=== PATIENT | female | born 1960 | race Caucasian/White ===

== ENCOUNTER 2021-07-22 09:45 | Outpatient (RCR) | payer MEDICARE, MEDICAID, SELFPAY ==
--- NOTE | 2021-06-23 14:26 | P.HPPSP_ITS ---
HPI Chief Complaint: MDD, Borderline Personality D/o Sources of Information: patient interviewed and chart reviewed HPI Subjective Notes: Gregory Warning and Conditional Voluntary Guardianship: No Medical Problems Affecting Mental Status: No Narrative: Doretha is a 60 y.o. female who carries a dx of PDD and AXEL without panic attacks. Per chart, her visiting nurse sent her to the ER at [facility] last week due to increased suicidal ideation. Client was assessed by [facility] and they recommended either PHP or respite. Precipitating factors include going on family camping trip, felt triggered by family fighting the whole time. I evaluated the pt this morning and upon interview she reports ?I feel a lot more angry,? but not sure if this is situational. Says she has had multiple medication trials for depression but non have helped, also has hx of TMS and ECT. Endorses SI and says suicidal thoughts are ?always there,? has a plan to overdose on meds. She has a VNA ([facility]) and locked box. Discloses that she has had multiple suicidal gestures, as she has a stock pile of meds she has collected over time from if she has a day she misses a pill. Will occasionally take pills from the stockpile but says she has not taken the whole thing because she has a fear of ?If i fail, i?ll be disabled.? Still engages in cutting, last incident a couple weeks ago, does not require medical attention. Also says ?I do hit myself in the head,? last incident was yesterday. She also engages in skin excoriation i.e. picking scabs. She has other forms of self harm, i.e. not eating correct foods for her non-insulin dependent DM, says her A1c has been going back up, last was 6.2. She reports she is not aggressive or violent, rather she will ?fume quietly.? 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 Also reports she is unable to tolerate criticism or people ?making me feel like i?m stupid.? Says she consistently in an anxious/ agitated state, ?I could jump out of my skin.? Denies hx of manic or hypomanic episodes, daytime energy ?sucks.? Endorses sx of avolition, anhedonia, she hasnt had energy to go to the car and clean it out from last time she went camping. Also does not get groceries and sometimes goes without eating. Recently her DMH worker signed her up for a meal delivery through the [employer]. Denies hx of perceptual disturbances. Denies sx of OCD. She reports long hx of difficulty maintaining relationships, with family she ?always felt like i did everything wrong? and that people were ?talking about how i did everything wrong.? Denies having panic attacks, however says she will find herself ?rocking a lot? in her chair. Alleviating factors include reading, she is also proactive in seeking help, recently participated in DBT study at [facility]. Sleep is good. Appetite is increased. Current med regimen: Gabapentin 600 mg TID (for sciatica), Zoloft 50 mg (tapering off it),? fetzima 60 mg (started 05/18/21, says ?I dont feel particularly different?), Trazodone 50 mg QHS. Prescriber is Dr. Lara. Past meds: bupropion XL (lack of benefit), lamictal, lithium (has trialed this twice, first time was in s, then on it at [facility] a couple yrs ago but D/C?d due to GI distress), abilify (took in , increased appetite), Risperdal (increased blood sugar), Rexulti, Cymbalta, Lexapro, geodon, Trintellix, zyprexa, zoloft, seroquel, Ketamine (per record but she does not think this was actually tried, just discussed). PPH: -Has done TMS, ECT, DBT therapy with minimal benefit.? -Has VNA, locked box through [facility] -Has DMH services, OP med management and therapy. Onset of OP therapy in childhood, reports she had behavioral/ anger issues. -Hx of multiple inpatient and PHP admissions, CSS/respite for depression and SI. -Long hx if SIB, i.e. cutting since her early teens, head banging. Hx of SA by OD. Substance use: -Cannabis: daily use, says it helps ?somewhat? for anxiety and sleep. 1-2 bowls per day. PMH: -non-insulin dependent DM, on metformin. Last A1c was 6.2.? -Has [employer], CPAP machine.? SH: -Unemployed, her benefits recently ran out. 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 Stopped working during the pandemic. -Lives alone in an apt -Raised by both parents, oldest of three. Both parents are now . Close with sister. Never and has no children. Trauma: -reports multiple losses in her life, her mom 09/2018, dad 11/[facility] (both had Alzheimer?s). She had two cats for 20 years but they , tearful discussing this, has not wanted another pet because of experiencing ?too much grief.? -severe bullying in school. Medical Evaluation Reviewed: No [facility] Medical History (Updated 06/24/21 @ 10:19 by Hailey Jones NP) Arthritis Atrial fibrillation Congestive heart failure Fibromyalgia Hyperlipidemia Hypertension Myocardial infarction Type II diabetes mellitus Vertigo Meds/Allergies Allergies Allergies Allergy/AdvReac Type Severity Reaction Status Date / Time lithium [LITHIUM] AdvReac Severe Gastroenter Unverified 06/19/20 16:23 itis SEASONAL ALLERGIES Allergy Unknown unk Uncoded 06/19/20 16:23 Mental Status Exam Mental Status Exam Narrative: Remote session: A&O. Well groomed, short hair, overweight. Good eye contact, attentive. No Tics or Tremors. No abnormal involuntary movements. Calm, cooperative, engaged. Non-pressured speech, spontaneous with regular rate and rhythm, normal volume and prosody. No prolonged speech latency or dysarthria. Mood is ?irritable,? affect is tearful at times, constricted. Endorses SI with plan to OD on meds but denies intent upon inquiry today/ recent SIB in form of superficial cutting and head banging/ denies HI upon inquiry. Denies A/VH or delusional thought content. Thoughts are coherent, organized. No known cognitive or memory impairment. Insight/ Judgment fair and adequate. Assessment & Plan Assessment & Plan (1) Dysthymic disorder: Status: Acute Code(s): F34.1 - Dysthymic disorder (2) Suicidal ideation: Status: Acute Code(s): R45.851 - Suicidal ideations (3) AXEL (generalized anxiety disorder): Status: Acute Code(s): F41.1 - Generalized anxiety disorder (4) Fibromyalgia: Status: Acute Code(s): M79.7 - Fibromyalgia Assessment and Plan: Doretha is a 60 y.o. female who carries a dx of PDD and AXEL without panic attacks. She presents with sx of agitation, depression, anxiety, and SI with plan to OD on meds but without intent, SIB, low distress tolerance, and isolative behaviors. Hx of multiple meds trials, ECT, TMS, therapy since childhood. No psychotic sx reported. No hx of manic or hypomanic episodes. Has trauma hx. Has some sx of BPD, PTSD. Plan: 1. continue OP med regimen. Add trileptal 300 mg BID for mood stability, agitation, and anxiety. 2. Monitor response to medications. Discharge on stabilization. Patient seen. Chart reviewed. Discussed with team. Obtain collateral contact info?as needed Certification I certify that partial hospital treatment is medically necessary due to the symptoms and problems resulting from the patient's mental illness and the failure to treat the patient at the partial hospital level of care would likely result in the patient requiring inpatient psychiatric care which could not be prevented at a less intensive level of care.
[2021-06-23 15:40] VITALS: BMI 43.9
--- NOTE | 2021-06-24 10:19 | PC.ADMIT ---
Patient reports she was talking to her VNA about her depression and SI and VNA called an ambulance to transport patient to the ER for a crisis evaluation at [facility]. Crisis referred patient to Respite or PHP. Patient is attending PHP d/t increased depression in the last few weeks. Patient reports chronic SI reporting she always has a plan for example if she decides to stop taking her medications, however patient denied intent. Patient reports she does not have access to her medication as it is locked up and she has a visiting nurse. Patient agreed to call crisis or talk to staff if she started to feel unsafe and needed a higher level of care and patient agreed. Patient reports she has the crisis number if she needed it and she could call her therapist. Patient reports a camping trip with family triggered recent episode of depression and anger as the trip didn't work out as planned. Patient reports she does feel steve as she has many supports as she now has a VNA, DMH worker, someone who delivers meals to her home, and laundry services. Patient is alert and oriented x4 . Calm, cooperative, engaging in conversation. Presents with depressed mood and affect. Patient reports she is here d/t increase in depression for the last few weeks. Asked who she could contact if she started to feel unsafe and she stated her therapist of crisis. Stated she has the crisis number in several places through out her home. Patient gave verbal permission to email her a copy of her safety plan. Medications reconciled with patient and patient's pharmacy. Patient reports she is taking medications as prescribed. Patient reports she recently had an MRI of her brain on June 03, 2021 ordered by ENT doctor d/t vertigo and is awaiting results and has an upcoming appointment on July 28, 2021for an endoscopy and colonoscopy for GI issues-diarrhea. Patient is a Type II diabetic and stated her BS by glucometer run 120's -130 s.
--- NOTE | 2021-06-25 11:45 | PC.NURSE ---
I called and spoke to pt after she was tearful in he 2nd group. She reported feeling emotionally triggered when a peer was discussing loss issues. She processed her feelings about this, and then we discussed coping skills she will use before the next group. She plans to sit outside on her deck and smell the newly cut grass, and to eat a yogurt. She said she is safe, and not planning to self harm. I let her know to call any time if needed.
--- NOTE | 2021-06-25 16:43 | PC.NURSE ---
case opened in treatment team
--- NOTE | 2021-06-30 12:18 | P.PNPSP_ITS ---
Subjective Subjective Date of Service: 06/30/21 Reason For Visit: MDD, Borderline Personality D/o Interim History: Doretha is a 60 y.o. female who carries a dx of PDD and AXEL without panic attacks. Per chart, her visiting nurse sent her to the ER at [facility] last week due to increased suicidal ideation. Client was assessed by [facility] and they recommended either PHP or respite. Precipitating factors include going on family camping trip, felt triggered by family fighting the whole time. I evaluated the pt this morning and upon interview she reports ?i dont think i feel much different? on trileptal. Has felt tired in the day but she is unsure if this is a med SE or that she is only getting 3.5 hours of sleep at night. She doesnt go to bed until 5am, will ?dose off,? but keeps herself awake and identifies as a ?night owl,? hx of working second shift. She listens to videos on [employer] (watches news, cartoons, comments and sometimes argues with people but describes this as enjoyable), plays video games, eats snacks at night. Says she tries to be up by 9am, has a routine for morning television, sometimes takes naps. Reports she is not agitated, but ?irritated? at home health aid due to her not doing her job correctly, leaving early. Hasn?t complained, doesnt want to get her in trouble, but has been problem solving this and would like to leave her helpful hints on post its around the house. Says her anxiety has been ?pretty good,? but that ?i think i?m developing agoraphobia.? Of note, she says her depression hasn?t changed, ?although i do feel brighter today.? Wants to trial an increase in trileptal. Stressors include that she needs an endoscopy a nd colonoscopy, had blood in stool. Also has to f/u with neurologist today on MRI d/t headaches and she thinks she has a sinus infection. Says her blood sugar has been in the 120s in the morning. Discloses on Tuesday she superficially cut herself, denies having a specific a trigger, ?I just get a tension through my body and i gotta do it.? Currently denies SI/SIB upon inquiry and says she feels safe. Medication Compliance: Yes Side effects from medications: No Attending Groups: Yes Review of Systems Acute medical concerns: No Medical Review of Systems: unchanged Mental Status Exam Mental Status Exam Narrative: A&O. Well groomed, short hair, overweight. Good eye contact, attentive. No Tics or Tremors. No abnormal involuntary movements. Calm, coope rative, engaged. Non-pressured speech, spontaneous with regular rate and rhythm, normal volume and prosody. No prolonged speech latency or dysarthria. Mood is ?depressed,? affect is tearful at times, constricted. Denies SI/SIB but discloses recent SIB in form of superficial cutting. Denies HI upon inquiry. Denies A/VH or delusional thought content. Thoughts are coherent, organized. No known cognitive or memory impairment. Insight/ Judgment fair and adequate. Diagnostics Vital Signs (24Hr): Body Mass Index 43.9 Assessment & Plan Assessment & Plan (1) AXEL (generalized anxiety disorder): Status: Acute Code(s): F41.1 - Generalized anxiety disorder (2) Dysthymic disorder: Status: Acute Code(s): F34.1 - Dysthymic disorder (3) Suicidal ideation: Status: Acute Code(s): R45.851 - Suicidal ideations Assessment and Plan: Doretha is a 60 y.o. female who carries a dx of PDD and AXEL without panic attacks. She presents with sx of agitation, depression, anxiety, and SI with plan to OD on meds but without intent, SIB, low distress tolerance, and isolative behaviors. Hx of multiple meds trials, ECT, TMS, therapy since childhood. No psychotic sx reported. No hx of manic or hypomanic episodes. Has trauma hx. Has some sx of BPD, PTSD. Plan: 1. continue OP med regimen. Increase trileptal to 300 mg QAM and 600 mg QHS for mood stability, agitation, and anxiety. She has not noticed a difference on the medication but has also not been leaving the house and so has low stressors. She has not engaged in head banging though and denies SE. Will cotninue to monitor her agitation and anxiety. No other changes, as she says her fetzima was a relatively recent addition and has been titrated up, wants to give it more time and f/u with OP psychiatrist before switching to a diff antidepressant. 2. Monitor response to medications. Discharge on stabilization. Patient seen. Chart reviewed. Discussed with team. Obtain collateral contact info as needed Certification I certify that partial hospital treatment is medically necessary due to the symptoms and problems resulting from the patient's mental illness and the failure to treat the patient at the partial hospital level of care would likely result in the patient requiring inpatient psychiatric care which could not be prevented at a less intensive level of care. Greater than 50% of the session was spent on counseling and/or coordination of care Discharge Plan Discharge Attending provider: Nilay Cruz Primary Care Provider: Alicia Brown Medications: Changed oxcarbazepine [Trileptal] 300 mg tablet 600 mg PO BEDTIME 7 Days Qty: 21 RF: 0 No Action atorvastatin 80 mg Tablet 80 mg PO BEDTIME RF: 0 gabapentin 600 mg Tablet 600 mg PO TID RF: 0 trazodone 50 mg Tablet 50 mg PO BEDTIME RF: 0 cetirizine 10 mg Tablet 10 mg PO DAILY RF: 0 sotalol 80 mg Tablet 40 mg PO BID RF: 0 spironolactone 25 mg Tablet 25 mg PO DAILY RF: 0 meclizine 25 mg Tablet 25 mg PO TID PRN (Reason: Dizziness) RF: 0 pantoprazole 40 mg Tablet,Delayed Release (Dr/Ec) 40 mg PO BID RF: 0 aspirin 81 mg Tablet 81 mg PO DAILY RF: 0 furosemide 20 mg Tablet 40 mg PO DAILY RF: 0 albuterol sulfate [ProAir HFA] 90 mcg/actuation Hfa Aerosol Inhaler 2 puff INHALATION Q4H PRN (Reason: Shortness Of Breath) RF: 0 fluticasone propionate 50 mcg/actuation spray,suspension 1 spray intranasal BID RF: 0 sertraline 50 mg Tablet 50 mg PO DAILY RF: 0 metformin 500 mg Tablet Extended Release 24hr 1,500 mg PO DAILY RF: 0 Eliquis 5 mg Tablet 5 mg PO BID RF: 0 Fetzima 20 mg Capsule,Extended Release 24 Hr 20 mg PO DAILY RF: 0 Fetzima 40 mg Capsule,Extended Release 24 Hr 40 mg PO DAILY RF: 0 Referrals: Alicia Brown, IVORY [Primary Care Provider] - 1 Week
--- NOTE | 2021-06-30 12:18 | HO.PS.ADMBH ---
HPI Chief Complaint: MDD, Borderline Personality D/o [facility] Medical History (Updated 06/24/21 @ 10:19 by Hailey Jones NP) Arthritis Atrial fibrillation Congestive heart failure Fibromyalgia Hyperlipidemia Hypertension Myocardial infarction Type II diabetes mellitus Vertigo Diagnostics Vital Signs (24Hr): Body Mass Index 43.9 Meds/Allergies Allergies Allergies Allergy/AdvReac Type Severity Reaction Status Date / Time lithium [LITHIUM] AdvReac Severe Gastroenter Unverified 06/19/20 16:23 itis SEASONAL ALLERGIES Allergy Unknown unk Uncoded 06/19/20 16:23 Assessment & Plan Certification I certify that partial hospital treatment is medically necessary due to the symptoms and problems resulting from the patient's mental illness and the failure to treat the patient at the partial hospital level of care would likely result in the patient requiring inpatient psychiatric care which could not be prevented at a less intensive level of care.
--- NOTE | 2021-07-03 11:27 | PC.NURSE ---
Spoke to patient via telephone. Patient struggling today with depression. Tearful. Stating she woke up this morning feeling this way. Feels like she is not really here and her stuff is not her stuff. Asked patient is she was having SI and she stated she is trying to be ok and she is not actively planning on doing anything. Stated she would be safe. Stated she texted her visiting nurse Carrie to ask when she would be coming to her home and Carrie told her 11:30. I asked her if I could speak to Carrie from [facility] and she told me yes and gave me her number [phone]. I asked patient if she had any extra medications at her house and she stated she does but she does not have enough of them to do anything. I asked her if she could tell me where they were and if I could share this information with Carrie so Carrie could help her get rid of the extra medications and she stated that it would be ok. She reports she has small pieces on a tray and some in a drawer. She stated she does not plan to take them. Patient is interested in going into [facility]pite. I spoke to Carrie and gave her the above information. Carrie will talk to patient about getting a crisis evaluation or going to Respite. Carrie will call me back to update me.
--- NOTE | 2021-07-03 12:09 | PC.NURSE ---
Spoke to Carrie and Doretha at 12:05. Doretha gave Carrie the extra medications she had in her home. Plan is for patient to be assessed by [facility] crisis via Zoom meeting at 12:15. Doretha is agreeable to the plan and will call me after the assessment to let me know uzma outcome.
--- NOTE | 2021-07-03 15:23 | PC.NURSE ---
Spoke to Doretha. Stated she feels much better after talking to [facility]. Denied SI or thoughts to harm herself. She has the crisis number if needed. Plans on attending the program on Tuesday. Stated [facility] crisis will do a wellness check with patient at 1500 and her home health aid is coming to her home at 1530.
--- NOTE | 2021-07-06 15:16 | HO.PHPPROGNO ---
Subjective Subjective Date of Service: 07/06/21 Reason For Visit: MDD, Borderline Personality D/o Guardianship: No Medical Problems Affecting Mental Status: No Interim History: Doretha reports feeling okay today. Reports she called crisis on Tuesday, due to thoughts of self-harm. Denies any thought of harm to self or others today.She does reports feeling twitchy over the past 1 1/2 months, with it more noticeable over the past several weeks. Also reports needing to hold her coffee cup with both hands. She has also noted increased sweating. She believes this is related to either the Fetzima or Trileptal. States that she did feel nausea and vomiting this morning, but states that may have been related to something she eaten. Medication Compliance: Yes Side effects from medications: Yes (Osbaldo, ) Review of Systems Acute medical concerns: No Medical Review of Systems: changed (feeling twitching over past 1 1/2 months, with worsening over past several weeks. ) Review of Systems Review of Systems Patient reports twitching and sweating , which have increased over past several weeks. Yes all other systems are reviewed and are negative Constitutional: Reports no additional constitutional complaints Eyes: Reports no additional eye complaints Reports Normal hearing present Cardiovascular: Reports no additional cardiovascular complaints Respiratory: Reports no additional respiratory complaints Gastrointestinal: Reports nausea (nausea this am, believes it could be food related. ) and Reports vomiting (reports vomited this am, believes is food related) Genitourinary: Reports no additional female genitourinary complaints Musculoskeletal: Reports tingling and Reports other Comments: describes muscle twitching . Skin/Breast: Reports system reviewed and no additional complaints, except as docu Reports Normal hearing present and Reports tingling Psychiatric: Reports no additional psychiatric complaints Endocrine: Reports no additional endocrine complaints Hematologic/Lymphatic: Reports no additional hematologic/lymphatic complaints Allergic/Immunologic: Reports no additional allergic/immunologic complaints Mental Status Exam Mental Status Exam Narrative: Well-developed, overweight female, in NAD. Appropriate grooming, appropriate attire. Sitting up, erect posture. No twitching or diaphoresis observed at this time. Patient Appearance: Well Grooomed and Appropriate Patient Orientation: Person, Place, Time and Situation Level of Consciousness: Appropriate and Alert Patient Behavior: Appropriate, Cooperative and Good Eye Contact Mood Description: Appropriate and Depressed Affect Description: Appropriate and Depressed Patient Cognition Impaired: No Ability to Follow Directions: Excellent Speech Pattern: Clear, Appropriate and Coherent Memory Description: Intact Hallucinations: None Delusions: Not Present Thought Process: Intact, Goal Oriented and Linear Thought Content: positive for Intact, positive for Goal Oriented and positive for Linear Depressive Symptoms: Muscle Tension, Loss of Int. in Activity, Feelings of Worthlessness, Hopelessness and Thoughts of /Suicide (intermittent, none today. ) Judgement: Fair Diagnostics Vital Signs (24Hr): Body Mass Index 43.9 Assessment & Plan Assessment & Plan (1) Dysthymic disorder: Status: Acute Code(s): F34.1 - Dysthymic disorder Assessment and Plan: Patient reports feeling overall depressed, but feels stable at this time. Denies any type of SI. No safety concerns at this time. She does describe symptoms of sweating, twitching. She also had been nauseous this morning, and vomited, although she relates that in [place] to something that she may have eaten. We discussed current health status, patient does have a history of cardiac issues. Patient was encouraged to seek medical care if symptoms worsen. Discussed the use of SSRIs, symptoms of serotonin syndrome, symptoms of hyponatremia. Patient also takes several anti diuretics. She believes that her symptoms are directly related to either too high of a dose of Zoloft with the Fetzima, or possibly because she had Trileptal increased recently. (2) AXEL (generalized anxiety disorder): Status: Acute Code(s): F41.1 - Generalized anxiety disorder Assessment and Plan: Patient denies any type of exacerbation of anxiety symptoms today. (3) Suicidal ideation: Status: Acute Code(s): R45.851 - Suicidal ideations Assessment and Plan: Patient reports she is not actively suicidal at this time. Describes her symptoms as coming and going, feels safe today. Assessment and Plan: 1. Decrease sertraline to 25mg daily. 2. Decrease trileptal to 300mg daily. 3. Obtain labs, slip for gen chem profile sent. 4. Encouraged patient to call pcp or seek medical care if needed. 5. Follow-up as per protocol, sooner if needed. Patient educated on: diagnosis, medication risk/benefits, therapeutic strategies and medical condition Informed Consent: understands Reason for contiued partial hosp. stay Substantial Risk for: inability to function and med/psych decompensation Certification I certify that partial hospital treatment is medically necessary due to the symptoms and problems resulting from the patient's mental illness and the failure to treat the patient at the partial hospital level of care would likely result in the patient requiring inpatient psychiatric care which could not be prevented at a less intensive level of care. Greater than 50% of the session was spent on counseling and/or coordination of care Discharge Plan Discharge Attending provider: Nilay Cruz Primary Care Provider: Alicia Brown Medications: New oxcarbazepine [Trileptal] 300 mg tablet 300 mg PO DAILY Qty: 7 RF: 0 No Action atorvastatin 80 mg Tablet 80 mg PO BEDTIME RF: 0 gabapentin 600 mg Tablet 600 mg PO TID RF: 0 trazodone 50 mg Tablet 50 mg PO BEDTIME RF: 0 cetirizine 10 mg Tablet 10 mg PO DAILY RF: 0 sotalol 80 mg Tablet 40 mg PO BID RF: 0 spironolactone 25 mg Tablet 25 mg PO DAILY RF: 0 meclizine 25 mg Tablet 25 mg PO TID PRN (Reason: Dizziness) RF: 0 pantoprazole 40 mg Tablet,Delayed Release (Dr/Ec) 40 mg PO BID RF: 0 aspirin 81 mg Tablet 81 mg PO DAILY RF: 0 furosemide 20 mg Tablet 40 mg PO DAILY RF: 0 albuterol sulfate [ProAir HFA] 90 mcg/actuation Hfa Aerosol Inhaler 2 puff INHALATION Q4H PRN (Reason: Shortness Of Breath) RF: 0 fluticasone propionate 50 mcg/actuation spray,suspension 1 spray intranasal BID RF: 0 sertraline 50 mg Tablet 50 mg PO DAILY RF: 0 metformin 500 mg Tablet Extended Release 24hr 1,500 mg PO DAILY RF: 0 Eliquis 5 mg Tablet 5 mg PO BID RF: 0 Fetzima 20 mg Capsule,Extended Release 24 Hr 20 mg PO DAILY RF: 0 Fetzima 40 mg Capsule,Extended Release 24 Hr 40 mg PO DAILY RF: 0 Referrals: Alicia Brown PA [Primary Care Provider] - 1 Week Telehealth Telehealth Location of provider rendering services: practice address Location of patient: address on file Patient Identification confirmed using: Name, : Yes Telehealth method: video Patient verbally consented to treatment: Yes Patient verbally consented to billing insurance company: Yes Patient informed of any privacy concerns related to visit: Yes Time spent with patient (mins): 15
--- NOTE | 2021-07-14 12:03 | P.PNPSP_ITS ---
Subjective Subjective Date of Service: 07/14/21 Reason For Visit: MDD, Borderline Personality D/o Interim History: I evaluated the patient this morning and upon interview she reports lack of benefit on trileptal and poor tolerability, i.e. increased nausea and vomiting, says she has ?always had bowel issues but the vomiting is unusual for me.? Will D/C the trial. Has not obtained lab work yet to assess for sodium level. Will D/C sertraline, as she denies adverse effects/ discontinuatio n syndrome from going down to 25 mg. Still complains of feeling ?really twitchy.? Doretha continues to endorse sx of depression and passive SI. Says she was having suicidal thoughts yesterday while making the bed, tearful discussing this, but says the thoughts passed and she currently denies suicidal thoughts, plans, or intent. Reports last episode of cutting was on Tuesday, superficial and did not require medical attention. Unable to identify trigger for SIB, says she just gets urges and is unable to tolerate the distress of not acting on the urge. Says she has been feeling ?frustrated? that her depression is not improving despite therapeutic interventions, ?I feel bad because im not getting better.? Attending a mindfulness meditation group remotely but says this has had minimal benefit. Discussed other groups she could do, such as art groups, as she is highly motivated to increase her activity level for sx of vegetative depression (she had signed up for photography class at [facility], [place] but it was cancelled). She continues to report reverse sleep cycle i.e. stays up until 5am and then sleeps in the morning. Discussed adjunct medications for her sx of depression, as she would like to continue fetzima trial with Dr. Lara. She thinks she has been on buspar, doesnt think it helped. Continues to endorse sx of avolition, anhedonia.? Medication Compliance: Yes Side effects from medications: Yes Attending Groups: Yes Review of Systems Acute medical concerns: No Medical Review of Systems: unchanged Review of Systems Review of Systems CVS: No c/o chest pain, palpitations, no SOB CLINICAL DOCUMENTATION SPECIALIST: No c/o dizziness, headache GI: c/o Nausea, Vomiting Mental Status Exam Mental Status Exam Narrative: Narrative:?Well-developed, overweight female, in NAD.? Appropriate grooming, appropriate attire.? Sitting up, erect posture.? No twitching or diaphoresis observed at this time. Patient Appearance:?Well Grooomed and Appropriate Patient Orientation:?Person, Place, Time and Situation Level of Consciousness:?Appropriate and Alert Patient Behavior:?Appropriate, Cooperative and Good Eye Contact Mood Description:?Appropriate and Depressed Affect Description:?Appropriate and Depressed Patient Cognition Impaired:?No Ability to Follow Directions:?Excellent Speech Pattern:?Clear, Appropriate and Coherent Memory Description:?Intact Hallucinations:?None Delusions:?Not Present Thought Process:?Intact, Goal Oriented and Linear Thought Content:?positive for Intact, positive for Goal Oriented and positive for Linear Depressive Symptoms:?Muscle Tension, Loss of Int. in Activity, Feelings of Worthlessness, Hopelessness and Thoughts of /Suicide (intermittent, none today. ) Judgement:?Fair Diagnostics Vital Signs (24Hr): Body Mass Index 43.9 Assessment & Plan Assessment & Plan (1) Dysthymic disorder: Status: Acute Code(s): F34.1 - Dysthymic disorder (2) Suicidal ideation: Status: Acute Code(s): R45.851 - Suicidal ideations (3) AXEL (generalized anxiety disorder): Status: Acute Code(s): F41.1 - Generalized anxiety disorder Assessment and Plan: Pt reports lack of efficacy on trileptal, now taking 300 mg daily and has had n/v since starting trial. At baseline has GI distress, has endoscopy and colonoscopy scheduled for further management. Continues to report feeling twitchy despite med changes. Will obtain lab work to assess sodium level per primary team. Now taking sertraline 25 mg, will discontinue per cross titration plan with OP prescriber, continue on fetzima trial for depression. She does not want changes to this antidepressant, as she prefers to f/u with her psychiatrist, Dr. Lopez. Will obtain EKG due to cardiac hx, had AK two yr ago. Plan: start methylphenidate 5 mg QAM and Qnoon to target sx of vegatative depression, use is off label due to multiple failed med trials for treatment refractory depression. Reviewed risks and benefits. Follow-up as per protocol, sooner if needed. Patient educated on: medication risk/benefits Certification I certify that partial hospital treatment is medically necessary due to the symptoms and problems resulting from the patient's mental illness and the failure to treat the patient at the partial hospital level of care would likely result in the patient requiring inpatient psychiatric care which could not be prevented at a less intensive level of care. Greater than 50% of the session was spent on counseling and/or coordination of care Discharge Plan Discharge Attending provider: Nilay Cruz Primary Care Provider: Alicia Brown Medications: New methylphenidate HCl 5 mg tablet 5 mg PO BID Qty: 14 RF: 0 Discontinued sertraline 50 mg Tablet 50 mg PO DAILY RF: 0 No Action atorvastatin 80 mg Tablet 80 mg PO BEDTIME RF: 0 gabapentin 600 mg Tablet 600 mg PO TID RF: 0 trazodone 50 mg Tablet 50 mg PO BEDTIME RF: 0 cetirizine 10 mg Tablet 10 mg PO DAILY RF: 0 sotalol 80 mg Tablet 40 mg PO BID RF: 0 spironolactone 25 mg Tablet 25 mg PO DAILY RF: 0 meclizine 25 mg Tablet 25 mg PO TID PRN (Reason: Dizziness) RF: 0 pantoprazole 40 mg Tablet,Delayed Release (Dr/Ec) 40 mg PO BID RF: 0 aspirin 81 mg Tablet 81 mg PO DAILY RF: 0 furosemide 20 mg Tablet 40 mg PO DAILY RF: 0 albuterol sulfate [ProAir HFA] 90 mcg/actuation Hfa Aerosol Inhaler 2 puff INHALATION Q4H PRN (Reason: Shortness Of Breath) RF: 0 fluticasone propionate 50 mcg/actuation spray,suspension 1 spray intranasal BID RF: 0 metformin 500 mg Tablet Extended Release 24hr 1,500 mg PO DAILY RF: 0 Eliquis 5 mg Tablet 5 mg PO BID RF: 0 Fetzima 20 mg Capsule,Extended Release 24 Hr 20 mg PO DAILY RF: 0 Fetzima 40 mg Capsule,Extended Release 24 Hr 40 mg PO DAILY RF: 0 Referrals: Alicia Brown PA [Primary Care Provider] - 1 Week
--- NOTE | 2021-07-16 14:03 | PC.NURSE ---
Patient EKG Results showed BPM 49, bradycardia, borderline rhythm. Labs including BUN 23 A1C 7.4, Glucose 116. Angela Gómez aware. Patient has an upcoming appointment with her die inspector on 07/23/21, copy of EKG and labs faxed to [facility]. Patient reports that her pulse typically runs in the low 50's. Stated her VNA monitors her BP and pulse. Patient to increase her fluid intake. Patient reports she was vomiting recently and attributed this to starting Trileptal. Trileptal was stopped as a result, and patient reported improvement.
--- NOTE | 2021-07-17 10:39 | PC.NURSE ---
Faxed EKG results and lab results to patient's ditch repairer office at [facility]. Called this morning to f/u and left a message with the EKG results. Shruthi from the office called me back and stated she could not find the results. Confirmed I had the correct fax number. Shruthi gave me another fax number to send it to and results were re-faxed per request. I told Shruthi to call me back if she did not receive the results.
--- NOTE | 2021-07-17 13:46 | P.PNPSP_ITS ---
Subjective Subjective Date of Service: 07/17/21 Reason For Visit: MDD, Borderline Personality D/o Guardianship: No Medical Problems Affecting Mental Status: No Interim History: Doretha reports that ?this morning is not too bad , when asked about depressive symptoms. She explained that yesterday was a bad day, but today is better. Medication Compliance: Yes Side effects from medications: No Attending Groups: Yes Review of Systems Acute medical concerns: No Medical Review of Systems: unchanged Review of Systems Review of Systems Yes all other systems are reviewed and are negative Mental Status Exam Mental Status Exam Narrative: Well-developed, overweight female, in NAD. Patient Appearance: Well Grooomed and Appropriate Patient Orientation: Person, Place, Time and Situation Level of Consciousness: Awake and Alert Patient Behavior: Appropriate, Cooperative and Good Eye Contact Mood Description: Calm, Appropriate and Depressed Affect Description: Calm, Appropriate and Depressed Patient Cognition Impaired: No Ability to Follow Directions: Excellent Speech Pattern: Clear, Appropriate, Spontaneous Speech and Coherent Memory Description: Intact Hallucinations: None Delusions: Not Present Thought Process: Intact, Goal Oriented and Linear Thought Content: positive for Intact and positive for Suicidal Ideation (intermittent passive SI, no plan/intent at this time) Depressive Symptoms: Increased Anxiety, Crying Spells, Isolating-Friends/Family, Feelings of Guilt, Increased Fatigue, Thoughts of /Suicide (passive si, no intent/plan), Unexplained Stomach Pain, Low Self Esteem and Loss of Energy Judgement: Fair Diagnostics Vital Signs (24Hr): Body Mass Index 43.9 Labs Labs: Discussed recent lab findings that were faxed from outpatient provider. Discussed need to have adequate hydration. Client is following up with outpatient provider regarding physical health concerns. She reports she has is planned endoscopy/colonoscopy scheduled. EKG EKG: reviewed EKG Comment: Reviewed outpatient EKG that was faxed to [facility]. Patient was found to have bradycardia, reports that her pulse typically runs low, and that this is baseline. Borderline EKG interpreted by outpatient providers, results have been scanned and faxed to her outpatient printing bindery assistant, with whom she has an upcoming appointment. Assessment & Plan Assessment & Plan (1) Dysthymic disorder: Status: Acute Code(s): F34.1 - Dysthymic disorder Assessment and Plan: Client reports has not started Ritalin yet for depression as it was not yet available at pharmacy. Reports her nurse is going there today to get it so that she can started. Discussed medication in detail. She states that she is a little nervous about having it in the home, as she does not want to find herself taking more and more of it if it works well. We discussed fact that medication will be in locked box, and that her nurse will leave out appropriate doses as prescribed. She was in agreement that this is a good plan. Passive SI, no intent/plan. Medications are locked securely, administered by home care nurse. No safety concerns at this time. (2) AXEL (generalized anxiety disorder): Status: Acute Code(s): F41.1 - Generalized anxiety disorder Assessment and Plan: Reports anxiety more manageable today. (3) Suicidal ideation: Status: Acute Code(s): R45.851 - Suicidal ideations Assessment and Plan: No active SI at this time. Assessment and Plan: 1. Continue current medications as prescribed. 2. Follow-up with outpatient medical providers regarding health concerns. 3. Follow up here as per protocol. Reason for contiued partial hosp. stay Substantial Risk for: harm to self, inability to function and med/psych decompensation Certification I certify that partial hospital treatment is medically necessary due to the symptoms and problems resulting from the patient's mental illness and the failure to treat the patient at the partial hospital level of care would likely result in the patient requiring inpatient psychiatric care which could not be prevented at a less intensive level of care. Greater than 50% of the session was spent on counseling and/or coordination of care Discharge Plan Discharge Attending provider: Nilay Cruz Primary Care Provider: Alicia Brown Medications: New methylphenidate HCl 5 mg tablet 5 mg PO BID Qty: 14 RF: 0 Discontinued sertraline 50 mg Tablet 50 mg PO DAILY RF: 0 No Action atorvastatin 80 mg Tablet 80 mg PO BEDTIME RF: 0 gabapentin 600 mg Tablet 600 mg PO TID RF: 0 trazodone 50 mg Tablet 50 mg PO BEDTIME RF: 0 cetirizine 10 mg Tablet 10 mg PO DAILY RF: 0 sotalol 80 mg Tablet 40 mg PO BID RF: 0 spironolactone 25 mg Tablet 25 mg PO DAILY RF: 0 meclizine 25 mg Tablet 25 mg PO TID PRN (Reason: Dizziness) RF: 0 pantoprazole 40 mg Tablet,Delayed Release (Dr/Ec) 40 mg PO BID RF: 0 aspirin 81 mg Tablet 81 mg PO DAILY RF: 0 furosemide 20 mg Tablet 40 mg PO DAILY RF: 0 albuterol sulfate [ProAir HFA] 90 mcg/actuation Hfa Aerosol Inhaler 2 puff INHALATION Q4H PRN (Reason: Shortness Of Breath) RF: 0 fluticasone propionate 50 mcg/actuation spray,suspension 1 spray intranasal BID RF: 0 metformin 500 mg Tablet Extended Release 24hr 1,500 mg PO DAILY RF: 0 Eliquis 5 mg Tablet 5 mg PO BID RF: 0 Fetzima 20 mg Capsule,Extended Release 24 Hr 20 mg PO DAILY RF: 0 Fetzima 40 mg Capsule,Extended Release 24 Hr 40 mg PO DAILY RF: 0 Referrals: Alicia Brown PA [Primary Care Provider] - 1 Week Telehealth Telehealth Patient Identification confirmed using: Name, : Yes Telehealth method: video Patient verbally consented to treatment: Yes Patient verbally consented to billing insurance company: Yes Patient informed of any privacy concerns related to visit: Yes Time spent with patient (mins): 15
--- NOTE | 2021-07-20 12:41 | PC.NURSE ---
Staff told me to call patient. Called patient and she stated she thinks she may be having an episode of Atrial fibrillation as she feels her heart fluttering and her pulse is elevated at 91 however stated it is usually runs in the late 40's. Patient denied difficulty breathing, denied diaphoresis, reports some shoulder pain. She is alert and oriented x4. Patient does have a history of atrial fibrillation. I suggested we call 911, patient was reluctant however agreed. She asked me to call. I called 911 and an ambulance is on their way. Angela Beatriz is aware and is on the phone with the patient until the ambulance arrives.
--- NOTE | 2021-07-20 14:45 | P.EN_ITS ---
Event Note Date of Service: 07/20/21 Event Note: 911 was activated today due to patient experiencing rapid heart ra te, chest discomfort. Patient called this video games storywriter later in day to report that she did not go to hospital, but that she decided to go to bed. She did assure this video games storywriter that she has medical alert button with her and available to press at any time to activate 911. She also reported that her pulse had come back down and felt more normal at this time. She also reported that her visiting nurse was coming to see her this afternoon.
--- NOTE | 2021-07-21 17:35 | P.CNPS_ITS ---
History of Present Illness Chief Complaint: MDD, Borderline Personality D/o [facility] Medical History (Updated 07/06/21 @ 08:37 by Vivienne Sal RN) Arthritis Atrial fibrillation Benign essential HTN Congestive heart failure Fibromyalgia Hyperlipidemia Myocardial infarction Obstructive sleep apnea Osteoarthritis Type II diabetes mellitus Vertigo Diagnostics Vital Signs (24Hr): Body Mass Index 43.9 Medications Allergies Allergies Allergy/AdvReac Type Severity Reaction Status Date / Time lithium [LITHIUM] AdvReac Severe Gastroenter Unverified 06/19/20 16:23 itis SEASONAL ALLERGIES Allergy Unknown unk Uncoded 06/19/20 16:23 Assessment & Plan I spent minutes with the patient and/or on the patient floor today, greater than?50% of which was spent counseling/coordinating care.
--- NOTE | 2021-07-21 17:37 | HO.PHPPROGNO ---
Subjective Subjective Date of Service: 07/21/21 Reason For Visit: MDD, Borderline Personality D/o Interim History: Patient seen and discussed with team. Patient evaluated this morning and upon interview she reports she is not good. She had an episode of rage, unsure if ritalin contributed to her agitation. She couldn't find a book she wanted and reports she became increasingly frustrated, started slamming cabinet doors and drawers, hitting things with her cane, then started to hit herself, gave herself a black eye, cut herself on the face (superficial). She is tearful discussing this incident, feels shame and guilt. Energy is low, feels drained. Says this incident came after she had a decent day on Tuesday, feels like if i have a good day, then the next day is really bad. Continues to report GI distress and has an MD appointment this afternoon. Says she has had rage episodes when younger, that?s when i started hurting myself. Other triggers for anger include that her upstairs neighbor has machine that is really loud, gets in the way of sleep, always has to have the tv on to drown out the noise. She reports she has been on ritalin since and has felt a little more alert. Denies that the rage issue happened after taking the ritalin, wants to continue the trial as she says on it was the first time in so long since I got out of the house, went to [place] to visit the beach, listening to music on the way up. Medication Compliance: Yes Attending Groups: Yes Review of Systems Acute medical concerns: No Medical Review of Systems: unchanged Mental Status Exam Mental Status Exam Narrative: Well-developed, overweight female, in NAD. Patient Appearance:?Well Grooomed and Appropriate Patient Orientation:?Person, Place, Time and Situation Level of Consciousness:?Awake and Alert Patient Behavior:?Appropriate, Cooperative and Good Eye Contact Mood Description:?Calm, Appropriate and Depressed Affect Description:?Calm, Appropriate and Depressed Patient Cognition Impaired:?No Ability to Follow Directions:?Excellent Speech Pattern:?Clear, Appropriate, Spontaneous Speech and Coherent Memory Description:?Intact Hallucinations:?None Delusions:?Not Present Thought Process:?Intact, Goal Oriented and Linear Thought Content:?positive for Intact and positive for Suicidal Ideation (intermittent passive SI, no plan/intent at this time) Depressive Symptoms:?Increased Anxiety, Crying Spells, Isolating-Friends/Family, Feelings of Guilt, Increased Fatigue, Thoughts of /Suicide (passive si, no intent/plan), Unexplained Stomach Pain, Low Self Esteem and Loss of Energy Judgement:?Fair Diagnostics Vital Signs (24Hr): Body Mass Index 43.9 Assessment & Plan Assessment & Plan (1) Dysthymic disorder: Status: Acute Code(s): F34.1 - Dysthymic disorder (2) AXEL (generalized anxiety disorder): Status: Acute Code(s): F41.1 - Generalized anxiety disorder Assessment and Plan: She started Ritalin for off label use for treatment refractory depression, has VNA and locked box. Unsure if it has been helping but thinks it has, although she did have an incident of rage yesterday later in the early evening and is unsure if it is med related. Wants to continue the trial but discussed switching to LA methylphenidate 20 mg QAM as this may have less pulsatile release and be better tolerated. Continues to endorse passive SI, no intent/plan. No safety concerns at this time. 1. Continue current medications as prescribed. 2. Follow-up with outpatient medical providers regarding health concerns. 3. Follow up here as per protocol. Patient educated on: medication risk/benefits Certification I certify that partial hospital treatment is medically necessary due to the symptoms and problems resulting from the patient's mental illness and the failure to treat the patient at the partial hospital level of care would likely result in the patient requiring inpatient psychiatric care which could not be prevented at a less intensive level of care. I spent minutes with the patient and/or on the patient floor today, greater than?50% of which was spent counseling/coordinating care. Discharge Plan Discharge Attending provider: Nilay Cruz Primary Care Provider: Alicia Brown Medications: New methylphenidate HCl [Metadate ER] 20 mg tablet extended release 20 mg PO DAILY Qty: 14 RF: 0 Discontinued sertraline 50 mg Tablet 50 mg PO DAILY RF: 0 No Action atorvastatin 80 mg Tablet 80 mg PO BEDTIME RF: 0 gabapentin 600 mg Tablet 600 mg PO TID RF: 0 trazodone 50 mg Tablet 50 mg PO BEDTIME RF: 0 cetirizine 10 mg Tablet 10 mg PO DAILY RF: 0 sotalol 80 mg Tablet 40 mg PO BID RF: 0 spironolactone 25 mg Tablet 25 mg PO DAILY RF: 0 meclizine 25 mg Tablet 25 mg PO TID PRN (Reason: Dizziness) RF: 0 pantoprazole 40 mg Tablet,Delayed Release (Dr/Ec) 40 mg PO BID RF: 0 aspirin 81 mg Tablet 81 mg PO DAILY RF: 0 furosemide 20 mg Tablet 40 mg PO DAILY RF: 0 albuterol sulfate [ProAir HFA] 90 mcg/actuation Hfa Aerosol Inhaler 2 puff INHALATION Q4H PRN (Reason: Shortness Of Breath) RF: 0 fluticasone propionate 50 mcg/actuation spray,suspension 1 spray intranasal BID RF: 0 metformin 500 mg Tablet Extended Release 24hr 1,500 mg PO DAILY RF: 0 Eliquis 5 mg Tablet 5 mg PO BID RF: 0 Fetzima 20 mg Capsule,Extended Release 24 Hr 20 mg PO DAILY RF: 0 Fetzima 40 mg Capsule,Extended Release 24 Hr 40 mg PO DAILY RF: 0 Referrals: Alicia Brown PA [Primary Care Provider] - 1 Week
--- NOTE | 2021-07-22 17:48 | PC.NURSE ---
I called and LM for pt's therapist, Pop Duran ([phone]). I informed him of pt's successful discharge today.
== END 2021-07-23 07:13 | disposition home or self-care (01) ==
LOC: HO.PHPA 09:45
PROVIDERS: PCP Physician Assistant; Visit Provider Psychiatry & Neurology Psychiatry
DX: F41.1 Generalized anxiety disorder (principal); F34.1 Dysthymic disorder; R45.851 Suicidal ideations; M79.7 Fibromyalgia; Z79.899 Other long term (current) drug therapy
CPT/HCPCS: 90791; 90853

== ENCOUNTER 2021-09-02 15:38 | Inpatient (IN) | payer MEDICARE, MEDICAID, SELFPAY ==
--- NOTE | ~2021-09-02 | XR_ITS ---
EXAMINATION: XR FOOT, RIGHT CLINICAL INFORMATION: Trauma to the third toe. COMPARISON: None TECHNIQUE: AP, lateral, and oblique views of the right foot. FINDINGS: There is deformity of the mid through distal shaft of the proximal phalanx of the third toe. There is a cortical step off of the distal diaphyseal shaft of the phalange. The radiolucent line extends obliquely toward the articular surface of the bone. The radiolucent line though is indistinct and there is apparent cortication of the margins of the radiolucent line. This may therefore be a subacute or chronic change of the bone rather than an acute fracture. Correlate with point tenderness. There is no dislocation. There is a bony exostosis of the lateral side of the proximal shaft of the third metatarsal which is chronic. XR/XR foot RT 2V IMPRESSION: Acute versus chronic fracture deformity of the mid through distal shaft of the third proximal phalange. Correlate with point tenderness.
[2021-09-02 16:17] VITALS: BP 131/69; PULSE 70; TEMP 36.7; O2SAT 97
[2021-09-02 18:12] LABS: Glucose, Whole Blood 115 mg/dL (60-115)
[2021-09-02] MEDS: metFORMIN HCl 1,000 MG TABLET 1000 MG PO (21:42)
[2021-09-02] MEDS: Apixaban 5 MG TABLET PO (21:42)
[2021-09-02] MEDS: traZODone HCL 100 MG TABLET PO (21:42)
[2021-09-02] MEDS: Gabapentin 600 MG TABLET PO (21:43)
--- NOTE | 2021-09-02 23:28 | PC.ADMIT ---
Patient is a 61 year old female admitted on a CV admission to at 1555. She was medically cleared in the [facility] ED, evaluated by ELECTRICAL ENGINEERING DIRECTOR and deemed in need of IPLOC. Patient diagnosis, Major Depressive Disorder, recurrent Moderate. Patient has a medical history to include: NIDDM, CAD, MD, fibromyalgia, arthritis and recent abdominal pain with microscopic blood in her stools. Patient apparently has been having some depression for a few months but self-presented to the ED with SI to overdose on her medications. She has providers to include a PCP, psychiatrist and therapist; she also has a VNA nurse who sees her three times per week. Patient said she has been aware that as the days have been getting darker earlier she has had increased depression. She has also been having issues with a new resident at her apartment complex, where she has been residing for 30 years. The patient said she is frustrated that the apartment management is not being more helpful; she does plan to reach out to her providers for help. Patient completed all of the admission paperwork and signed all legals. She did express concern about her abdominal pain in her left upper quadrant and said she is supposed to have a CT scan sometime next week. Patient said she has had urges to scratch or hurt herself but does contract for safety while on . Medications were reviewed with patient, the paperwork from the [facility] ED. Patient orders were obtained. Patient will be on 15 minute safety checks. She does have previous admissions to and has also been a patient at the [facility] at [facility].
[2021-09-03 00:01] VITALS: BMI 41.4
[2021-09-03 06:00] VITALS: BP 126/66; PULSE 72; TEMP 36.6; O2SAT 97
[2021-09-03] MEDS: Omeprazole 20 MG CAPSULE.DR PO (06:09)
[2021-09-03] MEDS: Gabapentin 600 MG TABLET PO ×3 (06:09→21:01)
--- NOTE | 2021-09-03 08:00 | ECG_ITS ---
Test Reason : new admit Blood Pressure : / mmHG Vent. Rate : 059 BPM Atrial Rate : 059 BPM P-R Int : 130 ms QRS Dur : 092 ms QT Int : 454 ms P-R-T Axes : 000 017 058 degrees QTc Int : 449 ms Sinus bradycardia Nonspecific ST abnormality Abnormal ECG When compared with ECG of 28-JAN-2019 16:19, No significant changes seen Referred By: Andreina Basurto Electronically Signed By:BHAVNA PEÑA
[2021-09-03 08:40] LABS: Estimated Average Glucose 163 mg/dL; Hemoglobin A1c % 7.3 %
[2021-09-03] MEDS: Apixaban 5 MG TABLET PO ×2 (09:02→20:51)
[2021-09-03] MEDS: Aspirin 81 MG TAB.CHEW PO (09:02)
[2021-09-03] MEDS: Atorvastatin Calcium 80 MG TABLET PO (09:02)
[2021-09-03] MEDS: Loratadine 10 MG TABLET PO (09:02)
[2021-09-03 09:03] VITALS: BP 126/66; PULSE 72
[2021-09-03] MEDS: Spironolactone 25 MG TABLET PO (09:03)
[2021-09-03] MEDS: Furosemide 40 MG TABLET PO (09:03)
[2021-09-03] MEDS: Sotalol HCL 80 MG TABLET 40 MG PO ×2 (09:03→20:52)
[2021-09-03] MEDS: metFORMIN HCl 500 MG TABLET PO (09:04)
[2021-09-03 09:16] LABS: Alanine Aminotransferase 15 U/L (0-31); Albumin Level 4.2 g/dL (3.5-5.0); Alkaline Phosphatase 136 U/L (39-117); Anion Gap 14 (12-20); Aspartate Amino Transferase 16 U/L (5-31); Bilirubin Total 0.8 mg/dL (0.0-1.0); Blood Urea Nitrogen 20 mg/dL (9-16); Calcium 9.8 mg/dL (8.4-10.2); Carbon Dioxide 32 mmol/L (22-29); Chloride 99 mmol/L (96-108); Cholesterol 152 mg/dL; Creatinine Clr Calc Pharmacy 65.2; Estimated Glomerular Filt Rate 48; Glucose Fasting 141 mg/dL (60-99); HDL Cholesterol 36 mg/dL; LDL Cholesterol Calculated 86 mg/dl; Magnesium 1.8 mg/dL (1.6-2.6); Sodium 141 mmol/L (135-145); Total Protein 6.8 g/dL (6.5-8.0); Triglycerides 154 mg/dL
[2021-09-03 09:36] LABS: Thyroid Stimulating Hormone 0.76 uIU/mL (0.32-4.0)
[2021-09-03 09:52] LABS: Folate 15.4 ng/mL (> or = 4.0); Vitamin B12 274 pg/mL (200-900)
--- NOTE | 2021-09-03 11:24 | P.HPPS_ITS ---
HPI Date of Service: 09/03/21 Chief Complaint: major depressive disorder, recurrent, moderate Sources of Information: patient interviewed, chart reviewed and crisis/core team assessment reviewed HPI Subjective Notes: Conditional Voluntary Narrative: Ms. Feliz is a 61 year-old woman with hx of BPD, MDD who self- presented to [facility] ED reporting suicidal ideation with plan to OD on meds. She currently has VNA who locks her medications, pt reports she has saved some and has stocked pill them. Pt reports that she has chronic suicidal thoughts along with chronic SIB, but this time she had impulses to act on those thoughts. She reports she received letter from [facility] regarding complaints from neighbors about her smoking in building. Pt admits to smoking cannabis in her apartment but felt that management from [facility] should have reach out to her prior to starting an investigation without her knowledge. In the ED, her utox was positive for cannabinnoids. On the unit, Ms. Feliz presents as pleasant, tearful at times. She reports feeling depressed chronically for years with suicidal ideation. She reports most recently received news of investigation about her smoking in the hospital. She reports fair sleep. She currently denies any plan or intent to hurt herself. She denies hx of VH/AH. She reports she has had multiple medication trials but all medications have been ineffective. She is upset about diabetic diet, states that at home she eats everything in moderation. Past Psychiatric History: Inpatient: multiple inpatient admission; W5 02/2020; 10/2019 W5; 08/2019 W5 OP: [facility]; Dr. Lara,Therapist [place]. Past medication trials: TMS, ECT (reports not effective), Gabapentin, Sertraline, Fetzima, Trazodone, wellbutrin, lamictal, lithium, abilify, risperi done, rexulti, cymbalta, lexapro, geodone, trintellix, Olanzapine, seroquel, trileptal. Suicide attempts: pt reports about 2-3 OD on meds, last one in long time ago. Medical Evaluation Reviewed: Yes [facility] Medical History Arthritis Atrial fibrillation Benign essential HTN Congestive heart failure Fibromyalgia Hyperlipidemia Myocardial infarction Obstructive sleep apnea Osteoarthritis Type II diabetes mellitus Vertigo Family History: none Social History: lives alone. not . no children. 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 Substance History: Cannabis: daily Pt has remote hx of alcohol use. Reports last use more than 20 years. Trauma History: bullied at school, several losses in life including father. Diagnostics Vital Signs (24Hr): Vital Signs - 24 hr 09/02/21 16:17 09/03/21 06:00 09/03/21 09:03 Temperature 98.0 F 97.8 F Pulse Rate 70 72 72 Blood Pressure 131/69 126/66 126/66 Pulse Oximetry 97 97 BMI result Body Mass Index 41.4 Labs Results: 09/03/21 08:10 Labs: Laboratory Results - last 48 hr 09/02/21 09/03/21 09/03/21 17:01 08:10 08:10 Sodium 141 Potassium 4.0 Chloride 99 Carbon Dioxide 32 H Anion Gap 14 BUN 20 H Creatinine 1.15 Estim Creat Clear Calc 65.2 Estimated GFR 48 POC Glucose 115 Fasting Glucose 141 H Estimat Average Glucose 163 Hemoglobin A1c % 7.3 Calcium 9.8 Magnesium 1.8 Total Bilirubin 0.8 AST 16 ALT 15 Alkaline Phosphatase 136 H Total Protein 6.8 Albumin 4.2 Triglycerides 154 Cholesterol 152 LDL Cholesterol, Calc 86 HDL Cholesterol 36 Vitamin B12 Folate TSH 0.76 Free T4 1.30 09/03/21 08:10 Sodium Potassium Chloride Carbon Dioxide Anion Gap BUN Creatinine Estim Creat Clear Calc Estimated GFR POC Glucose Fasting Glucose Estimat Average Glucose Hemoglobin A1c % Calcium Magnesium Total Bilirubin AST ALT Alkaline Phosphatase Total Protein Albumin Triglycerides Cholesterol LDL Cholesterol, Calc HDL Cholesterol Vitamin B12 274 Folate 15.4 TSH Free T4 Meds/Allergies Meds Home Medications Apixaban (Apixaban 5 Mg Tablet) 5 mg PO BID [facility] Last Admin: 09/03/21 09:02 Dose: 5 mg Documented by: Aspirin (Aspirin 81 Mg Tab.Chew) 81 mg PO DAILY [facility] Last Admin: 09/03/21 09:02 Dose: 81 mg Documented by: Atorvastatin Calcium (Atorvastatin Calcium 80 Mg Tablet) 80 mg PO DAILY [facility] Last Admin: 09/03/21 09:02 Dose: 80 mg Documented by: Fluticasone Propionate (Fluticasone Propionate Nasal 16 Gm [place]) 2 spray NOSTRIL-B DAILY [facility] Last Admin: 09/03/21 09:12 Dose: Not Given Documented by: Furosemide (Furosemide 40 Mg Tablet) 40 mg PO DAILY [facility]; Protocol Last Admin: 09/03/21 09:03 Dose: 40 mg Documented by: Gabapentin (Gabapentin 600 Mg Tablet) 600 mg PO TID@0600,1500,2000 [facility] Last Admin: 09/03/21 14:32 Dose: 600 mg Documented by: Loratadine (Loratadine 10 Mg Tablet) 10 mg PO DAILY [facility] Last Admin: 09/03/21 09:02 Dose: 10 mg Documented by: Metformin HCl (Metformin Hcl 500 Mg Tablet) 500 mg PO DAILY [facility] Last Admin: 09/03/21 09:04 Dose: 500 mg Documented by: Metformin HCl (Metformin Hcl 1,000 Mg Tablet) 1,000 mg PO BEDTIME [facility] Last Admin: 09/02/21 21:42 Dose: 1,000 mg Documented by: Omeprazole (Omeprazole 20 Mg Capsule.Dr) 20 mg PO DAILY@0630 [facility] Last Admin: 09/03/21 06:09 Dose: 20 mg Documented by: Sotalol HCl (Sotalol Hcl 80 Mg Tablet) 40 mg PO BID [facility] Last Admin: 09/03/21 09:03 Dose: 40 mg Documented by: Spironolactone (Spironolactone 25 Mg Tablet) 25 mg PO DAILY [facility]; Protocol Last Admin: 09/03/21 09:03 Dose: 25 mg Documented by: Trazodone HCl (Trazodone Hcl 100 Mg Tablet) 100 mg PO BEDTIME [facility] Last Admin: 09/02/21 21:42 Dose: 100 mg Documented by: Allergies Allergies Allergy/AdvReac Type Severity Reaction Status Date / Time naltrexone Allergy Unknown unknown Verified 09/02/21 19:41 lithium [LITHIUM] AdvReac Severe Gastroenter Unverified 06/19/20 16:23 itis SEASONAL ALLERGIES Allergy Unknown unk Uncoded 06/19/20 16:23 Mental Status Exam Mental Status Exam Narrative: Appearance: casually groomed, fair hygiene in NAD Behavior:cooperative, calm psychomotor: no agitation or retardation noted Speech:clear, normal rate/rhythm/volume, spontaneous Thought process: linear Thought content:no signs of psychosis, looking forward to go to GI appointment, overwhelmed with letter Mood: depressed Affect: briefly tearful, but bright and joyful most of the interview. SI:passive, denies no plan or intent HI:none VH/AH:none Delusions:none Insight/judgment:poor x 2 Memory/cog: alert oriented x 3. grossly intact to conversational testing. Assessment & Plan Assessment & Plan (1) Dysthymic disorder: Status: Acute Code(s): F34.1 - Dysthymic disorder (2) Borderline personality disorder: Status: Acute Code(s): F60.3 - Borderline personality disorder Assessment and Plan: Ms. Feliz is a 61 year-old woman with hx of Dysthymic disorder and BPD known to [facility] through several admission inpatient and at [facility] who self presented to [facility] ED reporting SI with plan to OD on meds after receiving letter from [facility] where she resides about ongoing investigation due to pt smoking in building. Pt has hx of multiple medication trials. Pt currently on Fetzima and trazodone. In the ed her utox was positive for cannabinoids. PLAN 1. Admit to M5, 15 minutes checks, CV. 2. Continue Fetzima, not on formulary, needs to bring from home 3. OBtain collateral information 4. Aftercare planning. Reason for continued inpatient stay Substantial Risk for: harm to self
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
--- NOTE | 2021-09-03 14:39 | PC.NURSE ---
pt was in bed crying in pain. laying on her back holding the right upper quadrant stating she was having cramping pain. rated it on a 9 0n scale 1-10. heavy beathing. pain did subside after about 5 minutes. pt stated she was afraid to move positions in bed fearing pain would come back. bp 193/81, 97.4 temp, 100% o2 sat. states she moved her bowels today. denied chest pain or nausea. no pain in her back. willing to zachery mylanta. dorita coleman called for orders. pt was able to get oob and walk to the medication window without difficulty.
[2021-09-03 16:30] VITALS: BP 131/63; PULSE 68; TEMP 36.4
[2021-09-03 17:11] LABS: Glucose, Whole Blood 109 mg/dL (60-115)
[2021-09-03] MEDS: Simethicone 80 MG TAB.CHEW PO (19:26)
[2021-09-03] MEDS: Acetaminophen 325 MG TABLET 650 MG PO (19:26)
[2021-09-03] MEDS: hydrOXYzine HCL 25 MG TABLET PO (19:39)
[2021-09-03 20:45] VITALS: BP 132/72; PULSE 70; TEMP 36.6
[2021-09-03] MEDS: metFORMIN HCl 1,000 MG TABLET 1000 MG PO (20:51)
[2021-09-03 20:52] VITALS: BP 132/72; PULSE 70
[2021-09-03] MEDS: traZODone HCL 100 MG TABLET PO (20:52)
[2021-09-03 21:21] LABS: Glucose, Whole Blood 127 mg/dL (60-115)
--- NOTE | 2021-09-04 04:20 | PC.NURSE ---
09/03 Labs: Carbon Dioxide 32 with past Medical HX of Asthma/CONCEPCIÓN. Needs assessment for CPAP
[2021-09-04] MEDS: Omeprazole 20 MG CAPSULE.DR PO (06:32)
[2021-09-04] MEDS: Gabapentin 600 MG TABLET PO ×3 (06:32→20:34)
[2021-09-04 06:34] VITALS: BP 151/71; PULSE 71; RESP 18; TEMP 36.6; O2SAT 96
[2021-09-04 06:41] LABS: Glucose, Whole Blood 139 mg/dL (60-115)
[2021-09-04] MEDS: Acetaminophen 325 MG TABLET 650 MG PO (08:26)
[2021-09-04 08:27] VITALS: BP 151/71; PULSE 71
[2021-09-04] MEDS: Spironolactone 25 MG TABLET PO (08:27)
[2021-09-04] MEDS: Sotalol HCL 80 MG TABLET 40 MG PO ×2 (08:27→19:43)
[2021-09-04] MEDS: Furosemide 40 MG TABLET PO (08:28)
[2021-09-04] MEDS: Apixaban 5 MG TABLET PO ×2 (08:28→19:44)
[2021-09-04] MEDS: Loratadine 10 MG TABLET PO (08:28)
[2021-09-04] MEDS: metFORMIN HCl 500 MG TABLET PO (08:28)
[2021-09-04] MEDS: Aspirin 81 MG TAB.CHEW PO (08:28)
[2021-09-04 08:32] LABS: Anion Gap 15 (12-20); Blood Urea Nitrogen 23 mg/dL (9-16); Calcium 9.2 mg/dL (8.4-10.2); Carbon Dioxide 27 mmol/L (22-29); Chloride 100 mmol/L (96-108); Creatinine Clr Calc Pharmacy 67.5; Estimated Glomerular Filt Rate 50; Glucose Random 152 mg/dL (60-115); Potassium 3.2 mmol/L (3.3-5.1); Sodium 139 mmol/L (135-145)
[2021-09-04] MEDS: Atorvastatin Calcium 80 MG TABLET PO (09:51)
[2021-09-04] MEDS: Fluticasone Propionate Nasal 16 GM SPRAY 2 SPRAY NOSTRIL-B (09:52)
[2021-09-04 11:45] LABS: Glucose, Whole Blood 142 mg/dL (60-115)
[2021-09-04] MEDS: QUEtiapine Fumarate 50 MG TABLET PO (14:24)
[2021-09-04 18:00] VITALS: BP 131/71; PULSE 73; RESP 16; TEMP 35.9; O2SAT 99
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
[2021-09-04 19:20] LABS: Glucose, Whole Blood 102 mg/dL (60-115)
[2021-09-04 19:43] VITALS: BP 131/71; PULSE 73
[2021-09-04] MEDS: traZODone HCL 100 MG TABLET PO (19:44)
[2021-09-04] MEDS: metFORMIN HCl 1,000 MG TABLET 1000 MG PO (19:44)
[2021-09-05 06:00] VITALS: BP 147/65; PULSE 63; RESP 18; TEMP 35.9; O2SAT 96
[2021-09-05 06:19] LABS: Glucose, Whole Blood 139 mg/dL (60-115)
[2021-09-05] MEDS: Omeprazole 20 MG CAPSULE.DR PO (06:24)
[2021-09-05] MEDS: Gabapentin 600 MG TABLET PO ×3 (06:24→21:00)
[2021-09-05] MEDS: Venlafaxine HCl ER 37.5 MG CAP.ER.24H PO (08:17)
[2021-09-05] MEDS: Aspirin 81 MG TAB.CHEW PO (08:17)
[2021-09-05] MEDS: Fluticasone Propionate Nasal 16 GM SPRAY 2 SPRAY NOSTRIL-B (08:17)
[2021-09-05] MEDS: Furosemide 40 MG TABLET PO (08:18)
[2021-09-05] MEDS: Loratadine 10 MG TABLET PO (08:18)
[2021-09-05] MEDS: Atorvastatin Calcium 80 MG TABLET PO (08:18)
[2021-09-05] MEDS: Spironolactone 25 MG TABLET PO (08:18)
[2021-09-05] MEDS: Sotalol HCL 80 MG TABLET 40 MG PO ×2 (08:18→20:38)
[2021-09-05] MEDS: Apixaban 5 MG TABLET PO ×2 (08:18→20:39)
[2021-09-05] MEDS: metFORMIN HCl 500 MG TABLET PO (08:18)
[2021-09-05] MEDS: Acetaminophen 325 MG TABLET 650 MG PO ×2 (08:32→17:44)
--- NOTE | 2021-09-05 11:33 | P.PNPSI_ITS ---
Subjective Subjective Date of Service: 09/05/21 Reason For Visit: major depressive disorder, recurrent, moderate Interim History: Patient seen and discussed with team. 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 Pt also stubbed her R toe (not intentional), has point tenderness and swelling. Pt also told she needs CPAP due to sleep apnea, however pt would like to refuse this intervention, as she does not use one at home. Reviewed EKG and labs. Patient evaluated this morning and upon interview she reports sleep is good, as her psychiatrist Dr. Lara increased her trazodone on Tuesday prior to this admission. Off fetzima, pt reports I dont feel much different with or without it. It is too early to assess benefit on effexor but denies SE. Says she is having really bad stomach pain, however has been struggling with GI issues for some time, had colonoscopy, endoscopy- revealed Mild gastritis. She is supposed to have abd CT scan on the . Says ALETHEA guzman has been helping for sleep and appetite. Says she stubbed her R toe, hit it against cane, its really sore. Continues to have passive SI but denies plan or intent. No incidents of SIB. Denies HI. Says she feels safe on the unit. Medication Compliance: Yes Side effects from medications: No Attending Groups: Yes Review of Systems Acute medical concerns: Yes Stubbed R toe Medical Review of Systems: unchanged Mental Status Exam Mental Status Exam Narrative: Patient Appearance:?Appropriate Patient Orientation:?Person, Place, Time and Situation Level of Consciousness:?Alert Patient Behavior:?Talkative, Anxious, Fatigued and Good Eye Contact Mood Description:?Depressed and Anxious Affect Description:?Flat Patient Cognition Impaired:?No Ability to Follow Directions:?Good Speech Pattern:?Spontaneous Speech and Soft-Spoken Memory Description:?Intact Hallucinations:?None Delusions:?Not Present Perceptual Disturbances:?Depersonalization and Derealization Thought Process:?Rumination Thought Content:?positive for Perseveration and positive for Suicidal Ideation Depressive Symptoms:?Increased Anxiety, Diff. Making Decisions, Difficulty Sleeping, Loss of Int. in Activity, Feelings of Worthlessness, Significant Weight Gain, Hopelessness, Isolating-Friends/Family, Feelings of Guilt, Unhappiness, Increased Fatigue, Thoughts of /Suicide, Low Self Esteem, Loss of Energy and Difficulty Concentrating Judgement:?Fair Diagnostics Vital Signs (24Hr): Vital Signs - 24 hr 09/05/21 20:30 09/05/21 20:38 09/06/21 06:00 Temperature 97.2 F 96.6 F L Pulse Rate 75 74 Respiratory Rate 18 Blood Pressure 111/57 L 119/57 L 134/72 Pulse Oximetry 93 95 BMI result Body Mass Index 41.4 Labs Results: 09/04/21 08:02 Labs: Laboratory Results - last 48 hr 09/04/21 09/04/21 09/05/21 11:41 19:14 06:14 POC Glucose 142 H 102 139 H 09/05/21 09/06/21 17:36 06:18 POC Glucose 135 H 145 H Imaging Radiology Impressions: ITS Impressions Foot X-Ray 09/05/21 14:49 IMPRESSION: Acute versus chronic fracture deformity of the mid through distal shaft of the third proximal phalange. Correlate with point tenderness. Medications Medications Current Medications Acetaminophen (Acetaminophen 325 Mg Tablet) 650 mg PO Q6H PRN PRN Reason: Headache/Pain Mild Scale (1-3) Last Admin: 09/05/21 17:44 Dose: 650 mg Documented by: Al Hydroxide/Mg Hydroxide (Magnesium Hydrox/Alum Hydrox 30 Ml Oral.Susp) 30 ml PO Q6H PRN PRN Reason: Heartburn/Nausea Apixaban (Apixaban 5 Mg Tablet) 5 mg PO BID [facility] Last Admin: 09/06/21 08:20 Dose: 5 mg Documented by: Aspirin (Aspirin 81 Mg Tab.Chew) 81 mg PO DAILY [facility] Last Admin: 09/06/21 08:20 Dose: 81 mg Documented by: Atorvastatin Calcium (Atorvastatin Calcium 80 Mg Tablet) 80 mg PO DAILY [facility] Last Admin: 09/06/21 08:20 Dose: 80 mg Documented by: Fluticasone Propionate (Fluticasone Propionate Nasal 16 Gm [place]) 2 spray NO STRIL-B DAILY [facility] Last Admin: 09/06/21 08:19 Dose: 2 spray Documented by: Furosemide (Furosemide 40 Mg Tablet) 40 mg PO DAILY [facility]; Protocol Last Admin: 09/06/21 08:20 Dose: 40 mg Documented by: Gabapentin (Gabapentin 600 Mg Tablet) 600 mg PO TID@0600,1500,2000 [facility] Last Admin: 09/06/21 06:33 Dose: 600 mg Documented by: Hydroxyzine HCl (Hydroxyzine Hcl 25 Mg Tablet) 25 mg PO Q6H PRN PRN Reason: Anxiety Last Admin: 09/03/21 19:39 Dose: 25 mg Documented by: Loratadine (Loratadine 10 Mg Tablet) 10 mg PO DAILY [facility] Last Admin: 09/06/21 08:20 Dose: 10 mg Documented by: Magnesium Hydroxide (Milk Of Magnesia 30 Ml Oral.Susp) 30 ml PO DAILY PRN PRN Reason: Constipation Metformin HCl (Metformin Hcl 500 Mg Tablet) 500 mg PO DAILY [facility] Last Admin: 09/06/21 08:20 Dose: 500 mg Documented by: Metformin HCl (Metformin Hcl 1,000 Mg Tablet) 1,000 mg PO BEDTIME [facility] Last Admin: 09/05/21 20:40 Dose: 1,000 mg Documented by: Multi-Ingred Cream/Lotion/Oil/Oint (Mineral Oil/Petrolatum,White 106 Gm Tube) 1 appl TOPICAL TID [facility]; Protocol Last Admin: 09/06/21 08:19 Dose: 1 appl Documented by: Omeprazole (Omeprazole 20 Mg Capsule.Dr) 20 mg PO DAILY@0630 [facility] Last Admin: 09/06/21 06:33 Dose: 20 mg Documented by: Quetiapine Fumarate (Quetiapine Fumarate 50 Mg Tablet) 50 mg PO Q6H PRN PRN Reason: agitation Last Admin: 09/05/21 23:58 Dose: 50 mg Documented by: Simethicone (Simethicone 80 Mg Tab.Chew) 80 mg PO QIDWMHS PRN PRN Reason: Gas Last Admin: 09/03/21 19:26 Dose: 80 mg Documented by: Sotalol HCl (Sotalol Hcl 80 Mg Tablet) 40 mg PO BID [facility] Last Admin: 09/06/21 08:20 Dose: 40 mg Documented by: Spironolactone (Spironolactone 25 Mg Tablet) 25 mg PO DAILY [facility]; Protocol Last Admin: 09/06/21 08:20 Dose: 25 mg Documented by: Trazodone HCl (Trazodone Hcl 100 Mg Tablet) 100 mg PO BEDTIME [facility] Last Admin: 09/05/21 20:39 Dose: 100 mg Documented by: Venlafaxine HCl (Venlafaxine Hcl Er 37.5 Mg Cap.Er.24h) 37.5 mg PO DAILY [facility] Stop: 09/07/21 09:00 Last Admin: 09/06/21 08:20 Dose: 37.5 mg Documented by: Allergies Allergies Allergy/AdvReac Type Severity Reaction Status Date / Time naltrexone Allergy Unknown unknown Verified 09/02/21 19:41 lithium [LITHIUM] AdvReac Severe Gastroenter Unverified 06/19/20 16:23 itis SEASONAL ALLERGIES Allergy Unknown unk Uncoded 06/19/20 16:23 Assessment & Plan Assessment & Plan (1) Dysthymic disorder: Status: Acute Code(s): F34.1 - Dysthymic disorder (2) Borderline personality disorder: Status: Acute Code(s): F60.3 - Borderline personality disorder Assessment and Plan: Ms. Feliz is a 61 year-old woman with hx of Dysthymic disorder and BPD [place] [facility] and at [facility] who self presented to [facility] reporting SI with plan to OD on meds after receiving letter from [facility] where she resides about ongoing investigation due to pt smoking in building. Pt has hx of multiple medication trials. Pt currently on Fetzima and trazodone. In the ed her utox was positive for cannabinoids. PLAN 1. Admit to M5, 15 minutes checks, CV. 2. Continue Fetzima, not on formulary, needs to bring from home 3. OBtain collateral information 4. Aftercare planning. 09/04/21 Pt unable to obtain Fetzima Venlafaxine 37.5 mg daily CPAP ordered Dr. Garcia's assessment much appreciated. Collateral contacts Weekend coverage: 09/05- Pt reports sx are unchanged. Bx has been safe on the unit and pt is forthcoming, insightful. Will order portable xray for R toe point tenderness s/p hitting it against cane. I spent minutes with the patient and/or on the patient floor today, greater than?50% of which was spent counseling/coordinating care. Reason for contiued inpatient stay Substantial Risk for: harm to self and med/psych decompensation
--- NOTE | 2021-09-05 15:05 | PC.NURSE ---
pt refusing CiPAP machine at bedtime. Does not want to use.
[2021-09-05] MEDS: Mineral Oil/Petrolatum,White 106 GM Tube 1 APPL TOPICAL (15:09)
[2021-09-05 17:42] LABS: Glucose, Whole Blood 135 mg/dL (60-115)
[2021-09-05] MEDS: QUEtiapine Fumarate 50 MG TABLET PO ×2 (17:43→23:58)
[2021-09-05 20:30] VITALS: BP 111/57; TEMP 36.2; O2SAT 93
[2021-09-05 20:38] VITALS: BP 119/57; PULSE 75
[2021-09-05] MEDS: traZODone HCL 100 MG TABLET PO (20:39)
[2021-09-05] MEDS: metFORMIN HCl 1,000 MG TABLET 1000 MG PO (20:40)
[2021-09-06 06:00] VITALS: BP 134/72; PULSE 74; RESP 18; TEMP 35.9; O2SAT 95
[2021-09-06 06:23] LABS: Glucose, Whole Blood 145 mg/dL (60-115)
[2021-09-06] MEDS: Omeprazole 20 MG CAPSULE.DR PO (06:33)
[2021-09-06] MEDS: Gabapentin 600 MG TABLET PO ×3 (06:33→22:02)
[2021-09-06] MEDS: Mineral Oil/Petrolatum,White 106 GM Tube 1 APPL TOPICAL ×2 (08:19→14:19)
[2021-09-06] MEDS: Fluticasone Propionate Nasal 16 GM SPRAY 2 SPRAY NOSTRIL-B (08:19)
[2021-09-06] MEDS: Loratadine 10 MG TABLET PO (08:20)
[2021-09-06] MEDS: Spironolactone 25 MG TABLET PO (08:20)
[2021-09-06] MEDS: Apixaban 5 MG TABLET PO ×2 (08:20→22:01)
[2021-09-06] MEDS: Aspirin 81 MG TAB.CHEW PO (08:20)
[2021-09-06] MEDS: metFORMIN HCl 500 MG TABLET PO (08:20)
[2021-09-06] MEDS: Atorvastatin Calcium 80 MG TABLET PO (08:20)
[2021-09-06] MEDS: Venlafaxine HCl ER 37.5 MG CAP.ER.24H PO (08:20)
[2021-09-06] MEDS: Sotalol HCL 80 MG TABLET 40 MG PO ×2 (08:20→22:00)
[2021-09-06] MEDS: Furosemide 40 MG TABLET PO (08:20)
--- NOTE | 2021-09-06 14:36 | HO.PSYCHPN ---
Subjective Subjective Date of Service: 09/06/21 Reason For Visit: major depressive disorder, recurrent, moderate Interim History: Patient seen and discussed with team. Patient evaluated this morning and upon interview she reports she was agitated, anxious last night, as communication about her declining CPAP was not honored and they woke me up in the middle of the night to use it. She utilized PRN seroquel with good effect. Also says she was agitated with her room change. Continues to report GI distress, nausea. Continues to endorse passive SI but denies plan or intent, denies SIB behavior. Says she feels safe. Medication Compliance: Yes Side effects from medications: No Attending Groups: Yes Mental Status Exam Mental Status Exam Narrative: Patient Appearance:?Appropriate Patient Orientation:?Person, Place, Time and Situation Level of Consciousness:?Alert Patient Behavior:?Talkative, Anxious, Fatigued and Good Eye Contact Mood Description:?Depressed and Anxious Affect Description:?Flat Patient Cognition Impaired:?No Ability to Follow Directions:?Good Speech Pattern:?Spontaneous Speech and Soft-Spoken Memory Description:?Intact Hallucinations:?None Delusions:?Not Present Perceptual Disturbances:?Depersonalization and Derealization Thought Process:?Rumination Thought Content:?positive for Perseveration and positive for Suicidal Ideation Depressive Symptoms:?Increased Anxiety, Diff. Making Decisions, Difficulty Sleeping, Loss of Int. in Activity, Feelings of Worthlessness, Significant Weight Gain, Hopelessness, Isolating-Friends/Family, Feelings of Guilt, Unhappiness, Increased Fatigue, Thoughts of /Suicide, Low Self Esteem, Loss of Energy and Difficulty Concentrating Judgment:?Fair Diagnostics Vital Signs (24Hr): Vital Signs - 24 hr 09/05/21 20:30 09/05/21 20:38 09/06/21 06:00 Temperature 97.2 F 96.6 F L Pulse Rate 75 74 Respiratory Rate 18 Blood Pressure 111/57 L 119/57 L 134/72 Pulse Oximetry 93 95 BMI result Body Mass Index 41.4 Labs Results: 09/04/21 08:02 Labs: Laboratory Results - last 48 hr 09/04/21 09/05/21 09/05/21 19:14 06:14 17:36 POC Glucose 102 139 H 135 H 09/06/21 06:18 POC Glucose 145 H Imaging Radiology Impressions: ITS Impressions Foot X-Ray 09/05/21 14:49 IMPRESSION: Acute versus chronic fracture deformity of the mid through distal shaft of the third proximal phalange. Correlate with point tenderness. Medications Medications Current Medications Acetaminophen (Acetaminophen 325 Mg Tablet) 650 mg PO Q6H PRN PRN Reason: Headache/Pain Mild Scale (1-3) Last Admin: 09/05/21 17:44 Dose: 650 mg Documented by: Al Hydroxide/Mg Hydroxide (Magnesium Hydrox/Alum Hydrox 30 Ml Oral.Susp) 30 ml PO Q6H PRN PRN Reason: Heartburn/Nausea Apixaban (Apixaban 5 Mg Tablet) 5 mg PO BID [facility] Last Admin: 09/06/21 08:20 Dose: 5 mg Documented by: Aspirin (Aspirin 81 Mg Tab.Chew) 81 mg PO DAILY [facility] Last Admin: 09/06/21 08:20 Dose: 81 mg Documented by: Atorvastatin Calcium (Atorvastatin Calcium 80 Mg Tablet) 80 mg PO DAILY [facility] Last Admin: 09/06/21 08:20 Dose: 80 mg Documented by: Fluticasone Propionate (Fluticasone Propionate Nasal 16 Gm [place]) 2 spray NOSTRIL-B DAILY [facility] Last Admin: 09/06/21 08:19 Dose: 2 spray Documented by: Furosemide (Furosemide 40 Mg Tablet) 40 mg PO DAILY [facility]; Protocol Last Admin: 09/06/21 08:20 Dose: 40 mg Documented by: Gabapentin (Gabapentin 600 Mg Tablet) 600 mg PO TID@0600,1500,2000 [facility] Last Admin: 09/06/21 14:19 Dose: 600 mg Documented by: Hydroxyzine HCl (Hydroxyzine Hcl 25 Mg Tablet) 25 mg PO Q6H PRN PRN Reason: Anxiety Last Admin: 09/03/21 19:39 Dose: 25 mg Documented by: Loratadine (Loratadine 10 Mg Tablet) 10 mg PO DAILY [facility] Last Admin: 09/06/21 08:20 Dose: 10 mg Documented by: Magnesium Hydroxide (Milk Of Magnesia 30 Ml Oral.Susp) 30 ml PO DAILY PRN PRN Reason: Constipation Metformin HCl (Metformin Hcl 500 Mg Tablet) 500 mg PO DAILY [facility] Last Admin: 09/06/21 08:20 Dose: 500 mg Documented by: Metformin HCl (Metformin Hcl 1,000 Mg Tablet) 1,000 mg PO BEDTIME [facility] Last Admin: 09/05/21 20:40 Dose: 1,000 mg Documented by: Multi-Ingred Cream/Lotion/Oil/Oint (Mineral Oil/Petrolatum,White 106 Gm Tube) 1 appl TOPICAL TID [facility]; Protocol Last Admin: 09/06/21 14:19 Dose: 1 appl Documented by: Omeprazole (Omeprazole 20 Mg Capsule.Dr) 20 mg PO DAILY@0630 [facility] Last Admin: 09/06/21 06:33 Dose: 20 mg Documented by: Quetiapine Fumarate (Quetiapine Fumarate 50 Mg Tablet) 50 mg PO Q6H PRN PRN Reason: agitation Last Admin: 09/05/21 23:58 Dose: 50 mg Documented by: Simethicone (Simethicone 80 Mg Tab.Chew) 80 mg PO QIDWMHS PRN PRN Reason: Gas Last Admin: 09/03/21 19:26 Dose: 80 mg Documented by: Sotalol HCl (Sotalol Hcl 80 Mg Tablet) 40 mg PO BID [facility] Last Admin: 09/06/21 08:20 Dose: 40 mg Documented by: Spironolactone (Spironolactone 25 Mg Tablet) 25 mg PO DAILY [facility]; Protocol Last Admin: 09/06/21 08:20 Dose: 25 mg Documented by: Trazodone HCl (Trazodone Hcl 100 Mg Tablet) 100 mg PO BEDTIME [facility] Last Admin: 09/05/21 20:39 Dose: 100 mg Documented by: Venlafaxine HCl (Venlafaxine Hcl Er 37.5 Mg Cap.Er.24h) 37.5 mg PO DAILY [facility] Stop: 09/07/21 09:00 Last Admin: 09/06/21 08:20 Dose: 37.5 mg Documented by: Allergies Allergies Allergy/AdvReac Type Severity Reaction Status Date / Time naltrexone Allergy Unknown unknown Verified 09/02/21 19:41 lithium [LITHIUM] AdvReac Severe Gastroenter Unverified 06/19/20 16:23 itis SEASONAL ALLERGIES Allergy Unknown unk Uncoded 06/19/20 16:23 Assessment & Plan Assessment & Plan (1) Dysthymic disorder: Status: Acute Code(s): F34.1 - Dysthymic disorder (2) Borderline personality disorder: Status: Acute Code(s): F60.3 - Borderline personality disorder Assessment and Plan: Ms. Feliz is a 61 year-old woman with hx of Dysthymic disorder and BPD known to [facility] [place] [place] through several admission inpatient and at [facility] who self presented to [facility] reporting SI with plan to OD on meds after receiving letter from apartment complex where she resides about ongoing investigation due to pt smoking in building. Pt has hx of multiple medication trials. Pt currently on Fetzima and trazodone. In the ed her utox was positive for cannabinoids. PLAN 1. Admit to M5, 15 minutes checks, CV. 2. Continue Fetzima, not on formulary, needs to bring from home 3. OBtain collateral information 4. Aftercare planning. 09/04/21 Pt unable to obtain Fetzima Venlafaxine 37.5 mg daily CPAP ordered Dr. Garcia's assessment much appreciated. Collateral contacts Weekend coverage: 09/05- Pt reports sx are unchanged. Bx has been safe on the unit and pt is forthcoming, insightful. Will order portable xray for R toe point tenderness s/p hitting it against cane. 09/06- Pt is adamant that she wants to refuse treatment with CPAP, this will be honored and discontinued, as she does not use one at home. No med changes, will continue on venlafaxine trial. Continues to report dysphoric mood and agitation. Safe in her behaviors, reading in bed. Says she feels safe. I spent minutes with the patient and/or on the patient floor today, greater than?50% of which was spent counseling/coordinating care. Reason for contiued inpatient stay Substantial Risk for: harm to self and med/psych decompensation
[2021-09-06 18:00] VITALS: BP 138/72; PULSE 102; TEMP 36.2; O2SAT 98
[2021-09-06] MEDS: hydrOXYzine HCL 25 MG TABLET PO (19:07)
[2021-09-06 22:00] VITALS: BP 136/68; PULSE 69
[2021-09-06] MEDS: metFORMIN HCl 1,000 MG TABLET 1000 MG PO (22:02)
[2021-09-06] MEDS: QUEtiapine Fumarate 50 MG TABLET PO (22:02)
[2021-09-06] MEDS: traZODone HCL 100 MG TABLET PO (22:11)
[2021-09-06 22:48] LABS: Glucose, Whole Blood 165 mg/dL (60-115)
[2021-09-07 06:00] VITALS: BP 141/63; PULSE 59; RESP 18; TEMP 36.2; O2SAT 96
[2021-09-07] MEDS: Gabapentin 600 MG TABLET PO ×3 (06:44→21:20)
[2021-09-07] MEDS: Omeprazole 20 MG CAPSULE.DR PO (06:44)
[2021-09-07 06:55] LABS: Glucose, Whole Blood 133 mg/dL (60-115)
[2021-09-07] MEDS: Mineral Oil/Petrolatum,White 106 GM Tube 1 APPL TOPICAL ×2 (08:50→14:55)
[2021-09-07] MEDS: Venlafaxine HCl ER 37.5 MG CAP.ER.24H PO (08:51)
[2021-09-07] MEDS: Atorvastatin Calcium 80 MG TABLET PO (08:51)
[2021-09-07] MEDS: Spironolactone 25 MG TABLET PO (08:51)
[2021-09-07] MEDS: Sotalol HCL 80 MG TABLET 40 MG PO ×2 (08:51→21:17)
[2021-09-07] MEDS: Loratadine 10 MG TABLET PO (08:51)
[2021-09-07] MEDS: metFORMIN HCl 500 MG TABLET PO (08:51)
[2021-09-07] MEDS: Furosemide 40 MG TABLET PO (08:51)
[2021-09-07] MEDS: Aspirin 81 MG TAB.CHEW PO (08:51)
[2021-09-07] MEDS: Fluticasone Propionate Nasal 16 GM SPRAY 2 SPRAY NOSTRIL-B (08:51)
[2021-09-07] MEDS: Apixaban 5 MG TABLET PO ×2 (08:51→21:16)
[2021-09-07 09:23] LABS: Anion Gap 15 (12-20); Blood Urea Nitrogen 31 mg/dL (9-16); Calcium 9.7 mg/dL (8.4-10.2); Carbon Dioxide 29 mmol/L (22-29); Chloride 102 mmol/L (96-108); Creatinine Clr Calc Pharmacy 61.5; Estimated Glomerular Filt Rate 45; Glucose Random 164 mg/dL (60-115); Magnesium 1.7 mg/dL (1.6-2.6); Potassium 4.4 mmol/L (3.3-5.1); Sodium 142 mmol/L (135-145)
[2021-09-07] MEDS: Simethicone 80 MG TAB.CHEW PO (13:13)
[2021-09-07 17:17] LABS: Glucose, Whole Blood 140 mg/dL (60-115)
--- NOTE | 2021-09-07 18:34 | HO.PSYCHPN ---
Subjective Subjective Date of Service: 09/07/21 Reason For Visit: major depressive disorder, recurrent, moderate Subjective Notes: Conditional Voluntary Healthcare Proxy: No Guardianship: No Medical Problems Affecting Mental Status: No Interim History: Tolerating Venlafaxine. States she is ready for titration to 75 mg XR. Discussed issues with fellow tenant in her apartment complex. Reports some mild paranoia prior to admit- he makes me feel very uncomfortable as she feels he is watching her and targeting her. Discussed discharge-has abd CAT scheduled for 09/10- she would like to make this appt as it has been scheduled for a while. Believes she can feel safe in her apartment. Has attended groups and reports improvement in mood. Discussed CPAP-declines use due to poor fitting equipment Medication Compliance: Yes Side effects from medications: No Attending Groups: Yes Review of Systems Acute medical concerns: No CAT Abd scheduled 09/10 Medical Review of Systems: unchanged Review of Systems Psychiatric: Reports anxiety, Reports depression, Reports hopelessness, Reports anhedonia and Reports suicidal ideation (denies) Mental Status Exam Mental Status Exam Patient Appearance: Appropriate Patient Orientation: Person, Place, Time and Situation Level of Consciousness: Awake and Alert Patient Behavior: Talkative Mood Description: Depressed Affect Description: Flat Patient Cognition Impaired: No Ability to Follow Directions: Good Speech Pattern: Spontaneous Speech Memory Description: Intact Hallucinations: None Delusions: Not Present Thought Process: Rumination Thought Content: positive for Perseveration and positive for Suicidal Ideation (denies) Depressive Symptoms: Increased Anxiety, Hopelessness, Feelings of Guilt, Unhappiness, Thoughts of /Suicide (denies), Low Self Esteem and Difficulty Concentrating Judgement: Good Diagnostics Vital Signs (24Hr): Vital Signs - 24 hr 09/06/21 22:00 09/07/21 06:00 Temperature 97.2 F Pulse Rate 69 59 Respiratory Rate 18 Blood Pressure 136/68 141/63 H Pulse Oximetry 96 BMI result Body Mass Index 41.4 Labs Results: 09/07/21 08:25 Labs: Laboratory Results - last 48 hr 09/06/21 09/06/21 09/07/21 06:18 22:17 06:50 Sodium Potassium Chloride Carbon Dioxide Anion Gap BUN Creatinine Estim Creat Clear Calc Estimated GFR POC Glucose 145 H 165 H 133 H Random Glucose Calcium Magnesium 09/07/21 09/07/21 08:25 17:07 Sodium 142 Potassium 4.4 D Chloride 102 Carbon Dioxide 29 Anion Gap 15 BUN 31 H Creatinine 1.22 Estim Creat Clear Calc 61.5 Estimated GFR 45 POC Glucose 140 H Random Glucose 164 H Calcium 9.7 Magnesium 1.7 Imaging Radiology Impressions: ITS Impressions Foot X-Ray 09/05/21 14:49 IMPRESSION: Acute versus chronic fracture deformity of the mid through distal shaft of the third proximal phalange. Correlate with point tenderness. Medications Medications Current Medications Acetaminophen (Acetaminophen 325 Mg Tablet) 650 mg PO Q6H PRN PRN Reason: Headache/Pain Mild Scale (1-3) Last Admin: 09/05/21 17:44 Dose: 650 mg Documented by: Al Hydroxide/Mg Hydroxide (Magnesium Hydrox/Alum Hydrox 30 Ml Oral.Susp) 30 ml PO Q6H PRN PRN Reason: Heartburn/Nausea Apixaban (Apixaban 5 Mg Tablet) 5 mg PO BID [facility] Last Admin: 09/07/21 08:51 Dose: 5 mg Documented by: Aspirin (Aspirin 81 Mg Tab.Chew) 81 mg PO DAILY [facility] Last Admin: 09/07/21 08:51 Dose: 81 mg Documented by: Atorvastatin Calcium (Atorvastatin Calcium 80 Mg Tablet) 80 mg PO DAILY [facility] Last Admin: 09/07/21 08:51 Dose: 80 mg Documented by: Fluticasone Propionate (Fluticasone Propionate Nasal 16 Gm [place]) 2 spray NOSTRIL-B DAILY [facility] Last Admin: 09/07/21 08:51 Dose: 2 spray Documented by: Furosemide (Furosemide 40 Mg Tablet) 40 mg PO DAILY [facility]; Protocol Last Admin: 09/07/21 08:51 Dose: 40 mg Documented by: Gabapentin (Gabapentin 600 Mg Tablet) 600 mg PO TID@0600,1500,2000 [facility] Last Admin: 09/07/21 14:55 Dose: 600 mg Documented by: Hydroxyzine HCl (Hydroxyzine Hcl 25 Mg Tablet) 25 mg PO Q6H PRN PRN Reason: Anxiety Last Admin: 09/06/21 19:07 Dose: 25 mg Documented by: Loratadine (Loratadine 10 Mg Tablet) 10 mg PO DAILY [facility] Last Admin: 09/07/21 08:51 Dose: 10 mg Documented by: Magnesium Hydroxide (Milk Of Magnesia 30 Ml Oral.Susp) 30 ml PO DAILY PRN PRN Reason: Constipation Metformin HCl (Metformin Hcl 500 Mg Tablet) 500 mg PO DAILY [facility] Last Admin: 09/07/21 08:51 Dose: 500 mg Documented by: Metformin HCl (Metformin Hcl 1,000 Mg Tablet) 1,000 mg PO BEDTIME [facility] Last Admin: 09/06/21 22:02 Dose: 1,000 mg Documented by: Multi-Ingred Cream/Lotion/Oil/Oint (Mineral Oil/Petrolatum,White 106 Gm Tube) 1 appl TOPICAL TID [facility]; Protocol Last Admin: 09/07/21 14:55 Dose: 1 appl Documented by: Omeprazole (Omeprazole 20 Mg Capsule.Dr) 20 mg PO DAILY@0630 [facility] Last Admin: 09/07/21 06:44 Dose: 20 mg Documented by: Quetiapine Fumarate (Quetiapine Fumarate 50 Mg Tablet) 50 mg PO Q6H PRN PRN Reason: agitation Last Admin: 09/06/21 22:02 Dose: 50 mg Documented by: Simethicone (Simethicone 80 Mg Tab.Chew) 80 mg PO QIDWMHS PRN PRN Reason: Gas Last Admin: 09/07/21 13:13 Dose: 80 mg Documented by: Sotalol HCl (Sotalol Hcl 80 Mg Tablet) 40 mg PO BID [facility] Last Admin: 09/07/21 08:51 Dose: 40 mg Documented by: Spironolactone (Spironolactone 25 Mg Tablet) 25 mg PO DAILY [facility]; Protocol Last Admin: 09/07/21 08:51 Dose: 25 mg Documented by: Trazodone HCl (Trazodone Hcl 100 Mg Tablet) 100 mg PO BEDTIME [facility] Last Admin: 09/06/21 22:11 Dose: 100 mg Documented by: Venlafaxine HCl (Venlafaxine Hcl Er 75 Mg Cap.Er.24h) 75 mg PO DAILY [facility] Allergies Allergies Allergy/AdvReac Type Severity Reaction Status Date / Time naltrexone Allergy Unknown unknown Verified 09/02/21 19:41 lithium [LITHIUM] AdvReac Severe Gastroenter Unverified 06/19/20 16:23 itis SEASONAL ALLERGIES Allergy Unknown unk Uncoded 06/19/20 16:23 Assessment & Plan Assessment & Plan (1) Dysthymic disorder: Status: Acute Code(s): F34.1 - Dysthymic disorder (2) Borderline personality disorder: Status: Acute Code(s): F60.3 - Borderline personality disorder Assessment and Plan: MsNikko Vanwagner is a 61 year-old woman with hx of Dysthymic disorder and BPD known to [facility] through several admission inpatient and at [facility] who self presented to [facility] ED reporting SI with plan to OD on meds after receiving letter from [facility] where she resides about ongoing investigation due to pt smoking in building. Pt has hx of multiple medication trials. Pt currently on Fetzima and trazodone. In the ed her utox was positive for cannabinoids. PLAN 1. Admit to [facility], 15 minutes checks, CV. 2. Continue Fetzima, not on formulary, needs to bring from home 3. OBtain collateral information 4. Aftercare planning. 09/04/21 Pt unable to obtain Fetzima Venlafaxine 37.5 mg daily CPAP ordered Dr. Garcia's assessment much appreciated. Collateral contacts Weekend coverage: 09/05- Pt reports sx are unchanged. Bx has been safe on the unit and pt is forthcoming, insightful. Will order portable xray for R toe point tenderness s/p hitting it against cane. 09/06- Pt is adamant that she wants to refuse treatment with CPAP, this will be honored and discontinued, as she does not use one at home. No med changes, will continue on venlafaxine trial. Continues to report dysphoric mood and agitation. Safe in her behaviors, reading in bed. Says she feels safe. 09/07/21 Increase Venlafaxine to 75 mg XR. Discharge planning Team/pt to meet with [facility] today to review plan of care I spent 35 minutes with the patient and/or on the patient floor today, greater than?50% of which was spent counseling/coordinating care. Patient educated on: medication risk/benefits and therapeutic strategies Informed Consent: understands and further education needed Reason for contiued inpatient stay Substantial Risk for: harm to self, inability to function and rapid decompensation
[2021-09-07 21:00] VITALS: BP 131/63; PULSE 70; TEMP 36.4
[2021-09-07 21:14] LABS: Glucose, Whole Blood 245 mg/dL (60-115)
[2021-09-07] MEDS: QUEtiapine Fumarate 50 MG TABLET PO (21:16)
[2021-09-07] MEDS: metFORMIN HCl 1,000 MG TABLET 1000 MG PO (21:16)
[2021-09-07 21:17] VITALS: BP 146/67; PULSE 105
[2021-09-07] MEDS: traZODone HCL 100 MG TABLET PO (21:20)
[2021-09-08 06:00] VITALS: BP 142/63; PULSE 58; RESP 16; TEMP 36.2; O2SAT 98
[2021-09-08] MEDS: Omeprazole 20 MG CAPSULE.DR PO (06:23)
[2021-09-08] MEDS: Gabapentin 600 MG TABLET PO ×3 (06:25→21:03)
[2021-09-08 06:33] LABS: Glucose, Whole Blood 125 mg/dL (60-115)
--- NOTE | 2021-09-08 07:45 | HE.PHANOTE ---
Decreased the metformin to 500 mg BID due to GFR being 45.
[2021-09-08] MEDS: Mineral Oil/Petrolatum,White 106 GM Tube 1 APPL TOPICAL ×2 (08:46→14:56)
[2021-09-08] MEDS: Fluticasone Propionate Nasal 16 GM SPRAY 2 SPRAY NOSTRIL-B (08:46)
[2021-09-08] MEDS: Apixaban 5 MG TABLET PO ×2 (08:47→19:54)
[2021-09-08] MEDS: Spironolactone 25 MG TABLET PO (08:47)
[2021-09-08] MEDS: Venlafaxine HCl ER 75 MG CAP.ER.24H PO (08:47)
[2021-09-08] MEDS: Aspirin 81 MG TAB.CHEW PO (08:47)
[2021-09-08] MEDS: metFORMIN HCl 500 MG TABLET PO ×2 (08:47→19:55)
[2021-09-08] MEDS: Furosemide 40 MG TABLET PO (08:47)
[2021-09-08] MEDS: Sotalol HCL 80 MG TABLET 40 MG PO ×2 (08:47→19:55)
[2021-09-08] MEDS: Atorvastatin Calcium 80 MG TABLET PO (08:47)
[2021-09-08] MEDS: Loratadine 10 MG TABLET PO (08:47)
[2021-09-08 08:51] LABS: Anion Gap 16 (12-20); Blood Urea Nitrogen 32 mg/dL (9-16); Calcium 9.7 mg/dL (8.4-10.2); Carbon Dioxide 28 mmol/L (22-29); Chloride 101 mmol/L (96-108); Creatinine Clr Calc Pharmacy 63.5; Estimated Glomerular Filt Rate 47; Glucose Random 143 mg/dL (60-115); Magnesium 1.6 mg/dL (1.6-2.6); Potassium 4.8 mmol/L (3.3-5.1); Sodium 140 mmol/L (135-145)
[2021-09-08] MEDS: QUEtiapine Fumarate 50 MG TABLET PO ×2 (11:27→19:55)
[2021-09-08] MEDS: Magnesium Citrate 300 ML SOLUTION PO (14:57)
--- NOTE | 2021-09-08 17:30 | P.PNPSI_ITS ---
Subjective Subjective Date of Service: 09/08/21 Reason For Visit: major depressive disorder, recurrent, moderate Subjective Notes: Conditional Voluntary Healthcare Proxy: No Guardianship: No Medical Problems Affecting Mental Status: No Interim History: Metformin decreased to 500 mg bid d/t GFR<45 per pharmacy protocol. Pt reporting constipation-last BM reported 09/04/21. Magnesium Citrate ordered. Reports anxiety 12/10, depression 4-02/09. Tentative plan for discharge on 09/10. Pt tolerating Venlafaxine titration. Medication Compliance: Yes Side effects from medications: No Attending Groups: Yes Review of Systems Acute medical concerns: No Constipation Medical Review of Systems: unchanged Review of Systems Psychiatric: Reports anxiety, Reports depression, Reports hopelessness, Reports anhedonia and Reports suicidal ideation (denies) Mental Status Exam Mental Status Exam Patient Appearance: Appropriate Patient Orientation: Person, Place, Time and Situation Level of Consciousness: Awake and Alert Patient Behavior: Talkative Mood Description: Depressed Affect Description: Flat Patient Cognition Impaired: No Ability to Follow Directions: Good Speech Pattern: Spontaneous Speech Memory Description: Intact Hallucinations: None Delusions: Not Present Thought Process: Rumination Thought Content: positive for Perseveration and positive for Suicidal Ideation (denies) Depressive Symptoms: Increased Anxiety, Hopelessness, Feelings of Guilt, Unha ppiness, Thoughts of /Suicide (denies), Low Self Esteem and Difficulty Concentrating Judgement: Good Diagnostics Vital Signs (24Hr): Vital Signs - 24 hr 09/07/21 21:00 09/07/21 21:17 09/08/21 06:00 Temperature 97.6 F 97.2 F Pulse Rate 70 105 H 58 Respiratory Rate 16 Blood Pressure 131/63 146/67 H 142/63 H Pulse Oximetry 98 BMI result Body Mass Index 41.4 Labs Results: 09/09/21 08:16 Labs: Laboratory Results - last 48 hr 09/06/21 09/07/21 09/07/21 22:17 06:50 08:25 Sodium 142 Potassium 4.4 D Chloride 102 Carbon Dioxide 29 Anion Gap 15 BUN 31 H Creatinine 1.22 Estim Creat Clear Calc 61.5 Estimated GFR 45 POC Glucose 165 H 133 H Random Glucose 164 H Calcium 9.7 Magnesium 1.7 09/07/21 09/07/21 09/08/21 17:07 21:08 06:28 Sodium Potassium Chloride Carbon Dioxide Anion Gap BUN Creatinine Estim Creat Clear Calc Estimated GFR POC Glucose 140 H 245 H 125 H Random Glucose Calcium Magnesium 09/08/21 08:06 Sodium 140 Potassium 4.8 Chloride 101 Carbon Dioxide 28 Anion Gap 16 BUN 32 H Creatinine 1.18 Estim Creat Clear Calc 63.5 Estimated GFR 47 POC Glucose Random Glucose 143 H Calcium 9.7 Magnesium 1.6 Imaging Radiology Impressions: ITS Impressions Foot X-Ray 09/05/21 14:49 IMPRESSION: Acute versus chronic fracture deformity of the mid through distal shaft of the third proximal phalange. Correlate with point tenderness. Medications Medications Current Medications Acetaminophen (Acetaminophen 325 Mg Tablet) 650 mg PO Q6H PRN PRN Reason: Headache/Pain Mild Scale (1-3) Last Admin: 09/05/21 17:44 Dose: 650 mg Documented by: Al Hydroxide/Mg Hydroxide (Magnesium Hydrox/Alum Hydrox 30 Ml Oral.Susp) 30 ml PO Q6H PRN PRN Reason: Heartburn/Nausea Apixaban (Apixaban 5 Mg Tablet) 5 mg PO BID [facility] Last Admin: 09/08/21 08:47 Dose: 5 mg Documented by: Aspirin (Aspirin 81 Mg Tab.Chew) 81 mg PO DAILY [facility] Last Admin: 09/08/21 08:47 Dose: 81 mg Documented by: Atorvastatin Calcium (Atorvastatin Calcium 80 Mg Tablet) 80 mg PO DAILY [facility] Last Admin: 09/08/21 08:47 Dose: 80 mg Documented by: Fluticasone Propionate (Fluticasone Propionate Nasal 16 Gm [place]) 2 spray NOSTRIL-B DAILY [facility] Last Admin: 09/08/21 08:46 Dose: 2 spray Documented by: Furosemide (Furosemide 40 Mg Tablet) 40 mg PO DAILY [facility]; Protocol Last Admin: 09/08/21 08:47 Dose: 40 mg Documented by: Gabapentin (Gabapentin 600 Mg Tablet) 600 mg PO TID@0600,1500,2000 [facility] Last Admin: 09/08/21 14:57 Dose: 600 mg Documented by: Hydroxyzine HCl (Hydroxyzine Hcl 25 Mg Tablet) 25 mg PO Q6H PRN PRN Reason: Anxiety Last Admin: 09/06/21 19:07 Dose: 25 mg Documented by: Loratadine (Loratadine 10 Mg Tablet) 10 mg PO DAILY [facility] Last Admin: 09/08/21 08:47 Dose: 10 mg Documented by: Magnesium Hydroxide (Milk Of Magnesia 30 Ml Oral.Susp) 30 ml PO DAILY PRN PRN Reason: Constipation Metformin HCl (Metformin Hcl 500 Mg Tablet) 500 mg PO DAILY [facility] Last Admin: 09/08/21 08:47 Dose: 500 mg Documented by: Metformin HCl (Metformin Hcl 500 Mg Tablet) 500 mg PO BEDTIME [facility] Multi-Ingred Cream/Lotion/Oil/Oint (Mineral Oil/Petrolatum,White 106 Gm Tube) 1 appl TOPICAL TID [facility]; Protocol Last Admin: 09/08/21 14:56 Dose: 1 appl Documented by: Omeprazole (Omeprazole 20 Mg Capsule.Dr) 20 mg PO DAILY@0630 [facility] Last Admin: 09/08/21 06:23 Dose: 20 mg Documented by: Quetiapine Fumarate (Quetiapine Fumarate 50 Mg Tablet) 50 mg PO Q6H PRN PRN Reason: agitation Last Admin: 09/08/21 11:27 Dose: 50 mg Documented by: Simethicone (Simethicone 80 Mg Tab.Chew) 80 mg PO QIDWMHS PRN PRN Reason: Gas Last Admin: 09/07/21 13:13 Dose: 80 mg Documented by: Sotalol HCl (Sotalol Hcl 80 Mg Tablet) 40 mg PO BID [facility] Last Admin: 09/08/21 08:47 Dose: 40 mg Documented by: Spironolactone (Spironolactone 25 Mg Tablet) 25 mg PO DAILY [facility]; Protocol Last Admin: 09/08/21 08:47 Dose: 25 mg Documented by: Trazodone HCl (Trazodone Hcl 100 Mg Tablet) 100 mg PO BEDTIME [facility] Last Admin: 09/07/21 21:20 Dose: 100 mg Documented by: Venlafaxine HCl (Venlafaxine Hcl Er 75 Mg Cap.Er.24h) 75 mg PO DAILY [facility] Last Admin: 09/08/21 08:47 Dose: 75 mg Documented by: Allergies Allergies Allergy/AdvReac Type Severity Reaction Status Date / Time naltrexone Allergy Unknown unknown Verified 09/02/21 19:41 lithium [LITHIUM] AdvReac Severe Gastroenter Unverified 06/19/20 16:23 itis SEASONAL ALLERGIES Allergy Unknown unk Uncoded 06/19/20 16:23 Assessment & Plan Assessment & Plan (1) Dysthymic disorder: Status: Acute Code(s): F34.1 - Dysthymic disorder (2) Borderline personality disorder: Status: Acute Code(s): F60.3 - Borderline personality disorder Assessment and Plan: Ms. Feliz is a 61 year-old woman with hx of Dysthymic disorder and BPD known to [facility] through several admission inpatient and at [facility] who self presented to [facility] ED reporting SI with plan to OD on meds after receiving letter from [facility] where she resides about ongoing investigation due to pt smoking in building. Pt has hx of multiple medication trials. Pt currently on Fetzima and trazodone. In the ed her utox was positive for cannabinoids. PLAN 1. Admit to M[facility], 15 minutes checks, CV. 2. Continue Fetzima, not on formulary, needs to bring from home 3. OBtain collateral information 4. Aftercare planning. 09/04/21 Pt unable to obtain Fetzima Venlafaxine 37.5 mg daily CPAP ordered Dr. Garcia's assessment much appreciated. Collateral contacts Weekend coverage: 09/05- Pt reports sx are unchanged. Bx has been safe on the unit and pt is forthcoming, insightful. Will order portable xray for R toe point tenderness s/p hitting it against cane. 09/06- Pt is adamant that she wants to refuse treatment with CPAP, this will be honored and discontinued, as she does not use one at home. No med changes, will continue on venlafaxine trial. Cont inues to report dysphoric mood and agitation. Safe in her behaviors, reading in bed. Says she feels safe. 09/07/21 Increase Venlafaxine to 75 mg XR. Discharge planning Team/pt to meet with [facility] today to review plan of care 09/08/21 Planning discharge for 09/10. Reporting constipation. Last BM 09/04/21. Magnesium Citrate ordered Tolerating regime. No further changes at this time. I spent 25 minutes with the patient and/or on the patient floor today, greater than?50% of which was spent counseling/coordinating care. Patient educated on: medication risk/benefits, therapeutic strategies and medical condition Informed Consent: understands and further education needed Reason for contiued inpatient stay Substantial Risk for: harm to self, inability to function and rapid decompensation
[2021-09-08 19:48] LABS: Glucose, Whole Blood 146 mg/dL (60-115)
[2021-09-08] MEDS: traZODone HCL 100 MG TABLET PO (19:54)
[2021-09-08 19:55] VITALS: BP 121/71; PULSE 70
[2021-09-09 06:00] VITALS: BP 141/91; PULSE 58; RESP 16; TEMP 36.1; O2SAT 99
[2021-09-09] MEDS: Omeprazole 20 MG CAPSULE.DR PO (06:30)
[2021-09-09] MEDS: Gabapentin 600 MG TABLET PO ×3 (06:30→21:06)
[2021-09-09 06:41] LABS: Glucose, Whole Blood 139 mg/dL (60-115)
[2021-09-09] MEDS: Mineral Oil/Petrolatum,White 106 GM Tube 1 APPL TOPICAL ×2 (08:10→14:03)
[2021-09-09] MEDS: Apixaban 5 MG TABLET PO ×2 (08:11→20:57)
[2021-09-09] MEDS: Furosemide 40 MG TABLET PO (08:11)
[2021-09-09] MEDS: Aspirin 81 MG TAB.CHEW PO (08:11)
[2021-09-09] MEDS: Fluticasone Propionate Nasal 16 GM SPRAY 2 SPRAY NOSTRIL-B (08:11)
[2021-09-09] MEDS: Venlafaxine HCl ER 75 MG CAP.ER.24H PO (08:11)
[2021-09-09] MEDS: Atorvastatin Calcium 80 MG TABLET PO (08:11)
[2021-09-09] MEDS: metFORMIN HCl 500 MG TABLET PO ×2 (08:11→20:57)
[2021-09-09] MEDS: Loratadine 10 MG TABLET PO (08:11)
[2021-09-09] MEDS: Spironolactone 25 MG TABLET PO (08:12)
[2021-09-09] MEDS: Sotalol HCL 80 MG TABLET 40 MG PO ×2 (08:12→20:57)
[2021-09-09 09:00] LABS: Anion Gap 15 (12-20); Blood Urea Nitrogen 35 mg/dL (9-16); Carbon Dioxide 29 mmol/L (22-29); Chloride 101 mmol/L (96-108); Creatinine Clr Calc Pharmacy 66.3; Estimated Glomerular Filt Rate 49; Glucose Random 160 mg/dL (60-115); Magnesium 2.1 mg/dL (1.6-2.6); Potassium 4.4 mmol/L (3.3-5.1); Sodium 141 mmol/L (135-145)
[2021-09-09] MEDS: QUEtiapine Fumarate 50 MG TABLET PO (14:03)
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
[2021-09-09 18:00] VITALS: BP 153/65; PULSE 69; RESP 16; TEMP 36.4; O2SAT 95
[2021-09-09 20:38] LABS: Glucose, Whole Blood 165 mg/dL (60-115)
[2021-09-09] MEDS: traZODone HCL 100 MG TABLET PO (20:57)
[2021-09-10 06:18] LABS: Glucose, Whole Blood 137 mg/dL (60-115)
[2021-09-10] MEDS: Gabapentin 600 MG TABLET PO (06:18)
[2021-09-10] MEDS: Omeprazole 20 MG CAPSULE.DR PO (06:18)
[2021-09-10 06:30] VITALS: BP 130/59; PULSE 57; RESP 18; TEMP 35.8; O2SAT 97
[2021-09-10 09:00] VITALS: BP 133/65; PULSE 62
[2021-09-10] MEDS: Sotalol HCL 80 MG TABLET 40 MG PO (09:00)
[2021-09-10] MEDS: metFORMIN HCl 500 MG TABLET PO (09:00)
[2021-09-10] MEDS: Spironolactone 25 MG TABLET PO (09:01)
[2021-09-10] MEDS: Atorvastatin Calcium 80 MG TABLET PO (09:01)
[2021-09-10] MEDS: Loratadine 10 MG TABLET PO (09:01)
[2021-09-10] MEDS: Furosemide 40 MG TABLET PO (09:01)
[2021-09-10] MEDS: Venlafaxine HCl ER 75 MG CAP.ER.24H PO (09:02)
[2021-09-10] MEDS: Aspirin 81 MG TAB.CHEW PO (09:02)
[2021-09-10] MEDS: Apixaban 5 MG TABLET PO (09:02)
[2021-09-10] MEDS: Fluticasone Propionate Nasal 16 GM SPRAY 2 SPRAY NOSTRIL-B (09:05)
[2021-09-10 09:13] LABS: Potassium 4.3 mmol/L (3.3-5.1); Sodium 140 mmol/L (135-145)
[2021-09-10 09:14] LABS: Anion Gap 13 (12-20); Blood Urea Nitrogen 34 mg/dL (9-16); Calcium 9.8 mg/dL (8.4-10.2); Carbon Dioxide 27 mmol/L (22-29); Chloride 104 mmol/L (96-108); Creatinine Clr Calc Pharmacy 70.7; Estimated Glomerular Filt Rate 53; Glucose Random 143 mg/dL (60-115)
--- NOTE | 2021-09-10 10:44 | PM.PSYDC ---
DS: Providers Provider Date of Service: 09/10/21 Date of admission: 09/02/21 15:38 Date of discharge: 09/10/21 Primary care physician: IVORY Gore Admitting clinician: Miguelina Myers Attending physician on admission: Sunny Adam Consults: 09/03/21 12:05 Consult to Hospitalist Routine Consulting Provider: Hospitalist Reason For Exam: routine Attending physician on discharge: Sunny Adam Discharging clinician: Andreina Basurto DS: Diagnosis Discharge Diagnosis (1) Dysthymic disorder: Status: Acute DS: Medications Discharge Medications Home Medications: Home Medications Medication Instructions Recorded Confirmed albuterol sulfate 90 mcg/actuation 2 puff INHALATION Q4H PRN 06/23/21 06/23/21 aerosol inhaler (ProAir HFA) apixaban 5 mg tablet (Eliquis) 5 mg PO BID 06/23/21 06/23/21 aspirin 81 mg tablet 81 mg PO DAILY 06/23/21 06/23/21 atorvastatin 80 mg tablet 80 mg PO BEDTIME 06/23/21 06/23/21 cetirizine 10 mg tablet 10 mg PO DAILY 06/23/21 06/23/21 fluticasone propionate 50 1 spray INTRANASAL BID 06/23/21 06/23/21 mcg/actuation nasal spray,suspension furosemide 20 mg tablet 40 mg PO DAILY 06/23/21 06/23/21 gabapentin 600 mg tablet 600 mg PO TID 06/23/21 06/23/21 meclizine 25 mg tablet 25 mg PO TID PRN 06/23/21 06/23/21 pantoprazole 40 mg tablet,delayed 40 mg PO BID 06/23/21 06/23/21 release sotalol 80 mg tablet 40 mg PO BID 06/23/21 06/23/21 spironolactone 25 mg tablet 25 mg PO DAILY 06/23/21 06/23/21 trazodone 50 mg tablet 50 mg PO BEDTIME 06/23/21 06/23/21 Previous Rx's Medication Instructions Recorded metformin 500 mg tablet 500 mg PO BEDTIME #0 tab 09/09/21 metformin 500 mg tablet 500 mg PO DAILY #0 tab 09/09/21 psyllium husk 0.52 gram capsule 0.52 g PO BEDTIME PRN #30 cap 09/09/21 (Metamucil) quetiapine 50 mg tablet 50 mg PO Q6H PRN #30 tab 09/09/21 trazodone 100 mg tablet 100 mg PO BEDTIME #30 tab 09/09/21 venlafaxine 75 mg capsule,extended 75 mg PO DAILY #30 cap 09/09/21 release 24 hr white petrolatum-mineral oil 1 appl TOPICAL TID #454 g 09/09/21 topical cream (Dermacerin) Mental Status Exam Mental Status Exam Patient Appearance: Appropriate Patient Orientation: Person, Place, Time and Situation Level of Consciousness: Awake and Alert Patient Behavior: Talkative Mood Description: Depressed Affect Description: Flat Patient Cognition Impaired: No Ability to Follow Directions: Good Speech Pattern: Spontaneous Speech Memory Description: Intact Hallucinations: None Delusions: Not Present Thought Process: Rumination Thought Content: positive for Perseveration and positive for Suicidal Ideation (denies) Depressive Symptoms: Increased Anxiety, Hopelessness, Feelings of Guilt, Unhappiness, Thoughts of /Suicide (denies), Low Self Esteem and Difficulty Concentrating Judgement: Good Data Data Completed and Pending Completed studies during hospitalization [Text1]: 09/03/21 09/03/21 09/04/21 17:02 21:14 06:36 Sodium Potassium Chloride Carbon Dioxide Anion Gap BUN Creatinine Estim Creat Clear Calc Estimated GFR POC Glucose 109 127 H 139 H Random Glucose Calcium Magnesium 09/04/21 09/04/21 09/04/21 08:02 11:41 19:14 Sodium 139 Potassium 3.2 L Chloride 100 Carbon Dioxide 27 Anion Gap 15 BUN 23 H Creatinine 1.11 Estim Creat Clear Calc 67.5 Estimated GFR 50 POC Glucose 142 H 102 Random Glucose 152 H Calcium 9.2 D Magnesium 09/05/21 09/05/21 09/06/21 06:14 17:36 06:18 Sodium Potassium Chloride Carbon Dioxide Anion Gap BUN Creatinine Estim Creat Clear Calc Estimated GFR POC Glucose 139 H 135 H 145 H Random Glucose Calcium Magnesium 09/06/21 09/07/21 09/07/21 22:17 06:50 08:25 Sodium 142 Potassium 4.4 D Chloride 102 Carbon Dioxide 29 Anion Gap 15 BUN 31 H Creatinine 1.22 Estim Creat Clear Calc 61.5 Estimated GFR 45 POC Glucose 165 H 133 H Random Glucose 164 H Calcium 9.7 Magnesium 1.7 09/07/21 09/07/2109/08/21 17:07 21:08 06:28 Sodium Potassium Chloride Carbon Dioxide Anion Gap BUN Creatinine Estim Creat Clear Calc Estimated GFR POC Glucose 140 H 245 H 125 H Random Glucose Calcium Magnesium 09/08/21 09/08/21 09/09/21 08:06 19:40 06:36 Sodium 140 Potassium 4.8 Chloride 101 Carbon Dioxide 28 Anion Gap 16 BUN 32 H Creatinine 1.18 Estim Creat Clear Calc 63.5 Estimated GFR 47 POC Glucose 146 H 139 H Random Glucose 143 H Calcium 9.7 Magnesium 1.6 09/09/21 09/09/21 09/10/21 08:16 20:34 06:13 Sodium 141 Potassium 4.4 Chloride 101 Carbon Dioxide 29 Anion Gap 15 BUN 35 H Creatinine 1.13 Estim Creat Clear Calc 66.3 Estimated GFR 49 POC Glucose 165 H 137 H Random Glucose 160 H Calcium 10.0 Magnesium 2.1 09/10/21 08:02 Sodium 140 Potassium 4.3 Chloride 104 Carbon Dioxide 27 Anion Gap 13 BUN 34 H Creatinine 1.06 Estim Creat Clear Calc 70.7 Estimated GFR 53 POC Glucose Random Glucose 143 H Calcium 9.8 Magnesium 2.0 Imaging Diagnostic Imaging Impressions Foot X-Ray 09/05/21 14:49 IMPRESSION: Acute versus chronic fracture deformity of the mid through distal shaft of the third proximal phalange. Correlate with point tenderness. DS: Summary Hospital Course Hospital Course: Admission to adult psychiatry to address symptoms of depression. Care plan, medication regime and out pt plan of care prior to admission were reviewed. Education was provided regarding management of symptoms, medications and side effects. Nursing and social science analyst worked extensively with patient on collateral contacts, plan of care, education regarding management of symptoms, medicines and discharge planning. Fetzima was stopped as [facility] formulary did not have this agent available for pt. Effexor XR was initiated, tolerated and pt chose to continue this upon discharge as she was experiencing some efficacy. Titration will continue with partial hospital team. Seroquel 50 mg prn and Trazodone 100 mg hs pt also found helpful and will be continued. Pt able to work in group and individual work on identified issues- this being a difficult time of year as anniversaries of parents placement in nursing homes and their subsequent decline and passing begin a 3 month time of difficult memories for pt. This, combined with the chronic, intense discord between her two younger siblings, placing pt often in the middle, contributed to symptoms. She will continue process work in [facility] hospital. Pt was anxious to be discharged as she is in the process of gastrointestinal evaluation with [facility] and has an appointment to continue her testing upon discharge today. Time spent discussing smoking cessation with patient: 3 to 10 minutes Status at Discharge Cognitive/behavioral status at discharge: alert, oriented, non-psychotic, non-suicidal Functional status at discharge: independent ambulation Overall status at discharge: patient is progressing back to baseline Time Spent with Patient Time attestation: Total time spent providing and/or coordinating discharge services: 35 Time spent: Greater than 30 minutes Discharge Plan Discharge Anticipated Discharge Date/Time: 09/10/21 10:48 Patient Disposition: Home, Self-Care Discharge Diagnosis: Recurrent Major Depression, severe Dysthymia Referrals: VIVEK CARTER RN [Other] - 09/10/21 (Fax- [phone] Visiting RN services to resume at D/C ) [facility] [Other] - 10/05/21 1:30 pm (Your next appointment with Dr Lara is scheduled for 1:30pm on 10/05/21. This appointment is in person. ) SASCHA Mast [Other] - 09/11/21 1:00 pm (Your next virtual therapy appointment will be scheduled for 09/11/21 at 1:00PM.) Anette Irvin [Other] - 09/10/21 ([facility] case management 1 to 2 times per month visits. ) [facility] [Other] - 09/17/21 8:00 am (Intake for partial is scheduled for 09/17/21 at 8am. You can begin PHP on 09/18.) Alicia Brown PA [Primary Care Provider] - 09/17/21 2:45 pm (IN OFFICE) Discharge Medications: New metformin 500 mg Tablet 500 mg PO DAILY Qty: 0 RF: 0 metformin 500 mg Tablet 500 mg PO BEDTIME Qty: 0 RF: 0 venlafaxine 75 mg Capsule,Extended Release 24hr 75 mg PO DAILY Qty: 30 RF: 0 trazodone 100 mg Tablet 100 mg PO BEDTIME Qty: 30 RF: 0 Dermacerin Cream 1 appl topical TID Qty: 454 RF: 0 quetiapine 50 mg Tablet 50 mg PO Q6H PRN (Reason: agitation) Qty: 30 RF: 0 psyllium husk [Metamucil] 0.52 gram capsule 0.52 g PO BEDTIME PRN (Reason: constipation) Qty: 30 RF: 0 Continued atorvastatin 80 mg Tablet 80 mg PO BEDTIME RF: 0 gabapentin 600 mg Tablet 600 mg PO TID RF: 0 trazodone 50 mg Tablet 50 mg PO BEDTIME RF: 0 cetirizine 10 mg Tablet 10 mg PO DAILY RF: 0 sotalol 80 mg Tablet 40 mg PO BID RF: 0 spironolactone 25 mg Tablet 25 mg PO DAILY RF: 0 meclizine 25 mg Tablet 25 mg PO TID PRN (Reason: Dizziness) RF: 0 pantoprazole 40 mg Tablet,Delayed Release (Dr/Ec) 40 mg PO BID RF: 0 aspirin 81 mg Tablet 81 mg PO DAILY RF: 0 furosemide 20 mg Tablet 40 mg PO DAILY RF: 0 albuterol sulfate [ProAir HFA] 90 mcg/actuation Hfa Aerosol Inhaler 2 puff INHALATION Q4H PRN (Reason: Shortness Of Breath) RF: 0 fluticasone propionate 50 mcg/actuation spray,suspension 1 spray intranasal BID RF: 0 Eliquis 5 mg Tablet 5 mg PO BID RF: 0 Discontinued metformin 500 mg Tablet Extended Release 24hr 1,500 mg PO DAILY RF: 0 Fetzima 20 mg Capsule,Extended Release 24 Hr 20 mg PO DAILY RF: 0 Fetzima 40 mg Capsule,Extended Release 24 Hr 40 mg PO DAILY RF: 0 methylphenidate HCl [Metadate ER] 20 mg tablet extended release 20 mg PO DAILY Qty: 30 RF: 0 Discharge Orders: Discharge Order (Routine); Ordered 09/10/21 Ordered By: Andreina Basurto Diet: advance to usual diet Activity on Discharge: As tolerated Stand Alone Forms: Patient Portal Discharge page, Community Support Care Plan Goals: Mood Stabilization Health Concerns: Major Depression, Recurrent, Severe Dysthymia Fibromyalgia Atrial Fibrillation Hx Gastritis-Evaluation in Process Plan of Treatment: Take medications as directed Attend scheduled appointments Continue GI assessment and follow up as instructed Assessment: Non-psychotic, non-suicidal Discharge Date/Time: 09/10/21 09:44
== END 2021-09-10 09:44 | disposition home or self-care (01) | DRG 885 ==
PROVIDERS: Internal Medicine; Registered Nurse; Admitting Provider Psychiatry & Neurology Psychiatry; PCP Physician Assistant; Visit Provider Clinical Nurse Specialist Psychiatric/Mental Health, Adult
DX: F33.1 Major depressive disorder, recurrent, moderate (principal); R45.851 Suicidal ideations; F34.1 Dysthymic disorder; F60.3 Borderline personality disorder; M79.674 Pain in right toe(s); Z87.891 Personal history of nicotine dependence; Z79.82 Long term (current) use of aspirin; Z79.84 Long term (current) use of oral hypoglycemic drugs; Z79.899 Other long term (current) drug therapy
CPT/HCPCS: 36415; 73620; 80048; 80053; 80061; 82607; 82746; 82947; 83036; 83735; 84439; 84443; 93005

== ENCOUNTER 2021-10-21 09:45 | Outpatient (RCR) | payer MEDICARE, MEDICAID, SELFPAY ==
[2021-09-18 11:39] VITALS: BMI 46.3
--- NOTE | 2021-09-18 13:08 | PC.ADMIT ---
Patient is a 61 year old female who was referred by [facility] behavioral health unit where patient was admitted from September 02-2020 d/t increased depression and anxiety. Patient reported SI with plan to overdose on her medications. Reports trigger to symptoms was when she received a written cease and desist letter from the office of the apartment building where she lives regarding smoking in the apartment. Patient stated she does not smoke in the apartment and she thinks the new person who moved in is smoking. Patient also stated she smokes marijuana daily and has cut down and is now vaping few puffs daily. Patient also reported that her [facility] case loader operator is helping her regarding this and told her she will not lose her apartment that she has been in for 30 years. Patient stated 4 days after she had received the letter she had a panic attack and went to the ER afterwards as she was struggling with SI and anxiety. Stated her VNA advised her to go to the ER. Patient stated her VNA manages her medications. Patient has attended PHP in the past. Patient is alert and oriented x4. Calm and cooperative. Presents with some depression and anxiety. Patient has chronic SI reports the thoughts come and go and she tries to, push them away . Patient denied plan or intent to kill or harm herself. Patient does have a history of self harm by scratching self. Reports last scratched herself the Tuesday before hospitalization. Reconciled patient medications with patient and d/c medication list form M/ behavioral health unit at [facility]. Patient reports no changes in medications since admission. Patient reports taking medications as prescribed with support of VNA.
--- NOTE | 2021-09-18 13:25 | PC.NURSE ---
Patient stated she had an appointment on 09/03/[address] scan of pelvis and abdomen. She stated they found what looks like a mass next to her adrenal gland, patient also stated they told her it could be a shadow and not a mass. patient reprots she was recently dx with gastritis.
--- NOTE | 2021-09-18 16:38 | P.HPPSP_ITS ---
[facility] Date of Service: 09/18/21 Chief Complaint: Borderline Personality D/o, Dysthymic D/o Sources of Information: patient interviewed, chart reviewed and crisis/core team assessment reviewed HPI Guardianship: No Medical Problems Affecting Mental Status: No Narrative: Doretha is a 61 year-old white female, with diagnoses of dysthymia, SI, AXEL, and fibromyalgia, referred to [facility] as step-down from [facility] on . She was inpatient 09/02/21-09/10/21, due to SI, with a plan to overdose on medications. Client reported that she sometimes does not take her morning medications, and saves them up, in case she decides she would like to commit suicide. She says the visiting nurse fills the evening and morning meds for the next morning, and sometimes she stockpiles them. When asked if she has any at home right now, she stated about a handful . She did agree to give them to visiting nurse when she visits her today. She says she was hospitalized after becoming suicidal with increased depression and anxiety after receiving notice from [facility] that she was reported for smoking in her apartment. She reports medication changes made while inpatient have helped her to feel that her mood is more stablized. She says seroquel was added, antidepressant fetzima was changed to effexor. Denies any active SI today, although continues with passive SI, which she reports is ongoing at her baseline. Doretha was raised by both parents, has one younger sister and one younger brother. Met developmental milestones as expected. 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 Denies childhood trauma. However, has engaged in SIB (cutting) since early teens. Stated therapy as a young child. Past med trials: Fetzima(noteffective), bupropion (not effective), lamictal, lithium,abilify, risperdal, rexulti, cymbalta, lexapro, geodon, trintellix olanzapine, sertrailine, quetiapine. She has found PHP beneficial in the past, and hopes to practice healthy coping skills while here, so that she can better handle life's issues, including conflict with neighbor, and difficulties with current home health aide. Past Psychiatric History: Inpatient: multiple( 10+) inpatient admissions, including , [facility], [place], [facility]. Multiple PHP at [facility], most recent in 06/2021. OP: [facility]; Dr. Lara,Therapist [place]. Has [facility] case management services. Has VNA services, meds kept in lock box. Past medication trials: TMS, ECT (reports not effective), Gabapentin, Sertraline, Fetzima, Trazodone, wellbutrin, lamictal, lithium, abilify, risperidone, rexulti, cymbalta, lexapro, geodone, trintellix, Olanzapine, seroquel, trileptal. Suicide attempts: pt reports about 2-3 OD on meds, last one in long time ago. Medical Evaluation Reviewed: Yes [facility] Medical History Arthritis Atrial fibrillation Benign essential HTN Congestive heart failure Fibromyalgia Gastritis Hyperlipidemia Myocardial infarction Obstructive sleep apnea Osteoarthritis Type II diabetes mellitus Vertigo Family History: none Social History: lives alone. not . no children. 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 Substance History: cannabis daily, for anxiety and sleep. Trauma History: bullied at school, several losses in life including father. Diagnostics Vital Signs (24Hr): BMI result Body Mass Index 46.3 Meds/Allergies Allergies Allergies Allergy/AdvReac Type Severity Reaction Status Date / Time naltrexone Allergy Unknown unknown Verified 09/02/21 19:41 lithium [LITHIUM] AdvReac Severe Gastroenter Verified 09/18/21 11:02 itis SEASONAL ALLERGIES Allergy Unknown unk Uncoded 06/19/20 16:23 Mental Status Exam Mental Status Exam Narrative: Well developed, obese female, in NAD. Dressed appropriately, appears stated age. No abnormal movements noted. Ambulation not observed. Patient Appearance: Well Grooomed and Appropriate Patient Orientation: Person, Place, Time and Situation Level of Consciousness: Awake, Appropriate and Alert Patient Behavior: Appropriate, Cooperative and Good Eye Contact Mood Description: Depressed Affect Description: Depressed and Flat Patient Cognition Impaired: No Ability to Follow Directions: Excellent Speech Pattern: Clear, Appropriate, Spontaneous Speech and Coherent Memory Description: Intact Hallucinations: None Delusions: Not Present Thought Process: Rumination Thought Content: positive for Perseveration and positive for Suicidal Ideation (denies) Depressive Symptoms: Increased Anxiety, Hopelessness, Feelings of Guilt, Unhappiness, Thoughts of /Suicide (passive), Low Self Esteem and Difficulty Concentrating Judgement: Fair Judgement and Insight: judgment and insight grossly fair Telehealth Telehealth Location of provider rendering services: practice address Location of patient: address on file Patient Identification confirmed using: Name, : Yes Telehealth method: video Patient verbally consented to treatment: Yes Patient verbally consented to billing insurance company: Yes Patient informed of any privacy concerns related to visit: Yes Time spent with patient (mins): 45 Assessment & Plan Assessment & Plan (1) Dysthymic disorder: Status: Acute Code(s): F34.1 - Dysthymic disorder Assessment and Plan: Clients presents with depressed, flat mood and affect. Continues with passive SI, no plan or intent at this time. Was recently inpatient on M5, discharged on 09/10/21. Had several medication changes at that time, which she feels are helping somewhat to improve her mood. Has history of stockpiling her meds at times, with plan to someday OD. Reports she currently has about a handful of meds at home that are not in lockbox. When asked to give them to VNA nurse today during visit, she was agreeable to do this. Denies any plan/intent to take these meds at this time. (2) Suicidal ideation: Status: Acute Code(s): R45.851 - Suicidal ideations Assessment and Plan: reports passive SI at baseline. No intent/plan at this time, no safety concern at this time. (3) AXEL (generalized anxiety disorder): Status: Acute Code(s): F41.1 - Generalized anxiety disorder Assessment and Plan: 1. Continue with current medications as prescribed, as she reports some improvement at this time. 2. Follow-up as per protocol. Patient educated on: diagnosis, medication risk/benefits and therapeutic strategies Informed Consent: understands Reason for continued partial hosp. stay Substantial Risk for: harm to self, inability to function and med/psych decompensation Certification I certify that partial hospital treatment is medically necessary due to the symptoms and problems resulting from the patient's mental illness and the failure to treat the patient at the partial hospital level of care would likely result in the patient requiring inpatient psychiatric care which could not be prevented at a less intensive level of care.
--- NOTE | 2021-09-21 16:38 | PC.NURSE ---
Case opened in treatment team.
--- NOTE | 2021-09-22 16:18 | P.PNPSP_ITS ---
Subjective Subjective Date of Service: 09/22/21 Reason For Visit: Borderline Personality D/o, Dysthymic D/o Interim History: I evaluated the pt this evening and upon interview she reports she is doing okay with the effexor, however is open to increasing it as she is not sure if it is helping more than the fetzima trial. States what I do like is the seroquel, has been taking it twice a day, in the early afternoon and at bedtime. Says this has been helping with anxiety, agitation, and has led to her utilizing cannabis less. Sleep is also improved, as she is falling asleep earlier. Pt denies recent issues with self harm. Says her feelings around the holidays are not bad, as this is the first time she has put up a tree in years. 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 Says she is feeling somewhat tr iggered by the anniversary of her parent's coming up, however has been utilizing coping skills. States she was diagnosed with a possible adrenal mass/ adenoma, has to follow up. Continues to have GI distress, has zofran and vistaril but says she does not often remember to take them. Medication Compliance: Yes Side effects from medications: No Attending Groups: Yes Review of Systems Acute medical concerns: No Medical Review of Systems: unchanged Mental Status Exam Mental Status Exam Narrative: Well developed, obese female, in NAD. Dressed appropriately, appears stated age. No abnormal movements noted. Ambulation not observed. Patient Appearance:?Well Groomed and Appropriate Patient Orientation:?Person, Place, Time and Situation Level of Consciousness:?Awake, Appropriate and Alert Patient Behavior:?Appropriate, Cooperative and Good Eye Contact Mood Description:?Depressed Affect Description:?Depressed and Flat Patient Cognition Impaired:?No Ability to Follow Directions:?Excellent Speech Pattern:?Clear, Appropriate, Spontaneous Speech and Coherent Memory Description:?Intact Hallucinations:?None Delusions:?Not Present Thought Process:?Rumination Thought Content:?positive for Perseveration and positive for Suicidal Ideation (denies) Depressive Symptoms:?Increased Anxiety, Hopelessness, Feelings of Guilt, Unhappiness, Thoughts of /Suicide (passive), Low Self Esteem and Difficulty Concentrating Judgement:?Fair Judgement and Insight:?judgment and insight grossly fair Diagnostics Vital Signs (24Hr): BMI result Body Mass Index 46.3 Assessment & Plan Assessment & Plan (1) AXEL (generalized anxiety disorder): Status: Acute Code(s): F41.1 - Generalized anxiety disorder (2) Dysthymic disorder: Status: Acute Code(s): F34.1 - Dysthymic disorder Assessment and Plan: Clients presents with some improvement in sx of depression. Was recently inpatient on M5, discharged on 09/10/21. She was started on effexor and seroquel PRN, reports positive benefit on both but is open to trialing an increased dose of effexor to target sx of depression. (3) Suicidal ideation: Status: Acute Code(s): R45.851 - Suicidal ideations Assessment and Plan: Has history of stockpiling her meds at times, with plan to someday OD.? Reports she currently has about a handful of meds at home that are not in lockbox.? When asked to give them to VNA nurse today during visit, she was agreeable to do this.? Denies any plan/intent to take these meds at this time.?Pt reports passive SI at baseline. No intent/plan at this time, no safety concern at this time. Assessment and Plan: 1. Will increase effexor to 150 mg QD, monitor for benefit, reviewed risks and benefits 2. Follow-up as per protocol. Patient educated on: medication risk/benefits and therapeutic strategies Certification I certify that partial hospital treatment is medically necessary due to the symptoms and problems resulting from the patient's mental illness and the failure to treat the patient at the partial hospital level of care would likely result in the patient requiring inpatient psychiatric care which could not be prevented at a less intensive level of care. I spent minutes with the patient and/or on the patient floor today, greater than?50% of which was spent counseling/coordinating care. Discharge Plan Discharge Attending provider: Nilay Cruz Primary Care Provider: Alicia Brown Medications: No Action atorvastatin 80 mg Tablet 80 mg PO BEDTIME RF: 0 gabapentin 600 mg Tablet 600 mg PO TID RF: 0 trazodone 50 mg Tablet 50 mg PO BEDTIME RF: 0 cetirizine 10 mg Tablet 10 mg PO DAILY RF: 0 sotalol 80 mg Tablet 40 mg PO BID RF: 0 spironolactone 25 mg Tablet 25 mg PO DAILY RF: 0 meclizine 25 mg Tablet 25 mg PO TID PRN (Reason: Dizziness) RF: 0 pantoprazole 40 mg Tablet,Delayed Release (Dr/Ec) 40 mg PO BID RF: 0 aspirin 81 mg Tablet 81 mg PO DAILY RF: 0 furosemide 20 mg Tablet 40 mg PO DAILY RF: 0 albuterol sulfate [ProAir HFA] 90 mcg/actuation Hfa Aerosol Inhaler 2 puff INHALATION Q4H PRN (Reason: Shortness Of Breath) RF: 0 fluticasone propionate 50 mcg/actuation spray,suspension 1 spray intranasal BID RF: 0 Eliquis 5 mg Tablet 5 mg PO BID RF: 0 metformin 500 mg Tablet 500 mg PO DAILY Qty: 0 RF: 0 metformin 500 mg Tablet 500 mg PO BEDTIME Qty: 0 RF: 0 venlafaxine 75 mg Capsule,Extended Release 24hr 75 mg PO DAILY Qty: 30 RF: 0 trazodone 100 mg Tablet 100 mg PO BEDTIME Qty: 30 RF: 0 Dermacerin Cream 1 appl topical TID Qty: 454 RF: 0 quetiapine 50 mg Tablet 50 mg PO Q6H PRN (Reason: agitation) Qty: 30 RF: 0 psyllium husk [Metamucil] 0.52 gram capsule 0.52 g PO BEDTIME PRN (Reason: constipation) Qty: 30 RF: 0 Referrals: Alicia Brown PA [Primary Care Provider] - 1 Week Stand Alone Forms: Patient Portal Discharge page
--- NOTE | 2021-09-30 08:48 | HO.PHPPROGNO ---
Subjective Subjective Date of Service: 09/29/21 Reason For Visit: Borderline Personality D/o, Dysthymic D/o Interim History: Patient seen and discussed with team. Patient evaluated this morning and upon interview pt reports she is doing okay, was only able to start the increased dose of venlafaxine this morning due to VNA just picking up the script. 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 Sister came over and neighbors came over. Had a tree up and presents under it, hasnt done this in years. Says she felt relaxed at the parties and was able to use skills, however doesnt remember going to bed on night and slept until 3pm the following day, says the comedown from social events is always hard. Can feel easily overwhelmed with changes in her routine and being around others, tearful discussing this. Also reports a neighbor (they were not close but now pt is the longest resident in the building). Denies incidents of self harm. Says she is sleeping more, which is helpful, has been watching [employer] videos and going to bed earlier. Hasnt showered in a while, as she usually does this tuesday but slept in. Says her blood sugar has not been good, but attributes this to holiday food. Discussed talking to her [facility] team about ACCS and obtaining outreach services to help with cooking. Still attending [employer] class. Has yearly lung scan with pulmonology tomorrow. Medication Compliance: Yes Side effects from medications: No Attending Groups: Yes Review of Systems Acute medical concerns: No Medical Review of Systems: unchanged Mental Status Exam Mental Status Exam Narrative: Well developed, obese female, in NAD. Dressed appropriately, appears stated age. No abnormal movements noted. Ambulation not observed. Patient Appearance:?Well Groomed and Appropriate Patient Orientation:?Person, Place, Time and Situation Level of Consciousness:?Awake, Appropriate and Alert Patient Behavior:?Appropriate, Cooperative and Good Eye Contact Mood Description:?Depressed Affect Description:?Depressed and Flat, tearful at times Patient Cognition Impaired:?No Ability to Follow Directions:?Excellent Speech Pattern:?Clear, Appropriate, Spontaneous Speech and Coherent Memory Description:?Intact Hallucinations:?None Delusions:?Not Present Thought Process:?Rumination Thought Content:?positive for Perseveration and positive for Suicidal Ideation (denies) Depressive Symptoms:?Increased Anxiety, Hopelessness, Feelings of Guilt, Unhappiness, Thoughts of /Suicide (passive), Low Self Esteem and Difficulty Concentrating Judgment and Insight:?judgment and insight grossly fair Diagnostics Vital Signs (24Hr): BMI result Body Mass Index 46.3 Assessment & Plan Assessment & Plan (1) AXEL (generalized anxiety disorder): Status: Acute Code(s): F41.1 - Generalized anxiety disorder (2) Dysthymic disorder: Status: Acute Code(s): F34.1 - Dysthymic disorder Assessment and Plan: Pt was recently inpatient on M5, discharged on 09/10/21. She was started on effexor and seroquel PRN, reports positive benefit on both. Pt reports passive SI at baseline. No intent/plan at this time, no safety concern at this time. She did not receive increased dose of effexor until this morning. 1. Will increase effexor to 150 mg QD, monitor for benefit, reviewed risks and benefits 2. Follow-up as per protocol. Certification I certify that partial hospital treatment is medically necessary due to the symptoms and problems resulting from the patient's mental illness and the failure to treat the patient at the partial hospital level of care would likely result in the patient requiring inpatient psychiatric care which could not be prevented at a less intensive level of care. I spent minutes with the patient and/or on the patient floor today, greater than?50% of which was spent counseling/coordinating care. Discharge Plan Discharge Attending provider: Nilay Cruz Primary Care Provider: Alicia Brown Medications: New venlafaxine 150 mg capsule,extended release 24hr 150 mg PO DAILY Qty: 14 RF: 0 Continued quetiapine 50 mg Tablet 50 mg PO Q6H PRN (Reason: agitation) 30 Days Qty: 60 RF: 0 Discontinued venlafaxine 75 mg Capsule,Extended Release 24hr 75 mg PO DAILY Qty: 30 RF: 0 No Action atorvastatin 80 mg Tablet 80 mg PO BEDTIME RF: 0 gabapentin 600 mg Tablet 600 mg PO TID RF: 0 trazodone 50 mg Tablet 50 mg PO BEDTIME RF: 0 cetirizine 10 mg Tablet 10 mg PO DAILY RF: 0 sotalol 80 mg Tablet 40 mg PO BID RF: 0 spironolactone 25 mg Tablet 25 mg PO DAILY RF: 0 meclizine 25 mg Tablet 25 mg PO TID PRN (Reason: Dizziness) RF: 0 pantoprazole 40 mg Tablet,Delayed Release (Dr/Ec) 40 mg PO BID RF: 0 aspirin 81 mg Tablet 81 mg PO DAILY RF: 0 furosemide 20 mg Tablet 40 mg PO DAILY RF: 0 albuterol sulfate [ProAir HFA] 90 mcg/actuation Hfa Aerosol Inhaler 2 puff INHALATION Q4H PRN (Reason: Shortness Of Breath) RF: 0 fluticasone propionate 50 mcg/actuation spray,suspension 1 spray intranasal BID RF: 0 Eliquis 5 mg Tablet 5 mg PO BID RF: 0 metformin 500 mg Tablet 500 mg PO DAILY Qty: 0 RF: 0 metformin 500 mg Tablet 500 mg PO BEDTIME Qty: 0 RF: 0 trazodone 100 mg Tablet 100 mg PO BEDTIME Qty: 30 RF: 0 Dermacerin Cream 1 appl topical TID Qty: 454 RF: 0 psyllium husk [Metamucil] 0.52 gram capsule 0.52 g PO BEDTIME PRN (Reason: constipation) Qty: 30 RF: 0 Referrals: Alicia Brown PA [Primary Care Provider] - 1 Week Stand Alone Forms: Patient Portal Discharge page
--- NOTE | 2021-10-05 15:21 | P.PNPSP_ITS ---
Subjective Subjective Date of Service: 10/05/21 Reason For Visit: Borderline Personality D/o, Dysthymic D/o Guardianship: No Medical Problems Affecting Mental Status: No Interim History: Doretha reports ?I am feeling horrible today ?. She explains that it is physical, as she is feeling nauseous. She has recently had a CT scan regarding her digestive issues, and has a follow-up appointment scheduled on October 08. Continues with dysphoric mood, passive SI. Reports feeling safe, no safety concern at this time. Medication Compliance: Yes Side effects from medications: No Attending Groups: Yes Review of Systems Acute medical concerns: No Medical Review of Systems: unchanged Review of Systems Review of Systems Reports upset GI, loose stools/incontinence. Increased sleep. Passive SI. Constitutional: Reports fatigue, Reports lethargy and Reports malaise Eyes: Reports no additional eye complaints Reports system reviewed and no additional complaints, except as documented Cardiovascular: Reports no additional cardiovascular complaints Respiratory: Reports no additional respiratory complaints Gastrointestinal: Reports abdominal pain, Reports dyspepsia, Reports fecal incontinence and Reports nausea Genitourinary: Reports no additional female genitourinary complaints Musculoskeletal: Reports no additional musculoskeletal complaints Skin/Breast: Reports system reviewed and no additional complaints, except as docu Reports system reviewed and no additional complaints, except as documented Psychiatric: Reports no additional psychiatric complaints Endocrine: Reports no additional endocrine complaints and Reports fatigue Hematologic/Lymphatic: Reports no additional hematologic/lymphatic complaints Allergic/Immunologic: Reports no additional allergic/immunologic complaints Mental Status Exam Mental Status Exam Narrative: Well developed, obese female, in NAD. No abnormal movements, no tics or tremors noted. Patient Appearance: Well Grooomed, Fatigued and Appropriate Patient Orientation: Person, Place, Time and Situation Level of Consciousness: Awake, Appropriate and Alert Patient Behavior: Appropriate, Cooperative and Good Eye Contact Mood Description: Appropriate, Depressed and Anxious Affect Description: Appropriate, Depressed and Flat Patient Cognition Impaired: No Ability to Follow Directions: Excellent Speech Pattern: Clear, Appropriate, Spontaneous Speech and Coherent Memory Description: Intact Hallucinations: None Delusions: Not Present Thought Process: Intact, Goal Oriented and Linear Thought Content: positive for Intact, positive for Goal Oriented and positive for Linear Depressive Symptoms: Increased Anxiety, Sleeping More Than Usual, Isolating- Friends/Family, Feelings of Guilt, Unhappiness, Increased Fatigue, Thoughts of /Suicide (passive) and Loss of Energy Judgement: Fair Diagnostics Vital Signs (24Hr): BMI result Body Mass Index 46.3 Assessment & Plan Assessment & Plan (1) Dysthymic disorder: Status: Acute Code(s): F34.1 - Dysthymic disorder Assessment and Plan: Doretha continues with dysthymic mood. Passive SI. Reports ?some days are worse than others ?. Describes weekend as bad, states that she slept a lot. Reports she feels safe today. Discussed plan of calling crisis if SI overwhelms her. Reports that she was crying earlier when her nurse was visiting. Client has had GI upset with nausea, fecal incontinence earlier today. Expressed frustration over GI concerns. Had a CT scan recently, has a follow-up appointment with GI doctor on October 08. (2) Suicidal ideation: Status: Acute Code(s): R45.851 - Suicidal ideations Assessment and Plan: continues with passive SI, no plan or intent. Admits that she does have an amount of medications stored away. Has agreed to inform her visiting nurse of these. Also reviewed plan to call crisis if decides to act on any type of si plan. Discussed going to respite as alternative to inpatient if needed. States her therapist has informed her that this may be more beneficial, and she is thinking about it. (3) AXEL (generalized anxiety disorder): Status: Acute Code(s): F41.1 - Generalized anxiety disorder Assessment and Plan: 1. Continue with current medication regimen as prescribed. 2. Refill for Seroquel 50 mg p.r.n., 60 tabs sent to pharmacy. Refill for Effexor XR 150 mg, 30 tabs sent to pharmacy. 3. Follow-up as per protocol. Patient educated on: diagnosis, medication risk/benefits and therapeutic strategies Informed Consent: understands Reason for contiued partial hosp. stay Substantial Risk for: harm to self, inability to function and med/psych decompensation Certification I certify that partial hospital treatment is medically necessary due to the symptoms and problems resulting from the patient's mental illness and the taryn lure to treat the patient at the partial hospital level of care would likely result in the patient requiring inpatient psychiatric care which could not be prevented at a less intensive level of care. I spent minutes with the patient and/or on the patient floor today, greater than?50% of which was spent counseling/coordinating care. Discharge Plan Discharge Attending provider: Nilay Cruz Primary Care Provider: Alicia Brown Medications: New venlafaxine [Effexor XR] 150 mg capsule,extended release 24hr 150 mg PO DAILY Qty: 30 RF: 0 quetiapine [Seroquel] 50 mg tablet 50 mg PO BID PRN (Reason: anxiety/agitation) Qty: 60 RF: 0 Discontinued venlafaxine 75 mg Capsule,Extended Release 24hr 75 mg PO DAILY Qty: 30 RF: 0 quetiapine 50 mg Tablet 50 mg PO Q6H PRN (Reason: agitation) Qty: 30 RF: 0 No Action atorvastatin 80 mg Tablet 80 mg PO BEDTIME RF: 0 gabapentin 600 mg Tablet 600 mg PO TID RF: 0 trazodone 50 mg Tablet 50 mg PO BEDTIME RF: 0 cetirizine 10 mg Tablet 10 mg PO DAILY RF: 0 sotalol 80 mg Tablet 40 mg PO BID RF: 0 spironolactone 25 mg Tablet 25 mg PO DAILY RF: 0 meclizine 25 mg Tablet 25 mg PO TID PRN (Reason: Dizziness) RF: 0 pantoprazole 40 mg Tablet,Delayed Release (Dr/Ec) 40 mg PO BID RF: 0 aspirin 81 mg Tablet 81 mg PO DAILY RF: 0 furosemide 20 mg Tablet 40 mg PO DAILY RF: 0 albuterol sulfate [ProAir HFA] 90 mcg/actuation Hfa Aerosol Inhaler 2 puff INHALATION Q4H PRN (Reason: Shortness Of Breath) RF: 0 fluticasone propionate 50 mcg/actuation spray,suspension 1 spray intranasal BID RF: 0 Eliquis 5 mg Tablet 5 mg PO BID RF: 0 metformin 500 mg Tablet 500 mg PO DAILY Qty: 0 RF: 0 metformin 500 mg Tablet 500 mg PO BEDTIME Qty: 0 RF: 0 trazodone 100 mg Tablet 100 mg PO BEDTIME Qty: 30 RF: 0 Dermacerin Cream 1 appl topical TID Qty: 454 RF: 0 psyllium husk [Metamucil] 0.52 gram capsule 0.52 g PO BEDTIME PRN (Reason: constipation) Qty: 30 RF: 0 Referrals: Alicia Brown PA [Primary Care Provider] - 1 Week Stand Alone Forms: Patient Portal Discharge page Telehealth Telehealth Location of provider rendering services: practice address Location of patient: address on file Patient Identification confirmed using: Name, : Yes Telehealth method: video Patient verbally consented to treatment: Yes Patient verbally consented to billing insurance company: Yes Patient informed of any privacy concerns related to visit: Yes Time spent with patient (mins): 20
--- NOTE | 2021-10-12 14:04 | PC.NURSE ---
Patient not scheduled today as she had a provider appointment.
--- NOTE | 2021-10-13 15:52 | HO.PHPPROGNO ---
Subjective Subjective Date of Service: 10/13/21 Reason For Visit: Borderline Personality D/o, Dysthymic D/o Interim History: I evaluated the pt this morning and upon interview she reports she had to leave group early due to GI distress. She has continue to use less cannabis, now vaping because it is odorless and her upstairs neighbor filed a complaint with property management bookkeeper. Says she has had increased anxiety since then, worries about everything im doing that he?s gonna report me for and no longer feels comfortable in her home. Says I sleep as much as possible to get through the day. Still on effexor 150 mg, thinks the increased dose has made maybe a little difference, i dont know. Dr. segura changed seroquel to 50 mg BID PRN, tolerating this and says it is helpful but efficacy has worn off somewhat, it used to feel like a warm blanket. Interested in a dose increase.?Says she hasnt left house in two weeks due to the pandemic. Wants to go for drive on weekend.? Medication Compliance: Yes Side effects from medications: No Attending Groups: Yes Review of Systems Acute medical concerns: No Medical Review of Systems: unchanged Mental Status Exam Mental Status Exam Narrative: Well developed, obese female, in NAD.? No abnormal movements, no tics or tremors noted. Patient Appearance:?Well Grooomed, Fatigued and Appropriate Patient Orientation:?Person, Place, Time and Situation Level of Consciousness:?Awake, Appropriate and Alert Patient Behavior:?Appropriate, Cooperative and Good Eye Contact Mood Description:?Appropriate, Depressed and Anxious Affect Description:?Appropriate, Depressed and Flat, tearful at times Patient Cognition Impaired:?No Ability to Follow Directions:?Excellent Speech Pattern:?Clear, Appropriate, Spontaneous Speech and Coherent Memory Description:?Intact Hallucinations:?None Delusions:?Not Present Thought Process:?Intact, Goal Oriented and Linear Thought Content:?positive for Intact, positive for Goal Oriented and positive for Linear Depressive Symptoms:?Increased Anxiety, Sleeping More Than Usual, Isolating-Friends/Family, Feelings of Guilt, Unhappiness, Increased Fatigue, Thoughts of /Suicide (passive) and Loss of Energy Judgment:?Fair Diagnostics Vital Signs (24Hr): BMI result Body Mass Index 46.3 Assessment & Plan Assessment & Plan (1) Dysthymic disorder: Status: Acute Code(s): F34.1 - Dysthymic disorder Assessment and Plan: Doretha continues with dysthymic mood.? Passive SI.? Denies active SI, denies plan or intent. Reports she feels safe today. (2) AXEL (generalized anxiety disorder): Status: Acute Code(s): F41.1 - Generalized anxiety disorder Assessment and Plan: Pt is presenting with sx of increased anxiety due to interpersonal issues with her neighbor. Has had benefit on PRN seroquel and would like to trial an increased dose to 75 mg BID PRN. 1. Continue with current medication regimen as prescribed. 2. Increase Seroquel 75 mg p.r.n. Continue Effexor XR 150 mg 3. Follow-up as per protocol. Patient educated on: medication risk/benefits and therapeutic strategies Certification I certify that partial hospital treatment is medically necessary due to the symptoms and problems resulting from the patient's mental illness and the failure to treat the patient at the partial hospital level of care would likely result in the patient requiring inpatient psychiatric care which could not be prevented at a less intensive level of care. I spent minutes with the patient and/or on the patient floor today, greater than?50% of which was spent counseling/coordinating care. Discharge Plan Discharge Attending provider: Nilay Cruz Primary Care Provider: Alicia Brown Additional Instructions: Appointment with therapist, Pop Duran at [facility] ([phone]) on , 10/22/21 at 9am. Appointment with med provider Dr. Segura at [facility] on , 10/29/21 at 4pm. Continue with [facility] visiting nurse ([facility]) 3 times per week. Continue with [facility] case technician Anette Irvin. Medications: New venlafaxine [Effexor XR] 150 mg capsule,extended release 24hr 150 mg PO DAILY Qty: 30 RF: 0 Changed quetiapine [Seroquel] 50 mg tablet 75 mg PO BID PRN (Reason: anxiety/agitation) Qty: 60 RF: 0 Discontinued venlafaxine 75 mg Capsule,Extended Release 24hr 75 mg PO DAILY Qty: 30 RF: 0 quetiapine 50 mg Tablet 50 mg PO Q6H PRN (Reason: agitation) Qty: 30 RF: 0 No Action atorvastatin 80 mg Tablet 80 mg PO BEDTIME RF: 0 gabapentin 600 mg Tablet 600 mg PO TID RF: 0 trazodone 50 mg Tablet 50 mg PO BEDTIME RF: 0 cetirizine 10 mg Tablet 10 mg PO DAILY RF: 0 sotalol 80 mg Tablet 40 mg PO BID RF: 0 spironolactone 25 mg Tablet 25 mg PO DAILY RF: 0 meclizine 25 mg Tablet 25 mg PO TID PRN (Reason: Dizziness) RF: 0 pantoprazole 40 mg Tablet,Delayed Release (Dr/Ec) 40 mg PO BID RF: 0 aspirin 81 mg Tablet 81 mg PO DAILY RF: 0 furosemide 20 mg Tablet 40 mg PO DAILY RF: 0 albuterol sulfate [ProAir HFA] 90 mcg/actuation Hfa Aerosol Inhaler 2 puff INHALATION Q4H PRN (Reason: Shortness Of Breath) RF: 0 fluticasone propionate 50 mcg/actuation spray,suspension 1 spray intranasal BID RF: 0 Eliquis 5 mg Tablet 5 mg PO BID RF: 0 metformin 500 mg Tablet 500 mg PO DAILY Qty: 0 RF: 0 metformin 500 mg Tablet 500 mg PO BEDTIME Qty: 0 RF: 0 trazodone 100 mg Tablet 100 mg PO BEDTIME Qty: 30 RF: 0 Dermacerin Cream 1 appl topical TID Qty: 454 RF: 0 psyllium husk [Metamucil] 0.52 gram capsule 0.52 g PO BEDTIME PRN (Reason: constipation) Qty: 30 RF: 0 Referrals: Alicia Brown PA [Primary Care Provider] - 1 Week Stand Alone Forms: Patient Portal Discharge page
--- NOTE | 2021-10-21 16:59 | PC.NURSE ---
I called and left a message for Pop Duran, pts therapist at [facility]. I informed him about pt's successful discharge from [facility] today.
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
== END 2021-10-22 07:05 | disposition home or self-care (01) ==
LOC: HO.PHPA 09:45
PROVIDERS: PCP Physician Assistant; Visit Provider Psychiatry & Neurology Psychiatry
DX: F34.1 Dysthymic disorder (principal); R45.851 Suicidal ideations; F41.1 Generalized anxiety disorder; Z79.899 Other long term (current) drug therapy
CPT/HCPCS: 90791; 90853

== ENCOUNTER 2025-09-22 20:33 | Emergency (ER) | payer OTHER, SELFPAY ==
--- OUTSIDE RECORDS SUMMARY | 2025-02-08 10:37 | XMS_ITS ---
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 Name Role Phone Mekhi-Sondra Weiss Unavailable Yumi Clement Unavailable [phone] REASON FOR VISIT *Care Plan Update Encounters Encounter Location Date Provider Diagnosis - [facility] [address] [facility] [place] [address] 02/08/2025 Yumi Clement Plan Of Treatment No Information Progress Notes * Tesfaye AGUILAraDOB:12/1959 (65 yo Other)Acc No.[id number]:02/08/2025 Care Plan Update Patient: Miguel CROUCH Doretha FUENTES Provider: Dayami Clement NP :1960 A ge:64 Y S ex:Unknown Date:02/08/2025 Address:[address] [place] [address], [id number], [id number] Subjective: * Chief Complaints: * 1 . *Care Plan Update. * Medical History: Objective: * Vitals: Assessment: Plan: * Treatment: Care Plan: * Problems: * Billing Information: Care Plan Details* * Electronic signature of Sarita Clement NP on 09/22/2025 at 09:14 PM EST Sign off status: Pending * Provider: Dayami Clement NP Date: 0 02/08/2025 Generated for Daren whatley/Bud/Pratik on: 1 11/23/2024 09:14 PM EST
--- OUTSIDE RECORDS SUMMARY | 2025-03-15 09:30 | XMS_ITS ---
Author Organization [facility] Address [address] [place] [address] Care Team Providers Care Stencil Printer Name Role Phone Nhan Ferrera Unavailable [phone] Alicia Cisneros Unavailable Unavailable Medications Medication SIG (Take, Route, Frequency, Duration) Notes Start Date End Date Status Atorvastatin Calcium 80 MG Tablet 1 tablet Orally Once a day Active Ascorbic Acid 250 MG Tablet 1 tablet Ora lly Once a day Active Aspirin 81 81 MG Tablet Delayed Release 1 tablet Orally Once a day Active Anastrozole 1 MG Tablet 1 tablet Orally Once a day Active Loperamide HCl 2 MG Capsule 1 capsule as needed Orally Four times a day Active Benztropine Mesylate 1 MG Tablet 1 tablet Orally Once a day Active Cetirizine HCl 10 MG Tablet 1 tablet Ora lly Once a day Active Docusate Sodium 100 MG Capsule 1 capsule as needed Orally Once a day Active Budesonide-Formoterol Fumarate 80-4.5 MCG/ACT Aerosol as directed Inhalation Activ e Calcium 600 600 MG Tablet 1 tablet with food Orally Twice a day Active Fluticasone Propionate 50 MCG/ACT Suspension 1 spray in each nostril Nasally Twice a day Active Furosemide 20 MG Tablet 1 tablet Orally Once a day Active Eliquis 5 MG Tablet as directed Orally Active FeroSul 325 (65 Fe) MG Tablet 1 tablet Orally Three times a Week Active Gabapentin 600 MG Tablet 1 tablet Orally Once a day Active Haloperidol 1 MG Tablet 1 tablet Orally Once a day Active Ketorolac Tromethamine 0.5 % Solution 1 drop into affected eye as needed Ophthalmic Four times a day Active Metoprolol Tartrate 25 MG Tablet 1 tablet with food Orally Twice a day Active Loratadine 10 MG Tablet 1 tablet Orally Once a day Active metFORMIN HCl ER 500 MG Tablet Extended Release 24 Hour 1 tablet with evening meal Orally Once a day Active Nystatin 238554 UNIT/GM Powder 1 application Externally Twice a day Active Ozempic (2 MG/DOSE) 8 MG/3ML Solution Pen-injector as directed Subcutaneous Act toshia Promethazine HCl 12.5 MG Tablet 1 tablet as needed Orally every 6 hrs Active Omeprazole 40 MG Capsule Delayed Release 1 capsule 1/2 to 1 hour before morning meal Orally Once a day Active Ondansetron 4 MG Tablet Disintegrating 1 tablet on the tongue and allow to dissolve Orally Once a day Active Senokot Extra Strength 17.2 MG Tablet 1 tablet at bedtime as needed Orally Once a day Active Sotalol HCl 80 MG Tablet 1 tablet Orally every 12 hrs Active QUEtiapine Fumarate 50 MG Tablet 1 tablet at bedtime Orally Once a day Active Thiamine HCl 100 MG Tablet 1 tablet Oral ly Once a day Active traZODone HCl 100 MG Tablet 1 tablet at bedtime Orally Once a day Active Venlafaxine HCl 75 MG Tablet 1 tablet with food Orally Once a day Active Encounters Encounter Location Date Provider Diagnosis [address] [address] 03/15/2025 Nhan Ferrera Plan Of Treatment No Information Progress Notes * Cj AGUILAOB:12/1959 (65 yo F)Acc No.[id number]:03/15/2025 Follow-Up Visit Patient: Doretha Krueger Provider: Renate Ferrera NP :1960 A ge:64 Y S ex:Female Date:03/15/2025 Address:[address] [place] [address], [address] [place] [id number] Subjective: * Chief Complaints: * Medications: T akingVenlafaxine HCl 75 MG Tablet 1 tablet with food Orally Once a day traZODone HCl 100 MG Tablet 1 tablet at bedtime Orally Once a day Thiamine HCl 100 MG Tablet 1 tablet Orally Once a day Sotalol HCl 80 MG Tablet 1 tablet Orally every 12 hrs Senokot Extra Strength 17.2 MG Tablet 1 tablet at bedtime as needed Orally Once a day QUEtiapine Fumarate 50 MG Tablet 1 tablet at bedtime Orally Once a day Promethazine HCl 12.5 MG Tablet 1 tablet as needed Orally every 6 hrs Ozempic (2 MG/DOSE) 8 MG/3ML Solution Pen-injector as directed Subcutaneous Ondansetron 4 MG Tablet Disintegrating 1 tablet on the tongue and allow to dissolve Orally Once a day Omeprazole 40 MG Capsule Delayed Release 1 capsule 1/2 to 1 hour before morning meal Orally Once a day Nystatin 827764 UNIT/GM Powder 1 application Externally Twice a day Metoprolol Tartrate 25 MG Tablet 1 tablet with food Orally Twice a day metFORMIN HCl ER 500 MG Tablet Extended Release 24 Hour 1 tablet with evening meal Orally Once a day Loratadine 10 MG Tablet 1 tablet Orally Once a day Ketorolac Tromethamine 0.5 % Solution 1 drop into affected eye as needed Ophthalmic Four times a day Haloperidol 1 MG Tablet 1 tablet Orally Once a day Gabapentin 600 MG Tablet 1 tablet Orally Once a day Furosemide 20 MG Tablet 1 tablet Orally Once a day Fluticasone Propionate 50 MCG/ACT Suspension 1 spray in each nostril Nasally Twice a day FeroSul 325 (65 Fe) MG Tablet 1 tablet Orally Three times a Week Eliquis 5 MG Tablet as directed Orally Docusate Sodium 100 MG Capsule 1 capsule as needed Orally Once a day Cetirizine HCl 10 MG Tablet 1 tablet Orally Once a day Calcium 600 600 MG Tablet 1 tablet with food Orally Twice a day Budesonide-Formoterol Fumarate 80-4.5 MCG/ACT Aerosol as directed Inhalation Benztropine Mesylate 1 MG Tablet 1 tablet Orally Once a day Atorvastatin Calcium 80 MG Tablet 1 tablet Orally Once a day Aspirin 81 81 MG Tablet Delayed Release 1 tablet Orally Once a day Ascorbic Acid 250 MG Tablet 1 tablet Orally Once a day Loperamide HCl 2 MG Capsule 1 capsule as needed Orally Four times a day Anastrozole 1 MG Tablet 1 tablet Orally Once a day Taking Venlafaxine HCl 75 MG Tablet 1 tablet with food Orally Once a day Taking traZODone HCl 100 MG Tablet 1 tablet at bedtime Orally Once a day Taking Thiamine HCl 100 MG Tablet 1 tablet Orally Once a day Taking Sotalol HCl 80 MG Tablet 1 tablet Orally every 12 hrs Taking Senokot Extra Strength 17.2 MG Tablet 1 tablet at bedtime as needed Orally Once a day Taking QUEtiapine Fumarate 50 MG Tablet 1 tablet at bedtime Orally Once a day Taking Promethazine HCl 12.5 MG Tablet 1 tablet as needed Orally every 6 hrs Taking Ozempic (2 MG/DOSE) 8 MG/3ML Solution Pen-injector as directed Subcutaneous Taking Ondansetron 4 MG Tablet Disintegrating 1 tablet on the tongue and allow to dissolve Orally Once a day Taking Omeprazole 40 MG Capsule Delayed Release 1 capsule 1/2 to 1 hour before morning meal Orally Once a day Taking Nystatin 925427 UNIT/GM Powder 1 application Externally Twice a day Taking Metoprolol Tartrate 25 MG Tablet 1 tablet with food Orally Twice a day Taking metFORMIN HCl ER 500 MG Tablet Extended Release 24 Hour 1 tablet with evening meal Orally Once a day Taking Loratadine 10 MG Tablet 1 tablet Orally Once a day Taking Ketorolac Tromethamine 0.5 % Solution 1 drop into affected eye as needed Ophthalmic Four times a day Taking Haloperidol 1 MG Tablet 1 tablet Orally Once a day Taking Gabapentin 600 MG Tablet 1 tablet Orally Once a day Taking Furosemide 20 MG Tablet 1 tablet Orally Once a day Taking Fluticasone Propionate 50 MCG/ACT Suspension 1 spray in each nostril Nasally Twice a day Taking FeroSul 325 (65 Fe) MG Tablet 1 tablet Orally Three times a Week Taking Eliquis 5 MG Tablet as directed Orally Taking Docusate Sodium 100 MG Capsule 1 capsule as needed Orally Once a day Taking Cetirizine HCl 10 MG Tablet 1 tablet Orally Once a day Taking Calcium 600 600 MG Tablet 1 tablet with food Orally Twice a day Taking Budesonide-Formoterol Fumarate 80-4.5 MCG/ACT Aerosol as directed Inhalation Taking Benztropine Mesylate 1 MG Tablet 1 tablet Orally Once a day Taking Atorvastatin Calcium 80 MG Tablet 1 tablet Orally Once a day Taking Aspirin 81 81 MG Tablet Delayed Release 1 tablet Orally Once a day Taking Ascorbic Acid 250 MG Tablet 1 tablet Orally Once a day Taking Loperamide HCl 2 MG Capsule 1 capsule as needed Orally Four times a day Taking Anastrozole 1 MG Tablet 1 tablet Orally Once a day Billing Information: * Procedure Codes: * Electronic signature of Tam Ferrera NP on 09/22/2025 at 09:15 PM EST Sign off status: Pending * Provider: Renate Ferrera NP Date: 0 03/15/2025 Generated for Daren whatley/Bud/Pratik on: 11/23/2024 09:15 PM EST
--- NOTE | 2025-09-22 | ECG_ITS ---
Test Reason : FALL Blood Pressure : */* mmHG Vent. Rate : 67 BPM Atrial Rate : 67 BPM P-R Int : 144 ms QRS Dur : 80 ms QT Int : 390 ms P-R-T Axes : 76 -22 57 degrees QTcB Int : 412 ms Normal sinus rhythm Minimal voltage criteria for LVH, may be normal variant ( R in aVL ) Nonspecific ST abnormality Abnormal ECG When compared with ECG of 03-Sep-2021 11:18, Non-specific change in ST segment in Inferior leads Referred By: Generic ED Physician Electronically Signed By: ABRIL DICKERSON MD
--- NOTE | ~2025-09-22 | CT_ITS ---
CLINICAL HISTORY: head trauma CT cervical spine without contrast Comparison: None provided Findings: Normal vertebral body alignment. No significant degenerative change. Mild osteopenia. No acute findings on limited view of the intracranial contents. No cervical fluid collections or masses. No consolidation or effusion at the lung apices. Pfak-vb-dqytxcax right mild left calcified atherosclerotic disease of the proximal internal carotid arteries. IMPRESSION: 1. Hgri-ir-cedbqjke right and mild left calcified atherosclerotic disease of the proximal internal carotid arteries. 2. Mild osteopenia. 3. No acute osseous injury. This document has been electronically signed by: Matthew Mcdonnell MD on 09/22/2025 22:54:37
--- NOTE | ~2025-09-22 | CT_ITS ---
CLINICAL HISTORY: head trauma CT head without contrast Comparison: None provided Findings: No intra-axial mass, midline shift, hydrocephalus, or acute hemorrhage. Heterogeneous low attenuation in the periventricular white matter. The visualized paranasal sinuses and mastoid air cells are normal. The orbits are unremarkable. There is no acute fracture. IMPRESSION: 1. Chronic periventricular microvascular ischemic disease. 2. No acute intracranial findings. This document has been electronically signed by: Matthew Mcdonnell MD on 09/22/2025 22:53:26
[2025-09-22 20:39] VITALS: BP 112/72; PULSE 77; O2SAT 93
[2025-09-22 20:42] VITALS: BP 98/57; PULSE 71; RESP 19; TEMP 36.6; O2SAT 96; BMI 36.1
--- NOTE | 2025-09-22 21:02 | ED.GENADULT ---
[facility] - General Adult General Chief complaint: Fall Stated complaint: Fall, ?head strike from snf Time Seen by Provider: 09/22/25 20:51 Source: patient Mode of arrival: ambulatory Limitations: other (Cognitive disorder ) History of Present Illness ED Provider: Dr. Quiles HPI narrative: 65-year-old female history of AFib on Eliquis, diabetes presented hospital today for evaluation of a unwitnessed fall. Patient denies any loss of consciousness. She is unable to recall the event. According to nursing staff and the patient's family. This is her baseline behavior. No acute altered mentation. Related Data Home Medications ?Medication ?Instructions ?Recorded ?Confirmed albuterol sulfate 90 mcg/actuation 2 puff inhalation Q4H PRN 06/23/21 09/18/21 aerosol inhaler (ProAir HFA) Shortness Of Breath apixaban 5 mg tablet (Eliquis) 5 mg PO BID 06/23/21 09/18/21 aspirin 81 mg tablet 81 mg PO DAILY 06/23/21 09/18/21 atorvastatin 80 mg tablet 80 mg PO BEDTIME 06/23/21 09/18/21 cetirizine 10 mg tablet 10 mg PO DAILY 06/23/21 09/18/21 fluticasone propionate 50 1 spray intranasal BID 06/23/21 09/18/21 mcg/actuation nasal spray,suspension furosemide 20 mg tablet 40 mg PO DAILY 06/23/21 09/18/21 gabapentin 600 mg tablet 600 mg PO TID 06/23/21 09/18/21 meclizine 25 mg tablet 25 mg PO TID PRN Dizziness 06/23/21 09/18/21 pantoprazole 40 mg tablet,delayed 40 mg PO BID 06/23/21 09/18/21 release sotalol 80 mg tablet 40 mg PO BID 06/23/21 09/18/21 spironolactone 25 mg tablet 25 mg PO DAILY 06/23/21 09/18/21 Previous Rx's ?Medication ?Instructions ?Recorded metformin 500 mg tablet 500 mg PO BEDTIME #0 tabs 09/09/21 metformin 500 mg tablet 500 mg PO DAILY #0 tabs 09/09/21 psyllium husk 0.52 gram capsule 0.52 g PO BEDTIME PRN constipation 09/09/21 (Metamucil) #30 caps trazodone 100 mg tablet 100 mg PO BEDTIME #30 tabs 09/09/21 white petrolatum-mineral oil 1 appl topical TID #454 grams 09/09/21 topical cream (Dermacerin (petrolatum-mineral oil) topical cream) venlafaxine 150 mg 150 mg PO DAILY #30 caps 10/05/21 capsule,extended release 24 hr (Effexor XR) quetiapine 50 mg tablet (Seroquel) 75 mg (1.5 x 50 mg) PO BID PRN 10/20/21 anxiety/agitation #60 tabs Allergies Allergy/AdvReac Type Severity Reaction Status Date / Time naltrexone Allergy Unknown unknown Verified 09/22/25 20:43 lithium (LITHIUM) AdvReac Severe Gastroenter Verified 09/22/25 20:43 itis SEASONAL ALLERGIES Allergy Unknown unk Uncoded 09/22/25 20:43 Review of Systems Review of Systems: Pertinent review of systems as mentioned in HPI. All other system otherwise negative. [facility] Past Medical History [facility] Narrative: Medical history as mentioned in HPI Medical History Arthritis Atrial fibrillation Benign essential HTN Congestive heart failure Fibromyalgia Gastritis Hyperlipidemia Myocardial infarction Obstructive sleep apnea Osteoarthritis Type II diabetes mellitus Vertigo Social History Social History Household Members: None Household Members Other:: None Housing: Apartment Do you presently have visiting nurse or other home services: Yes ([facility]) Patient Tobacco Use Status: Former Tobacco user Tobacco use type: Cigarette Years Smoked: 37 YEARS e-Cigarette/Vaping Use: Former Use Second Hand Smoke Exposure: Yes Substance Use Type: Marijuana Advance Directives: No Advance Directives Information Provided: No service: No Sexual orientation: Straight/Heterosexual Physical Exam ED Exam Exam: General: Pleasant, no distress, interacting appropriately Head: Normacephalic, atraumatic ENT: oral mucosa moist, neck supple, no tracheal deviation Cardiovascular: regular rate, regular rhythm, no murmurs, rubbing, gallops Respiratory: CTAB, no wheeze, rales, rhonchi Extremities: No limb pain or swelling, no calf tenderness Neurological: Awake and alert, no facial droop noted, no neurological deficit on exam. Skin: Warm and dry Psychiatric: Appropriate mood and thoughts Vital Signs: Vital Signs - 24 hr 09/22/25 20:42 09/22/25 22:23 09/23/25 00:34 Temperature 97.9 F 97.6 F Pulse Rate 71 63 63 Respiratory Rate 19 15 14 Blood Pressure 98/57 L 108/53 L 111/58 L Pulse Oximetry 96 96 96 Oxygen Delivery Method Room Air Room Air Room Air BMI result Body Mass Index 36.1 Medications Administered Discontinued Medications Generic Name Dose Route Start Last Admin Trade Name Freq PRN Reason Stop Dose Admin Acetaminophen 975 mg 09/22/25 21:53 09/22/25 22:25 Acetaminophen 325 Mg Tablet PO 09/22/25 21:54 975 mg ONCE ONE Administration Sodium Chloride 1,000 mls @ 999 mls/hr 09/22/25 21:00 09/22/25 22:25 Ns IV 09/22/25 22:00 Infused .Q1H1M BAILEY Infusion Medical Decision Making Medical Decision Making MDM Narrative: 65-year-old female history of hypertension hyperlipidemia AFib on Eliquis presented hospital today after an unwitnessed fall. Patient does appear to have some cognitive disorder on exam. She does appear to be confused. According to nursing staff this is her baseline which was confirmed with family. Patient was brought in because of her history on blood thinners. And the unwitnessed fall. The patient denies any pain or injuries at this time. CT head CT C-spine will be obtained. We will obtain basic lab work as well any EKG. No STEMI on EKG, CT head CT C-spine is negative. Hemoglobin has slight anemia at 11.9. BUN to creatinine ratio is is elevated likely secondary to dehydration. L IV fluid was given to the patient. Patient was able to ambulate with nursing staff at this time. Patient will be discharged back to assisted living facility at this time. Differential Diagnosis Differential Diagnoses: The differential diagnosis associated with the presentation includes Intracranial bleed, C-spine injury, dehydration Lab Data [facility] Lab Attestation statement: I reviewed the patient's lab results. 09/22/25 21:00 09/22/25 21:00 Labs: Lab Results 09/22/25 Range/Units 21:00 WBC 7.0 (4.8-10.8) X10*3/uL RBC 4.05 L (4.20-5.50) X10*6/uL Hgb 11.9 L (12.0-16.0) g/dl Hct 36.7 L (37.0-47.0) % MCV 90.6 (80.0-98.0) fL MCH 29.4 (27.0-33.0) pg MCHC 32.4 (31.0-35.0) g/dl RDW 13.1 (11.0-16.0) % Plt Count 187 (160-400) X10*3/uL MPV 12.0 (9.4-12.3) fL Immature Gran % (Auto) 0.3 (0.0-0.4) % Neut % (Auto) 70.9 (45-73) % Lymph % (Auto) 16.8 L (20-40) % [place] % (Auto) 7.6 (2-11) % Eos % (Auto) 4.0 (0-4) % Baso % (Auto) 0.4 (0-2) % Lymph # (Auto) 1.2 (1.2-4.9) X10*3/uL [place] # (Auto) 0.5 (0.1-1.2) X10*3/uL Eos # (Auto) 0.3 (0.0-0.4) X10*3/uL Baso # (Auto) 0.0 (0.0-0.2) X10*3/uL Abs Immat Gran (auto) 0.02 (0.00-0.03) X10*3/uL Absolute Neuts (auto) 5.0 (2.0-8.3) x10*3/uL Absolute Nucleated RBC 0.000 (0.0-0.012) X10*3/uL Nucleated RBC % (auto) 0.0 (0.0-0.2) /100WBC Sodium 142 (135-145) mmol/L Potassium 4.4 (3.3-5.1) mmol/L Chloride 110 H (96-108) mmol/L Carbon Dioxide 23 (22-29) mmol/L Anion Gap 13 (12-20) BUN 31 H (9-16) mg/dL Creatinine 1.04 (0.5-1.4) mg/dL Estim Creat Clear Calc 65.7 Estimated GFR 53 Random Glucose 133 H (60-115) mg/dL Calcium 9.1 D (8.4-10.2) mg/dL Magnesium 1.8 (1.6-2.6) mg/dL Independent Interpretation I performed an independent interpretation of an: CT Scan Radiology Impression Discussion of test interpretation with radiology: I have reviewed the radiologist's reading. Discharge Plan Discharge Clinical Impression: Closed head injury Qualifiers: Encounter type: initial encounter Qualified Code(s): S09.90XA - Unspecified injury of head, initial encounter Patient Disposition: Home, Self-Care Additional Instructions: Follow up with your primary care doctor on your fall. Ct imaging did not show any injuries Prescriptions: No Action atorvastatin 80 mg Tablet 80 mg PO BEDTIME gabapentin 600 mg Tablet 600 mg PO TID cetirizine 10 mg Tablet 10 mg PO DAILY sotalol 80 mg Tablet 40 mg PO BID Rx Instructions: Take 1/2 tab BID. 40 mg BID spironolactone 25 mg Tablet 25 mg PO DAILY meclizine 25 mg Tablet 25 mg PO TID PRN (Reason: Dizziness) pantoprazole 40 mg Tablet,Delayed Release (Dr/Ec) 40 mg PO BID aspirin 81 mg Tablet 81 mg PO DAILY furosemide 20 mg Tablet 40 mg PO DAILY Rx Instructions: Take 2 tabs daily. Total dose 40 mg Daily. albuterol sulfate [ProAir HFA] 90 mcg/actuation Hfa Aerosol Inhaler 2 puff INHALATION Q4H PRN (Reason: Shortness Of Breath) fluticasone propionate 50 mcg/actuation spray,suspension 1 spray intranasal BID Eliquis 5 mg Tablet 5 mg PO BID venlafaxine [Effexor XR] 150 mg capsule,extended release 24hr 150 mg PO DAILY Qty: 30 0RF quetiapine [Seroquel] 50 mg tablet 75 mg PO BID PRN (Reason: anxiety/agitation) Qty: 60 0RF metformin 500 mg Tablet 500 mg PO DAILY Qty: 0 0RF metformin 500 mg Tablet 500 mg PO BEDTIME Qty: 0 0RF trazodone 100 mg Tablet 100 mg PO BEDTIME Qty: 30 0RF Dermacerin(petrolatum-min.oil) Cream 1 appl topical TID Qty: 454 0RF Protocol: Apply to: Apply to: bilateral feet psyllium husk [Metamucil] 0.52 gram capsule 0.52 g PO BEDTIME PRN (Reason: constipation) Qty: 30 0RF Print Language: Hungarian
[2025-09-22 21:03] LABS: MANUAL DIFF FLAG NO
[2025-09-22 21:13] LABS: Hematocrit 36.7 % (37.0-47.0); Hemoglobin 11.9 g/dl (12.0-16.0); Imm Gran Abs Auto 0.02 X10*3/uL (0.00-0.03); Imm Gran Pct Auto 0.3 % (0.0-0.4); Lymphocytes Absolute Auto 1.2 X10*3/uL (1.2-4.9); Mean Corpuscular HGB Conc 32.4 g/dl (31.0-35.0); Mean Corpuscular Hemoglobin 29.4 pg (27.0-33.0); Mean Corpuscular Volume 90.6 fL (80.0-98.0); NRBC Abs Auto 0.000 X10*3/uL (0.0-0.012); NRBC Pct Auto 0.0 /100WBC (0.0-0.2); Platelet Count 187 X10*3/uL (160-400); Red Blood Count 4.05 X10*6/uL (4.20-5.50); White Blood Count 7.0 X10*3/uL (4.8-10.8)
--- OUTSIDE RECORDS SUMMARY | 2025-09-22 21:13 | XMS_ITS | Encounter Summary ---
Author Organization [facility] Address [address] [place] [phone] Phone Care Team Providers Care Stitcher Feeder Name Role Phone Yasir Brown MD Primary Care Provider [phone] Yasir Brown MD Unavailable [phone] Alicia Brown Primary Care Provider [phone] Zulema Mckeon MD, MPH Unavailable [phone] Namrata Hein RN Unavailable Tammy Steinberg Unavailable [phone] Tre Lara MD Unavailable [phone] Juventino Zhong MD Unavailable Bryan Chun MD Unavailable [phone] Angus Nicole Unavailable [phone] Andrea Waters MD Unavailable Alicia Brown Primary Care Provider [phone] Maykel Campos MD Unavailable Anastasia Nation Unavailable [phone] Encounter Details Date Type Department Care Team (Late st Contact Info) Description 11/07/2017 Procedure Pass [facility]oscopy Admitting Dept Virtual Department [address] [place] [address] Social History Tobacco Use Types Packs/Day Years Used Date Smoking Tobacco: Former Smokeless Tobacco: Never Alcohol Use Standard Drinks/Week Comments No 0 (1 standard drink = 0.6 oz pur e alcohol) Comments Unknown Sex and Gender Information Value Date Recorded Sex Assigned at Female 10/10/2017 9:38 AM EST Legal Sex Female 9:46 PM EDT Gender Identity Female 10/10/2017 9:38 AM EST Sexual Orientation Straight 10/10/2017 9: 38 AM EST documented as of this encounter Plan of Treatment Not on file documented as of this encounter Visit Diagnoses Not on filedocumented in this encounter Additional Health Concerns Infection Onset Date Last Indicated Resolved Time Clearance-CoV Comment:Auto-resolved with COVID-19 PCR result 02/08/2020 02/08/2020 02/08/2020 5:07 PM E DT CoV-Risk Comment:Per note documentation 05/25/2020 05/25/2020 0 8:12 AM EDT CoV-Risk 10/09/2020 10/09/2020 10/19/2020 1:24 AM EST CoV-Risk 11/25/2023 12/04/2023 12/04/2023 8:05 PM EST CoV-Risk Comment:Neg covid 02/25/2024 02/25/2024 03/01/2024 7:39 AM E DT CoV-Risk 11/22/2024 11/22/2024 12/03/2024 1:22 AM EST CDiff-Risk 07/15/2025 07/16/2025 07/16/2025 9:01 PM EDT documented as of this encounter Care Teams Stitcher Feeder Relationship Specialty Start Date End Date Yasir Brown MD PCP - General Family Medicine 08/24/17 05/25/20 Alicia Brown PA [address] [place] [address] PCP - General Hedis Analyst 05/26/20 04/22/22 Alicia Brown PA [address] [place] [phone] PCP - General Hedis Analyst 04/23/22 Yasir Brown MD [address] [place] [id number] [email or web address] Insurance Assigned Provider 01/09/20 08/09/20 Zulema Mckeon MD, MPH [address] [place] [id number] [email or web address] Insurance Assigned Provider 08/09/20 10/11/20 Namrata Hein RN [address] [place] [id number] [email or web address] Operational Communication Chief 09/02/20 07/08/21 Tammy Steinberg [address] [place] [address] [email or web address] Community Health Worker 09/03/20 12/24/20 Tre Lara MD [address] [place] [phone] [email or web address] Psychiatrist Adolescent Medicine 10/10/20 Juventino Zhong MD [address] [place] [phone] Insurance Assigned Provider 10/11/20 11/08/20 Bryan Chun MD [address] [place] [phone] Insurance Assigned Provider 11/08/20 12/06/20 Angus Nicole, [address] [address] [email or web address] PHCM Lab Pack Chemist 12/01/20 12/24/20 Andrea Waters MD [address] [place] [phone] [email or web address] Insurance Assigned Provider 12/06/20 09/18/21 Maykel Campos MD [address] [place] [phone] Primary Oncologist Hematology and Oncology 06/01/23 01/22/24 Anastasia Nation MBBS [address] [address] [email or web address] Primary Oncologist Medical Oncology 01/23/24 documented as of this encounter Additional Source Comments The information contained in this document represents components of the legal health record. It is not the complete legal health record.[facility]
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
--- OUTSIDE RECORDS SUMMARY | 2025-09-22 21:13 | XMS_ITS | Encounter Summary ---
Author Organization [facility] Address [address] [place] [address] [place] [address] Phone Care Team Providers Care Coupon Clerk Name Role Phone Tre Lara MD Unavailable Alicia Brown Primary Care Provider [phone] Maykel Campos MD Unavailable Anastasia Nation Unavailable [phone] Encounter Details Date Type Department Care Team (Late st Contact Info) Description 11/02/2023 Procedure Pass [facility] [address] [place], [place] [id number] Social History Tobacco Use Types Packs/Day Years Used Date Smoking Tobacco: Former Cigarettes 1 40 1 975 - 2014 Smokeless Tobacco: Never Alcohol Use Standard Drinks/Week Comments No 0 (1 standard drink = 0.6 oz pur e alcohol) Education Answer Date Recorded Are you interested in more education? Not on regino e 01/28/2023 Are you concerned about learning? Not on file 01/28/2023 No 01/28/2023 No 01/28/2023 Digital Access Answer Date Recorded No 02/23/2023 No 02/23/2023 Reliable internet access at home? Not on file 02/23/2023 Device with a working camera? Not on file Comments No Sex and Gender Information Value Date Recorded [...] Infection Onset Date Last Indicated Resolved Time CoV-Risk 11/25/2023 12/04/2023 12/04/2023 8:05 PM EST CoV-Risk Comment:Neg covid 02/25/2024 02/25/2024 03/01/2024 7:39 AM E DT CoV-Risk 11/22/2024 11/22/2024 12/03/2024 1:22 AM EST CDiff-Risk 07/15/2025 07/16/2025 07/16/2025 9:01 PM EDT documented as of this encounter Care Teams Coupon Clerk Relationship Specialty Start Date End Date Alicia Brown PA [address] [place] [address] PCP - General Record Pressman 04/23/22 Tre Lara MD [address] [place] [address] [email or web address] Psychiatrist Adolescent Medicine 10/10/20 Maykel Campos MD [address] [address] Primary Oncologist Hematology and Oncology 06/01/2301/02 Anastasia Nation MBBS [address] [place] [address] [email or web address] Primary Oncologist Medical Oncology 01/23/24 documented as of this encounter Additional Source Comments The information contained in this document represents components of the legal health record. It is not the complete legal health record.[facility]
--- OUTSIDE RECORDS SUMMARY | 2025-09-22 21:13 | XMS_ITS | Encounter Summary ---
Author Organization [facility] Address [address] [place] [address] Phone Care Team Providers Care Printed Circuit Boards Solder Leveler Name Role Phone Alicia Brown Primary Care Provider [phone] Tre Lara MD Unavailable Alicia Brown Primary Care Provider Maykel Campos MD Unavailable [phone] Anastasia Nation Unavailable [phone] Encounter Details Date Type Department Care Team (Late st Contact Info) Description 11/28/2021 Procedure Pass [facility] - [address] [id number] Social History Tobacco Use Types Packs/Day Years Used Date Smoking Tobacco: Former Cigarettes 1 40 1 975 - 2015 Smokeless Tobacco: Never Alcohol Use Standard Drinks/Week Comments No 0 (1 standard drink = 0.6 oz pur e alcohol) Comments No Sex and Gender Information Value [...] documented as of this encounter Care Teams Printed Circuit Boards Solder Leveler Relationship Specialty Start Date End Date Alicia Brown PA [address] [place] [address] PCP - General Food And Beverage Assistant Manager 05/26/20 04/22/22 Alicia Brown PA [address] [place] [address] PCP - General Food And Beverage Assistant Manager 04/23/22 Tre Lara MD [address] [place] [id number] [email or web address] Psychiatrist Adolescent Medicine 10/10/20 Maykel Campos MD [address] [address] Primary Oncologist Hematology and Oncology 06/01/23 4/10/26 Anastasia Nation MBBS [address] [address] [email or web address] Primary Oncologist Medical Oncology 01/23/24 documented as of this encounter Additional Source Comments The information contained in this document represents components of the legal health record. It is not the complete legal health record.[facility]
--- OUTSIDE RECORDS SUMMARY | 2025-09-22 21:13 | XMS_ITS | Continuity of Care Document ---
Author Name Carolyn Samson Address [address] [place] [address] Organization Unknown Address [address] [place] [address] Medications No known medications Problems No known problems
--- OUTSIDE RECORDS SUMMARY | 2025-09-22 21:14 | XMS_ITS | Encounter Summary ---
Author Organization [facility] Address [address] [place] [address] [place] [address] Phone Care Team Providers Care Compress Engineer Name Role Phone Tre Lara MD Unavailable [phone] Alicia Brown Primary Care Provider [phone] Anastasia Nation Unavailable Encounter Details Date Type Department Care Team (Late st Contact Info) Description 04/21/2025 Procedure Pass [facility], Ct Scan - [facility] [address] [place] [address] Social History Tobacco Use Types Packs/Day Years [...] on file 01/28/2023 No 01/28/2023 No 01/28/2023 Food Answer Date Recorded Within the past 6 months we worried whether our food would run out before we got money to buy more. Never True 04/21/2025 Within the past 6 months the food we bought just didn't last and we didn't have enough money to get more. Never True Residential Stability Answer Date Recor ded What is your housing situation today? I have carrie sing 04/21/2025 How many times have you move d in the past 12 months? Zero (I did not move) 04/21/2025 Paying for Meds Answer Date Recorded Do you have trouble paying for medicines? No 04/21/2025 Paying Utility Bills Answer Date Record ed Do you have trouble paying your heating or elect ricity bill? No 04/21/2025 Transportation Answer Date Recorded Has the lack of transportati on kept you from medical appointments or from getting medications? No 04/21/2025 Digital Access Answer Date Recorded No 04/21/2025 Yes 04/21/2025 Do you have reliable internet access at home? Ye s 04/21/2025 Do you have a device (e.g., phone, tablet, computer) with a working camera? Yes 04/21/2025 Intimate Partner Violence Answer Date R ecorded Are you denied basic needs s uch as food, clothing, or medical care? No 04/21/2025 In the past 12 months have y ou been in a relationship with a person who hurts, threatens, or tries to control you? No 04/21/2025 Are you denied basic needs s uch as food, clothing, or medical care? No 04/21/2025 In the past 12 months have y ou been in a relationship with a person who hurts, threatens, or tries to control you? No 04/21/2025 Comments No Sex and Gender Information Value [...] Infection Onset Date Last Indicated Resolved Time CDiff-Risk 07/15/2025 07/16/2025 07/16/2025 9:01 PM EDT documented as of this encounter Care Teams Compress Engineer Relationship Specialty Start Date End Date Alicia Brown PA [address] [place] [address] PCP - General Fancy Sewer 04/23/22 Tre Lara MD [address] [place] [address] Psychiatrist Adolescent Medicine 10/10/20 Anastasia Nation MBBS [address] [place] [address] [email or web address] Primary Oncologist Medical Oncology 01/23/24 documented as of this encounter Additional Source Comments The information contained in this document represents components of the legal health record. It is not the complete legal health record.[facility]
--- OUTSIDE RECORDS SUMMARY | 2025-09-22 21:14 | XMS_ITS | Encounter Summary ---
Author Organization [facility] Address [address] [place] [address] [place] [address] Phone Care Team Providers Care Construction Management Assistant Name Role Phone Tre Lara MD Unavailable Alicia Brown Primary Care Provider [phone] Anastasia Nation Unavailable Encounter Details Date Type Department Care Team (Late st Contact Info) Description 05/02/2025 Procedure Pass [facility], Ct Scan - [facility] [address] [place] [address] Social History Tobacco Use Types Packs/Day Years [...] got money to buy more. Never True 05/04/2025 Within the past 6 months the food we bought just didn't last and we didn't have enough money to get more. Never True Residential Stability Answer Date Recor ded What is your housing situation today? I have carrie sing 05/04/2025 How many times have you move d in the past 12 months? Zero (I did not move) 05/04/2025 Paying for Meds Answer Date Recorded Do you have trouble paying for medicines? No 05/04/2025 Paying Utility Bills Answer Date Record ed Do you have trouble paying your heating or elect ricity bill? No 05/04/2025 Transportation Answer Date Recorded Has the lack of transportati on kept you from medical appointments or from getting medications? No 05/04/2025 Digital Access Answer Date Recorded No 05/04/2025 Yes 05/04/2025 Do you have reliable internet access at home? Ye s 05/04/2025 Do you have a device (e.g., phone, tablet, computer) with a working camera? Yes 05/04/2025 Intimate Partner Violence Answer Date R ecorded Are you denied basic needs s uch as food, clothing, or medical care? No 05/04/2025 In the past 12 months have y ou been in a relationship with a person who hurts, threatens, or tries to control you? No 05/04/2025 Are you denied basic needs s uch as food, clothing, or medical care? No 05/04/2025 In the past 12 months have y ou been in a relationship with a person who hurts, threatens, or tries to control you? No 05/04/2025 Comments No Sex and Gender Information Value [...] documented as of this encounter Care Teams Construction Management Assistant Relationship Specialty Start Date End Date Alicia Brown PA [address] [place] [address] PCP - General Chlorine Plant Operator 04/23/22 Tre Lara MD [address] [place] [address] Psychiatrist Adolescent Medicine 10/10/20 Anastasia Nation MBBS [address] [place] [address] [email or web address] Primary Oncologist Medical Oncology 01/23/24 documented as of this encounter Additional Source Comments The information contained in this document represents components of the legal health record. It is not the complete legal health record.[facility]
--- OUTSIDE RECORDS SUMMARY | 2025-09-22 21:14 | XMS_ITS | Encounter Summary ---
Author Organization [facility] Address [address] [place] [address] Phone Care Team Providers Care Mushroom Cultivator Name Role Phone Yasir Brown MD Primary Care Provider [phone] Yasir Brown MD Unavailable [phone] Alicia Brown Primary Care Provider [phone] Zulema Mckeon MD, MPH Unavailable + [phone] Namrata Hein RN Unavailable Tammy Steinberg Unavailable [phone] Tre Lara MD Unavailable Juventino Zhong MD Unavailable Bryan Chun MD Unavailable [phone] Angus Nicole Unavailable [phone] Andrea Waters MD Unavailable Alicia Brown Primary Care Provider [phone] Maykel Campos MD Unavailable Anastasia Nation Unavailable Encounter Details Date Type Department Care Team (Late st Contact Info) Description 05/05/2020 Procedure Pass [facility] [address] [place] [address] Social History Tobacco Use Types Packs/Day Years [...] Onset Date Last Indicated Resolved Time CoV-Risk Comment:Per note documentation 05/25/2020 05/25/2020 8:12 AM EDT CoV-Risk 10/09/2020 10/09/2020 10/19/2020 1:24 AM EST CoV-Risk 11/25/2023 12/04/2023 12/04/2023 8:05 PM EST CoV-Risk Comment:Neg covid 02/25/2024 02/25/2024 03/01/2024 7:39 AM E DT CoV-Risk 11/22/2024 11/22/2024 12/03/2024 1:22 AM EST CDiff-Risk 07/15/2025 07/16/2025 07/16/2025 9:01 PM EDT documented as of this encounter Care Teams Mushroom Cultivator Relationship Specialty Start Date End Date Yasir Brown MD PCP - General Family Medicine 08/24/17 05/25/20 Alicia Brown PA [address] [place] [phone] PCP - General Rug Layer 05/26/20 04/22/22 Alicia Brown PA [address] [place] [phone] PCP - General Rug Layer 04/23/22 Yasir Brown MD [address] [place] [address] [email or web address] Insurance Assigned Provider 01/09/20 08/09/20 Zulema Mckeon MD, MPH [address] [place] [address] [email or web address] Insurance Assigned Provider 08/09/20 10/11/20 Namrata Hein, MARY ANN [address] [place] [address] [email or web address] PHCM Central Service Technician 09/02/20 07/08/21 Tammy Steinberg [address] [place] [address] [email or web address] PHCM Community Health Worker 09/03/20 12/24/20 Tre Lara MD [address] [place] [phone] [email or web address] Psychiatrist Adolescent Medicine 10/10/20 Juventino Zhong MD [address] [place] [phone] Insurance Assigned Provider 10/11/20 11/08/20 Bryan Chun MD [address] [place] [address] [email or web address] Insurance Assigned Provider 11/08/20 12/06/20 Bonnie Angus, [place] [facility] [address] [place] [address] [email or web address] PHCM Executive Vice President 12/01/20 12/24/20 Andrea Waters MD [address] [place] [address] [place] [phone] [email or web address] Insurance Assigned Provider 12/06/20 09/18/21 Maykel Campos MD [address] [address] Primary Oncologist Hematology and Oncology 06/01/23 01/22/24 Anastasia Nation MBBS [address] [address] [email or web address] Primary Oncologist Medical Oncology 01/23/24 documented as of this encounter Additional Source Comments The information contained in this document represents components of the legal health record. It is not the complete legal health record.[facility]
--- OUTSIDE RECORDS SUMMARY | 2025-09-22 21:14 | XMS_ITS | Encounter Summary ---
Author Organization [facility] Address [address] [place] [address] Phone Care Team Providers Care Environmental Science Program Director Name Role Phone Yasir Brown MD Primary Care Provider [phone] Yasir Brown MD Unavailable [phone] Alicia Brown Primary Care Provider [phone] uZlema Mckeon MD, MPH Unavailable + [phone] Namrata Hein RN Unavailable Tammy Steinberg Unavailable [phone] Tre Lara MD Unavailable Juventino Zhong MD Unavailable Bryan Chun MD Unavailable [phone] Angus Nicole Unavailable [phone] Andrea Waters MD Unavailable Alicia Brown Primary Care Provider [phone] Maykel Campos MD Unavailable Anastasia Nation Unavailable Encounter Details Date Type Department Care Team (Late st Contact Info) Description 05/25/2020 Procedure Pass [facility], Ct Scan - [address] [address] Social History Tobacco Use Types Packs/Day Years [...] documented as of this encounter Care Teams Environmental Science Program Director Relationship Specialty Start Date End Date Yasir Brown MD PCP - General Family Medicine 08/24/17 05/25/20 Alicia Brown PA [address] [place] [phone] PCP - General Mailroom Clerk 05/26/20 04/22/22 Alicia Brown PA [address] [place] [phone] PCP - General Mailroom Clerk 04/23/22 Yasir Brown MD [address] [place] [address] [email or web address] Insurance Assigned Provider 01/09/20 08/09/20 Zulema Mckeon MD, MPH [address] [place] [address] [email or web address] Insurance Assigned Provider 08/09/20 10/11/20 Namrata Hein, MARY ANN [address] [place] [address] [email or web address] PHCM Hearing Aid Specialist 09/02/20 07/08/21 Tammy Steinberg [address] [place] [address] [email or web address] Community Health Worker 09/03/20 12/24/20 Tre Lara MD [address] [place] [address] [email or web address] Psychiatrist Adolescent Medicine 10/10/20 Juventino Zhong MD [address] [place] [phone] Insurance Assigned Provider 10/11/20 11/08/20 Bryan Chun MD [address] [place] [address] [email or web address] Insurance Assigned Provider 11/08/20 12/06/20 Bonnie Angus, [facility] [address] [place] [address] [email or web address] PHCM Manager Of Distribution 12/01/20 12/24/20 Andrea Waters MD [address] [facility] [address] [place] [phone] [email or web address] Insurance Assigned Provider 12/06/20 09/18/21 Maykel Campos MD [address] [address] Primary Oncologist Hematology and Oncology 06/01/23 01/22/24 Anastasia Nation MBBS [address] [address] [email or web address] Primary Oncologist Medical Oncology 01/23/24 documented as of this encounter Additional Source Comments The information contained in this document represents components of the legal health record. It is not the complete legal health record.[facility]
--- OUTSIDE RECORDS SUMMARY | 2025-09-22 21:14 | XMS_ITS | Encounter Summary ---
Author Organization [facility] Address [address] [place] [address] Phone Care Team Providers Care Informatics Educator Name Role Phone Alicia Brown Primary Care Provider [phone] Tre Lara MD Unavailable [phone] Alicia Brown Primary Care Provider Maykel Campos MD Unavailable Anastasia Nation Unavailable [phone] Encounter Details Date Type Department Care Team (Latest Contact Info) Description 10/08/2021 Transcribe Orders [facility] [address] [place], [place] [phone] Jacquelyn Arboleda, KIMBERLY [address] [place], [place] [phone] Abdominal pain, left upper quadrant (Primary Dx); Iron deficiency anemia secondary to blood loss (chronic); Constipation, unspecified constipation type Social History Tobacco Use Types Packs/Day Years [...] on file documented as of this encounter Results * Tissue transglutaminase IgA (10/08/2021 2:41 PM EST) Pathologist [facility] TTG IGA ANTIBODY <1.2 <4.0 (Negative) U/mL [facility] LAB MED/PATH SUPERIOR Blood 10/08/2021 2:41 PM EST 10/08/2021 2:49 PM EST Jacquelyn Arboleda NP LAB BLOOD BKR ORDERABLES Final Result [facility] LAB MED/PATH SUPERIOR [address] [place] [address] * TSH (10/08/2021 2:40 PM EST) [facility] TSH 0.67 0.27 - 4.20 uIU/mL [facility] Blood 10/08/2021 2:40 PM EST 10/08/2021 2:49 PM EST [facility]LOOD BKR ORDERABLES Final Result [facility] [address] [place], [place] [phone] * (ABNORMAL) Iron and iron binding capacity (10/08/2021 2:40 PM EST) Pathologist [facility] IRON 53 30 - 160 ug/dL [facility] IRON BINDING CAPACITY 394 228 - 428 ug/dL [facility] TRANSFERRIN SATURAT. 13(L) 15 - 50 % [facility] Blood 10/08/2021 2:40 PM EST 10/08/2021 2:49 PM EST Jacquelyn Arboleda CRIMINALIST LAB BLOOD BKR ORDERABLES Final Result Performing Organization Address City/[facility]/ZIP Co de Phone Number [address] [address] * (ABNORMAL) C-Reactive Protein (10/08/2021 2:40 PM EST) C REACTIVE PROTEIN 7.7(H) 0.0 - 4.0 mg/L [facility] Blood 10/08/2021 2:40 PM EST 10/08/2021 2:49 PM EST Jacquelyn Arboleda NP LAB BLOOD BKR ORDERABLES Final Result Performing Organization Address [facility] de Phone Number [address] [address] * (ABNORMAL) Comprehensive metabolic panel (10/08/2021 2:40 PM EST) SODIUM 138 133 - 146 mmol/L [facility] POTASSIUM 4.0 3.3 - 5.1 mmol/L [facility] CHLORIDE 98 96 - 108 mmol/L [facility] CO2 26 21 - 35 mmol/L [facility] BUN 24(H) 6 - 19 mg/dL [facility] CREATININE 1.10 0.5 - 1.5 mg/dL [facility] GLUCOSE 86 70 - 99 mg/dL [facility] ALBUMIN 4.5 3.9 - 4.8 g/dL [facility] TOTAL PROTEIN 7.1 6.5 - 8.0 g/dL [facility] CALCIUM 9.5 8.4 - 10.3 mg/dL [facility] ALKALINE PHOSPHATASE 164(H) 39 - 117 U/L [facility] TOTAL BILIRUBIN 0.5 0.0 - 1.2 mg/dL [facility] AST 13 0 - 37 U/L [facility] ALT 12 0 - 40 U/L [facility] GLOBULIN 2.6 1 - 4.8 g/dL [facility] EGFR 58(L) >59 mL/min/1.7 3m2 [facility] Comment:Estimated glomerular filtration rate calculated using the CKD-EPI refit equation. ANION GAP 18 10 - 20 mmol/L [facility] Blood 10/08/2021 2:40 PM EST 10/08/2021 2:49 PM EST us Jacquelyn Arboleda CRIMINALIST LAB BLOOD BKR ORDERABLES Final Result Performing Organization Address [facility]/ZIP Co de Phone Number [address] [address] * (ABNORMAL) CBC (10/08/2021 2:40 PM EST) WBC 9.52 4.00 - 11.00 K/uL [facility] RBC 4.36 3.72 - 5.30 M/uL [facility] HGB 11.3(L) 11.4 - 15.9 g/dL [facility] HCT 35.5 34.2 - 46.8 % [facility] PLT 224 140 - 430 K/uL [facility] MCV 81.4 78.0 - 97.0 fL [facility] MCH 25.9 25.0 - 33.0 pg [facility] MCHC 31.8(L) 32.0 - 36.0 g/dL [facility] RDW 15.0 11.0 - 16.0 % [facility] MPV 12.9(H) 8.4 - 12.8 fl [facility] NRBC 0.00 0 /100 WBCs [facility] ABSOLUTE NRBC 0.00 0 K/uL [facility] Blood 10/08/2021 2:40 PM EST 10/08/2021 2:49 PM EST Jacquelyn Arboleda NP LAB BLOOD BKR ORDERABLES Final Result Performing Organization Address City/[facility]/ZIP Co de Phone Number [address] [address] * Immunoglobulin A (10/08/2021 2:40 PM EST) IgA 171 70 - 400 mg/dL [facility] Blood 10/08/2021 2:40 PM EST 10/08/2021 2:49 PM EST us Jacquelyn Arboleda CRIMINALIST LAB BLOOD BKR ORDERABLES Final Result [address] [address] documented in this encounter Visit Diagnoses Diagnosis Abdominal pain, left upper quadrant- Primary Iron deficiency anemia secondary to blood loss (chronic) Constipation, unspecified constipation type documented in this encounter Additional Health Concerns Infection Onset Date Last Indicated Resolved Time CoV-Risk 11/25/2023 12/04/2023 12/04/2023 8:05 PM EST CoV-Risk Comment:Neg covid 02/25/2024 02/25/2024 03/01/2024 7:39 AM E DT CoV-Risk 11/22/2024 11/22/2024 12/03/2024 1:22 AM EST CDiff-Risk 07/15/2025 07/16/2025 07/16/2025 9:01 PM EDT documented as of this encounter Care Teams Informatics Educator Relationship Specialty Start Date End Date Alicia Brown PA [address] [place] [address] PCP - General Leasing Property Manager 05/26/20 04/22/22 Alicia Brown PA [address] [place] [address] PCP - General Leasing Property Manager 04/23/22 Tre Lara MD [address] [place] [address] [email or web address] Psychiatrist Adolescent Medicine 10/10/20 Maykel Campos MD [address] [address] [email or web address] Primary Oncologist Hematology and Oncology 06/01/2301/02 Anastasia Nation MBBS [address] [address] [email or web address] Primary Oncologist Medical Oncology 01/23/24 documented as of this encounter Additional Source Comments The information contained in this document represents components of the legal health record. It is not the complete legal health record.[facility]
--- OUTSIDE RECORDS SUMMARY | 2025-09-22 21:14 | XMS_ITS | Encounter Summary ---
Author Organization [facility] Address [address] [place] [address] [place] [address] Phone Care Team Providers Care Executive Vice President And Chief Operating Officer Name Role Phone Tre Lara MD Unavailable Alicia Brown Primary Care Provider [phone] Anastasia Nation Unavailable Encounter Details Date Type Department Care Team (Late st Contact Info) Description 09/06/2025 Procedure Pass [facility], Ct Scan - [facility] [address] [place] [address] Social History Tobacco Use Types Packs/Day Years [...] got money to buy more. Never True 06/10/2025 Within the past 6 months the food we bought just didn't last and we didn't have enough money to get more. Never True Residential Stability Answer Date Recor ded What is your housing situation today? I have carrie sing 06/10/2025 How many times have you move d in the past 12 months? Zero (I did not move) 06/10/2025 Paying for Meds Answer Date Recorded Do you have trouble paying for medicines? No 06/10/2025 Paying Utility Bills Answer Date Record ed Do you have trouble paying your heating or elect ricity bill? No 06/10/2025 Transportation Answer Date Recorded Has the lack of transportati on kept you from medical appointments or from getting medications? No 06/10/2025 Digital Access Answer Date Recorded No 06/10/2025 Yes 06/10/2025 Do you have reliable internet access at home? Ye s 06/10/2025 Do you have a device (e.g., phone, tablet, computer) with a working camera? Yes 06/10/2025 Intimate Partner Violence Answer Date R ecorded Are you denied basic needs s uch as food, clothing, or medical care? No 06/09/2025 In the past 12 months have y ou been in a relationship with a person who hurts, threatens, or tries to control you? No 06/09/2025 Are you denied basic needs s uch as food, clothing, or medical care? No 06/09/2025 In the past 12 months have y ou been in a relationship with a person who hurts, threatens, or tries to control you? No 06/09/2025 Comments No Sex and Gender Information Value Date Recorded Sex Assigned at Female 10/10/2017 9:38 AM EST Legal Sex Female 9:46 PM EDT Gender Identity Female 10/10/2017 9:38 AM EST Sexual Orientation Straight 10/10/2017 9: 38 AM EST documented as of this encounter Plan of Treatment Not on file documented as of this encounter Visit Diagnoses Not on filedocumented in this encounter Care Teams Executive Vice President And Chief Operating Officer Relationship Specialty Start Date End Date Alicia Brown PA [address] [place] [address] PCP - General Assistant Housekeeping Manager 04/23/22 Tre Lara MD [address] [place] [address] Psychiatrist Adolescent Medicine 10/10/20 Anastasia Nation MBBS [address] [place] [address] [email or web address] Primary Oncologist Medical Oncology 01/23/24 documented as of this encounter Additional Source Comments The information contained in this document represents components of the legal health record. It is not the complete legal health record.[facility]
--- OUTSIDE RECORDS SUMMARY | 2025-09-22 21:14 | XMS_ITS | Encounter Summary ---
Author Organization [facility] Address [address] [place] [address] Phone Care Team Providers Care Director Of Market Research Name Role Phone Yasir Brown MD Primary Care Provider [phone] Yasir Brown MD Unavailable [phone] Alicia Brown Primary Care Provider [phone] Zulema Mckeon MD, MPH Unavailable + [phone] Namrata Hein RN Unavailable Tammy Steinberg Unavailable [phone] Tre Lara MD Unavailable Juventino Zhong MD Unavailable Bryan Chun MD Unavailable [phone] Angus Nicole Unavailable [phone] Andrea Waters MD Unavailable Alicia Brown Primary Care Provider [phone] Maykel Campos MD Unavailable Anastasia Nation Unavailable [phone] Reason for Referral * MRI/CAT Scan - Closed Specialty Diagnoses / Procedures Referred By Chris hathaway Referred To Contact Diagnoses Paroxysmal atrial fibrillation Procedures MCT (Mobile Cardiac Telemetry) La Nena Stevens FNP Phone: tel: fax: [email or web address]:[email or web address] Referral ID Status Reason Start Date Expiration Date Visits Re quested Visits Authorized [id number] Closed 04/22/2020 04/22/2021 1 1 Encounter Details Date Type Department Care Team (Latest Contact Info) Description 04/22/2020 Ancillary Orders [facility] [address], [address] [place] [address] La Nena Stevens FNP [address] [place] [address] [email or web address] Paroxysmal atrial fibrillation Social History Tobacco Use Types Packs/Day Years [...] as of this encounter Plan of Treatment Scheduled Orders Name Type Priority Associated Diagnoses Orde r Schedule MCT (Mobile Cardiac Telemetry) Cardiac Monitors Routine Paroxysmal atrial fibrillation Expected: 04/08/2020, Expires: 07/09/2020 documented as of this encounter Visit Diagnoses Diagnosis Paroxysmal atrial fibrillation Atrial fibrillation documented in this encounter Additional Health Concerns Infection Onset Date Last Indicated Resolved Time CoV-Risk Comment:Per note documentation 05/25/2020 05/25/2020 0 8:12 AM EDT CoV-Risk 10/09/2020 10/09/2020 10/19/2020 1:24 AM EST CoV-Risk 11/25/2023 12/04/2023 12/04/2023 8:05 PM EST CoV-Risk Comment:Neg covid 02/25/2024 02/25/2024 03/01/2024 7:39 AM E DT CoV-Risk 11/22/2024 11/22/2024 12/03/2024 1:22 AM EST CDiff-Risk 07/15/2025 07/16/2025 07/16/2025 9:0 1 PM EDT documented as of this encounter Care Teams Director Of Market Research Relationship Specialty Start Date End Date Yasir Brown MD [email or web address] PCP - General Family Medicine 08/24/17 05/25/20 Alicia Brown PA [address] [place] [phone] PCP - General Cutlery Grinder 05/26/20 04/22/22 Alicia Brown PA [address] [place] [phone] PCP - General Cutlery Grinder 04/23/22 Yasir Brown MD [address] [place] [address] [email or web address] Insurance Assigned Provider 01/09/20 08/09/20 Zulema Mckeon MD, MPH [address] [place] [address] [email or web address] Insurance Assigned Provider 08/09/20 10/11/20 Namrata Hein, MARY ANN [address] [place] [address] PHCM Core Winding Operator 09/02/20 07/08/21 Tammy Steinberg [address] [place] [address] [email or web address] PHCM Community Health Worker 09/03/20 12/24/20 Tre Lara MD [address] [place] [address] [email or web address] Psychiatrist Adolescent Medicine 10/10/20 Juventino Zhong MD [address] [place] [address] Insurance Assigned Provider 10/11/20 11/08/20 Bryan Chun MD [address] [place] [address] Insurance Assigned Provider 11/08/20 12/06/20 Angus Nicole LICSW [address] [place] [address] [facility] Groundman 12/01/20 12/24/20 Andrea Waters MD [address] [place] [address] 62[address] [place] [address] [email or web address] Insurance Assigned Provider 12/06/20 09/18/21 Maykel Campos MD [address] [address] Primary Oncologist Hematology and Oncology 06/01/23 01/22/24 Anastasia Nation MBBS [address] [place] [address] [email or web address] Primary Oncologist Medical Oncology 01/23/24 documented as of this encounter Additional Source Comments The information contained in this document represents components of the legal health record. It is not the complete legal health record.[facility]
--- OUTSIDE RECORDS SUMMARY | 2025-09-22 21:14 | XMS_ITS | Encounter Summary ---
Author Organization [facility] Address [address] [place] [address] [place] [address] Phone Care Team Providers Care Manager Distribution Center Name Role Phone Tre Lara MD Unavailable [phone] Alicia Brown Primary Care Provider [phone] Anastasia Nation Unavailable Encounter Details Date Type Department Care Team (Late st Contact Info) Description 04/21/2025 Procedure Pass [facility], Ct Scan - [facility] [address] [place] [address] Social History Tobacco Use Types Packs/Day Years [...] documented as of this encounter Care Teams Manager Distribution Center Relationship Specialty Start Date End Date Alicia Brown PA [address] [place] [address] PCP - General Foreign Agent 04/23/22 Tre Lara MD [address] [place] [address] Psychiatrist Adolescent Medicine 10/10/20 Anastasia Nation MBBS [address] [place] [address] [email or web address] Primary Oncologist Medical Oncology 01/23/24 documented as of this encounter Additional Source Comments The information contained in this document represents components of the legal health record. It is not the complete legal health record.[facility]
--- OUTSIDE RECORDS SUMMARY | 2025-09-22 21:14 | XMS_ITS | Encounter Summary ---
Author Organization [facility] Address [address] [place] [address] Phone Care Team Providers Care Cant Hooker Name Role Phone Yasir Brown MD Primary Care Provider [phone] Yasir Brown MD Unavailable [phone] Alicia Brown Primary Care Provider [phone] Zulema Mckeon MD, MPH Unavailable + [phone] Namrata Hein RN Unavailable Tammy Steinberg Unavailable [phone] Tre Lara MD Unavailable Juventino Zhong MD Unavailable Bryan Chun MD Unavailable [phone] Angus Nicole Unavailable [phone] Andrea Waters MD Unavailable Alicia Brown Primary Care Provider [phone] Maykel Campos MD Unavailable Anastasia Nation Unavailable Encounter Details Date Type Department Care Team (Late st Contact Info) Description 11/20/2019 Procedure Pass [facility], [facility] [address] [place] [address] Social History Tobacco Use Types Packs/Day Years [...] DT CoV-Risk Comment:Per note documentation 05/25/2020 05/25/2020 8:12 AM EDT CoV-Risk 10/09/2020 10/09/2020 10/19/2020 1:24 AM EST CoV-Risk 11/25/2023 12/04/2023 12/04/2023 8:05 PM EST CoV-Risk Comment:Neg covid 02/25/2024 02/25/2024 03/01/2024 7:39 AM E DT CoV-Risk 11/22/2024 11/22/2024 12/03/2024 1:22 AM EST CDiff-Risk 07/15/2025 07/16/2025 07/16/2025 9:01 PM EDT documented as of this encounter Care Teams Cant Hooker Relationship Specialty Start Date End Date Yasir Brown MD [email or web address] PCP - General Family Medicine 08/24/17 05/25/20 Alicia Brown PA [address] [place] [phone] PCP - General Retail Management Keyholder 05/26/20 04/22/22 Alicia Brown PA [address] [place] [phone] PCP - General Retail Management Keyholder 04/23/22 Yasir Brown MD [address] [place] [address] [email or web address] Insurance Assigned Provider 01/09/20 08/09/20 Zulema Mckeon MD, MPH [address] [place] [address] [email or web address] Insurance Assigned Provider 08/09/20 10/11/20 Namrata Hein RN [address] [place] [address] [email or web address] PHCM Associate Professor Of Education 09/02/20 07/08/21 Tammy Steinberg [address] [place] [address] [email or web address] PHCM Community Health Worker 09/03/20 12/24/20 Tre Lara MD [address] [place] [address] [email or web address] Psychiatrist Adolescent Medicine 10/10/20 Juventino Zhong MD [address] [place] [address] Insurance Assigned Provider 10/11/20 11/08/20 Bryan Chun MD [address] [place] [address] [email or web address] Insurance Assigned Provider 11/08/20 12/06/20 Angus Nicole, [address] [address] [email or web address] PHCM Agile Developer 12/01/20 12/24/20 Andrea Waters MD [address] [place] [phone] [email or web address] Insurance Assigned Provider 12/06/20 09/18/21 Maykel Campos MD [address] [place] [address] Primary Oncologist Hematology and Oncology 06/01/23 01/22/24 Anastasia Nation MBBS [address] [address] [email or web address] Primary Oncologist Medical Oncology 01/23/24 documented as of this encounter Additional Source Comments The information contained in this document represents components of the legal health record. It is not the complete legal health record.[facility]
--- OUTSIDE RECORDS SUMMARY | 2025-09-22 21:14 | XMS_ITS | Encounter Summary ---
Author Organization [facility] Address [address] [place] [address] Phone Care Team Providers Care Reimbursement Representative Name Role Phone Alicia Brown Primary Care Provider Tre Lara MD Unavailable [phone] Andrea Waters MD Unavailable Alicia Brown Primary Care Provider + [phone] Maykel Campos MD Unavailable Anastasia Nation Unavailable Encounter Details Date Type Department Care Team (Late st Contact Info) Description 07/28/2021 Procedure Pass [facility] Endoscopy Admitting Dept Virtual Department [address] [place], [place] [phone] Social History Tobacco Use Types Packs/Day Years [...] documented as of this encounter Care Teams Reimbursement Representative Relationship Specialty Start Date End Date Alicia Brown PA [address] [place] [address] PCP - General Building Energy Retrofit Technician 05/26/20 04/22/22 Alicia Brown PA [address] [place] [phone] PCP - General Building Energy Retrofit Technician 04/23/22 Tre Lara MD [address] [place] [address] [email or web address] Psychiatrist Adolescent Medicine 10/10/20 Andrea Waters MD [address] [place] [address] [place] [phone] [email or web address] Insurance Assigned Provider 12/06/20 09/18/21 Maykel Campos MD [address] [address] [email or web address] Primary Oncologist Hematology and Oncology 06/01/23 01/22/24 Anastasia Nation MBBS [address] [address] [email or web address] Primary Oncologist Medical Oncology 01/23/24 documented as of this encounter Additional Source Comments The information contained in this document represents components of the legal health record. It is not the complete legal health record.[facility]
--- OUTSIDE RECORDS SUMMARY | 2025-09-22 21:14 | XMS_ITS | Encounter Summary ---
Author Organization [facility] Address [address] [place] [address] Phone Care Team Providers Care Schedule Announcer Name Role Phone Yasir rBown MD Primary Care Provider [phone] Yasir Brown MD Unavailable [phone] Alicia Brown Primary Care Provider [phone] Zulema Mckeon MD, MPH Unavailable + [phone] Namrata Hein RN Unavailable Tammy Steinberg Unavailable [phone] Tre Lara MD Unavailable Juventino Zhong MD Unavailable Bryan Chun MD Unavailable [phone] Angus Nicole Unavailable [phone] Andrea Waters MD Unavailable Alicia Brown Primary Care Provider [phone] Maykel Campos MD Unavailable [phone] Anastasia Nation Unavailable [phone] Reason for Referral * MRI/CAT Scan - Closed Specialty Diagnoses / Procedures Referred By Chris t Referred To Contact Radiology Diagnoses Acute pain of left shoulder Procedures MRI Shoulder (Left) Ari Lerma MD Phone: tel: fax: [email or web address] Referral ID Status Reason Start Date Expiration Date Visits Re quested Visits Authorized [id number] Closed 05/06/2020 11/01/2020 1 1 Encounter Details Date Type Department Care Team (Latest Contact Info) Description 05/05/2020 Transcribe Orders Virtual Department [address] [place] [address] Ari Lerma MD [address] [place] [address] [email or web address] Acute pain of left shoulder (Primary Dx) Social History Tobacco Use Types Packs/Day Years [...] documented as of this encounter Results * MRI SHOULDER WITHOUT CONTRAST (LEFT) (05/20/2020 12:52 PM EDT) Anatomical Region Laterality Modality Shoulder Left Magnetic Resonan ce 05/20/2020 1:39 PM EDT Impressions 05/20/2020 1:44 PM EDT 1.Full thickness non-retracted distal supraspinatus tendon tear. 2.Mild AC joint arthrosis. Narrative 05/20/2020 1:44 PM EDT COMPARISON: [facility] left shoulder x-ray report 04/26/2020. TECHNIQUE: Exam performed on a 1.5 Johanna high-field MRI scanner. Axial T1 and proton density with fat suppression, oblique coronal proton density with fat suppression and T2 with fat suppression, oblique sagittal T1 and T2 with fat suppression sequences were obtained. MRI LEFT SHOULDER FINDINGS: Acromion: No os acromiale. Type II acromion. No anterior downsloping. Mild lateral downsloping without mass effect. Rotator cuff muscle/tendon: There is a full-thickness fluid signal intensity gap (1.6 cm) in the distal supraspinatus tendon. No tendon retraction. No rotator cuff muscle edema or atrophy. Labrum/biceps tendon: Labrum is intact. Biceps tendon is intact. Small amount of fluid in the bicipital groove. Bone marrow/joint: Mild acromioclavicular joint space narrowing with small osteophytes and small subchondral degenerative cysts. Small humeral head degenerative cyst. Glenohumeral joint space is preserved. No malalignment. No destructive or suspicious bone lesions. Trace joint effusion. Small amount of fluid in the subcoracoid and subacromial bursa. No suprascapular or spinoglenoid notch mass. Procedure Note Nikhil Ann MD - 05/20/2020 COMPARISON: [facility] left shoulder x-ray report 04/26/2020. TECHNIQUE: Exam performed on a 1.5 Johanna high-field MRI scanner. Axial T1and proton density with fat suppression, oblique coronal proton densitywith fat suppression and T2 with fat suppression, oblique sagittal T1 andT2 with fat suppression sequences were obtained. MRI LEFT SHOULDER FINDINGS: Acromion: No os acromiale. Type II acromion. No anterior downsloping.Mild lateral downsloping without mass effect. Rotator cuff muscle/tendon: There is a full-thickness fluid signalintensity gap (1.6 cm) in the distal supraspinatus tendon. No tendonretraction. No rotator cuff muscle edema or atrophy. Labrum/biceps tendon: Labrum is intact. Biceps tendon is intact. Smallamount of fluid in the bicipital groove. Bone marrow/joint: Mild acromioclavicular joint space narrowing withsmall osteophytes and small subchondral degenerative cysts. Small humeralhead degenerative cyst. Glenohumeral joint space is preserved. Nomalalignment. No destructive or suspicious bone lesions. Trace jointeffusion. Small amount of fluid in the subcoracoid and subacromial bursa.No suprascapular or spinoglenoid notch mass. IMPRESSION: 1.Full thickness non-retracted distal supraspinatus tendon tear. 2.Mild AC joint arthrosis. us Ari Lerma MD IMG MR EXTREMITY Final Resul t documented in this encounter Visit Diagnoses Diagnosis Acute pain of left shoulder- Primary Acute pain of left shoulder documented in this encounter Additional Health Concerns [...] documented as of this encounter Care Teams Schedule Announcer Relationship Specialty Start Date End Date Yasir Brown MD PCP - General Family Medicine 08/24/17 05/25/20 Alicia Brown PA [address] [place] [phone] PCP - General Gill Box Tender 05/26/20 04/22/22 Alicia Brown PA [address] [place] [phone] PCP - General Gill Box Tender 04/23/22 Yasir Brown MD [address] [place] [address] Insurance Assigned Provider 01/09/20 08/09/20 Zulema Mckeon MD, MPH [address] [place] [address] Insurance Assigned Provider 08/09/20 10/11/20 Namrata Hein RN [address] [place] [address] PHCM Drier Operator Head 09/02/20 07/08/21 Tammy Steinberg [address] [place] [address] [email or web address] PHCM Community Health Worker 09/03/20 12/24/20 Tre Lara MD [address] [place] [address] [email or web address] Psychiatrist Adolescent Medicine 10/10/20 Juventino Zhong MD [address] [place] [address] Insurance Assigned Provider 10/11/20 11/08/20 Bryan Chun MD [address] [place] [address] Insurance Assigned Provider 11/08/20 12/06/20 Angus Nicole, [address] [address] PHCM Psychiatric Rn 12/01/20 12/24/20 Andrea Waters MD [address] [place] [address] [place] [phone] [email or web address] Insurance Assigned Provider 12/06/20 09/18/21 Maykel Campos MD [facility] [address] [address] Primary Oncologist Hematology and Oncology 06/01/23 01/22/24 Anastasia Nation MBBS [facility] [address] [address] [email or web address] Primary Oncologist Medical Oncology 01/23/24 documented as of this encounter Additional Source Comments The information contained in this document represents components of the legal health record. It is not the complete legal health record.[facility]
--- OUTSIDE RECORDS SUMMARY | 2025-09-22 21:14 | XMS_ITS | Encounter Summary ---
Author Organization [facility] Address [address] [place] [address] Phone Care Team Providers Care Coater Carbon Paper Name Role Phone Alicia Brown Primary Care Provider [phone] Tre Lara MD Unavailable [phone] Andrea Waters MD Unavailable Alicia Brown Primary Care Provider Maykel Campos MD Unavailable [phone] Anastasia Nation Unavailable [phone] Encounter Details Date Type Department Care Team (Latest Contact Info) Description 08/10/2021 Transcribe Orders [facility] Tasha [address] [place], [place] [phone] Jacquelyn Arboleda, KIMBERLY [address] [place], [place] [phone] Abdominal pain, left upper quadrant (Primary Dx); Rectal bleeding Social History Tobacco Use Types Packs/Day Years Used Date Smoking Tobacco: Former Cigarettes 1 40 1 2014 Smokeless Tobacco: Never Alcohol Use Standard [...] documented as of this encounter Results * Stool fat/fiber exam (08/18/2021 11:21 AM EST) FATTY ACID NORMAL NORMAL [facility] Neutral Fat, stool NORMAL NORMAL [facility] Stool (Stool) 08/18/2021 11: 21 AM EST 08/18/2021 11:24 AM EST Jacquelyn Arboleda NP BODY FLUIDS AND STOOLS OR DERABLES Final Result [facility] [address] [place], [place] [phone] * (ABNORMAL) CBC (08/10/2021 2:47 PM EST) WBC 7.99 4.00 - 11.00 K/uL [facility] RBC 4.55 3.72 - 5.30 M/uL [facility] HGB 11.6 11.4 - 15.9 g/dL [facility] HCT 37.0 34.2 - 46.8 % [facility] PLT 266 140 - 430 K/uL [facility] MCV 81.3 78.0 - 97.0 fL [facility] MCH 25.5 25.0 - 33.0 pg [facility] MCHC 31.4(L) 32.0 - 36.0 g/dL [facility] RDW 15.4 11.0 - 16.0 % [facility] MPV 13.6(H) 8.4 - 12.8 fl [facility] NRBC 0.00 0 /100 WBCs [facility] ABSOLUTE NRBC 0.00 0 K/uL [facility] Blood 08/10/2021 2:47 PM EST 08/10/2021 2:51 PM EST us Jacquelyn Lockhartdali FINISHED CLOTH EXAMINER LAB BLOOD BKR ORDERABLES Final Result [facility] [address] [place] [address] documented in this encounter Visit Diagnoses Diagnosis Abdominal pain, left upper quadrant- Primary Rectal bleeding Hemorrhage of rectum and anus documented in this encounter Additional Health Concerns Infection Onset Date Last Indicated Resolved Time CoV-Risk 11/25/2023 12/04/2023 12/04/2023 8:05 PM EST CoV-Risk Comment:Neg covid 02/25/2024 02/25/2024 03/01/2024 7:39 AM E DT CoV-Risk 11/22/2024 11/22/2024 12/03/2024 1:22 AM EST CDiff-Risk 07/15/2025 07/16/2025 07/16/2025 9:01 PM EDT documented as of this encounter Care Teams Coater Carbon Paper Relationship Specialty Start Date End Date Alicia Brown PA [address] [place] [address] PCP - General Satellite Tv Technician 05/26/20 04/22/22 Alicia Brown PA [address] [place] [address] PCP - General Satellite Tv Technician 04/23/22 Tre Lara MD [address] [place] [address] [email or web address] Psychiatrist Adolescent Medicine 10/10/20 Andrea Waters MD [address] [place] [address] [address] [place] [address] [email or web address] Insurance Assigned Provider 12/06/20 09/18/21 Maykel Campos MD [address] [address] [email or web address] Primary Oncologist Hematology and Oncology 06/01/23 01/22/24 Anastasia Nation MBBS [address] [address] [email or web address] Primary Oncologist Medical Oncology 01/23/24 documented as of this encounter Additional Source Comments The information contained in this document represents components of the legal health record. It is not the complete legal health record.[facility]
--- OUTSIDE RECORDS SUMMARY | 2025-09-22 21:14 | XMS_ITS | Encounter Summary ---
Author Organization [facility] Address [address] [place] [address] Phone Care Team Providers Care Load Out Person Name Role Phone Alicia Brown Primary Care Provider Tre Lara MD Unavailable [phone] Andrea Waters MD Unavailable Alicia Brown Primary Care Provider + [phone] Maykel Campos MD Unavailable Anastasia Nation Unavailable [phone] Encounter Details Date Type Department Care Team (Late st Contact Info) Description 08/11/2021 Procedure Pass [facility], Ct Scan - [address] [address] Social History Tobacco Use Types Packs/Day Years [...] documented as of this encounter Care Teams Load Out Person Relationship Specialty Start Date End Date Alicia Brown PA [address] [place] [address] PCP - General Sales Executive 05/26/20 04/22/22 Alicia Brown PA [address] [place] [address] PCP - General Sales Executive 04/23/22 Tre Lara MD [address] [place] [address] [email or web address] Psychiatrist Adolescent Medicine 10/10/20 Andrea Waters MD [address] [place] [address] [address] [place] [address] [email or web address] Insurance Assigned Provider 12/06/20 09/18/21 Maykel Campos MD [address] [address] [email or web address] Primary Oncologist Hematology and Oncology 06/01/23 01/22/24 Anastasia Nation MBBS [address] [address] [email or web address] Primary Oncologist Medical Oncology 01/23/24 documented as of this encounter Additional Source Comments The information contained in this document represents components of the legal health record. It is not the complete legal health record.[facility]
--- OUTSIDE RECORDS SUMMARY | 2025-09-22 21:14 | XMS_ITS | Encounter Summary ---
Author Organization [facility] Address [address] [place] [address] [place] [id number] Phone Care Team Providers Care Forest Supervisor Name Role Phone Tre Lara MD Unavailable [phone] Alicia Brown Primary Care Provider [phone] Anastasia Nation Unavailable Encounter Details Date Type Department Care Team (Late st Contact Info) Description 04/07/2025 Procedure Pass [facility], [facility] Scan - [facility] [address] [place] [address] Social History Tobacco Use Types Packs/Day Years [...] got money to buy more. Never True 04/07/2025 Within the past 6 months the food we bought just didn't last and we didn't have enough money to get more. Never True Residential Stability Answer Date Recor ded What is your housing situation today? I have carrie sing 04/07/2025 How many times have you move d in the past 12 months? Zero (I did not move) 04/07/2025 Paying for Meds Answer Date Recorded Do you have trouble paying for medicines? No 04/07/2025 Paying Utility Bills Answer Date Record ed Do you have trouble paying your heating or elect ricity bill? No 04/07/2025 Transportation Answer Date Recorded Has the lack of transportati on kept you from medical appointments or from getting medications? No 04/07/2025 Digital Access Answer Date Recorded No 04/07/2025 Yes 04/07/2025 Do you have reliable internet access at home? Ye s 04/07/2025 Do you have a device (e.g., phone, tablet, computer) with a working camera? Yes 04/07/2025 Intimate Partner Violence Answer Date R ecorded Are you denied basic needs s uch as food, clothing, or medical care? No 04/07/2025 In the past 12 months have y ou been in a relationship with a person who hurts, threatens, or tries to control you? No 04/07/2025 Are you denied basic needs s uch as food, clothing, or medical care? No 04/07/2025 In the past 12 months have y ou been in a relationship with a person who hurts, threatens, or tries to control you? No 04/07/2025 Comments No Sex and Gender Information Value [...] documented as of this encounter Care Teams Forest Supervisor Relationship Specialty Start Date End Date Alicia Brown PA [address] [place] [address] PCP - General [employer] 04/23/22 Tre Lara MD [address] [place] [id number] Psychiatrist Adolescent Medicine 10/10/20 Anastasia Nation [employer] [address] [place] [address] [email or web address] Primary Oncologist Medical Oncology 01/23/24 documented as of this encounter Additional Source Comments The information contained in this document represents components of the legal health record. It is not the complete legal health record.[facility]
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
--- OUTSIDE RECORDS SUMMARY | 2025-09-22 21:14 | XMS_ITS | Encounter Summary ---
Author Organization [facility] Address [address] [place] [address] Phone Care Team Providers Care Scrap Baler Name Role Phone Alicia Brown Primary Care Provider [phone] Tre Lara MD Unavailable Alicia Brown Primary Care Provider Maykel Campos MD Unavailable Anastasia Nation Unavailable [phone] Encounter Details Date Type Department Care Team (Late st Contact Info) Description 11/28/2021 Procedure Pass [facility], Ct Scan - [address] [id number] Social History Tobacco Use Types Packs/Day Years [...] documented as of this encounter Care Teams Scrap Baler Relationship Specialty Start Date End Date Alicia Brown PA [address] [place] [address] PCP - General Business Records Manager 05/26/20 04/22/22 Alicia Brown PA [address] [place] [address] PCP - General Business Records Manager 04/23/22 Tre Lara MD [address] [place] [address] [email or web address] Psychiatrist Adolescent Medicine 10/10/20 Maykel Campos MD [address] [address] Primary Oncologist Hematology and Oncology 06/01/23 4/10/26 Anastasia Nation MBBS [address] [address] [email or web address] Primary Oncologist Medical Oncology 01/23/24 documented as of this encounter Additional Source Comments The information contained in this document represents components of the legal health record. It is not the complete legal health record.[facility]
--- OUTSIDE RECORDS SUMMARY | 2025-09-22 21:14 | XMS_ITS | Encounter Summary ---
Author Organization [facility] Address [address] [place] [address] [place] [address] Phone Care Team Providers Care Site Supervising Technical Operator Name Role Phone rTe Lara MD Unavailable [phone] Alicia Brown Primary Care Provider [phone] Anastasia Nation Unavailable Encounter Details Date Type Department Care Team (Late st Contact Info) Description 04/07/2025 Procedure Pass [facility], Ct Scan - [facility] [address] [place] [address] Social History Tobacco Use Types Packs/Day Years [...] documented as of this encounter Care Teams Site Supervising Technical Operator Relationship Specialty Start Date End Date Alicia Brown PA [address] [place] [address] PCP - General English Division Chair 04/23/22 Tre Lara MD [address] [place] [address] Psychiatrist Adolescent Medicine 10/10/20 Anastasia Nation MBBS [address] [place] [address] [email or web address] Primary Oncologist Medical Oncology 01/23/24 documented as of this encounter Additional Source Comments The information contained in this document represents components of the legal health record. It is not the complete legal health record.[facility]
--- OUTSIDE RECORDS SUMMARY | 2025-09-22 21:15 | XMS_ITS | Encounter Summary ---
Author Organization [facility] Address [address] [place] [address] [place] [address] Phone Care Team Providers Care Director Of Business Development Name Role Phone Alicia Brown Primary Care Provider + [phone] Tre Lara MD Unavailable Andrea Waters MD Unavailable Alicia Brown Primary Care Provider + [phone] Maykel Campos MD Unavailable Anastasia Nation Unavailable [phone] Reason for Referral * MRI/CAT Scan - Closed Specialty Diagnoses / Procedures Referred By Chris hathaway Referred To Contact Radiology Diagnoses LUQ pain Procedures CT Abdomen/Pelvis Jacquelyn Arboleda NP Phone: tel: fax: Referral ID Status Reason Start Date Expiration Date Visits Re quested Visits Authorized [id number] Closed 08/11/2021 08/11/2022 1 1 Encounter Details Date Type Department Care Team (Latest Contact Info) Description 08/11/2021 Transcribe Orders Virtual Department [address] [place] [address] Jacquelyn Arboleda NP [address] [place] [address] LUQ pain (Primary Dx) Social History Tobacco Use Types [...] documented as of this encounter Results * CT ABDOMEN/PELVIS WITH CONTRAST (09/10/2021 3:01 PM EST) Anatomical Region Laterality Modality Abdomen, Pelvis Computed Tomogra phy 09/10/2021 3:15 PM EST Impressions 09/10/2021 3:22 PM EST 1. No acute bowel pathology or other source of the patient's pain. No evidence of splenomegaly. 2. Minor diverticulosis. 3. New right adrenal mass since 2006. Follow-up unenhanced CT recommended 4. Other incidental findings as above. Narrative 09/10/2021 3:22 PM EST HISTORY: Left upper quadrant pain. Patient indicates history of diarrhea and incontinence COMPARISON: February 03, 2007 TECHNIQUE: After the administration of oral and intravenous contrast, multidetector CT is obtained from dome of the liver through the inferior pubic rami. Sagittal and coronal reformats generated. Automated exposure control utilized. FINDINGS: Lung bases: Minimal atelectatic changes in the lingula. No pleural or pericardial effusion. Small amounts of calcific coronary artery atheroma in the right system. Liver and spleen: No findings of concern. Biliary tree and pancreas: No findings of concern. Adrenals and : There is a new right adrenal mass with density measurements in the 50s measures 2.0 x 1.7 cm. This may still represent an incidental adenoma but cannot be dismissed as such on the basis of this study. Consider follow-up unenhanced CT of the abdomen only. No left adrenal mass. No worrisome renal masses. No stones or hydronephrosis. Uterus present. No adnexal masses. Bladder decompressed. Bowel: Stomach and duodenum unremarkable. Ileal and jejunal fold patterns appear within the range of normal. Terminal ileum unremarkable. Appendix unremarkable. There is diverticulosis, including a transverse colon. No evidence of diverticulitis or colitis. Nodes: No adenopathy detected. Vascular: No abdominal aortic aneurysm. Preserved portal venous and hepatic venous enhancement. Soft tissues: No ascites, inflammatory change or fluid collection. Bones: No compression deformity or bony destructive lesions identified. Bone and disc degenerative change in the spine with multilevel spurring and some minor anterolisthesis of L4 on L5. Procedure Note Cruz Duarte MD - 09/10/2021 HISTORY: Left upper quadrant pain. Patient indicates history of diarrheaand incontinence COMPARISON: February 03, 2007 TECHNIQUE: After the administration of oral and intravenous contrast,multidetector CT is obtained from dome of the liver through the inferiorpubic rami. Sagittal and coronal reformats generated. Automated exposurecontrol utilized. FINDINGS: Lung bases: Minimal atelectatic changes in the lingula. No pleural orpericardial effusion. Small amounts of calcific coronary artery atheromain the right system. Liver and spleen: No findings of concern. Biliary tree and pancreas: No findings of concern. Adrenals and : There is a new right adrenal mass with densitymeasurements in the 50s measures 2.0 x 1.7 cm. This may still represent anincidental adenoma but cannot be dismissed as such on the basis of thisstudy. Consider follow-up unenhanced CT of the abdomen only. No leftadrenal mass. No worrisome renal masses. No stones or hydronephrosis.Uterus present. No adnexal masses. Bladder decompressed. Bowel: Stomach and duodenum unremarkable. Ileal and jejunal fold patternsappear within the range of normal. Terminal ileum unremarkable. Appendixunremarkable. There is diverticulosis, including a transverse colon. Noevidence of diverticulitis or colitis. Nodes: No adenopathy detected. Vascular: No abdominal aortic aneurysm. Preserved portal venous andhepatic venous enhancement. Soft tissues: No ascites, inflammatory change or fluid collection. Bones: No compression deformity or bony destructive lesions identified.Bone and disc degenerative change in the spine with multilevel spurringand some minor anterolisthesis of L4 on L5. IMPRESSION: 1. No acute bowel pathology or other source of the patient's pain. Noevidence of splenomegaly. 2. Minor diverticulosis. 3. New right adrenal mass since 2006. Follow-up unenhanced CTrecommended 4. Other incidental findings as above. Jacquelyn Arboleda MANAGER BENEFIT IMG CT ABD/PELVIS Final R esult documented in this encounter Visit Diagnoses Diagnosis LUQ pain- Primary Abdominal pain, left upper quadrant LUQ pain Abdominal pain, left upper quadrant documented in this encounter Additional Health Concerns Infection Onset Date Last Indicated Resolved Time CoV-Risk 11/25/2023 12/04/2023 12/04/2023 8:05 PM EST CoV-Risk Comment:Neg covid 02/25/2024 02/25/2024 03/01/2024 7:39 AM E DT CoV-Risk 11/22/2024 11/22/2024 12/03/2024 1:22 AM EST CDiff-Risk 07/15/2025 07/16/2025 07/16/2025 9:01 PM EDT documented as of this encounter Care Teams Director Of Business Development Relationship Specialty Start Date End Date Alicia Brown PA [address] [place] [address] PCP - General Contestant Coordinator 05/26/20 04/22/22 Alicia Brown PA [address] [place] [address] PCP - General Contestant Coordinator 04/23/22 Tre Lara MD [address] [place] [address] [email or web address] Psychiatrist Adolescent Medicine 10/10/20 Andrea Waters MD [address] [place] [phone] [email or web address] Insurance Assigned Provider 12/06/20 09/18/21 Maykel Campos MD [address] [address] [email or web address] Primary Oncologist Hematology and Oncology 06/01/23 01/22/24 Anastasia Nation MBBS [address] [address] [email or web address] Primary Oncologist Medical Oncology 01/23/24 documented as of this encounter Additional Source Comments The information contained in this document represents components of the legal health record. It is not the complete legal health record.[facility]
--- OUTSIDE RECORDS SUMMARY | 2025-09-22 21:15 | XMS_ITS | Encounter Summary ---
Author Organization [facility] Address [address] [place] [address] [place] [address] Phone Care Team Providers Care Respiratory Manager Name Role Phone Tre Lara MD Unavailable Alicia Brown Primary Care Provider [phone] Anastasia Nation Unavailable [phone] Encounter Details Date Type Department Care Team (Late st Contact Info) Description 01/23/2025 Procedure Pass [facility], Ct Scan - [facility] [address] [place] [address] Social History Tobacco Use Types Packs/Day Years [...] before we got money to buy more. Sometimes True 024 Within the past 6 months the food we bought just didn't last and we didn't have enough money to get more. Sometimes True 10/2023 Residential Stability Answer Date Recor ded What is your housing situation today? I have carrie sing 09/02/2024 How many times have you move d in the past 12 months? Zero (I did not move) 09/02/2024 Paying for Meds Answer Date Recorded Do you have trouble paying for medicines? Yes 09/02/2024 Paying Utility Bills Answer Date Record ed Do you have trouble paying your heating or elect ricity bill? Yes 09/02/2024 Transportation Answer Date Recorded Has the lack of transportati on kept you from medical appointments or from getting medications? Yes 09/02/2024 Digital Access Answer Date Recorded Yes 09/02/2024 No 09/02/2024 Do you have reliable internet access at home? No 09/02/2024 Do you have a device (e.g., phone, tablet, computer) with a working camera? No 09/02/2024 Intimate Partner Violence Answer Date R ecorded Are you denied basic needs s uch as food, clothing, or medical care? No 01/23/2025 In the past 12 months have y ou been in a relationship with a person who hurts, threatens, or tries to control you? No 01/23/2025 Are you denied basic needs s uch as food, clothing, or medical care? No 01/23/2025 In the past 12 months have y ou been in a relationship with a person who hurts, threatens, or tries to control you? No 01/23/2025 Comments No Sex and Gender Information Value [...] documented as of this encounter Care Teams Respiratory Manager Relationship Specialty Start Date End Date Alicia Brown PA [address] [place] [address] PCP - General Chef De Froid 04/23/22 Tre Lara MD [address] [place] [address] Psychiatrist Adolescent Medicine 10/10/20 Anastasia Nation MBBS [address] [place] [address] [email or web address] Primary Oncologist Medical Oncology 01/23/24 documented as of this encounter Additional Source Comments The information contained in this document represents components of the legal health record. It is not the complete legal health record.[facility]
--- OUTSIDE RECORDS SUMMARY | 2025-09-22 21:15 | XMS_ITS | Encounter Summary ---
Author Organization [facility] Address [address] [place] [address] Phone Care Team Providers Care Machinist Outside Name Role Phone Tre Lara MD Unavailable Alicia Brown Primary Care Provider [phone] Maykel Campos MD Unavailable Anastasia Nation Unavailable [phone] Encounter Details Date Type Department Care Team (Late st Contact Info) Description 04/13/2023 Ancillary Orders [facility],Outside Imaging [address] [place], [place] [id number] System, Provider Not In, PhD [address] [address] Social History Tobacco Use Types Packs/Day Years [...] documented as of this encounter Results * US Breast Outside (No Interpretation) (04/12/2023 12:05 AM EDT) Narrative SYSTEMGENERATED, DOCUMENTATION - 04/13/2023 9:37 AM EDT This study is for PACS storage only and not for interpretation. us Provider Not In System PhD IMG OUTSIDE IMAGING W /OUT INTERPRETATION Final Result documented in this encounter Visit Diagnoses Not on filedocumented in this encounter Additional Health Concerns Infection Onset Date Last Indicated Resolved Time CoV-Risk 11/25/2023 12/04/2023 12/04/2023 8:05 PM EST CoV-Risk Comment:Neg covid 02/25/2024 02/25/2024 03/01/2024 7:39 AM E DT CoV-Risk 11/22/2024 11/22/2024 12/03/2024 1:22 AM EST CDiff-Risk 07/15/2025 07/16/2025 07/16/2025 9:01 PM EDT documented as of this encounter Care Teams Machinist Outside Relationship Specialty Start Date End Date Alicia Brown PA [address] [place] [address] PCP - General Agile Qa Tester 04/23/22 Tre Lara MD [address] [place] [address] [email or web address] Psychiatrist Adolescent Medicine 10/10/20 Maykel Campos MD [address] [address] [email or web address] Primary Oncologist Hematology and Oncology 06/01/2301/02 Anastasia Nation MBBS [address] [address] [email or web address] Primary Oncologist Medical Oncology 01/23/24 documented as of this encounter Additional Source Comments The information contained in this document represents components of the legal health record. It is not the complete legal health record.[facility]
--- OUTSIDE RECORDS SUMMARY | 2025-09-22 21:15 | XMS_ITS | Encounter Summary ---
Author Organization [facility] Address [address] [place] [address] [place] [address] Phone Care Team Providers Care Accounting Instructor Name Role Phone Tre Lara MD Unavailable [phone] Alicia Brown Primary Care Provider [phone] Anastasia Nation Unavailable Encounter Details Date Type Department Care Team (Late st Contact Info) Description 11/22/2024 Procedure Pass [facility], Ct Scan - [facility] [address] [place] [address] Social History Tobacco Use Types Packs/Day Years [...] as food, clothing, or medical care? No 11/22/2024 In the past 12 months have y ou been in a relationship with a person who hurts, threatens, or tries to control you? No 11/22/2024 Are you denied basic needs s uch as food, clothing, or medical care? No 11/22/2024 In the past 12 months have y ou been in a relationship with a person who hurts, threatens, or tries to control you? No 11/22/2024 Comments No Sex and Gender Information Value [...] Onset Date Last Indicated Resolved Time CoV-Risk 11/22/2024 11/22/2024 12/03/2024 1:22 AM EST CDiff-Risk 07/15/2025 07/16/2025 07/16/2025 9:01 PM EDT documented as of this encounter Care Teams Accounting Instructor Relationship Specialty Start Date End Date Alicia Brown PA [address] [place] [address] PCP - General Electric Motor Assembler And Tester 04/23/22 Tre Lara MD [address] [place] [address] Psychiatrist Adolescent Medicine 10/10/20 Anastasia Nation MBBS [address] [place] [address] [email or web address] Primary Oncologist Medical Oncology 01/23/24 documented as of this encounter Additional Source Comments The information contained in this document represents components of the legal health record. It is not the complete legal health record.[facility]
--- OUTSIDE RECORDS SUMMARY | 2025-09-22 21:15 | XMS_ITS | Encounter Summary ---
Author Organization [facility] Address [address] [place] [address] [place] [address] Phone Care Team Providers Care School Cook Name Role Phone Tre Lara MD Unavailable [phone] Alicia Brown Primary Care Provider [phone] Anastasia Nation Unavailable [phone] Encounter Details Date Type Department Care Team (Late st Contact Info) Description 05/02/2025 Procedure Pass [facility] [address] [place] [address] Social History Tobacco Use Types Packs/Day Years [...] documented as of this encounter Care Teams School Cook Relationship Specialty Start Date End Date Alicia Brown PA [address] [place] [address] PCP - General Plastic Products Sales Representative 04/23/22 Tre Lara MD [address] [place] [address] Psychiatrist Adolescent Medicine 10/10/20 Anastasia Nation MBBS [address] [place] [address] [email or web address] Primary Oncologist Medical Oncology 01/23/24 documented as of this encounter Additional Source Comments The information contained in this document represents components of the legal health record. It is not the complete legal health record.[facility]
--- OUTSIDE RECORDS SUMMARY | 2025-09-22 21:15 | XMS_ITS | Encounter Summary ---
Author Organization [facility] Address [address] [place] [address] Phone Care Team Providers Care Hog Cooler Name Role Phone Alicia Brown Primary Care Provider [phone] Zulema Mckeon MD, MPH Unavailable [phone] Namrata Hein RN Unavailable Tammy Steinberg Unavailable [phone] Tre Lara MD Unavailable [phone] Juventino Zhong MD Unavailable Bryan Chun MD Unavailable Angus Nicole Unavailable [phone] Andrea Waters MD Unavailable Alicia Brown Primary Care Provider [phone] Maykel Campos MD Unavailable Anastasia Nation Unavailable [phone] Encounter Details Date Type Department Care Team (Late st Contact Info) Description 08/15/2020 Procedure Pass [place] Admitting Dept - Virtual Department [address] [place] [address] Social History Tobacco Use Types Packs/Day Years [...] Onset Date Last Indicated Resolved Time CoV-Risk 10/09/2020 10/09/2020 10/19/2020 1:24 AM EST CoV-Risk 11/25/2023 12/04/2023 12/04/2023 8:05 PM EST CoV-Risk Comment:Neg covid 02/25/2024 02/25/2024 03/01/2024 7:39 AM E DT CoV-Risk 11/22/2024 11/22/2024 12/03/2024 1:22 AM EST CDiff-Risk 07/15/2025 07/16/2025 07/16/2025 9:01 PM EDT documented as of this encounter Care Teams Hog Cooler Relationship Specialty Start Date End Date Alicia Brown PA [address] [place] [address] PCP - General Negative Spotter 05/26/20 04/22/22 Alicia Brown PA [address] [place] [address] PCP - General Negative Spotter 04/23/22 Zulema Mckeon MD, MPH [address] [place] [address] Insurance Assigned Provider 08/09/20 10/11/20 Namrata Hein, RN [address] [place] [address] PHCM Social Media Developer 09/02/20 07/08/21 Tammy Steinberg [address] [place] [address] [email or web address] PHCM Community Health Worker 09/03/20 12/24/20 Tre Lara MD [address] [place] [address] [email or web address] Psychiatrist Adolescent Medicine 10/10/20 Juventino Zhong MD [address] [place] [address] Insurance Assigned Provider 10/11/20 11/08/20 Bryan Chun MD [address] [place] [address] Insurance Assigned Provider 11/08/20 12/06/20 Angus Nicole LICSW [address] [place] [address] PHC Airport Utility Worker 12/01/20 12/24/20 Andrea Waters MD [address] [place] [address] [place] [phone] [email or web address] Insurance Assigned Provider 12/06/20 09/18/21 Maykel Campos MD [address] [address] [email or web address] Primary Oncologist Hematology and Oncology 06/01/23 01/22/24 Anastasia Nation MBBS [address] [address] [email or web address] Primary Oncologist Medical Oncology 01/23/24 documented as of this encounter Additional Source Comments The information contained in this document represents components of the legal health record. It is not the complete legal health record.[facility]
--- OUTSIDE RECORDS SUMMARY | 2025-09-22 21:15 | XMS_ITS | Encounter Summary ---
Author Organization [facility] Address [address] [place] [address] Phone Care Team Providers Care Beet Topper Name Role Phone Tre Lara MD Unavailable Alicia Brown Primary Care Provider Maykel Campos MD Unavailable Anastasia Nation Unavailable Encounter Details Date Type Department Care Team (Late st Contact Info) Description 09/15/2022 Transcribe Orders [facility] 30 [place] [address] Alicia Brown PA [address] [place] [address] Social History Tobacco Use Types Packs/Day Years [...] documented as of this encounter Care Teams Beet Topper Relationship Specialty Start Date End Date Alicia Brown PA [address] [place] [address] PCP - General Hand Packer/Packager 04/23/22 Tre Lara MD 50 [place] [address] [email or web address] Psychiatrist Adolescent Medicine 10/10/20 Maykel Campos MD [address] [address] Primary Oncologist Hematology and Oncology 06/01/2301/02 Anastasia Nation MBBS [address] [address] [email or web address] Primary Oncologist Medical Oncology 01/23/24 documented as of this encounter Additional Source Comments The information contained in this document represents components of the legal health record. It is not the complete legal health record.[facility]
--- OUTSIDE RECORDS SUMMARY | 2025-09-22 21:15 | XMS_ITS | Encounter Summary ---
Author Organization [facility] Address [address] [place] [address] Phone Care Team Providers Care Commissioning Specialist Name Role Phone Alicia Brown Primary Care Provider Namrata Hein RN Unavailable Tre Lara MD Unavailable Andrea Waters MD Unavailable Alicia Brown Primary Care Provider Maykel Campos MD Unavailable Anastasia Nation Unavailable Encounter Details Date Type Department Care Team (Late st Contact Info) Description 04/29/2021 Procedure Pass [facility] [address] [place] [address] Social History Tobacco Use Types Packs/Day Years [...] documented as of this encounter Care Teams Commissioning Specialist Relationship Specialty Start Date End Date Alicia Brown PA [address] [place] [phone] PCP - General Dining Car Server 05/26/20 04/22/22 Alicia Brown PA [address] [place] [phone] PCP - General Dining Car Server 04/23/22 Namrata Hein RN [address] [place] [address] PHCM Ict Systems Test Engineer 09/02/20 07/08/21 Tre Lara MD [address] [place] [address] [email or web address] Psychiatrist Adolescent Medicine 10/10/20 Andrea Waters MD 230 [facility] [address] [place] [address] [email or web address] Insurance Assigned Provider 12/06/20 09/18/21 Maykel Campos MD [address] [address] [email or web address] Primary Oncologist Hematology and Oncology 06/01/23 01/22/24 Anastasia Nation MBBS [address] [address] [email or web address] Primary Oncologist Medical Oncology 01/23/24 documented as of this encounter Additional Source Comments The information contained in this document represents components of the legal health record. It is not the complete legal health record.[facility]
--- OUTSIDE RECORDS SUMMARY | 2025-09-22 21:15 | XMS_ITS | Encounter Summary ---
Author Organization [facility] Address [address] [place] [address] [place] [address] Phone Care Team Providers Care Manager Environmental Name Role Phone Tre Lara MD Unavailable [phone] Alicia Brown Primary Care Provider [phone] Anastasia Nation Unavailable Encounter Details Date Type Department Care Team (Late st Contact Info) Description 02/17/2025 Procedure Pass [facility], Ct Scan - [facility] 30 [place] [address] Social History Tobacco Use Types Packs/Day Years [...] got money to buy more. Never True 02/18/2025 Within the past 6 months the food we bought just didn't last and we didn't have enough money to get more. Never True Residential Stability Answer Date Recor ded What is your housing situation today? I have carrie sing 02/18/2025 How many times have you move d in the past 12 months? Zero (I did not move) 02/18/2025 Paying for Meds Answer Date Recorded Do you have trouble paying for medicines? No 02/18/2025 Paying Utility Bills Answer Date Record ed Do you have trouble paying your heating or elect ricity bill? No 02/18/2025 Transportation Answer Date Recorded Has the lack of transportati on kept you from medical appointments or from getting medications? No 02/18/2025 Digital Access Answer Date Recorded No 02/18/2025 Yes 02/18/2025 Do you have reliable internet access at home? Ye s 02/18/2025 Do you have a device (e.g., phone, tablet, computer) with a working camera? Yes 02/18/2025 Intimate Partner Violence Answer Date R ecorded Are you denied basic needs s uch as food, clothing, or medical care? No 02/17/2025 In the past 12 months have y ou been in a relationship with a person who hurts, threatens, or tries to control you? No 02/17/2025 Are you denied basic needs s uch as food, clothing, or medical care? No 02/17/2025 In the past 12 months have y ou been in a relationship with a person who hurts, threatens, or tries to control you? No 02/17/2025 Comments No Sex and Gender Information Value [...] as of this encounter Care Teams Manager Environmental Relationship Specialty Start Date End Date Alicia Brown PA [address] [place] [address] PCP - General Neurourologist 04/23/22 Tre Lara MD [address] [place] [address] Psychiatrist Adolescent Medicine 10/10/20 Anastasia Nation MBBS [address] [place] [address] [email or web address] Primary Oncologist Medical Oncology 01/23/24 documented as of this encounter Additional Source Comments The information contained in this document represents components of the legal health record. It is not the complete legal health record.[facility]
--- OUTSIDE RECORDS SUMMARY | 2025-09-22 21:15 | XMS_ITS | Encounter Summary ---
Author Organization [facility] Address [address] [place] [address] [place] [address] Phone Care Team Providers Care Velvet Cutter Name Role Phone Tre Lara MD Unavailable Alicia Brown Primary Care Provider [phone] Anastasia Nation Unavailable Encounter Details Date Type Department Care Team (Late st Contact Info) Description 04/05/2025 Procedure Pass [facility], Ct Scan - [facility] 30 [place] [address] Social History Tobacco Use Types Packs/Day Years [...] documented as of this encounter Care Teams Velvet Cutter Relationship Specialty Start Date End Date Alicia Brown PA [address] [place] [address] PCP - General Leather Etcher 04/23/22 Tre Lara MD [address] [place] [address] Psychiatrist Adolescent Medicine 10/10/20 Anastasia Nation MBBS [address] [place] [address] [email or web address] Primary Oncologist Medical Oncology 01/23/24 documented as of this encounter Additional Source Comments The information contained in this document represents components of the legal health record. It is not the complete legal health record.[facility]
--- OUTSIDE RECORDS SUMMARY | 2025-09-22 21:15 | XMS_ITS | Encounter Summary ---
Author Organization [facility] Address [address] [place] [address] [place] [address] Phone Care Team Providers Care Audio Production Manager Name Role Phone Tre Lara MD Unavailable Alicia Brown Primary Care Provider [phone] Anastasia Nation Unavailable [phone] Encounter Details Date Type Department Care Team (Late st Contact Info) Description 08/25/2024 Procedure Pass [facility], Ct Scan - [facility] [place] 30 [place] [address] Social History Tobacco Use Types Packs/Day Years [...] before we got money to buy more. Often True 08/28/2024 Within the past 6 months the food we bought just didn't last and we didn't have enough money to get more. Often True Residential Stability Answer Date Recor ded What is your housing situation today? I have carrie sing 08/28/2024 How many times have you move d in the past 12 months? Zero (I did not move) 08/28/2024 Paying for Meds Answer Date Recorded Do you have trouble paying for medicines? No 08/28/2024 Paying Utility Bills Answer Date Record ed Do you have trouble paying your heating or elect ricity bill? Yes 08/28/2024 Transportation Answer Date Recorded Has the lack of transportati on kept you from medical appointments or from getting medications? Yes 08/28/2024 Digital Access Answer Date Recorded No 08/28/2024 Yes 08/28/2024 Do you have reliable internet access at home? Ye s 08/28/2024 Do you have a device (e.g., phone, tablet, computer) with a working camera? Yes 08/28/2024 Comments No Sex and Gender Information Value [...] documented as of this encounter Care Teams Audio Production Manager Relationship Specialty Start Date End Date Alicia Brown PA [address] [place] [phone] PCP - General Criminology Professor 04/23/22 Tre Lara MD 50 [place] [address] Psychiatrist Adolescent Medicine 10/10/20 Anastasia Nation MBBS [address] [place] [address] [email or web address] Primary Oncologist Medical Oncology 01/23/24 documented as of this encounter Additional Source Comments The information contained in this document represents components of the legal health record. It is not the complete legal health record.[facility]
--- OUTSIDE RECORDS SUMMARY | 2025-09-22 21:15 | XMS_ITS | Encounter Summary ---
Author Organization [facility] Address [address] [place] [address] [place] [address] Phone Care Team Providers Care Army Ranger Name Role Phone Tre Lara MD Unavailable Alicia Brown Primary Care Provider [phone] Anastasia Nation Unavailable Encounter Details Date Type Department Care Team (Late st Contact Info) Description 02/28/2024 Procedure Pass [facility], Ct Scan - [facility] 30 [place] [address] Social History Tobacco Use Types Packs/Day Years [...] got money to buy more. Never True 02/29/2024 Within the past 6 months the food we bought just didn't last and we didn't have enough money to get more. Never True Residential Stability Answer Date Recor ded What is your housing situation today? I have carrie sing 02/29/2024 How many times have you move d in the past 12 months? Zero (I did not move) 02/29/2024 Paying for Meds Answer Date Recorded Do you have trouble paying for medicines? No 02/29/2024 Paying Utility Bills Answer Date Record ed Do you have trouble paying your heating or elect ricity bill? No 02/29/2024 Digital Access Answer Date Recorded No 02/23/2023 [...] Onset Date Last Indicated Resolved Time CoV-Risk Comment:Neg covid 02/25/2024 02/25/2024 03/01/2024 7:39 AM E DT CoV-Risk 11/22/2024 11/22/2024 12/03/2024 1:22 AM EST CDiff-Risk 07/15/2025 07/16/2025 07/16/2025 9:01 PM EDT documented as of this encounter Care Teams Army Ranger Relationship Specialty Start Date End Date Alicia Brown PA [address] [place] [phone] PCP - General Atg Architect 04/23/22 Tre Lara MD 50 [place] [address] Psychiatrist Adolescent Medicine 10/10/20 Anastasia Nation MBBS [address] [place] [address] [email or web address] Primary Oncologist Medical Oncology 01/23/24 documented as of this encounter Additional Source Comments The information contained in this document represents components of the legal health record. It is not the complete legal health record.[facility]
--- OUTSIDE RECORDS SUMMARY | 2025-09-22 21:15 | XMS_ITS | Encounter Summary ---
Author Organization [facility] Address [address] [place] [address] Phone Care Team Providers Care Head Waitress Name Role Phone Tre Lara MD Unavailable Alicia Brown Primary Care Provider [phone] Maykel Campos MD Unavailable [phone] Anastasia Nation Unavailable [phone] Encounter Details Date Type Department Care Team (Late st Contact Info) Description 08/30/2022 Procedure Pass [facility] [address] [place], [place] [id number] Social History Tobacco Use Types Packs/Day Years [...] Indicated Resolved Time CoV-Risk 11/25/2023 12/04/2023 12/04/2023 8:0 5 PM EST CoV-Risk Comment:Neg covid 02/25/2024 02/25/2024 03/01/2024 7:39 AM E DT CoV-Risk 11/22/2024 11/22/2024 12/03/2024 1:22 AM EST CDiff-Risk 07/15/2025 07/16/2025 07/16/2025 9:01 PM EDT documented as of this encounter Care Teams Head Waitress Relationship Specialty Start Date End Date Alicia Brown PA [address] [place] [address] PCP - General Garment Supervisor 04/23/22 Tre Lara MD [address] [place] [address] [email or web address] Psychiatrist Adolescent Medicine 10/10/20 Maykel Campos MD [address] [address] Primary Oncologist Hematology and Oncology 06/01/2301/02 Anastasia Nation MBBS [address] [address] [email or web address] Primary Oncologist Medical Oncology 01/23/24 documented as of this encounter Additional Source Comments The information contained in this document represents components of the legal health record. It is not the complete legal health record.[facility]
--- OUTSIDE RECORDS SUMMARY | 2025-09-22 21:15 | XMS_ITS | Encounter Summary ---
Author Organization [facility] Address [address] [place] [address] [place] [address] Phone Care Team Providers Care Embedded Engineer Name Role Phone Tre Lara MD Unavailable [phone] Alicia Brown Primary Care Provider [phone] Anastasia Nation Unavailable Encounter Details Date Type Department Care Team (Late st Contact Info) Description 06/21/2024 Procedure Pass [facility], Ct Scan - [facility] 30 [place] [address] Social History Tobacco Use Types Packs/Day Years [...] documented as of this encounter Care Teams Embedded Engineer Relationship Specialty Start Date End Date Alicia Brown PA [address] [place] [address] PCP - General Insurance Collector 04/23/22 Tre Lara MD 50 [place] [address] Psychiatrist Adolescent Medicine 10/10/20 Anastasia Nation MBBS [address] [place] [phone] [email or web address] Primary Oncologist Medical Oncology 01/23/24 documented as of this encounter Additional Source Comments The information contained in this document represents components of the legal health record. It is not the complete legal health record.[facility]
--- OUTSIDE RECORDS SUMMARY | 2025-09-22 21:15 | XMS_ITS | Encounter Summary ---
Author Organization [facility] Address [address] [place] [address] [place] [address] Phone Care Team Providers Care Candle Molder Machine Name Role Phone Tre Lara MD Unavailable Alicia Brown Primary Care Provider Anastasia Nation Unavailable [phone] Encounter Details Date Type Department Care Team (Late st Contact Info) Description 09/24/2024 Procedure Pass [facility] [address] [place] [address] Social History Tobacco Use Types Packs/Day Years [...] your housing situation today? I have carrie ribeiro 09/02/2024 How many times have you move [...] as food, clothing, or medical care? No 09/02/2024 In the past 12 months have y ou been in a relationship with a person who hurts, threatens, or tries to control you? No 09/02/2024 Are you denied basic needs s uch as food, clothing, or medical care? No 09/02/2024 In the past 12 months have y ou been in a relationship with a person who hurts, threatens, or tries to control you? No 09/02/2024 Comments No Sex and Gender Information Value [...] documented as of this encounter Care Teams Candle Molder Machine Relationship Specialty Start Date End Date Alicia Brown PA [address] [place] [address] PCP - General Hose Seamer 04/23/22 Tre Lara MD [address] [place] [address] Psychiatrist Adolescent Medicine 10/10/20 Anastasia Nation MBBS [address] [place] [address] [email or web address] Primary Oncologist Medical Oncology 01/23/24 documented as of this encounter Additional Source Comments The information contained in this document represents components of the legal health record. It is not the complete legal health record.[facility]
--- OUTSIDE RECORDS SUMMARY | 2025-09-22 21:15 | XMS_ITS | Encounter Summary ---
Author Organization [facility] Address [address] [place] [address] [place] [address] Phone Care Team Providers Care Medical Information Officer Name Role Phone Tre Lara MD Unavailable Alicia Brown Primary Care Provider [phone] Anastasia Nation Unavailable Encounter Details Date Type Department Care Team (Late st Contact Info) Description 02/17/2025 Procedure Pass [facility], Ct Scan - [facility] [address] [place] [address] Social History Tobacco Use Types Packs/Day Years [...] documented as of this encounter Care Teams Medical Information Officer Relationship Specialty Start Date End Date Alicia Brown PA [address] [place] [address] PCP - General Mechanist 04/23/22 Tre Lara MD [address] [place] [address] Psychiatrist Adolescent Medicine 10/10/20 Anastasia Nation MBBS [address] [place] [address] [email or web address] Primary Oncologist Medical Oncology 01/23/24 documented as of this encounter Additional Source Comments The information contained in this document represents components of the legal health record. It is not the complete legal health record.[facility]
--- OUTSIDE RECORDS SUMMARY | 2025-09-22 21:15 | XMS_ITS | Encounter Summary ---
Author Organization [facility] Address [address] [place] [address] [place] [address] Phone Care Team Providers Care Tuck Pointer Name Role Phone Tre Lara MD Unavailable Alicia Brown Primary Care Provider [phone] Anastasia Nation Unavailable [phone] Encounter Details Date Type Department Care Team (Late st Contact Info) Description 03/04/2025 Procedure Pass [facility], Ct Scan - [facility] [address] [place] [address] Social History Tobacco Use Types Packs/Day Years [...] got money to buy more. Never True 03/04/2025 Within the past 6 months the food we bought just didn't last and we didn't have enough money to get more. Never True Residential Stability Answer Date Recor ded What is your housing situation today? I have carrie sing 03/04/2025 How many times have you move d in the past 12 months? Zero (I did not move) 03/04/2025 Paying for Meds Answer Date Recorded Do you have trouble paying for medicines? No 03/04/2025 Paying Utility Bills Answer Date Record ed Do you have trouble paying your heating or elect ricity bill? No 03/04/2025 Transportation Answer Date Recorded Has the lack of transportati on kept you from medical appointments or from getting medications? No 03/04/2025 Digital Access Answer Date Recorded No 03/04/2025 Yes 03/04/2025 Do you have reliable internet access at home? Ye s 03/04/2025 Do you have a device (e.g., phone, tablet, computer) with a working camera? Yes 03/04/2025 Intimate Partner Violence Answer Date R ecorded Are you denied basic needs s uch as food, clothing, or medical care? No 03/04/2025 In the past 12 months have y ou been in a relationship with a person who hurts, threatens, or tries to control you? No 03/04/2025 Are you denied basic needs s uch as food, clothing, or medical care? No 03/04/2025 In the past 12 months have y ou been in a relationship with a person who hurts, threatens, or tries to control you? No 03/04/2025 Comments No Sex and Gender Information Value [...] documented as of this encounter Care Teams Tuck Pointer Relationship Specialty Start Date End Date Alicia Brown PA [address] [place] [address] PCP - General Rag Sorter 04/23/22 Tre Lara MD [address] [place] [address] Psychiatrist Adolescent Medicine 10/10/20 Anastasia Nation MBBS [address] [place] [address] [email or web address] Primary Oncologist Medical Oncology 01/23/24 documented as of this encounter Additional Source Comments The information contained in this document represents components of the legal health record. It is not the complete legal health record.[facility]
--- OUTSIDE RECORDS SUMMARY | 2025-09-22 21:15 | XMS_ITS | Encounter Summary ---
Author Organization [facility] Address [address] [place] [address] [place] [address] Phone Care Team Providers Care Polysomnograph Tech Name Role Phone Tre Lara MD Unavailable [phone] Alicia Brown Primary Care Provider [phone] Maykel Campos MD Unavailable Anastasia Nation Unavailable [phone] Encounter Details Date Type Department Care Team (Late st Contact Info) Description 05/27/2023 Procedure Pass [facility] [address] [place] [address] Social History Tobacco Use Types Packs/Day Years [...] documented as of this encounter Care Teams Polysomnograph Tech Relationship Specialty Start Date End Date Alicia Brown PA [address] [place] [address] PCP - General Intelligence Support Officer 04/23/22 Tre Lara MD [address] [place] [address] [email or web address] Psychiatrist Adolescent Medicine 10/10/20 Maykel Campos MD [address] [address] Primary Oncologist Hematology and Oncology 06/01/2301/02 Anastasia Nation MBBS [address] [place] [address] [email or web address] Primary Oncologist Medical Oncology 01/23/24 documented as of this encounter Additional Source Comments The information contained in this document represents components of the legal health record. It is not the complete legal health record.[facility]
--- OUTSIDE RECORDS SUMMARY | 2025-09-22 21:15 | XMS_ITS | Encounter Summary ---
Author Organization [facility] Address [address] [place] [address] Phone Care Team Providers Care Director Rehabilitation Program Name Role Phone Tre Lara MD Unavailable Alicia Brown Primary Care Provider + [phone] Maykel Campos MD Unavailable Anastasia Nation Unavailable [phone] Reason for Referral * Outpatient Procedure - Closed Specialty Diagnoses / Procedures Referred By Contcailin t Referred To Contact Radiology Diagnoses Mass of right breast, unspecified quadrant Procedures Mammogram Diagnostic Post Procedure (Right) Alejandrina Rosales MD Phone: tel: fax: mailto:[email or web address] Referral ID Status Reason Start Date Expiration Date Visits Re quested Visits Authorized [id number] Closed 04/25/2023 04/24/2024 1 1 Encounter Details Date Type Department Care Team (Late st Contact Info) Description 04/25/2023 Ancillary Orders Virtual Department [address] [place] [address] Alejandrina Rosales MD [address] [place] [address] Mass of right breast, unspecified quadrant Social History Tobacco Use Types Packs/Day Years [...] documented as of this encounter Results * BI MAMMOGRAM DIAGNOSTIC POST PROCEDURE NO TOMOSYNTHESIS NO CAD (RIGHT) (04/25/2023 2:10 PM EDT) Anatomical Region Laterality Modality Breast Right, Breast Bilateral Right M ammography 04/25/2023 5:50 PM EDT Addenda Addendum by Spencer Hancock MD on 05/03/2023 5:52 PM EDT ADDENDUM: FINAL PATHOLOGIC DIAGNOSIS: RIGHT BREAST AT 11 O'CLOCK, UPPER / OUTER QUADRANT, ULTRASOUND-GUIDED CORE BIOPSY: INVASIVE DUCTAL CARCINOMA GRADE 2 Findings are concordant with the imaging appearance. Surgical consultation and resection recommended. Impressions 04/25/2023 5:54 PM EDT Apparently successful ultrasound-guided biopsy of suspicious mass in the 10-11 o'clock position of the right breast. Pathology results are pending. Narrative 04/25/2023 5:54 PM EDT HISTORY: Suspicious mass 10-11:00 position of right breast 7 cm deep to the nipple. COMPARISON: Right breast ultrasound and mammogram 04/12/2023. PROCEDURE: Ultrasound-guided right breast biopsy. Initially, the risks, benefits and alternatives were explained patient. Decision-making capabilities appeared intact, and the patient agreed to proceed. An informed consent form was obtained and placed in the chart. Using ultrasound guidance a site for biopsy of the suspicious mass in the 10-11:00 position of the right breast was chosen. The site was aseptically prepared and anesthetized. A total of 10 cc of 1% lidocaine was injected. Subsequently, a 12-gauge automated biopsy needle device was introduced into the breast. A total of 5 passes were made through the mass. Samples which were obtained were placed in a jar which was labeled with the patient's information and sent to the lab for analysis. A biopsy marker was placed within or immediately adjacent to the mass. This was confirmed on follow-up CC and 90 degrees ML mammograms. The patient tolerated the procedure well and had no immediate complications. Discharge instructions were discussed with her. She was given a set of discharge instructions to take home. She left the ultrasound suite in stable condition. Procedure Note Spencer Hancock MD - 04/25/2023 HISTORY: Suspicious mass 10-11:00 position of right breast 7 cm deep tothe nipple. COMPARISON: Right breast ultrasound and mammogram 04/12/2023. PROCEDURE: Ultrasound-guided right breast biopsy. Initially, the risks, benefits and alternatives were explained patient.Decision-making capabilities appeared intact, and the patient agreed toproceed. An informed consent form was obtained and placed in the chart.Using ultrasound guidance a site for biopsy of the suspicious mass in avf68-56:00 position of the right breast was chosen. The site wasaseptically prepared and anesthetized. A total of 10 cc of 1% lidocainewas injected. Subsequently, a 12-gauge automated biopsy needle device wasintroduced into the breast. A total of 5 passes were made through themass. Samples which were obtained were placed in a jar which was labeledwith the patient's information and sent to the lab for analysis. A biopsymarker was placed within or immediately adjacent to the mass. This wasconfirmed on follow-up CC and 90 degrees ML mammograms. The patient tolerated the procedure well and had no immediatecomplications. Discharge instructions were discussed with her. She wasgiven a set of discharge instructions to take home. She left theultrasound suite in stable condition. IMPRESSION: Apparently successful ultrasound-guided biopsy of suspicious mass in wxz97-27 o'clock position of the right breast. Pathology results arepending. Alejandrina Rosales MD IMG MG EXAMS Edited Res ult - Final documented in this encounter Visit Diagnoses Diagnosis Mass of right breast, unspecified quadrant Mass of right breast, unspecified quadrant documented in this encounter Additional Health Concerns Infection Onset Date Last Indicated Resolved Time CoV-Risk 11/25/2023 12/04/2023 12/04/2023 8:05 PM EST CoV-Risk Comment:Neg covid 02/25/2024 02/25/2024 03/01/2024 7:39 AM E DT CoV-Risk 11/22/2024 11/22/2024 12/03/2024 1:22 AM EST CDiff-Risk 07/15/2025 07/16/2025 07/16/2025 9:01 PM EDT documented as of this encounter Care Teams Director Rehabilitation Program Relationship Specialty Start Date End Date Alicia Brown PA [address] [place] [address] PCP - General Chief Psychology 04/23/22 Tre Lara MD [address] [place] [address] [email or web address] Psychiatrist Adolescent Medicine 10/10/20 Maykel Campos MD [address] [address] [email or web address] Primary Oncologist Hematology and Oncology 06/01/2301/02 Anastasia Nation MBBS [address] [address] [email or web address] Primary Oncologist Medical Oncology 01/23/24 documented as of this encounter Additional Source Comments The information contained in this document represents components of the legal health record. It is not the complete legal health record.[facility]
--- OUTSIDE RECORDS SUMMARY | 2025-09-22 21:15 | XMS_ITS | Encounter Summary ---
Author Organization [facility] Address [address] [place] [address] [place] [address] Phone Care Team Providers Care Hide Or Skin Buffer Name Role Phone Tre Lara MD Unavailable [phone] Alicia Brown Primary Care Provider [phone] Anastasia Nation Unavailable Encounter Details Date Type Department Care Team (Late st Contact Info) Description 11/22/2024 Procedure Pass [facility], Ct Scan - [facility] [address] [place] [address] Social History Tobacco Use Types Packs/Day Years [...] documented as of this encounter Care Teams Hide Or Skin Buffer Relationship Specialty Start Date End Date Alicia Brown PA [address] [place] [address] PCP - General Stock Handler 04/23/22 Tre Lara MD [address] [place] [address] Psychiatrist Adolescent Medicine 10/10/20 Anastasia Nation MBBS [address] [place] [address] [email or web address] Primary Oncologist Medical Oncology 01/23/24 documented as of this encounter Additional Source Comments The information contained in this document represents components of the legal health record. It is not the complete legal health record.[facility]
--- OUTSIDE RECORDS SUMMARY | 2025-09-22 21:15 | XMS_ITS | Encounter Summary ---
Author Organization [facility] Address [address] [place] [address] Phone Care Team Providers Care Concrete Pipe Machine Operator Name Role Phone Alicia Brown Primary Care Provider + [phone] Namrata Hein RN Unavailable Tre Lara MD Unavailable [phone] Andrea Waters MD Unavailable Alicia Brown Primary Care Provider [phone] Maykel Campos MD Unavailable Anastasia Nation Unavailable [phone] Reason for Referral * MRI/CAT Scan - Closed Specialty Diagnoses / Procedures Referred By Contac t Referred To Contact Radiology Diagnoses Sensorineural hearing loss, unilateral, right ear, with unrestricted hearing on the contralateral side Dizziness and giddiness Procedures MRI Brain Candelaria Owen MD Phone: tel: fax: mailto:[email or web address] Referral ID Status Reason Start Date Expiration Date Visits Re quested Visits Authorized [id number] Closed 05/11/2021 05/11/2022 1 1 Encounter Details Date Type Department Care Team (Latest Contact Info) Description 05/11/2021 Transcribe Orders Virtual Department [address] [place] [address] Candelaria Owen MD [address] [facility], [address] [place] [address] [email or web address] Sensorineural hearing loss, unilateral, right ear, with unrestricted hearing on the contralateral side (Primary Dx); Dizziness and giddiness Social History Tobacco Use Types Packs/Day Years Used Date Smoking Tobacco: Former Cigarettes 1 40 1 555 - 2014 Smokeless Tobacco: Never Alcohol Use [...] as of this encounter Results * MRI BRAIN WITH AND WITHOUT CONTRAST (06/03/2021 2:18 PM EDT) Anatomical Region Laterality Modality Head Magnetic Resonan ce 06/03/2021 2:56 PM EDT Impressions 06/03/2021 3:03 PM EDT No posterior fossa lesion or 7th and 8th nerve bundles abnormality identified to account for the symptomatology. No prominent progression of non-specific white matter disease which again may be on the basis of small vessel ischemic change. Narrative 06/03/2021 3:03 PM EDT HISTORY: Dizziness and vertigo with left-sided hearing loss. COMPARISON: November 20, 2019. Several prior head CTs, most recent May 25, 2020. TECHNIQUE: Exam performed on a 1.5 Johanna high-field MRI scanner. Axial T2, T2*, T2 FLAIR, diffusion-weighted imaging with ADC map, and sagittal T1 of the whole brain, thin section axial T1, and 3-D axial high resolution bright fluid through the region of the IACs, followed by post-gadolinium axial T1 of the whole brain and post-gadolinium thin section axial and coronal T1 through the region of the IACs. FINDINGS: No evidence of CP angle mass. No abnormal morphology or enhancement seen along the 7th and 8th nerve bundles. The remainder the study demonstrates no abnormal csree-nhndc-brgbn blood or fluid collection, mass, or mass effect. Foci of abnormal white matter signal are again noted in the supratentorial brain, without a clear progression since prior. No associated blood-brain barrier breakdown, restricted diffusion or worrisome susceptibility effect. Pituitary not enlarged. Cerebellar tonsils not ectopic. Sulci and ventricles appear within the range of normal. No orbital lesion identified. Mucosal thickening with some mucus debris suggested in both maxillary sinuses, present previously with slightly more thickening than previous and slightly more ethmoid thickening as well as. There appear to be preserved flow voids in the major intracranial arteries and veins. Procedure Note Cruz Duarte MD - 06/03/2021 HISTORY: Dizziness and vertigo with left-sided hearing loss. COMPARISON: November 20, 2019. Several prior head CTs, most recent 2019. TECHNIQUE: Exam performed on a 1.5 Johanna high-field MRI scanner. AxialT2, T2*, T2 FLAIR, diffusion-weighted imaging with ADC map, and sagittalT1 of the whole brain, thin section axial T1, and 3-D axial highresolution bright fluid through the region of the IACs, followed bypost-gadolinium axial T1 of the whole brain and post-gadolinium thinsection axial and coronal T1 through the region of the IACs. FINDINGS: No evidence of CP angle mass. No abnormal morphology or enhancement seenalong the 7th and 8th nerve bundles. The remainder the study demonstrates no abnormal ksagw-iwapl-wgsan bloodor fluid collection, mass, or mass effect. Foci of abnormal white mattersignal are again noted in the supratentorial brain, without a clearprogression since prior. No associated blood-brain barrier breakdown,restricted diffusion or worrisome susceptibility effect. Pituitary not enlarged. Cerebellar tonsils not ectopic. Sulci andventricles appear within the range of normal. No orbital lesionidentified. Mucosal thickening with some mucus debris suggested in bothmaxillary sinuses, present previously with slightly more thickening thanprevious and slightly more ethmoid thickening as well as. There appear to be preserved flow voids in the major intracranial arteriesand veins. IMPRESSION: No posterior fossa lesion or 7th and 8th nerve bundles abnormalityidentified to account for the symptomatology. No prominent progression ofnon-specific white matter disease which again may be on the basis of smallvessel ischemic change. us Candelaria Owen MD IMG MR HEAD/NECK Final Res ult documented in this encounter Visit Diagnoses Diagnosis Sensorineural hearing loss, unilateral, right ear, with unrestricted hearing on the contralateral side- Primary Dizziness and giddiness Sensorineural hearing loss, unilateral, right ear, with unrestricted hearing on the contralateral side Dizziness and giddiness documented in this encounter Additional Health Concerns Infection Onset Date Last Indicated Resolved Time CoV-Risk 11/25/2023 12/04/2023 12/04/2023 8:05 PM EST CoV-Risk Comment:Neg covid 02/25/2024 02/25/2024 03/01/2024 7:39 AM E DT CoV-Risk 11/22/2024 11/22/2024 12/03/2024 1:22 AM EST CDiff-Risk 07/15/2025 07/16/2025 07/16/2025 9:01 PM EDT documented as of this encounter Care Teams Concrete Pipe Machine Operator Relationship Specialty Start Date End Date Alicia Brown PA [address] [place] [address] PCP - General Screen Door Maker 05/26/20 04/22/22 Alicia Brown PA [address] [place] [address] PCP - General Screen Door Maker 04/23/22 Namrata Hein, RN [address] [place] [address] [email or web address] PHCM Registered Route Associate 09/02/20 07/08/21 Tre Lara MD [address] [place] [address] [email or web address] Psychiatrist Adolescent Medicine 10/10/20 Andrea Waters MD [address] [address] [email or web address] Assigned Provider 12/06/20 09/18/21 Maykel Campos MD [address] [address] [email or web address] Primary Oncologist Hematology and Oncology 06/01/23 01/22/24 Anastasia Nation MBBS [address] [address] [email or web address] Primary Oncologist Medical Oncology 01/23/24 documented as of this encounter Additional Source Comments The information contained in this document represents components of the legal health record. It is not the complete legal health record.[facility]
--- OUTSIDE RECORDS SUMMARY | 2025-09-22 21:15 | XMS_ITS | Encounter Summary ---
Author Organization [facility] Address [address] [place] [address] [place] [address] Phone Care Team Providers Care Deputy Sheriff Name Role Phone Tre Lara MD Unavailable Alicia Brown Primary Care Provider [phone] Maykel Campos MD Unavailable [phone] Anastasia Nation Unavailable [phone] Reason for Referral * MRI/CAT Scan - Closed Specialty Diagnoses / Procedures Referred By Contac t Referred To Contact Radiology Diagnoses KILPATRICK (dyspnea on exertion) Procedures NC Stress Result for Nuclear Stress Test Last Friend NP Phone: tel: mailto:[email or web address] Referral ID Status Reason Start Date Expiration Date Visits Re quested Visits Authorized [id number] Closed 05/20/2023 08/14/2023 1 1 Encounter Details Date Type Department Care Team (Latest Contact Info) Description 05/20/2023 Ancillary Orders [facility] [address], [address] [place] [address] Last Friend NP [address] [place] [address] [email or web address] KILPATRICK (dyspnea on exertion) Social History Tobacco Use Types Packs/Day Years [...] documented as of this encounter Results * NC Stress Result for Nuclear Stress Test (05/20/2023 11:01 AM EDT) Max BP Systolic 132 mmHg [facility] Max BP Diastolic 52 mmHg [facility] Max HR 96 BPM [facility] Resting HR 57 BPM [facility] Resting BP Systolic 100 mmHg [facility] Resting BP Diastolic 52 mmHg [facility] Peak METS 1.0 METS [facility] Peak HR 86 BPM [facility] Anatomical Region Laterality Modality Heart Other 05/20/2023 10:0 2 AM EDT 05/20/2023 10:58 AM EDT Narrative 05/20/2023 11:14 AM EDT Response to Stress The patient exercised for minutes seconds, achieving 1.0 METS at peak exercise. Baseline blood pressure was 100/52 mmHg, and baseline heart rate was 57 bpm. The patient achieved a peak heart rate of 86 bpm, which is% of their maximum predicted heart rate. REPORT- 0.4 mg regadenoson (Lexiscan) given IV push over 10 seconds as per protocol immediately followed by injection of Tc99m Sestamibi by staff cytotechnologist. Test was performed as a pharmacological test due to inability to exercise on a treadmill to reach MPHR. 1. EKG - Baseline EKG showed sinus bradycardia. After injection of Lexiscan, there were 0.5-[address] depressions in V3-V6. 2. SYMPTOMS - Patient reported a myriad of symptoms after injection of Lexiscan which included 2/10 diffuse chest pain, nausea, shortness of breath and lightheadedness. 75 mg aminophylline was given with immediate resolution of symptoms. 3. PHYSIOLOGY - Resting heart rate was 56 bpm. After Lexiscan injection, heart rate 96 bpm (61% MPHR). 4. ARRHYTHMIAS - Rare PACs. Conclusion - EKG evidence of ischemia during pharmacologic portion of testing. Nuclear images pending and will be reported separately. Jessica Mcclellan NP with Dr Conroy . Last Friend ENGINE MONITOR CV NM CARDIAC Final Result documented in this encounter Visit Diagnoses Diagnosis KILPATRICK (dyspnea on exertion) Other dyspnea and respiratory abnormality KILPATRICK (dyspnea on exertion) Other dyspnea and respiratory abnormality documented in this encounter Additional Health Concerns Infection Onset Date Last Indicated Resolved Time CoV-Risk 11/25/2023 12/04/2023 12/04/2023 8:05 PM EST CoV-Risk Comment:Neg covid 02/25/2024 02/25/2024 03/01/2024 7:39 AM E DT CoV-Risk 11/22/2024 11/22/2024 12/03/2024 1:22 AM EST CDiff-Risk 07/15/2025 07/16/2025 07/16/2025 9:01 PM EDT documented as of this encounter Care Teams Deputy Sheriff Relationship Specialty Start Date End Date Alicia Brown PA [address] [place] [address] PCP - General Anglesmith 04/23/22 Tre Lara MD [address] [place] [address] [email or web address] Psychiatrist Adolescent Medicine 10/10/20 Maykel Campos MD [address] [address] Primary Oncologist Hematology and Oncology 06/01/2301/02 Anastasia Nation MBBS [address] [address] [email or web address] Primary Oncologist Medical Oncology 01/23/24 documented as of this encounter Additional Source Comments The information contained in this document represents components of the legal health record. It is not the complete legal health record.[facility]
--- OUTSIDE RECORDS SUMMARY | 2025-09-22 21:15 | XMS_ITS | Encounter Summary ---
Author Organization [facility] Address [address] [place] [address] [place] [address] Phone Care Team Providers Care Clay House Worker Name Role Phone Tre Lara MD Unavailable Alicia Brown Primary Care Provider [phone] Anastasia Nation Unavailable [phone] Encounter Details Date Type Department Care Team (Late st Contact Info) Description 09/10/2024 Procedure Pass [facility] [address] [place] [address] Social History Tobacco Use Types Packs/Day Years [...] documented as of this encounter Care Teams Clay House Worker Relationship Specialty Start Date End Date Alicia Brown PA [address] [place] [address] PCP - General Automation Engineering Manager 04/23/22 Tre Lara MD [address] [place] [address] Psychiatrist Adolescent Medicine 10/10/20 Anastasia Nation MBBS [address] [place] [address] [email or web address] Primary Oncologist Medical Oncology 01/23/24 documented as of this encounter Additional Source Comments The information contained in this document represents components of the legal health record. It is not the complete legal health record.[facility]
--- OUTSIDE RECORDS SUMMARY | 2025-09-22 21:15 | XMS_ITS | Encounter Summary ---
Author Organization [facility] Address [address] [place] [address] [place] [address] Phone Care Team Providers Care Engraver Block Name Role Phone Tre Lara MD Unavailable Alicia Brown Primary Care Provider + [phone] Maykel Campos MD Unavailable Anastasia Nation Unavailable [phone] Reason for Referral * MRI/CAT Scan - Closed Specialty Diagnoses / Procedures Referred By Chris t Referred To Contact Radiology Diagnoses Benign neoplasm of right adrenal gland Procedures CT Abdomen Only (No Pelvis) CHG CT SCAN OF ABDOMEN COMBO Alicia Brown PA [address] [place] [address] Phone: tel: fax: Referral ID Status Reason Start Date Expiration Date Visits Re quested Visits Authorized [id number] Closed 05/09/2023 10/02/2023 1 1 Encounter Details Date Type Department Care Team (Latest Contact Info) Description 05/19/2023 Transcribe Orders Virtual Department [address] [place] [address] Alicia Brown PA [address] [place] [address] Benign neoplasm of right adrenal gland (Primary Dx) Social History Tobacco Use Types [...] as of this encounter Results * CT ABDOMEN WITHOUT CONTRAST (05/25/2023 3:35 PM EDT) Anatomical Region Laterality Modality Abdomen, Abdominal Vasculature C omputed Tomography 05/26/2023 6:01 AM EDT Impressions 05/26/2023 5:04 PM EDT Stable 2.3 cm benign right adrenal adenoma. Narrative 05/26/2023 5:[address] ABDOMEN WITHOUT CONTRAST TECHNIQUE: Multidetector-row CT of the abdomen was performed without intravenous contrast using tailored dose modulation techniques. Images were reconstructed in the axial, coronal, and sagittal planes. COMPARISON: CT abdomen/pelvis 09/10/2021. FINDINGS: Lower Chest: Normal. No consolidation or pleural effusions. Liver: No suspicious focal liver lesion. Biliary: No biliary ductal dilatation. Spleen: Normal. No splenomegaly or focal lesions. Pancreas: Normal. No masses or ductal dilatation. Adrenal Glands: Stable 2.3 cm right adrenal nodule with features diagnostic of a benign adenoma. Kidneys/Ureters: No solid renal mass or hydronephrosis. Bowel: No bowel obstruction or wall thickening. Peritoneum/Retroperitoneum: Normal. No masses, pneumoperitoneum, or fluid. Lymph Nodes: Normal. No lymphadenopathy. Vessels: No abdominal aortic aneurysm. Bones/Soft Tissues: No suspicious focal osseous lesion. Spine degenerative changes. Minimal spine degenerative changes. Procedure Note Mike Anderson MD - 05/26/2023 CT ABDOMEN WITHOUT CONTRAST TECHNIQUE: Multidetector-row CT of the abdomen was performed withoutintravenous contrast using tailored dose modulation techniques. Imageswere reconstructed in the axial, coronal, and sagittal planes. COMPARISON: CT abdomen/pelvis 09/10/2021. FINDINGS: Lower Chest: Normal. No consolidation or pleural effusions. Liver: No suspicious focal liver lesion. Biliary: No biliary ductal dilatation. Spleen: Normal. No splenomegaly or focal lesions. Pancreas: Normal. No masses or ductal dilatation. Adrenal Glands: Stable 2.3 cm right adrenal nodule with featuresdiagnostic of a benign adenoma. Kidneys/Ureters: No solid renal mass or hydronephrosis. Bowel: No bowel obstruction or wall thickening. Peritoneum/Retroperitoneum: Normal. No masses, pneumoperitoneum, orfluid. Lymph Nodes: Normal. No lymphadenopathy. Vessels: No abdominal aortic aneurysm. Bones/Soft Tissues: No suspicious focal osseous lesion. Spine degenerativechanges. Minimal spine degenerative changes. IMPRESSION: Stable 2.3 cm benign right adrenal adenoma. Alicia DODSON IMG CT XSPECIALTY ORDERABL ES Final Result documented in this encounter Visit Diagnoses Diagnosis Benign neoplasm of right adrenal gland- Primary Benign neoplasm of right adrenal gland documented in this encounter Additional Health Concerns Infection Onset Date Last Indicated Resolved Time CoV-Risk 11/25/2023 12/04/2023 12/04/2023 8:05 PM EST CoV-Risk Comment:Neg covid 02/25/2024 02/25/2024 03/01/2024 7:39 AM E DT CoV-Risk 11/22/2024 11/22/2024 12/03/2024 1:22 AM EST CDiff-Risk 07/15/2025 07/16/2025 07/16/2025 9:01 PM EDT documented as of this encounter Care Teams Engraver Block Relationship Specialty Start Date End Date Alicia Brown PA [address] [place] [address] PCP - General Manager Pool 04/23/22 Tre Lara MD [address] [place] [address] [email or web address] Psychiatrist Adolescent Medicine 10/10/20 Maykel Campos MD [address] [address] [email or web address] Primary Oncologist Hematology and Oncology 06/01/2301/02 Anastasia Nation MBBS [address] [address] [email or web address] Primary Oncologist Medical Oncology 01/23/24 documented as of this encounter Additional Source Comments The information contained in this document represents components of the legal health record. It is not the complete legal health record.[facility]
--- OUTSIDE RECORDS SUMMARY | 2025-09-22 21:15 | XMS_ITS | Encounter Summary ---
Author Organization [facility] Address [address] [place] [address] [place] [address] Phone Care Team Providers Care Diamond Die Maker Name Role Phone Tre Lara MD Unavailable Alicia Brown Primary Care Provider Anastasia Nation Unavailable [phone] Encounter Details Date Type Department Care Team (Late st Contact Info) Description 09/04/2024 Procedure Pass [facility] Periop [address] [place] [address] Social History Tobacco Use Types Packs/Day Years [...] documented as of this encounter Care Teams Diamond Die Maker Relationship Specialty Start Date End Date Alicia Brown PA [address] [place] [address] PCP - General Binder Caser 04/23/22 Tre Lara MD [address] [place] [address] Psychiatrist Adolescent Medicine 10/10/20 Anastasia Nation MBBS [address] [place] [address] [email or web address] Primary Oncologist Medical Oncology 01/23/24 documented as of this encounter Additional Source Comments The information contained in this document represents components of the legal health record. It is not the complete legal health record.[facility]
--- OUTSIDE RECORDS SUMMARY | 2025-09-22 21:15 | XMS_ITS | Encounter Summary ---
Author Organization [facility] Address [address] [place] [address] Phone Care Team Providers Care Inspector Mechanical Name Role Phone Alicia Brown Primary Care Provider [phone] Namrata Hein RN Unavailable Tammy Steinberg Unavailable [phone] Tre Lara MD Unavailable Bryan Chun MD Unavailable Angus NicoleSW Unavailable [phone] Andrea Waters MD Unavailable Alicia Brown Primary Care Provider [phone] Maykel Campos MD Unavailable Anastasia Nation Unavailable [phone] Encounter Details Date Type Department Care Team (Late st Contact Info) Description 11/10/2020 Procedure Pass [facility] [address] [facility] 3rd [place] [address] Social History Tobacco Use Types Packs/Day Years [...] documented as of this encounter Care Teams Inspector Mechanical Relationship Specialty Start Date End Date Alicia Brown PA [address] [place] [address] PCP - General Fish Hatchery Worker 05/26/20 04/22/22 Alicia Brown PA [address] [place] [address] PCP - General Fish Hatchery Worker 04/23/22 Namrata Hein RN [address] [place] [address] PHCM Mosaicist 09/02/20 07/08/21 Tammy Steinberg [address] [place] [address] [email or web address] Community Health Worker 09/03/20 12/24/20 Tre Lara MD [address] [place] [address] [email or web address] Psychiatrist Adolescent Medicine 10/10/20 Bryan Chun MD [address] [place] [address] Insurance Assigned Provider 11/08/20 12/06/20 Angus Nicole, [address] [address] PHC Beauty Culturist Apprentice 12/01/20 12/24/20 Andrea Waters MD [address] [place] [phone] [email or web address] Insurance Assigned Provider 12/06/20 09/18/21 Maykel Campos MD [address] [address] Primary Oncologist Hematology and Oncology 06/01/23 01/22/24 Anastasia Nation MBBS [address] [address] [email or web address] Primary Oncologist Medical Oncology 01/23/24 documented as of this encounter Additional Source Comments The information contained in this document represents components of the legal health record. It is not the complete legal health record.[facility]
--- OUTSIDE RECORDS SUMMARY | 2025-09-22 21:15 | XMS_ITS | Encounter Summary ---
Author Organization [facility] Address [address] [place] [address] Phone Care Team Providers Care Stove Installer Name Role Phone Alicia Brown Primary Care Provider Namrata Hein RN Unavailable Tammy Steinberg Unavailable Tre Lara MD Unavailable Angus Nicole Unavailable [phone] Andrea Waters MD Unavailable Alicia Brown Primary Care Provider Maykel Campos MD Unavailable Anastasia Nation Unavailable [phone] Reason for Visit * Reason Comments Medication Refill Encounter Details Date Type Department Care Team ([facility] st Contact Info) Description 12/10/2020 Refill [facility] [place] [address] [place] [address] Iam Frye PA-C [address] [place] [address] [email or web address] Medication Refill Social History Tobacco Use Types Packs/Day Years [...] documented as of this encounter Care Teams Stove Installer Relationship Specialty Start Date End Date Alicia Brown PA [address] [place] [address] PCP - General Ground Helper Street Railway 05/26/20 04/22/22 Alicia Brown PA [address] [place] [address] PCP - General Ground Helper [address] Railway 04/23/22 Namrata Hein RN [address] [place] [address] PHCM Compliance Field Technician 09/02/20 07/08/21 Tammy Steinberg [address] [place] [address] [email or web address] Community Health Worker 09/03/20 12/24/20 Tre Lara MD [address] [place] [address] [email or web address] Psychiatrist Adolescent Medicine 10/10/20 Angus Nicole [address] [id number] [email or web address] PHC Battery Tester And Repairer 12/01/20 12/24/20 Andrea Waters MD [address] [place] [phone] [email or web address] Insurance Assigned Provider 12/06/20 09/18/21 Maykel Campos MD [facility] [address] [address] Primary Oncologist Hematology and Oncology 06/01/23 01/22/24 Anastasia Nation MBBS [address] [address] [email or web address] Primary Oncologist Medical Oncology 01/23/24 documented as of this encounter Additional Source Comments The information contained in this document represents components of the legal health record. It is not the complete legal health record.[facility]
--- OUTSIDE RECORDS SUMMARY | 2025-09-22 21:15 | XMS_ITS | Encounter Summary ---
Author Organization [facility] Address [address] [place] [address] Phone Care Team Providers Care Missile And Missile Checkout Technician Name Role Phone Alicia Brown Primary Care Provider [phone] Namrata Hein RN Unavailable Tre Lara MD Unavailable Andrea Waters MD Unavailable Alicia Brown Primary Care Provider Maykel Campos MD Unavailable Anastasia Nation Unavailable [phone] Encounter Details Date Type Department Care Team (Late st Contact Info) Description 02/26/2021 Procedure Pass [facility]oscopy Admitting Dept Virtual Department [address] [place] [address] [phone] Social History Tobacco Use Types Packs/Day Years [...] documented as of this encounter Care Teams Missile And Missile Checkout Technician Relationship Specialty Start Date End Date Alicia Brown PA [address] [place] [phone] PCP - General Cartoon Artist 05/26/20 04/22/22 Alicia Brown PA [address] [place] [address] PCP - General Cartoon Artist 04/23/22 Namrata Hein, MARY ANN [address] [place] [address] PHCM Television Repair Teacher 09/02/20 07/08/21 Tre Lara MD [address] [place] [address] [email or web address] Psychiatrist Adolescent Medicine 10/10/20 Andrea Waters MD [address] [facility] [address] [place] [address] [email or web address] Insurance Assigned Provider 12/06/20 09/18/21 Maykel Campos MD [address] [address] [email or web address] Primary Oncologist Hematology and Oncology 06/01/23 01/22/24 Anastasia Nation MBBS [address] [address] [email or web address] Primary Oncologist Medical Oncology 01/23/24 documented as of this encounter Additional Source Comments The information contained in this document represents components of the legal health record. It is not the complete legal health record.[facility]
--- OUTSIDE RECORDS SUMMARY | 2025-09-22 21:15 | XMS_ITS | Encounter Summary ---
Author Organization [facility] Address [address] [place] [address] [place] [address] Phone Care Team Providers Care Cytotechnologist Name Role Phone Tre Lara MD Unavailable Alicia Brown Primary Care Provider [phone] Anastasia Nation Unavailable Encounter Details Date Type Department Care Team (Late st Contact Info) Description 03/04/2025 Procedure Pass [facility], Ct Scan - [facility] [address] [place] [address] Social History Tobacco Use Types Packs/Day Years [...] documented as of this encounter Care Teams Cytotechnologist Relationship Specialty Start Date End Date Alicia Brown PA [address] [place] [address] PCP - General Maintenance Aide 04/23/22 Tre Lara MD [address] [place] [address] Psychiatrist Adolescent Medicine 10/10/20 Anastasia Nation MBBS [address] [place] [address] [email or web address] Primary Oncologist Medical Oncology 01/23/24 documented as of this encounter Additional Source Comments The information contained in this document represents components of the legal health record. It is not the complete legal health record.[facility]
--- OUTSIDE RECORDS SUMMARY | 2025-09-22 21:15 | XMS_ITS | Encounter Summary ---
Author Organization [facility] Address [address] [place] [address] [place] [address] Phone Care Team Providers Care Sewing Machinist Name Role Phone Tre Lara MD Unavailable [phone] Alicia Brown Primary Care Provider [phone] Anastasia Nation Unavailable Encounter Details Date Type Department Care Team (Late st Contact Info) Description 04/05/2025 Procedure Pass [facility], [facility] Scan - [facility] [address] [place] [address] Social History Tobacco Use Types Packs/Day Years [...] documented as of this encounter Care Teams Sewing Machinist Relationship Specialty Start Date End Date Alicia Brown PA [address] [place] [address] PCP - General Mission Systems Engineer 04/23/22 Tre Lara MD [address] [place] [address] Psychiatrist Adolescent Medicine 10/10/20 Anastasia Nation MBBS [address] [place] [address] [email or web address] Primary Oncologist Medical Oncology 01/23/24 documented as of this encounter Additional Source Comments The information contained in this document represents components of the legal health record. It is not the complete legal health record.[facility]
--- OUTSIDE RECORDS SUMMARY | 2025-09-22 21:15 | XMS_ITS | Encounter Summary ---
Author Organization [facility] Address [address] [place] [address] [place] [address] Phone Care Team Providers Care Communications Programmer Name Role Phone Tre Lara MD Unavailable Alicia Brown Primary Care Provider [phone] Anastasia Nation Unavailable [phone] Encounter Details Date Type Department Care Team (Late st Contact Info) Description 08/24/2024 Procedure Pass [facility], Ct Scan - [facility] [address] [place] [address] Social History Tobacco Use Types Packs/Day Years [...] documented as of this encounter Care Teams Communications Programmer Relationship Specialty Start Date End Date Alicia Brown PA [address] [place] [phone] PCP - General Program Advisor 04/23/22 Tre Lara MD [address] [place] [address] Psychiatrist Adolescent Medicine 10/10/20 Anastasia Nation MBBS [address] [place] [address] [email or web address] Primary Oncologist Medical Oncology 01/23/24 documented as of this encounter Additional Source Comments The information contained in this document represents components of the legal health record. It is not the complete legal health record.[facility]
--- OUTSIDE RECORDS SUMMARY | 2025-09-22 21:15 | XMS_ITS | Encounter Summary ---
Author Organization [facility] Address [address] [place] [address] Phone Care Team Providers Care Chief Privacy Officer Name Role Phone Yasir Brown MD Primary Care Provider [phone] Yasir Brown MD Unavailable [phone] Alicia Brown Primary Care Provider [phone] Zulema Mckeon MD, MPH Unavailable + [phone] Namrata Hein RN Unavailable Tammy Steinberg Unavailable [phone] Tre Lara MD Unavailable Juventino Zhong MD Unavailable Bryan Chun MD Unavailable [phone] Angus Nicole Unavailable Andrea Waters MD Unavailable Alicia Brown Primary Care Provider [phone] Maykel Campos MD Unavailable [phone] Anastasia Nation Unavailable [phone] Reason for Referral * MRI/CAT Scan - Closed Specialty Diagnoses / Procedures Referred By Chris hathaway Referred To Contact Radiology Diagnoses Ex-smoker Procedures CT Chest Lung Cancer Screening Alicia Brown PA Phone: tel: fax: Referral ID Status Reason Start Date Expiration Date Visits Re quested Visits Authorized [id number] Closed 09/03/2019 09/03/2020 1 1 Encounter Details Date Type Department Care Team (Latest Contact Info) Description 08/28/2019 Transcribe Orders Virtual Department [address] [place] [address] Alicia Brown PA [address] [place] [address] Ex-smoker (Primary Dx) Social History Tobacco Use Types [...] as of this encounter Results * CT CHEST LUNG CANCER SCREENING FOLLOW UP (09/04/2019 3:53 PM EST) Anatomical Region Laterality Modality Chest Computed Tomogra phy 09/04/2019 3:56 PM EST Impressions 09/04/2019 4:23 PM EST No pulmonary nodules apparent. Minimal lingular atelectatic opacity and additional bibasilar linear scarring versus minimal subsegmental atelectasis. LUNG RAD: LUNG RAD CATEGORY 1 - NEGATIVE TOTAL CTDIvol: 2.00 mGy POS [id number] Narrative 09/04/2019 4:23 PM EST HISTORY: Low dose CT lung cancer screening. TECHNIQUE: Non-contrast, low dose axial CT with sagittal and coronal reconstructions. COMPARISON EXAM: 03/27/2008 CT and 02/01/2019 chest radiographs This is a 59 year old patient referred for Low Dose CT Lung Cancer Screening (LDCT). The patient has no signs or symptoms of lung cancer and has a 30-pack year or greater history of tobacco smoking. They are a current smoker or have quit smoking within the last 15 years and have a written order for LDCT from a qualified health professional following a lung cancer screening counseling that attests to shared decision-making having taken place before their first screening CT. The patient is also offered smoking cessation material at the time of the LDCT. Automated exposure control utilized. RESULTS: Right lung: No pulmonary nodules, focal infiltrate, or pleural effusion. Minimal linear atelectasis versus interval scarring in the posterior costophrenic sulcus. No nikita bronchiectasis. Left lung: No pulmonary nodules. There is a band-like opacity in the lingula suggesting atelectasis versus interval scarring from 2007. Additional linear scarring versus, perhaps less likely, subsegmental atelectasis is present in the posterior costophrenic sulcus. No focal airspace infiltrate, pleural effusion, or nikita bronchiectasis.. Mediastinum and genevieve: No pathologically enlarged superior mediastinal lymph nodes or significant pericardial effusion. Limited evaluation of the genevieve due to the lack of intravenous contrast. Chest wall and thoracic inlet: No supraclavicular or chest wall mass apparent. No axillary lymphadenopathy. Abdominal structures including liver, spleen, bowel, adrenals: Grossly stable when allowing for the non-contrast state. Bones and other: Multilevel thoracic spondylosis without traumatic or destructive skeletal lesions apparent. Procedure Note Doyle Farooq MD - 09/04/2019 HISTORY: Low dose CT lung cancer screening. TECHNIQUE: Non-contrast, low dose axial CT with sagittal and coronalreconstructions. COMPARISON EXAM: 03/27/2008 CT and 02/01/2019 chest radiographs This is a 59 year old patient referred for Low Dose CT Lung CancerScreening (LDCT). The patient has no signs or symptoms of lung cancer andhas a 30-pack year or greater history of tobacco smoking. They are acurrent smoker or have quit smoking within the last 15 years and have awritten order for LDCT from a qualified health professional following alung cancer screening counseling that attests to shared decision-makinghaving taken place before their first screening CT. The patient is alsooffered smoking cessation material at the time of the LDCT. Automatedexposure control utilized. RESULTS: Right lung: No pulmonary nodules, focal infiltrate, or pleural effusion.Minimal linear atelectasis versus interval scarring in the posteriorcostophrenic sulcus. No nikita bronchiectasis. Left lung: No pulmonary nodules. There is a band-like opacity in thelingula suggesting atelectasis versus interval scarring from 2007.Additional linear scarring versus, perhaps less likely, subsegmentalatelectasis is present in the posterior costophrenic sulcus. No focalairspace infiltrate, pleural effusion, or nikita bronchiectasis.. Mediastinum and genevieve: No pathologically enlarged superior mediastinallymph nodes or significant pericardial effusion. Limited evaluation ofthe genevieve due to the lack of intravenous contrast. Chest wall and thoracic inlet: No supraclavicular or chest wall massapparent. No axillary lymphadenopathy. Abdominal structures including liver, spleen, bowel, adrenals: Grosslystable when allowing for the non-contrast state. Bones and other: Multilevel thoracic spondylosis without traumatic ordestructive skeletal lesions apparent. IMPRESSION: No pulmonary nodules apparent. Minimal lingular atelectatic opacity andadditional bibasilar linear scarring versus minimal subsegmentalatelectasis. LUNG RAD: LUNG RAD CATEGORY 1 - NEGATIVE TOTAL CTDIvol: 2.00 mGy POS [id number] Alicia DODSON IMG CT CHEST Final Resu lt documented in this encounter Visit Diagnoses Diagnosis Ex-smoker- Primary Personal history of tobacco use, presenting hazards to health Ex-smoker Personal history of tobacco use, presenting hazards to health documented in this encounter Additional Health Concerns [...] documented as of this encounter Care Teams Chief Privacy Officer Relationship Specialty Start Date End Date Yasir Brown MD PCP - General Family Medicine 08/24/17 05/25/20 Alicia Brown PA [address] [place] [address] PCP - General Flower Shop Laborer/Designer 05/26/20 04/22/22 Alicia Brown PA [address] [place] [address] PCP - General Flower Shop Laborer/Designer 04/23/22 Yasir Brown MD [address] [place] [address] [email or web address] Insurance Assigned Provider 01/09/20 08/09/20 Zulema Mckeon MD, MPH [address] [place] [address] Insurance Assigned Provider 08/09/20 10/11/20 Namrata Hein, MARY ANN [address] [place] [address] PHCM Store Promoter 09/02/20 07/08/21 Tammy Steinberg [address] [place] [address] [email or web address] Community Health Worker 09/03/20 12/24/20 Tre Lara MD [address] [place] [address] [email or web address] Psychiatrist Adolescent Medicine 10/10/20 Juventino Zhong MD [address] [place] [address] Insurance Assigned Provider 10/11/20 11/08/20 Bryan Chun MD [address] [place] [address] Insurance Assigned Provider 11/08/20 12/06/20 Angus Nicole LICSW [address] [place] [address] [facility] Pay Agent 12/01/20 12/24/20 Andrea Waters MD [address] [facility] [address] [place] [address] [email or web address] Insurance Assigned Provider 12/06/20 09/18/21 Maykel Campos MD [address] [address] Primary Oncologist Hematology and Oncology 06/01/23 01/22/24 Anastasia Nation MBBS [address] [place] [address] [email or web address] Primary Oncologist Medical Oncology 01/23/24 documented as of this encounter Additional Source Comments The information contained in this document represents components of the legal health record. It is not the complete legal health record.[facility]
--- OUTSIDE RECORDS SUMMARY | 2025-09-22 21:15 | XMS_ITS | Encounter Summary ---
Author Organization [facility] Address [address] [place] [address] Phone Care Team Providers Care Carding Machine Feeder Name Role Phone Tre Lara MD Unavailable Alicia Brown Primary Care Provider [phone] Maykel Campos MD Unavailable Anastasia Nation Unavailable [phone] Encounter Details Date Type Department Care Team (Late st Contact Info) Description 05/26/2023 Procedure Pass [place] Admitting Dept - Virtual Department [address] [place], [place] [phone] Social History Tobacco Use Types Packs/Day Years Used Date Smoking Tobacco: Former Cigarettes 1 40 1 5 - 2014 Smokeless Tobacco: Never Alcohol Use [...] AM E DT CoV-Risk 11/22/2024 11/22/2024 12/03/2024 1:2 2 AM EST CDiff-Risk 07/15/2025 07/16/2025 07/16/2025 9:01 PM EDT documented as of this encounter Care Teams Carding Machine Feeder Relationship Specialty Start Date End Date Alicia Brown PA [address] [place] [address] PCP - General Director Safety 04/23/22 Tre Lara MD [address] [place] [address] [email or web address] Psychiatrist Adolescent Medicine 10/10/20 Maykel Campos MD [address] [address] Primary Oncologist Hematology and Oncology 06/01/23 4/10/26 Anastasia Nation MBBS [address] [place] [address] [email or web address] Primary Oncologist Medical Oncology 01/23/24 documented as of this encounter Additional Source Comments The information contained in this document represents components of the legal health record. It is not the complete legal health record.[facility]
--- OUTSIDE RECORDS SUMMARY | 2025-09-22 21:15 | XMS_ITS | Encounter Summary ---
Author Organization [facility] Address [address] [place] [address] Phone Care Team Providers Care Eeler Name Role Phone Alicia Brown Primary Care Provider Namrata Hein RN Unavailable Tre Lara MD Unavailable Andrea Waters MD Unavailable Alicia Brown Primary Care Provider Maykel Campos MD Unavailable Anastasia Nation Unavailable [phone] Encounter Details Date Type Department Care Team (Late st Contact Info) Description 05/11/2021 Procedure Pass [facility], [address] [address] Social History Tobacco Use Types Packs/Day Years [...] documented as of this encounter Care Teams Eeler Relationship Specialty Start Date End Date Alicia Brown PA [address] [place] [address] PCP - General Monitoring And Evaluation Advisor 05/26/20 04/22/22 Alicia Brown PA [address] [place] [phone] PCP - General Monitoring And Evaluation Advisor 04/23/22 Namrata Hein, MARY ANN [address] [place] [address] PHCM Photographic Artist 09/02/20 07/08/21 Tre Lara MD [address] [place] [address] [email or web address] Psychiatrist Adolescent Medicine 10/10/20 Andrea Waters MD 230 [facility] [address] [place] [address] [email or web address] Insurance Assigned Provider 12/06/20 09/18/21 Maykel Campos MD [address] [address] [email or web address] Primary Oncologist Hematology and Oncology 06/01/23 01/22/24 Anastasia Nation MBBS [address] [address] [email or web address] Primary Oncologist Medical Oncology 01/23/24 documented as of this encounter Additional Source Comments The information contained in this document represents components of the legal health record. It is not the complete legal health record.[facility]
--- OUTSIDE RECORDS SUMMARY | 2025-09-22 21:15 | XMS_ITS | Encounter Summary ---
Author Organization [facility] Address [address] [place] [address] [place] [address] Phone Care Team Providers Care Trust Vault Custodian Name Role Phone Tre Lara MD Unavailable Alicia Brown Primary Care Provider Anastasia Nation Unavailable [phone] Encounter Details Date Type Department Care Team (Late st Contact Info) Description 09/07/2024 Procedure Pass [facility] Periop [address] [place] [address] Social History Tobacco Use Types Packs/Day Years [...] documented as of this encounter Care Teams Trust Vault Custodian Relationship Specialty Start Date End Date Alicia Brown PA [address] [place] [address] PCP - General Explosive Man 04/23/22 Tre Lara MD [address] [place] [address] Psychiatrist Adolescent Medicine 10/10/20 Anastasia Nation MBBS [address] [place] [address] [email or web address] Primary Oncologist Medical Oncology 01/23/24 documented as of this encounter Additional Source Comments The information contained in this document represents components of the legal health record. It is not the complete legal health record.[facility]
--- OUTSIDE RECORDS SUMMARY | 2025-09-22 21:15 | XMS_ITS | Encounter Summary ---
Author Organization [facility] Address [address] [place] [address] [place] [address] Phone Care Team Providers Care Materials Coordinator Name Role Phone Tre Lara MD Unavailable Alicia Brown Primary Care Provider [phone] Anastasia Nation Unavailable [phone] Encounter Details Date Type Department Care Team (Late st Contact Info) Description 09/10/2024 Procedure Pass [facility] [address] [place] [address] Social History Tobacco Use Types Packs/Day Years [...] AM EST documented as of this encounter Last Filed Vital Signs Vital Sign Reading Time Taken Comments Blood Pressure - - Pulse - - Temperature - - Respiratory Rate - - Oxygen Saturation - - Inhaled Oxygen Concentration - - Weight 110.2 kg (243 lb) 09/11/2024 9:58 AM EST Height 167.6 cm (5' 5.98 ) 09/11/2024 9:58 AM ES T Body Mass Index 39.24 09/11/2024 9:58 AM EST documented in this encounter Plan of Treatment Not on file documented as of this encounter Visit Diagnoses Not on filedocumented in this encounter Additional Health Concerns Infection Onset Date Last Indicated Resolved Time CoV-Risk 11/22/2024 11/22/2024 12/03/2024 1:22 AM EST CDiff-Risk 07/15/2025 07/16/2025 07/16/2025 9:01 PM EDT documented as of this encounter Care Teams Materials Coordinator Relationship Specialty Start Date End Date Alicia Brown PA [address] [place] [address] PCP - General Commercial Loan Processor 04/23/22 Tre Lara MD [address] [place] [address] Psychiatrist Adolescent Medicine 10/10/20 Anastasia Nation MBBS [address] [place] [address] [email or web address] Primary Oncologist Medical Oncology 01/23/24 documented as of this encounter Additional Source Comments The information contained in this document represents components of the legal health record. It is not the complete legal health record.[facility]
--- OUTSIDE RECORDS SUMMARY | 2025-09-22 21:15 | XMS_ITS | Encounter Summary ---
Author Organization [facility] Address [address] [place] [address] [place] [address] Phone Care Team Providers Care Surgical Appliance Fitter Name Role Phone Tre Lara MD Unavailable Alicia Brown Primary Care Provider [phone] Anastasia Nation Unavailable Encounter Details Date Type Department Care Team (Late st Contact Info) Description 08/24/2024 Procedure Pass [facility], Ct Scan - [facility] [address] [place] [address] Social History Tobacco Use Types Packs/Day Years [...] documented as of this encounter Care Teams Surgical Appliance Fitter Relationship Specialty Start Date End Date Alicia Brown PA [address] [place] [phone] PCP - General Axminster Rug Setter 04/23/22 Tre Lara MD [address] [place] [address] Psychiatrist Adolescent Medicine 10/10/20 Anastasia Nation MBBS [address] [place] [address] [email or web address] Primary Oncologist Medical Oncology 01/23/24 documented as of this encounter Additional Source Comments The information contained in this document represents components of the legal health record. It is not the complete legal health record.[facility]
--- OUTSIDE RECORDS SUMMARY | 2025-09-22 21:16 | XMS_ITS | Encounter Summary ---
Author Organization [facility] Address [address] [place] [address] [place] [address] Phone Care Team Providers Care Ditching Machine Engineer Name Role Phone Tre Lara MD Unavailable Alicia Brown Primary Care Provider [phone] Anastasia Nation Unavailable [phone] Encounter Details Date Type Department Care Team (Late st Contact Info) Description 09/18/2024 Procedure Pass [facility] Periop [address] [place] [address] Social History Tobacco Use Types Packs/Day Years [...] documented as of this encounter Care Teams Ditching Machine Engineer Relationship Specialty Start Date End Date Alicia Brown PA [address] [place] [address] PCP - General Organizational Effectiveness Director 04/23/22 Tre Lara MD [address] [place] [address] Psychiatrist Adolescent Medicine 10/10/20 Anastasia Nation MBBS [address] [place] [address] [email or web address] Primary Oncologist Medical Oncology 01/23/24 documented as of this encounter Additional Source Comments The information contained in this document represents components of the legal health record. It is not the complete legal health record.[facility]
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
--- OUTSIDE RECORDS SUMMARY | 2025-09-22 21:16 | XMS_ITS | Clinical Summary ---
Author Organization [facility] Address [address] [place] [id number] Care Team Providers Care Camera Assembler Name Role Phone Unavailable Primary Care Provider Unavailabl e Social History Tobacco Use Types Packs/Day Years Used Date Smoking Tobacco: Never Assessed Comments Unknown Sex and Gender Information Value Date Recorded Sex Assigned at Not on file Legal Sex Female 11:47 PM EST Gender Identity Not on file Sexual Orientation Not on file Plan of Treatment Not on file
--- OUTSIDE RECORDS SUMMARY | 2025-09-22 21:16 | XMS_ITS | Encounter Summary ---
Author Organization [facility] Address [address] [place] [address] [place] [id number] Phone Care Team Providers Care Wire Stitcher Machine Name Role Phone Tre Lara MD Unavailable Alicia Brown Primary Care Provider Anastasia Nation Unavailable [phone] Encounter Details Date Type Department Care Team (Late st Contact Info) Description 09/12/2024 Procedure Pass [facility] Periop [address] [place] [address] Social History Tobacco Use Types Packs/Day Years [...] documented as of this encounter Care Teams Wire Stitcher Machine Relationship Specialty Start Date End Date Alicia Brown PA [address] [place] [address] PCP - General Physician Asst 04/23/22 Tre Lara MD [address] [place] [address] Psychiatrist Adolescent Medicine 10/10/20 Anastasia Nation MBBS [address] [place] [phone] [email or web address] Primary Oncologist Medical Oncology 01/23/24 documented as of this encounter Additional Source Comments The information contained in this document represents components of the legal health record. It is not the complete legal health record.[facility]
--- OUTSIDE RECORDS SUMMARY | 2025-09-22 21:16 | XMS_ITS | Clinical Summary ---
Author Organization [facility] Address [address] [place] [address] [place] [id number] Phone Care Team Providers Care News Correspondent Name Role Phone Tre Lara MD Unavailable Keila Brown Primary Care Provider [phone] Anastasia Nation MBBS Unavailable Allergies Active Allergy Reactions Criticality Noted Date Comments [place] Carbonate 02/01/2019 Vomiting Naltrexone 07/28/2021 Medications * This document contains information received from the source organization and may not represent a complete record from that organization. atorvastatin (LIPITOR) 80 MG tablet Take 80 mg by mouth nightly at bedtime. Active apixaban (ELIQUIS) 5 mg tablet Take 5 mg by mouth 2 (two) times a day. Active QUEtiapine (SEROQUEL) 50 MG tablet Take 50 mg by mouth 3 (three) times a day as needed. 2 Active traZODone (DESYREL) 100 MG tablet Take 100 mg by mouth nightly at bedtime. 2 Active venlafaxine (EFFEXOR-XR) 75 MG 24 hr capsule Take 75 mg by mouth daily. Taken with 150mg for total of 225 mg daily 3 Active aspirin 81 MG EC tablet Take 81 mg by mouth daily. 4 Active haloperidoL (HALDOL) 1 MG tablet Take 1 mg by mouth 2 (two) times a day. Active thiamine (VITAMIN B-1) 100 MG tablet Take 100 mg by mouth daily. Active gabapentin (NEURONTIN) 300 MG capsule Take 600 mg by mouth 3 (three) times a day. Active benztropine (COGENTIN) 1 MG tablet Take 1 mg by mouth nightly at bedtime. Active metFORMIN (GLUCOPHAGE-XR) 500 MG 24 hr tablet Take 500 mg by mouth 2 (two) times a day. Active ferrous sulfate 325 mg (65 mg [place] iron) tablet Take 325 mg by mouth daily with breakfast. Active gabapentin (NEURONTIN) 600 MG tablet Take 600 mg by mouth 3 (three) times a day. 5 Active venlafaxine (EFFEXOR-XR) 150 MG 24 hr capsule Take 150 mg by mouth daily. Taken with 75mg for total of 225 mg daily 5 Active pantoprazole (PROTONIX) 40 MG tablet Take 1 tablet (40 mg total) by mouth 2 (two) times a day. 60 tablet 1 5 11/10/19 26 Active omeprazole (PRILOSEC) 40 MG capsule Take 40 mg by mouth 2 (two) times a day. 3 09/11/20 25 Discontinu ed(Stop Taking at Discharge) loratadine (CLARITIN) 10 mg tablet Take 10 mg by mouth daily. 09/11/20 25 Discontinu ed(Stop Taking at Discharge) metoprolol succinate (TOPROL-XL) 25 MG 24 hr tablet Take 25 mg by mouth daily. 09/11/20 25 Discontinu ed(Stop Taking at Discharge) furosemide (LASIX) 20 MG tablet Take 1 tablet (20 mg total) by mouth daily as needed (leg swelling). 10 tablet 5 09/11/20 25 Discontinu ed(Stop Taking at Discharge) calcium carbonate-vitam in D3 1500 mg (600 mg elemental)-400 units per tablet TAKE 1 TABLET BY MOUTH 2 (TWO) TIMES A DAY. 60 tablet 5 09/11/20 25 Discontinu ed(Stop Taking at Discharge) metoprolol tartrate (LOPRESSOR) 25 MG tablet Take 25 mg by mouth 2 (two) times a day. 5 09/11/20 25 Discontinu ed(Stop Taking at Discharge) Active Problems Patient Care Coordination No te Formatting of this note migh t be different from the original. Height 165.1 cm taken by RB on 06/22/2023 Problem Noted Date Diagnosed Date Eczema 07/25/2025 Assessment & Plan (08/23/2025 7:23 AM EST): Assessment & Plan (08/22/2025 1:24 PM EST): Dry skin on forehead noted earlier in admission appeared to worsen 07/24 pt c/o itching appears to have eczema. - Apply Eucerin frequently, improving - Daily showers encouraged Assessment & Plan (08/21/2025 8:07 AM EST): Dry skin on forehead noted earlier in admission appeared to worsen 07/24 pt c/o itching appears to have eczema. - Apply Eucerin frequently, improving - Daily showers encouraged Assessment & Plan (08/20/2025 12:58 PM EST): Dry skin on forehead noted earlier in admission appeared to worsen 07/24 pt c/o itching appears to have eczema. - Apply Eucerin frequently, improving - Daily showers encouraged Assessment & Plan (08/19/2025 7:59 AM EST): Dry skin on forehead noted earlier in admission appeared to worsen 07/24 pt c/o itching appears to have eczema. - Apply Eucerin frequently, improving - Daily showers encouraged Assessment & Plan (08/18/2025 10:22 AM EST): Dry skin on forehead noted earlier in admission appeared to worsen 07/24 pt c/o itching appears to have eczema. - Apply Eucerin frequently, improving - Daily showers encouraged Assessment & Plan (08/17/2025 10:25 AM EST): Dry skin on forehead noted earlier in admission appeared to worsen 07/24 pt c/o itching appears to have eczema. - Apply Eucerin frequently, improving - Daily showers encouraged Assessment & Plan (08/16/2025 10:25 AM EST): Dry skin on forehead noted earlier in admission appeared to worsen 07/24 pt c/o itching appears to have eczema. - Apply Eucerin frequently, improving - Daily showers encouraged Assessment & Plan (08/15/2025 8:43 AM EST): Dry skin on forehead noted earlier in admission appeared to worsen 07/24 pt c/o itching appears to have eczema. - Apply Eucerin frequently, improving - Daily showers encouraged Assessment & Plan (08/14/2025 10:41 AM EST): Dry skin on forehead noted earlier in admission appeared to worsen 07/24 pt c/o itching appears to have eczema. - Apply Eucerin frequently, improving - Daily showers encouraged Assessment & Plan (08/13/2025 12:01 PM EST): Dry skin on forehead noted earlier in admission appeared to worsen 07/24 pt c/o itching appears to have eczema. - Apply Eucerin frequently, improving - Daily showers encouraged Assessment & Plan (08/12/2025 8:11 AM EST): Dry skin on forehead noted earlier in admission appeared to worsen 07/24 pt c/o itching appears to have eczema. - Apply Eucerin frequently, improving - Daily showers encouraged Assessment & Plan (08/11/2025 9:20 AM EST): Dry skin on forehead noted earlier in admission appeared to worsen 07/24 pt c/o itching appears to have eczema. - Apply Eucerin frequently, improving - Daily showers encouraged Assessment & Plan (08/10/2025 9:23 AM EST): Dry skin on forehead noted earlier in admission appeared to worsen 07/24 pt c/o itching appears to have eczema. - Apply Eucerin frequently, improving - Daily showers encouraged Assessment & Plan (08/09/2025 5:46 PM EST): Dry skin on forehead noted earlier in admission appeared to worsen 07/24 pt c/o itching appears to have eczema. - Apply Eucerin frequently, improving - Daily showers encouraged Assessment & Plan (08/08/2025 1:52 PM EST): Dry skin on forehead noted earlier in admission appeared to worsen 07/24 pt c/o itching appears to have eczema. - Apply Eucerin frequently, improving - Daily showers encouraged Assessment & Plan (08/07/2025 2:39 PM EST): Dry skin on forehead noted earlier in admission appeared to worsen 07/24 pt c/o itching appears to have eczema. - Apply Eucerin frequently, improving - Daily showers encouraged Assessment & Plan (08/06/2025 9:40 AM EST): Dry skin on forehead noted earlier in admission appeared to worsen 07/24 pt c/o itching appears to have eczema. - Apply Eucerin frequently, improving - Daily showers encouraged Assessment & Plan (2025 12:59 PM EST): Dry skin on forehead noted earlier in admission appeared to worsen 07/24 pt c/o itching appears to have eczema. - Apply Eucerin frequently, improving - Daily showers encouraged Assessment & Plan (08/04/2025 9:52 AM EST): Dry skin on forehead noted earlier in admission appeared to worsen 07/24 pt c/o itching appears to have eczema. - Apply Eucerin frequently, improving - Daily showers encouraged Assessment & Plan (08/03/2025 12:40 PM EDT): Dry skin on forehead noted earlier in admission appeared to worsen 07/24 pt c/o itching appears to have eczema. - Apply Eucerin frequently, improving - Daily showers encouraged Assessment & Plan (08/02/2025 11:23 AM EDT): Dry skin on forehead noted earlier in admission appeared to worsen 07/24 pt c/o itching appears to have eczema. - Apply Eucerin frequently, improving - Daily showers encouraged Assessment & Plan (08/01/2025 4:52 PM EDT): Dry skin on forehead noted earlier in admission appeared to worsen 07/24 pt c/o itching appears to have eczema. - Apply Eucerin frequently, improving - Daily showers encouraged Assessment & Plan (07/31/2025 6:40 PM EDT): Dry skin on forehead noted earlier in admission appeared to worsen 07/24 pt c/o itching appears to have eczema. - Apply Eucerin frequently, improving - Daily showers encouraged Assessment & Plan (07/30/2025 9:23 PM EDT): Dry skin on forehead noted earlier in admission appeared to worsen 07/24 pt c/o itching appears to have eczema. - Apply Eucerin frequently, improving - Daily showers encouraged Assessment & Plan (07/29/2025 5:37 PM EDT): Dry skin on forehead noted earlier in admission appeared to worsen 07/24 pt c/o itching appears to have eczema. - Apply Eucerin frequently, improving - Daily showers encouraged Assessment & Plan (07/28/2025 2:27 PM EDT): Dry skin on forehead noted earlier in admission appeared to worsen 07/24 pt c/o itching appears to have eczema. - Apply Eucerin frequently, improving - Daily showers encouraged Assessment & Plan (07/27/2025 9:49 AM EDT): Dry skin on forehead noted earlier in admission appeared to worsen 07/24 pt c/o itching appears to have eczema. - Apply Eucerin frequently, improving - Daily showers encouraged Assessment & Plan (07/26/2025 10:30 AM EDT): Dry skin on forehead noted earlier in admission appeared to worsen 07/24 pt c/o itching appears to have eczema. - Apply Eucerin frequently, improving - Daily showers encouraged Assessment & Plan (07/25/2025 11:06 AM EDT): Dry skin on forehead noted earlier in admission appeared to worsen 07/24 pt c/o itching appears to have eczema. - Apply Eucerin frequently - Daily showers encouraged - May require TCS if no improvement. Diarrhea 07/15/2025 Assessment & Plan (08/22/2025 8:42 AM EST): This is resolved - Imodium as needed available Assessment & Plan (08/21/2025 8:07 AM EST): This is resolved - Imodium as needed available Assessment & Plan (08/20/2025 12:58 PM EST): This is resolved - Imodium as needed available Assessment & Plan (08/19/2025 7:59 AM EST): This is resolved - Imodium as needed available Assessment & Plan (08/18/2025 10:22 AM EST): This is resolved - Imodium as needed available Assessment & Plan (08/17/2025 10:25 AM EST): This is resolved - Imodium as needed available Assessment & Plan (08/16/2025 10:25 AM EST): This is resolved - Imodium as needed available Assessment & Plan (08/15/2025 8:43 AM EST): This is resolved - Imodium as needed available Assessment & Plan (08/14/2025 10:41 AM EST): Mildly loose stool, brown 2 episodes in 24 hours. No fevers or abdominal pain. This appears resolved - Imodium as needed available Assessment & Plan (08/13/2025 12:01 PM EST): Mildly loose stool, brown 2 episodes in 24 hours. No fevers or abdominal pain. This appears resolved as of 08/11. - Imodium as needed available Assessment & Plan (08/12/2025 8:11 AM EST): Mildly loose stool, brown 2 episodes in 24 hours. No fevers or abdominal pain. This appears resolved as of 08/11. - Imodium as needed available Assessment & Plan (08/11/2025 9:20 AM EST): Mildly loose stool, brown 2 episodes in 24 hours. No fevers or abdominal pain. This appears resolved as of 08/11. - Imodium as needed available Assessment & Plan (08/10/2025 9:23 AM EST): Mildly loose stool, brown 2 episodes in 24 hours. No fevers or abdominal pain. - Imodium as needed available Assessment & Plan (07/26/2025 10:28 AM EDT): She had multiple episodes of dark liquid stool on 07/15. Passed bright red blood x 1 later in the day after multiple episodes of stooling. C. difficile not obtained as diarrhea improved overnight and today - No fever or abdominal pain/tenderness - Eliquis was held now resumed with stable hgb - Continue to periodically monitor labs. Assessment & Plan (07/25/2025 11:06 AM EDT): She had multiple episodes of dark liquid stool on 07/15. Passed bright red blood x 1 later in the day after multiple episodes of stooling. C. difficile not obtained as diarrhea improved overnight and today - No fever or abdominal pain/tenderness - Eliquis was held now resumed with stable hgb - Continue to periodically monitor labs. Assessment & Plan (07/24/2025 12:29 PM EDT): She had multiple episodes of dark liquid stool on 07/15. Passed bright red blood x 1 later in the day after multiple episodes of stooling. C. difficile not obtained as diarrhea improved overnight and today She then had another episode dark/liquid stool in the hat. No gross blood. CBC has been stable. No fever or abdominal pain/tenderness --Have been holding apixaban. H/H stable. Suspect single episode of rectal bleeding was due to rectal irritation or hemorrhoids. - Eliquis now resumed with stable hgb - Continue to periodically monitor labs. Assessment & Plan (07/22/2025 12:35 PM EDT): She had multiple episodes of dark liquid stool on 07/15. Passed bright red blood x 1 later in the day after multiple episodes of stooling. C. difficile not obtained as diarrhea improved overnight and today She then had another episode this morning, dark/liquid stool in the hat. No gross blood. CBC has been stable. No fever or abdominal pain/tenderness --Check C. difficile. If negative, can give Imodium --Have been holding apixaban. H/H stable. Suspect single episode of rectal bleeding was due to rectal irritation or hemorrhoids. Will restart in AM. Assessment & Plan (07/21/2025 3:55 PM EDT): She had multiple episodes of dark liquid stool on 07/15. Passed bright red blood x 1 later in the day after multiple episodes of stooling. C. difficile not obtained as diarrhea improved overnight and today She then had another episode this morning, dark/liquid stool in the hat. No gross blood. CBC has been stable. No fever or abdominal pain/tenderness --Check C. difficile. If negative, can give Imodium --Have been holding apixaban. H/H stable. Suspect single episode of rectal bleeding was due to rectal irritation or hemorrhoids. Will restart in AM. Assessment & Plan (07/20/2025 3:50 PM EDT): She had multiple episodes of dark liquid stool on 07/15. Passed bright red blood x 1 later in the day after multiple episodes of stooling. C. difficile not obtained as diarrhea improved overnight and today She then had another episode this morning, dark/liquid stool in the hat. No gross blood. CBC has been stable. No fever or abdominal pain/tenderness --Check C. difficile. If negative, can give Imodium --Have been holding apixaban. H/H stable. Suspect single episode of rectal bleeding was due to rectal irritation or hemorrhoids. Will restart in AM. Assessment & Plan (07/19/2025 1:36 PM EDT): She had multiple episodes of dark liquid stool on 07/15. Passed bright red blood x 1 later in the day after multiple episodes of stooling. C. difficile not obtained as diarrhea improved overnight and today She then had another episode this morning, dark/liquid stool in the hat. No gross blood. CBC has been stable. No fever or abdominal pain/tenderness --Check C. difficile. If negative, can give Imodium --Have been holding apixaban. H/H stable. Suspect single episode of rectal bleeding was due to rectal irritation or hemorrhoids. Will restart in AM. Assessment & Plan (07/18/2025 12:50 PM EDT): She had multiple episodes of dark liquid stool on 07/15. Passed bright red blood x 1 later in the day after multiple episodes of stooling. C. difficile not obtained as diarrhea improved overnight and today She then had another episode this morning, dark/liquid stool in the hat. No gross blood. CBC has been stable. No fever or abdominal pain/tenderness --Check C. difficile. If negative, can give Imodium --Have been holding apixaban. H/H stable. Suspect single episode of rectal bleeding was due to rectal irritation or hemorrhoids. Will restart in AM. Assessment & Plan (07/17/2025 2:39 PM EDT): She had multiple episodes of dark liquid stool on 07/15. Passed bright red blood x 1 later in the day after multiple episodes of stooling. C. difficile not obtained as diarrhea improved overnight and today She then had another episode this morning, dark/liquid stool in the hat. No gross blood. CBC has been stable. No fever or abdominal pain/tenderness --Check C. difficile. If negative, can give Imodium --Have been holding apixaban. H/H stable. Suspect single episode of rectal bleeding was due to rectal irritation or hemorrhoids. Will restart in AM. Assessment & Plan (07/16/2025 5:47 PM EDT): She had multiple episodes of dark liquid stool on 07/15. Passed bright red blood x 1 later in the day after multiple episodes of stooling. C. difficile not obtained as diarrhea improved overnight and today She then had another episode this morning, dark/liquid stool in the hat. No gross blood. CBC has been stable. No fever or abdominal pain/tenderness --Check C. difficile. If negative, can give Imodium --Have been holding apixaban. H/H stable. Suspect single episode of rectal bleeding was due to rectal irritation or hemorrhoids. Will restart in AM. Assessment & Plan (07/15/2025 4:27 PM EDT): Acute onset without fever or abdominal pain. Bright red blood seen during later episodes may be due to hemorrhoidal bleeding. -- Check C. difficile and CBC now --If C. difficile negative, can give Imodium -- Hold apixaban tonight At risk for unsafe behavior 06/11/2025 Assessment & Plan (07/26/2025 10:28 AM EDT): She was admitted due to dementia and being deemed unsafe to care for herself at home after her neighbors called EMS for a gas smell coming from her house. She was found by EMS asleep with the stove on but not ignited. On admission she denied current HI/SI although psych documented HI. Patient's sister stated that her mental status has been declining over the past year and that she is not safe at home. Healthcare proxy Aaliyah Rubio invoked. Code status was reviewed with healthcare proxy during admission and with the patient, Full code. -- Patient is pending placement SW/CM following. Assessment & Plan (07/25/2025 9:54 AM EDT): She was admitted due to dementia and being deemed unsafe to care for herself at home after her neighbors called EMS for a gas smell coming from her house. She was found by EMS asleep with the stove on but not ignited. On admission she denied current HI/SI although psych documented HI. Patient's sister stated that her mental status has been declining over the past year and that she is not safe at home. Healthcare proxy Aaliyah Rubio invoked. Code status was reviewed with healthcare proxy during admission and with the patient, Full code. -- Patient is pending placement SW/CM following. Assessment & Plan (07/24/2025 12:29 PM EDT): She was admitted due to dementia and being deemed unsafe to care for herself at home after her neighbors called EMS for a gas smell coming from her house. She was found by EMS asleep with the stove on but not ignited. On admission she denied current HI/SI although psych documented HI. Patient's sister stated that her mental status has been declining over the past year and that she is not safe at home. Healthcare proxy Aaliyah Rubio invoked. Code status was reviewed with healthcare proxy during admission and with the patient, Full code. -- Patient is pending placement SW/CM following. Assessment & Plan (07/22/2025 12:35 PM EDT): She was admitted due to dementia and being deemed unsafe to care for herself at home after her neighbors called EMS for a gas smell coming from her house. She was found by EMS asleep with the stove on but not ignited. On admission she denied current HI/SI although psych documented HI. Patient's sister stated that her mental status has been declining over the past year and that she is not safe at home. Healthcare proxy Aaliyah Rubio invoked. Code status reviewed with healthcare proxy and with the patient, Full code. -- Patient was being reviewed by [facility] for placement. Today, case management/social work team received word that the patient was declined. HCP updated. New referrals being sent Assessment & Plan (07/21/2025 3:55 PM EDT): She was admitted due to dementia and being deemed unsafe to care for herself at home after her neighbors called EMS for a gas smell coming from her house. She was found by EMS asleep with the stove on but not ignited. On admission she denied current HI/SI although psych documented HI. Patient's sister stated that her mental status has been declining over the past year and that she is not safe at home. Healthcare proxy Aaliyah Rubio invoked. Code status reviewed with healthcare proxy and with the patient, Full code. -- Patient was being reviewed by [facility] for placement. Today, case management/social work team received word that the patient was declined. HCP updated. New referrals being sent Assessment & Plan (07/20/2025 3:50 PM EDT): She was admitted due to dementia and being deemed unsafe to care for herself at home after her neighbors called EMS for a gas smell coming from her house. She was found by EMS asleep with the stove on but not ignited. On admission she denied current HI/SI although psych documented HI. Patient's sister stated that her mental status has been declining over the past year and that she is not safe at home. Healthcare proxy Aaliyahremberto Rubio invoked. Code status reviewed with healthcare proxy and with the patient, Full code. -- Patient was being reviewed by [facility] for placement. Today, case management/social work team received word that the patient was declined. HCP updated. New referrals being sent Assessment & Plan (07/19/2025 1:36 PM EDT): She was admitted due to dementia and being deemed unsafe to care for herself at home after her neighbors called EMS for a gas smell coming from her house. She was found by EMS asleep with the stove on but not ignited. On admission she denied current HI/SI although psych documented HI. Patient's sister stated that her mental status has been declining over the past year and that she is not safe at home. Healthcare proxy Aaliyah Rubio invoked. Code status reviewed with healthcare proxy and with the patient, Full code. -- Patient was being reviewed by [facility] for placement. Today, case management/social work team received word that the patient was declined. HCP updated. New referrals being sent Assessment & Plan (07/18/2025 12:50 PM EDT): She was admitted due to dementia and being deemed unsafe to care for herself at home after her neighbors called EMS for a gas smell coming from her house. She was found by EMS asleep with the stove on but not ignited. On admission she denied current HI/SI although psych documented HI. Patient's sister stated that her mental status has been declining over the past year and that she is not safe at home. Healthcare proxy Aaliyah Rubio invoked. Code status reviewed with healthcare proxy and with the patient, Full code. -- Patient was being reviewed by [facility] for placement. Today, case management/social work team received word that the patient was declined. HCP updated. New referrals being sent Assessment & Plan (07/17/2025 2:39 PM EDT): She was admitted due to dementia and being deemed unsafe to care for herself at home after her neighbors called EMS for a gas smell coming from her house. She was found by EMS asleep with the stove on but not ignited. On admission she denied current HI/SI although psych documented HI. Patient's sister stated that her mental status has been declining over the past year and that she is not safe at home. Healthcare proxy Aaliyah Rubio invoked. Code status reviewed with healthcare proxy and with the patient, Full code. -- Patient was being reviewed by [facility] for placement. Today, case management/social work team received word that the patient was declined. HCP updated. New referrals being sent Assessment & Plan (07/16/2025 5:47 PM EDT): She was admitted due to dementia and being deemed unsafe to care for herself at home after her neighbors called EMS for a gas smell coming from her house. She was found by EMS asleep with the stove on but not ignited. On admission she denied current HI/SI although psych documented HI. Patient's sister stated that her mental status has been declining over the past year and that she is not safe at home. Healthcare proxy Aaliyah Rubio invoked. Code status reviewed with healthcare proxy and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 has been calm and cooperative with occasional episodes of forgetfulness. Assessment & Plan (07/17/2025 2:39 PM EDT): History of HI/SI, depression with anxiety prompting frequent ED visits in the past. She was evaluated by psych and ELECTROTYPE SERVICER in the ED and they determined that a section 12 was not indicated, but that she needs SNF for safety. Psyche determined that She does not have current SI/HI and 1:1 not indicated. She has been doing well and has been calm and cooperative with occasional episodes of forgetfulness. Assessment & Plan (07/16/2025 5:47 PM EDT): History of HI/SI, depression with anxiety prompting frequent ED visits in the past. She was evaluated by psych and ELECTROTYPE SERVICER in the ED and they determined that a section 12 was not indicated, but that she needs SNF for safety. Psyche determined that She does not have current SI/HI and 1:1 not indicated. She has been doing well and has been calm and cooperative with occasional episodes of forgetfulness. Assessment & Plan (07/15/2025 4:27 PM EDT): History of HI/SI, depression with anxiety prompting frequent ED visits in the past. She was evaluated by psych and ELECTROTYPE SERVICER in the ED and they determined that a section 12 was not indicated, but that she needs SNF for safety. Psyche determined that She does not have current SI/HI and 1:1 not indicated. She has been doing well and has been calm and cooperative with occasional episodes of forgetfulness. --Referral to [facility] under review Assessment & Plan (07/13/2025 5:36 PM EDT): History of HI/SI, depression with anxiety prompting frequent ED visits in the past. She was evaluated by psych and ELECTROTYPE SERVICER in the ED and they determined that a section 12 was not indicated, but that she needs SNF for safety. Psyche determined that She does not have current SI/HI and 1:1 not indicated. She has been doing well and has been calm and cooperative with occasional episodes of forgetfulness. CM/SW are working on placement and [facility] is starting to evaluate. Not at risk to self or others - Application to [facility] Assessment & Plan (07/12/2025 5:58 PM EDT): History of HI/SI, depression with anxiety prompting frequent ED visits in the past. She was evaluated by psych and ELECTROTYPE SERVICER in the ED and they determined that a section 12 was not indicated, but that she needs SNF for safety. Psyche determined that She does not have current SI/HI and 1:1 not indicated. She has been doing well and has been calm and cooperative with occasional episodes of forgetfulness. CM/SW are working on placement and [facility] is starting to evaluate. Not at risk to self or others - Application to [facility] Assessment & Plan (07/11/2025 2:26 PM EDT): History of HI/SI, depression with anxiety prompting frequent ED visits in the past. She was evaluated by psych and ELECTROTYPE SERVICER in the ED and they determined that a section 12 was not indicated, but that she needs SNF for safety. Psyche determined that She does not have current SI/HI and 1:1 not indicated. She has been doing well and has been calm and cooperative with occasional episodes of forgetfulness. CM/SW are working on placement and [facility] starting to evaluate. Not at risk to self or others - Awaiting placement at long-term care Assessment & Plan (07/10/2025 7:39 PM EDT): History of HI/SI, depression with anxiety prompting frequent ED visits in the past. She was evaluated by psych and ELECTROTYPE SERVICER in the ED and they determined that a section 12 was not indicated, but that she needs SNF for safety. Psyche determined that She does not have current SI/HI and 1:1 not indicated. She has been doing well and has been calm and cooperative with occasional episodes of forgetfulness. CM/SW are working on placement and [facility] starting to evaluate. Not at risk to self or others - Awaiting placement at long-term care Assessment & Plan (07/09/2025 8:02 PM EDT): History of HI/SI, depression with anxiety prompting frequent ED visits in the past. She was evaluated by psych and ELECTROTYPE SERVICER in the ED and they determined that a section 12 was not indicated, but that she needs SNF for safety. Psyche determined that She does not have current SI/HI and 1:1 not indicated. She has been doing well and has been calm and cooperative with occasional episodes of forgetfulness. CM/SW are working on placement and [facility] starting to evaluate. Not at risk to self or others - Awaiting placement at long-term care Assessment & Plan (07/08/2025 1:54 PM EDT): History of HI/SI, depression with anxiety prompting frequent ED visits in the past. She was evaluated by psych and ELECTROTYPE SERVICER in the ED and they determined that a section 12 was not indicated, but that she needs SNF for safety. Psyche determined that She does not have current SI/HI and 1:1 not indicated. She has been doing well and has been calm and cooperative with occasional episodes of forgetfulness. CM/SW are working on placement and [facility] starting to evaluate. Not at risk to self or others - Awaiting placement at long-term care Assessment & Plan (07/07/2025 2:29 PM EDT): History of HI/SI, depression with anxiety prompting frequent ED visits in the past. She was evaluated by psych and ELECTROTYPE SERVICER in the ED and they determined that a section 12 was not indicated, but that she needs SNF for safety. Psyche determined that She does not have current SI/HI and 1:1 not indicated. She has been doing well and has been calm and cooperative with occasional episodes of forgetfulness. CM/SW are working on placement and [facility] starting to evaluate. Not at risk to self or others - Awaiting placement at long-term care Assessment & Plan (07/06/2025 4:14 PM EDT): History of HI/SI, depression with anxiety prompting frequent ED visits in the past. She was evaluated by psych and ELECTROTYPE SERVICER in the ED and they determined that a section 12 was not indicated, but that she needs SNF for safety. Psyche determined that She does not have current SI/HI and 1:1 not indicated. She has been doing well and has been calm and cooperative with occasional episodes of forgetfulness. CM/SW are working on placement and [facility] starting to evaluate. Not at risk to self or others - Awaiting placement at long-term care Assessment & Plan (07/05/2025 9:30 PM EDT): History of HI/SI, depression with anxiety prompting frequent ED visits in the past. She was evaluated by psych and ELECTROTYPE SERVICER in the ED and they determined that a section 12 was not indicated, but that she needs SNF for safety. Psyche determined that She does not have current SI/HI and 1:1 not indicated. She has been doing well and has been calm and cooperative with occasional episodes of forgetfulness. CM/SW are working on placement and [facility] starting to evaluate. Not at risk to self or others - Awaiting placement at long-term care Assessment & Plan (07/04/2025 11:29 PM EDT): History of HI/SI, depression with anxiety prompting frequent ED visits in the past. She was evaluated by psych and ELECTROTYPE SERVICER in the ED and they determined that a section 12 was not indicated, but that she needs SNF for safety. Psyche determined that She does not have current SI/HI and 1:1 not indicated. She has been doing well and has been calm and cooperative with occasional episodes of forgetfulness. CM/SW are working on placement and [facility] to evaluate. Not at risk to self or others - Awaiting placement at long-term care Assessment & Plan (07/03/2025 5:51 PM EDT): History of HI/SI, depression with anxiety prompting frequent ED visits in the past. She was evaluated by psych and ELECTROTYPE SERVICER in the ED and they determined that a section 12 was not indicated, but that she needs SNF for safety. Psyche determined that She does not have current SI/HI and 1:1 not indicated. She has been doing well and has been calm and cooperative with occasional episodes of forgetfulness. CM/SW are working on placement and [facility] starting to evaluate. Not at risk to self or others - Awaiting placement at long-term care Assessment & Plan (07/02/2025 4:27 PM EDT): History of HI/SI, depression with anxiety prompting frequent ED visits in the past. She was evaluated by psych and ELECTROTYPE SERVICER in the ED and they determined that a section 12 was not indicated, but that she needs SNF for safety. Psyche determined that She does not have current SI/HI and 1:1 not indicated. She has been doing well and has been calm and cooperative with occasional episodes of forgetfulness. CM/SW are working on placement and [facility] starting to evaluate. Not at risk to self or others - Awaiting placement at long-term care Assessment & Plan (07/01/2025 1:36 PM EDT): History of HI/SI, depression with anxiety prompting frequent ED visits in the past. She was evaluated by psych and ELECTROTYPE SERVICER in the ED and they determined that a section 12 was not indicated, but that she needs SNF for safety. Psyche determined that She does not have current SI/HI and 1:1 not indicated. She has been doing well and has been calm and cooperative with occasional episodes of forgetfulness. CM/SW are working on placement and [facility] to evaluate. - Continue to monitor on medicine until bed available. Assessment & Plan (06/30/2025 2:55 PM EDT): History of HI/SI, depression with anxiety prompting frequent ED visits in the past. She was evaluated by psych and ELECTROTYPE SERVICER in the ED and they determined that a section 12 was not indicated, but that she needs SNF for safety. Psyche determined that She does not have current SI/HI and 1:1 not indicated. She has been doing well and has been calm and cooperative with occasional episodes of forgetfulness. CM/SW are working on placement and [facility] to evaluate. - Continue to monitor on medicine until bed available. Assessment & Plan (06/29/2025 3:36 PM EDT): History of HI/SI, depression with anxiety prompting frequent ED visits in the past. She was evaluated by psych and ELECTROTYPE SERVICER in the ED and they determined that a section 12 was not indicated, but that she needs SNF for safety. Psyche determined that She does not have current SI/HI and 1:1 not indicated. She has been doing well and has been calm and cooperative with occasional episodes of forgetfulness. CM/SW are working on placement and [facility] to evaluate. - Continue to monitor on medicine until bed available. Assessment & Plan (06/28/2025 6:10 PM EDT): History of HI/SI , depression with anxiety, frequent ED visits which seem preventable and concerning as she is at home without significant oversight, most recently found at home with stove burners on - Evaluated by psych and ELECTROTYPE SERVICER in the ED, section 12 not indicated, but needs SNF for safety, no more SI or HI so no one-to-one indicate. - Patient has remained calm and cooperative with occasional forgetfulness Pending placement in more supervised environment, [facility] at beginning of long evaluation. Another facility also expressing interest. - Continue to monitor on medicine until bed available. Assessment & Plan (06/27/2025 11:59 AM EDT): History of HI/SI , depression with anxiety, frequent ED visits which seem preventable and concerning as she is at home without significant oversight, most recently found at home with stove burners on - Evaluated by psych and ELECTROTYPE SERVICER in the ED, section 12 not indicated, but needs SNF for safety, no more SI or HI so no one-to-one indicate. - Patient has remained calm and cooperative with occasional forgetfulness Pending placement in more supervised environment, [facility] at beginning of long evaluation. Another facility also expressing interest. - Continue to monitor on medicine until bed available. Assessment & Plan (06/26/2025 6:06 PM EDT): History of HI/SI and depression with anxiety who has had frequent ED visits for which seems preventable issues and is most likely due to patient being home by herself without significant oversight confusion. As well as recent admission for SA. Patient presented after being found at home sleeping with stove burners on but not ignited. Evaluated by psych and ELECTROTYPE SERVICER in the ED. Section 12 not indicated, however patient was deemed unsafe to return home alone and requires [facility] placement. Patient was not thought to have SI/HI therefore no one-to-one ordered. The day after psych recommended [facility] inpatient stay, psych, nuclear chemistry technician, and outpatient pillowcase cutter and social worker palliative care agreed patient was calm and stable and no longer needed [facility] bed. Patient has remained stable and cooperative continues to deny SI/HI. She is alert and Oriented to person, place and year. Forgetful of Day of week, month and situation. Clear speech. Following commands. Plan: Pending placement in more supervised environment, [facility] at beginning of long evaluation. Another facility also expressing interest. - Continue to monitor on medicine until bed available. Assessment & Plan (06/25/2025 5:17 PM EDT): History of HI/SI and depression with anxiety who has had frequent ED visits for which seems preventable issues and is most likely due to patient being home by herself without significant oversight confusion. As well as recent admission for SA. Patient presented after being found at home sleeping with stove burners on but not ignited. Evaluated by psych and ELECTROTYPE SERVICER in the ED. Section 12 not indicated, however patient was deemed unsafe to return home alone and requires [facility] placement. Patient was not thought to have SI/HI therefore no one-to-one ordered. The day after psych recommended [facility] inpatient stay, psych, nuclear chemistry technician, and outpatient pillowcase cutter and social worker palliative care agreed patient was calm and stable and no longer needed [facility] bed. Patient has remained stable and cooperative continues to deny SI/HI. She is alert and Oriented to person, place and year. Forgetful of Day of week, month and situation. Clear speech. Following commands. Plan: Pending placement in more supervised environment, [facility] at beginning of long evaluation. Another facility also expressing interest. - Continue to monitor on medicine until bed available. Assessment & Plan (06/23/2025 6:08 PM EDT): History of HI/SI and depression with anxiety who has had frequent ED visits for which seems preventable issues and is most likely due to patient being home by herself without significant oversight confusion. As well as recent admission for SA. Patient presented after being found at home sleeping with stove burners on but not ignited. Evaluated by psych and ELECTROTYPE SERVICER in the ED. Section 12 not indicated, however patient was deemed unsafe to return home alone and requires [facility] placement. Patient was not thought to have SI/HI therefore no one-to-one ordered. The day after psych recommended [facility] inpatient stay, psych, nuclear chemistry technician, and outpatient pillowcase cutter and social worker palliative care agreed patient was calm and stable and no longer needed [facility] bed. Patient has remained stable and cooperative continues to deny SI/HI. She is alert and Oriented to person, place and year. Forgetful of Day of week, month and situation. Clear speech. Following commands. Plan: Pending placement in more supervised environment, [facility] at beginning of long evaluation. Another facility also expressing interest. - Continue to monitor on medicine until bed available. Assessment & Plan (06/22/2025 5:31 PM EDT): History of HI/SI and depression with anxiety who has had frequent ED visits for which seems preventable issues and is most likely due to patient being home by herself without significant oversight confusion. As well as recent admission for SA. Patient presented after being found at home sleeping with stove burners on but not ignited. Evaluated by psych and ELECTROTYPE SERVICER in the ED. Section 12 not indicated, however patient was deemed unsafe to return home alone and requires [facility] placement. Patient was not thought to have SI/HI therefore no one-to-one ordered. The day after psych recommended [facility] inpatient stay, psych, nuclear chemistry technician, and outpatient pillowcase cutter and social worker palliative care agreed patient was calm and stable and no longer needed [facility] bed. Patient has remained stable and cooperative continues to deny SI/HI. She is alert and Oriented to person, place and year. Forgetful of Day of week, month and situation. Clear speech. Following commands. Plan: Pending placement in more supervised environment, [facility] at beginning of long evaluation. Another facility also expressing interest. - Continue to monitor on medicine until bed available. Assessment & Plan (06/21/2025 7:00 PM EDT): History of HI/SI and depression with anxiety who has had frequent ED visits for which seems preventable issues and is most likely due to patient being home by herself without significant oversight confusion. As well as recent admission for SA. Patient presented after being found at home sleeping with stove burners on but not ignited. Evaluated by psych and ELECTROTYPE SERVICER in the ED. Section 12 not indicated, however patient was deemed unsafe to return home alone and requires [facility] placement. Patient was not thought to have SI/HI therefore no one-to-one ordered. The day after psych recommended [facility] inpatient stay, psych, nuclear chemistry technician, and outpatient pillowcase cutter and social worker palliative care agreed patient was calm and stable and no longer needed [facility] bed. Patient has remained stable and cooperative continues to deny SI/HI. She is alert and Oriented to person, place and year. Forgetful of Day of week, month and situation. Clear speech. Following commands. Plan: Pending placement in more supervised environment, [facility] at beginning of long evaluation. Another facility also expressing interest. - Continue to monitor on medicine until bed available. Assessment & Plan (06/20/2025 3:13 PM EDT): History of HI/SI and depression with anxiety who has had frequent ED visits for which seems preventable issues and is most likely due to patient being home by herself without significant oversight confusion. As well as recent admission for SA. Patient presented after being found at home sleeping with stove burners on but not ignited. Evaluated by psych and ELECTROTYPE SERVICER in the ED. Section 12 not indicated, however patient was deemed unsafe to return home alone and requires [facility] placement. Patient was not thought to have SI/HI therefore no one-to-one ordered. The day after psych recommended [facility] inpatient stay, psych, nuclear chemistry technician, and outpatient pillowcase cutter and social worker palliative care agreed patient was calm and stable and no longer needed [facility] bed. Patient has remained stable and cooperative continues to deny SI/HI. She is alert and Oriented to person, place and year. Forgetful of Day of week, month and situation. Clear speech. Following commands. Plan: Pending placement in more supervised environment, [facility] at beginning of long evaluation. Another facility also expressing interest. - Continue to monitor on medicine until bed available. Assessment & Plan (06/19/2025 5:57 PM EDT): History of HI/SI and depression with anxiety who has had frequent ED visits for which seems preventable issues and is most likely due to patient being home by herself without significant oversight confusion. As well as recent admission for SA. Patient presented after being found at home sleeping with stove burners on but not ignited. Evaluated by psych and ELECTROTYPE SERVICER in the ED. Section 12 not indicated, however patient was deemed unsafe to return home alone and requires [facility]. Patient was not thought to have SI/HI therefore no one-to-one ordered. The day after psych recommended [facility] inpatient stay, psych, nuclear chemistry technician, and outpatient pillowcase cutter and social worker palliative care agreed patient was calm and stable and no longer needed [facility] bed. Patient has remained stable and cooperative continues to deny SI/HI. She is alert and Oriented to person, place and year. Forgetful of Day of week, month and situation. Clear speech. Following commands. Plan: Pending placement in more supervised environment, [facility] at beginning of long evaluation. Another facility also expressing interest. - Continue to monitor on medicine until bed available. Assessment & Plan (06/18/2025 5:38 PM EDT): History of HI/SI and depression with anxiety who has had frequent ED visits for which seems preventable issues and is most likely due to patient being home by herself without significant oversight confusion. As well as recent admission for SA. Patient presented after being found at home sleeping with stove burners on but not ignited. Evaluated by psych and ELECTROTYPE SERVICER in the ED. Section 12 not indicated, however patient was deemed unsafe to return home alone and requires [facility] placement. Patient was not thought to have SI/HI therefore no one-to-one ordered. The day after psych recommended [facility] inpatient stay, psych, nuclear chemistry technician, and outpatient pillowcase cutter and social worker palliative care agreed patient was calm and stable and no longer needed [facility] bed. Patient has remained stable and cooperative continues to deny SI/HI. She is alert and Oriented to person, place and year. Forgetful of Day of week, month and situation. Clear speech. Following commands. Plan: Pending placement in more supervised environment, [facility] at beginning of long evaluation. Another facility also expressing interest. - Continue to monitor on medicine until bed available. Assessment & Plan (06/17/2025 12:25 PM EDT): History of HI/SI and depression with anxiety who has had frequent ED visits for which seems preventable issues and is most likely due to patient being home by herself without significant oversight confusion. As well as recent admission for SA. Patient presented after being found at home sleeping with stove burners on but not ignited. Evaluated by psych and ELECTROTYPE SERVICER in the ED. Section 12 not indicated, however patient was deemed unsafe to return home alone and requires [facility] placement On assessment patient denies SI/HI. She is alert and Oriented to person, place and year. Forgetful of Day of week, month and situation. Clear speech. Following commands. SHEARER The day after psych recommended [facility] inpatient stay, psych, nuclear chemistry technician, and outpatient pillowcase cutter and social worker palliative care agreed patient was calm and stable and no longer needed [facility] bed. Plan: Pending placement in more supervised environment, [facility] at beginning of long evaluation. Another facility also expressing interest Assessment & Plan (06/16/2025 11:43 AM EDT): History of HI/SI and depression with anxiety who has had frequent ED visits for which seems preventable issues and is most likely due to patient being home by herself without significant oversight confusion. As well as recent admission for SA. Patient presented after being found at home sleeping with stove burners on but not ignited. Evaluated by psych and ELECTROTYPE SERVICER in the ED. Section 12 not indicated, however patient was deemed unsafe to return home alone and requires [facility] placement On assessment patient denies SI/HI. She is alert and Oriented to person, place and year. Forgetful of Day of week, month and situation. Clear speech. Following commands. SHEARER The day after psych recommended [facility] psych inpatient stay, psych, nuclear chemistry technician, and outpatient pillowcase cutter and social worker palliative care agreed patient was calm and stable and no longer needed [facility] psych bed. Plan: Pending placement in more supervised environment, [facility] at beginning of long evaluation. Another facility also expressing interest Assessment & Plan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 with marine steam fitter Assessment & Plan (08/28/2025 12:14 PM EST): HR relatively low- pt asymptomatic -- Continue Eliquis 5 mg p.o. twice daily, however continue to watch as patient did have episodes of hematochezia and initially the Eliquis was briefly held. No further bleeding will need follow-up with marine steam fitter Assessment & Plan (08/27/2025 2:44 PM EST): HR relatively low- pt asymptomatic -- Continue Eliquis 5 mg p.o. twice daily, however continue to watch as patient did have episodes of hematochezia and initially the Eliquis was briefly held. No further bleeding will need follow-up with marine steam fitter Assessment & Plan (08/26/2025 12:56 PM EST): HR relatively low- pt asymptomatic -- Continue Eliquis 5 mg p.o. twice daily, however continue to watch as patient did have episodes of hematochezia and initially the Eliquis was briefly held. No further bleeding will need follow-up with marine steam fitter Assessment & Plan (08/25/2025 8:30 AM EST): HR relatively low- pt asymptomatic -- Continue Eliquis 5 mg p.o. twice daily, however continue to watch as patient did have episodes of hematochezia and initially the Eliquis was briefly held. No further bleeding will need follow-up with marine steam fitter Assessment & Plan (08/24/2025 11:35 AM EST): HR relatively low- pt asymptomatic -- Continue Eliquis 5 mg p.o. twice daily, however continue to watch as patient did have episodes of hematochezia and initially the Eliquis was briefly held. No further bleeding will need follow-up with marine steam fitter Assessment & Plan (08/23/2025 10:00 AM EST): HR relatively low- pt asymptomatic -- Continue Eliquis 5 mg p.o. twice daily, however continue to watch as patient did have episodes of hematochezia and initially the Eliquis was briefly held. No further bleeding will need follow-up with marine steam fitter Assessment & Plan (08/22/2025 8:42 AM EST): Rate controlled, trending towards bradycardia even with metoprolol on hold. -- Continue Eliquis 5 mg p.o. twice daily, however continue to watch as patient did have episodes of hematochezia and initially the Eliquis was briefly held secondary to this with C. difficile being negative. - Hgb has been stable for the past two months Assessment & Plan (08/21/2025 8:07 AM EST): Rate controlled, trending towards bradycardia even with metoprolol on hold. -- Continue Eliquis 5 mg p.o. twice daily, however continue to watch as patient did have episodes of hematochezia and initially the Eliquis was briefly held secondary to this with C. difficile being negative. - Hgb has been stable for the past two months Assessment & Plan (08/20/2025 12:58 PM EST): Rate controlled, trending towards bradycardia even with metoprolol on hold. -- Continue Eliquis 5 mg p.o. twice daily, however continue to watch as patient did have episodes of hematochezia and initially the Eliquis was briefly held secondary to this with C. difficile being negative. - Hgb has been stable for the past two months Assessment & Plan (08/19/2025 7:59 AM EST): Rate controlled, trending towards bradycardia even with metoprolol on hold. -- Continue Eliquis 5 mg p.o. twice daily, however continue to watch as patient did have episodes of hematochezia and initially the Eliquis was briefly held secondary to this with C. difficile being negative. - Hgb has been stable for the past two months Assessment & Plan (08/18/2025 10:22 AM EST): Rate controlled, trending towards bradycardia even with metoprolol on hold. -- Continue Eliquis 5 mg p.o. twice daily, however continue to watch as patient did have episodes of hematochezia and initially the Eliquis was briefly held secondary to this with C. difficile being negative. - Hgb has been stable for the past two months Assessment & Plan (08/17/2025 10:25 AM EST): Rate controlled, trending towards bradycardia even with metoprolol on hold. -- Continue Eliquis 5 mg p.o. twice daily, however continue to watch as patient did have episodes of hematochezia and initially the Eliquis was briefly held secondary to this with C. difficile being negative. - Hgb has been stable for the past two months Assessment & Plan (08/16/2025 10:25 AM EST): Rate controlled, trending towards bradycardia even with metoprolol on hold. -- Continue Eliquis 5 mg p.o. twice daily, however continue to watch as patient did have episodes of hematochezia and initially the Eliquis was briefly held secondary to this with C. difficile being negative. - Hgb has been stable for the past two months Assessment & Plan (08/15/2025 8:43 AM EST): Rate controlled, trending towards bradycardia even with metoprolol on hold. -- Continue Eliquis 5 mg p.o. twice daily, however continue to watch as patient did have episodes of hematochezia and initially the Eliquis was briefly held secondary to this with C. difficile being negative. Monitor close Assessment & Plan (08/14/2025 10:41 AM EST): Rate controlled, trending towards bradycardia even with metoprolol on hold. -- Continue Eliquis 5 mg p.o. twice daily, however continue to watch as patient did have episodes of hematochezia and initially the Eliquis was briefly held secondary to this with C. difficile being negative. Monitor close Assessment & Plan (08/13/2025 12:01 PM EST): Rate controlled, trending towards bradycardia even with metoprolol on hold. -- Continue Eliquis 5 mg p.o. twice daily, however continue to watch as patient did have episodes of hematochezia and initially the Eliquis was held secondary to this with C. difficile being negative. Monitor close Assessment & Plan (08/12/2025 8:11 AM EST): Rate controlled, trending towards bradycardia even with metoprolol on hold. -- Continue Eliquis 5 mg p.o. twice daily, however continue to watch as patient did have episodes of hematochezia and initially the Eliquis was held secondary to this with C. difficile being negative. Monitor close Assessment & Plan (08/11/2025 9:20 AM EST): Rate controlled, trending towards bradycardia even with metoprolol on hold. -- Continue Eliquis 5 mg p.o. twice daily, however continue to watch as patient did have episodes of hematochezia and initially the Eliquis was held secondary to this with C. difficile being negative. Monitor close Assessment & Plan (08/10/2025 9:23 AM EST): Rate controlled, trending towards bradycardia even with metoprolol on hold. -- Continue Eliquis 5 mg p.o. twice daily, however continue to watch as patient did have episodes of hematochezia and initially the Eliquis was held secondary to this with C. difficile being negative. Monitor close Assessment & Plan (08/09/2025 5:46 PM EST): Rate controlled, trending towards bradycardia even with metoprolol on hold. -- Continue Eliquis 5 mg p.o. twice daily, however continue to watch as patient did have episodes of hematochezia and initially the Eliquis was held secondary to this with C. difficile being negative. Monitor close Assessment & Plan (08/08/2025 1:52 PM EST): Rate controlled, trending towards bradycardia even with metoprolol on hold. -- Continue Eliquis 5 mg p.o. twice daily, however continue to watch as patient did have episodes of hematochezia and initially the Eliquis was held secondary to this with C. difficile being negative. Monitor close Assessment & Plan (08/07/2025 2:39 PM EST): Rate controlled, trending towards bradycardia even with metoprolol on hold. -- Continue Eliquis 5 mg p.o. twice daily, however continue to watch as patient did have episodes of hematochezia and initially the Eliquis was held secondary to this with C. difficile being negative. Monitor close Assessment & Plan (08/06/2025 9:40 AM EST): Rate controlled, trending towards bradycardia even with metoprolol on hold. -- Continue Eliquis 5 mg p.o. twice daily, however continue to watch as patient did have episodes of hematochezia and initially the Eliquis was held secondary to this with C. difficile being negative. Monitor close Assessment & Plan (2025 12:59 PM EST): Rate controlled, trending towards bradycardia even with metoprolol on hold. -- Continue Eliquis 5 mg p.o. twice daily, however continue to watch as patient did have episodes of hematochezia and initially the Eliquis was held secondary to this with C. difficile being negative. Monitor close Assessment & Plan (08/04/2025 9:52 AM EST): Rate controlled, trending towards bradycardia even with metoprolol on hold. -- Continue Eliquis 5 mg p.o. twice daily, however continue to watch as patient did have episodes of hematochezia and initially the Eliquis was held secondary to this with C. difficile being negative. Monitor close Assessment & Plan (08/03/2025 12:40 PM EDT): Rate controlled, trending towards bradycardia even with metoprolol on hold. -- Continue Eliquis 5 mg p.o. twice daily, however continue to watch as patient did have episodes of hematochezia and initially the Eliquis was held secondary to this with C. difficile being negative. Monitor close Assessment & Plan (08/02/2025 11:23 AM EDT): Rate controlled, trending towards bradycardia even with metoprolol on hold. -- Continue Eliquis 5 mg p.o. twice daily, however continue to watch as patient did have episodes of hematochezia and initially the Eliquis was held secondary to this with C. difficile being negative. Monitor close Assessment & Plan (08/01/2025 4:52 PM EDT): Rate controlled, trending towards bradycardia even with metoprolol on hold. -- Continue Eliquis 5 mg p.o. twice daily, however continue to watch as patient did have episodes of hematochezia and initially the Eliquis was held secondary to this with C. difficile being negative. Monitor close Assessment & Plan (07/31/2025 6:40 PM EDT): Rate controlled, trending towards bradycardia even with metoprolol on hold. -- Continue Eliquis 5 mg p.o. twice daily, however continue to watch as patient did have episodes of hematochezia and initially the Eliquis was held secondary to this with C. difficile being negative. Monitor close Assessment & Plan (07/30/2025 9:23 PM EDT): Rate controlled, trending towards bradycardia even with metoprolol on hold. -- Continue Eliquis 5 mg p.o. twice daily, however continue to watch as patient did have episodes of hematochezia and initially the Eliquis was held secondary to this with C. difficile being negative. Monitor close Assessment & Plan (07/29/2025 5:37 PM EDT): Rate controlled, trending towards bradycardia even with metoprolol on hold. -- Continue Eliquis 5 mg p.o. twice daily, however continue to watch as patient did have episodes of hematochezia and initially the Eliquis was held secondary to this with C. difficile being negative. Monitor close Assessment & Plan (07/28/2025 2:27 PM EDT): Rate controlled, trending towards bradycardia even with metoprolol on hold. -- Continue Eliquis 5 mg p.o. twice daily, however continue to watch as patient did have episodes of hematochezia and initially the Eliquis was held secondary to this with C. difficile being negative. Monitor close Assessment & Plan (07/27/2025 9:49 AM EDT): Rate controlled, trending towards bradycardia even with metoprolol on hold. -- Continue Eliquis 5 mg p.o. twice daily, however continue to watch as patient did have episodes of hematochezia and initially the Eliquis was held secondary to this with C. difficile being negative. Monitor close Assessment & Plan (07/26/2025 10:30 AM EDT): Rate controlled, trending towards bradycardia even with metoprolol on hold. -- Eliquis was resumed without further concern for GI bleeding Assessment & Plan (07/25/2025 11:06 AM EDT): Rate controlled, trending towards bradycardia even with metoprolol on hold. -- Eliquis was resumed without further bleeding Assessment & Plan (07/24/2025 12:29 PM EDT): Rate controlled, trending towards bradycardia even with metoprolol on hold. -- Eliquis was resumed without further bleeding Assessment & Plan (07/22/2025 12:35 PM EDT): Rate controlled -- Hold anticoagulation as above Assessment & Plan (07/21/2025 3:55 PM EDT): Rate controlled -- Hold anticoagulation as above Assessment & Plan (07/20/2025 3:50 PM EDT): Rate controlled -- Hold anticoagulation as above Assessment & Plan (07/19/2025 1:36 PM EDT): Rate controlled -- Hold anticoagulation as above Assessment & Plan (07/18/2025 12:50 PM EDT): Rate controlled -- Hold anticoagulation as above Assessment & Plan (07/17/2025 2:39 PM EDT): Rate controlled -- Hold anticoagulation as above Assessment & Plan (07/16/2025 5:47 PM EDT): Rate controlled -- Hold anticoagulation as above Assessment & Plan (07/15/2025 4:27 PM EDT): Rate controlled -- Hold anticoagulation as above Assessment & Plan (07/13/2025 5:36 PM EDT): Rate controlled Cont eliquis Assessment & Plan (07/12/2025 5:58 PM EDT): Rate controlled Cont eliquis Assessment & Plan (07/11/2025 2:26 PM EDT): Rate controlled Cont eliquis Assessment & Plan (07/10/2025 7:39 PM EDT): Rate controlled Cont eliquis Assessment & Plan (07/09/2025 8:02 PM EDT): Rate controlled Cont eliquis Assessment & Plan (07/08/2025 1:54 PM EDT): Rate controlled Cont eliquis Assessment & Plan (07/07/2025 2:29 PM EDT): Rate controlled Cont eliquis Assessment & Plan (07/06/2025 4:14 PM EDT): Rate controlled Cont eliquis Assessment & Plan (07/05/2025 9:30 PM EDT): Rate controlled Cont eliquis Assessment & Plan (07/04/2025 11:29 PM EDT): Rate controlled Cont eliquis Assessment & Plan (07/03/2025 5:51 PM EDT): Rate controlled Cont eliquis Assessment & Plan (07/02/2025 4:27 PM EDT): Rate controlled Cont eliquis Assessment & Plan (07/01/2025 1:36 PM EDT): Rate controlled Cont eliquis Assessment & Plan (06/30/2025 2:55 PM EDT): Rate controlled Cont eliquis Assessment & Plan (06/29/2025 3:36 PM EDT): Rate controlled Cont eliquis Assessment & Plan (06/28/2025 6:10 PM EDT): Rate controlled Cont eliquis Assessment & Plan (06/27/2025 11:59 AM EDT): Rate controlled Cont eliquis Assessment & Plan (06/26/2025 6:06 PM EDT): Patient appears to be in sinus rhythm with rates in the 60s. Cont eliquis Assessment & Plan (06/25/2025 5:17 PM EDT): Patient appears to be in sinus rhythm with rates in the 60s. Cont eliquis Assessment & Plan (06/23/2025 6:08 PM EDT): Patient appears to be in sinus rhythm with rates in the 60s. Cont eliquis Assessment & Plan (06/22/2025 5:31 PM EDT): Patient appears to be in sinus rhythm with rates in the 60s. Cont eliquis Assessment & Plan (06/21/2025 7:00 PM EDT): Patient appears to be in sinus rhythm with rates in the 60s. Cont eliquis Assessment & Plan (06/20/2025 3:13 PM EDT): Patient appears to be in sinus rhythm with rates in the 60s. Cont eliquis Assessment & Plan (06/19/2025 5:57 PM EDT): Patient appears to be in sinus rhythm with rates in the 60s. Cont eliquis Assessment & Plan (06/18/2025 5:38 PM EDT): Patient appears to be in sinus rhythm with rates in the 60s. Cont eliquis Assessment & Plan (06/17/2025 12:25 PM EDT): Cont eliquis Assessment & Plan (06/16/2025 11:43 AM EDT): Cont eliquis Assessment & Plan (06/15/2025 8:57 AM EDT): Cont eliquis Assessment & Plan (06/14/2025 12:36 PM EDT): Cont eliquis Assessment & Plan (06/13/2025 1:01 PM EDT): Cont eliquis Assessment & Plan (06/12/2025 12:58 PM EDT): Cont eliquis Assessment & Plan (06/11/2025 2:53 PM EDT): Cont eliquis Assessment & Plan (05/02/2025 8:33 PM EDT): Continue Toprol-XL and Eliquis. Assessment & Plan (08/28/2024 10:25 AM EST): -Continue metoprolol and Eliquis. Assessment & Plan (08/28/2024 12:05 AM EST): Continue metoprolol and Eliquis. Assessment & Plan (02/29/2024 12:41 AM EDT): Rate and rhythm control. -Continue Eliquis 5 mg twice daily -Continue sotalol 40 mg twice daily with holding parameters. Assessment & Plan (12/04/2023 2:47 AM EST): Continue Eliquis. Sotalol with hold parameters. Assessment & Plan (05/24/2023 10:25 AM EDT): Well suppressed on sotalol. Continue Eliquis. Assessment & Plan (05/10/2023 1:45 PM EDT): Well suppressed with sotalol. Continue to take Eliquis. Assessment & Plan (02/21/2023 1:48 PM EDT): Well suppressed with sotalol. Continue in addition to Eliquis without change. Assessment & Plan (05/18/2021 5:52 PM EDT): Currently anticoagulated on Eliquis 5 mg twice a day without bleeding complaint, she is sotalol 40 mg twice daily. Assessment & Plan (07/14/2020 1:02 PM EDT): EKG today shows sinus bradycardia, 45bpm and is asymptomatic. She has a history of paroxsymal atrial fibrillation. Her current medications include dronedarone 400mg twice a day.(she has been unable to tolerate beta-blockers or diltiazem in the past). She is on Eliquis 5 mg twice daily for anticoagulation. She was last seen in [facility] ED on 07/02/2020 for a sensation of being in atrial fibrillation, chest discomfort, and shortness of breath. She spontaneously converted to a sinus rhythm which did not require organized intervention. She was discharged from the emergency room at that time. She reports that she had an episode yesterday where she felt like she was in atrial fibrillation symptoms that included palpitations, chest discomfort and increase shortness of breath. She reports that this episode lasted about 5 hours and she spontaneously converted to a sinus rhythm at home (she did not go to the emergency room). Recommended her to see Dr. Shepard for possible ablation after her shoulder surgery. She was also encouraged to go to the ED if she experiences red flags for AL, cardiac event. Assessment & Plan (06/30/2020 5:06 PM EDT): Patient has a history of A. fib and was seen in the emergency department 06/21/2020 for palpitations and was found to be in atrial fibrillation. She spontaneously converted to sinus rhythm and did not require organized intervention. Today she states that she feels well and her EKG shows sinus rhythm. She has been recently started on dronedarone as she has been unable to tolerate beta-blockers or diltiazem in the past. She has been tolerating this. She is adequately anticoagulated on Eliquis 5 mg twice a day without bleeding complaint at this time. We discussed more aggressive treatments in terms of a possible ablation if her symptoms are ongoing and she would like to have an appointment set up with an EP physician which we will get scheduled for her to discuss this. Assessment & Plan (05/26/2020 1:19 AM EDT): -Patient is currently rate controlled -Continue anticoagulation with Eliquis Assessment & Plan (04/09/2020 8:43 AM EDT): Patient is not on any rate or rhythm control medications. She is anticoagulated with Eliquis 5 mg p.o. twice daily for [id number] score of 4 with 4 % adjusted yearly stroke rate (HTN, CAD, DM, gender). Assessment & Plan (11/19/2019 3:12 PM EST): She is not on any rate controlling medications has not needed them. She tends to run with a low heart rate. Continue Eliquis as usual. Seen by [facility] for paroxysmal atrial fibrillation and coronary artery disease.. Recently had beta-crystal discontinued due to bradycardia. Assessment & Plan (07/17/2019 1:13 PM EDT): She has a history of paroxysmal atrial fibrillation. She was taking metoprolol for rate control. She is anticoagulated on Eliquis. She is quite bradycardic today and is reporting lightheadedness. I recommended that she stop her metoprolol altogether. It was recently lowered by Juan for similar concerns. If she has a recurrence of atrial fibrillation her A. fib management will have to be reconsidered. I am reluctant to start her on an antiarrhythmic given her tendency for suicidal ideation as well as her history of taking handfuls of pills. I will follow-up with her in several weeks and she has an appointment with Dr. Flores next year. Assessment & Plan (06/25/2019 9:10 AM EDT): As mentioned above though event monitor did not capture atrial fibrillation she has been in atrial fibrillation on several occasions. We will continue with her Eliquis. She remains on aspirin as well due to her recent non-ST elevation AL. Though she did have a couple of runs of atrial tachycardia on her event monitor her heart rate in the office today is in the 60s and she tends to run low per her event monitor. I will continue her current dosage of metoprolol 25 mg daily. I did discontinue her amlodipine due to hypotension. Assessment & Plan (04/16/2019 12:49 PM EDT): What appears to be atrial flutter was detected by EMS. Subsequent ECGs have shown her to be in sinus rhythm. Her CHADSVASC is at least a 4 scoring for previous AL, gender and hypertension. Rate is well controlled in the office. I have placed an order for a loop monitor to get a better sense of her overall rate control. She ultimately elected to start anticoagulation and elected Eliquis 5 mg twice daily. Since she did not have a stent placed there is not an indication for triple therapy, I have instructed her to stop her Plavix and continue with ASA and eliquis. I have placed an order for a 30 day loop recorder and will see her in follow up after this has been completed. NSTEMI (non-ST elevated myocardial infarction) 0 04/16/2019 Assessment & Plan (05/18/2021 5:54 PM EDT): Continue aspirin lifelong, continue to optimize cardiac risk factors. She had a non-ST elevation AL in January 2019. Continue to monitor. She is denying any symptoms concerning for angina at this time. Assessment & Plan (07/17/2019 1:14 PM EDT): She had a non-ST elevation AL in January. Catheterization showed nonobstructive CAD. We will continue to optimize risk factors. Continue aspirin lifelong as well as statin. Beta-crystal has been discontinued. Assessment & Plan (06/25/2019 9:10 AM EDT): Non-ST elevation AL in January, cardiac cath sedation showed non-obstructive CAD. We will continue to optimize her risk factors. We will continue on aspirin daily as well as statin and beta-crystal. Currently denying chest pain. Assessment & Plan (04/16/2019 12:50 PM EDT): She had cardiac catheteriztation 02/[address] Rhoades this revealed 30% stenosis of the mid LAD, mild to moderate nonobstructive CAD in the RCA and LCx, normal LVEDP, and no significant gradient across aortic valve, EF 60% on LV gram. No intervention was performed since the stenosis was not hemodynamically significant. Currently denying chest pain, we will continue to optimize her risk factors. Essential hypertension 02/01/2019 Assessment & Plan (09/10/2025 1:28 PM EST): Patient's metoprolol was stopped earlier in hospital stay, heart rate is relatively low in the 40s to 50s. Asymptomatic, relatively normotensive. Assessment & Plan (09/09/2025 1:26 PM EST): Patient's metoprolol was stopped earlier in hospital stay, heart rate is relatively low in the 40s to 50s. Asymptomatic, relatively normotensive. Assessment & Plan (09/08/2025 12:19 PM EST): Metoprolol was stopped earlier in hospital stay due to bradycardia. - HR remains 40-60 asymptomatic. - Continue to monitor vital signs off antihypertensives Assessment & Plan (09/07/2025 10:15 AM EST): Metoprolol was stopped earlier in hospital stay due to bradycardia. - HR remains 40-60 asymptomatic. - Continue to monitor vital signs off antihypertensives Assessment & Plan (09/06/2025 11:02 AM EST): Patient's metoprolol was stopped earlier in hospital stay, heart rate is relatively low in the 40s to 50s. Asymptomatic, relatively normotensive. Assessment & Plan (09/05/2025 11:36 AM EST): Stable off of antihypertensives Assessment & Plan (09/04/2025 11:04 AM EST): Stable off of antihypertensives Assessment & Plan (09/03/2025 11:42 AM EST): Stable off of antihypertensives Assessment & Plan (09/02/2025 12:13 PM EST): Stable off of antihypertensives Assessment & Plan (09/01/2025 9:34 AM EST): Stable off of antihypertensives Assessment & Plan (08/31/2025 9:27 AM EST): Stable off of antihypertensives Assessment & Plan (08/30/2025 9:30 AM EST): Stable off of antihypertensives Assessment & Plan (08/29/2025 9:27 AM EST): Stable off of antihypertensives Assessment & Plan (08/28/2025 12:14 PM EST): Stable off of antihypertensives Assessment & Plan (08/27/2025 2:44 PM EST): Stable off of antihypertensives Assessment & Plan (08/26/2025 12:56 PM EST): Stable off of antihypertensives Assessment & Plan (08/25/2025 8:30 AM EST): Stable off of antihypertensives Assessment & Plan (08/24/2025 11:35 AM EST): Stable off of antihypertensives Assessment & Plan (08/23/2025 10:00 AM EST): Stable off of antihypertensives Assessment & Plan (08/22/2025 8:42 AM EST): Patient currently remains normotensive off the metoprolol as this was discontinued secondary to bradycardia - Continue to monitor vital signs off antihypertensives Assessment & Plan (08/21/2025 8:07 AM EST): Patient currently remains normotensive off the metoprolol as this was discontinued secondary to bradycardia - Continue to monitor vital signs off antihypertensives Assessment & Plan (08/20/2025 12:58 PM EST): Patient currently remains normotensive off the metoprolol as this was discontinued secondary to bradycardia - Continue to monitor vital signs off antihypertensives Assessment & Plan (08/19/2025 7:59 AM EST): Patient currently remains normotensive off the metoprolol as this was discontinued secondary to bradycardia - Continue to monitor vital signs off antihypertensives Assessment & Plan (08/18/2025 10:22 AM EST): Patient currently remains normotensive off the metoprolol as this was discontinued secondary to bradycardia - Continue to monitor vital signs off antihypertensives Assessment & Plan (08/17/2025 10:25 AM EST): Patient currently remains normotensive off the metoprolol as this was discontinued secondary to bradycardia - Continue to monitor vital signs off antihypertensives Assessment & Plan (08/16/2025 10:25 AM EST): Patient currently remains normotensive off the metoprolol as this was discontinued secondary to bradycardia - Continue to monitor vital signs off antihypertensives Assessment & Plan (08/15/2025 8:43 AM EST): Patient currently remains normotensive off the metoprolol as this was discontinued secondary to bradycardia - Continue to monitor vital signs off antihypertensives Assessment & Plan (08/14/2025 10:41 AM EST): Patient currently remains normotensive off the metoprolol as this was discontinued secondary to bradycardia - Continue to monitor vital signs off antihypertensives Assessment & Plan (08/13/2025 12:01 PM EST): Patient currently remains normotensive off the metoprolol as this was discontinued secondary to bradycardia -We will continue to monitor vital signs - Metoprolol discontinued for bradycardia - continue to monitor off antihypertensives Assessment & Plan (08/12/2025 8:11 AM EST): Patient currently remains normotensive off the metoprolol as this was discontinued secondary to bradycardia -We will continue to monitor vital signs - Metoprolol discontinued for bradycardia - continue to monitor off antihypertensives Assessment & Plan (08/11/2025 9:20 AM EST): Patient currently remains normotensive off the metoprolol as this was discontinued secondary to bradycardia -We will continue to monitor vital signs - Metoprolol discontinued for bradycardia - continue to monitor off antihypertensives Assessment & Plan (08/10/2025 9:23 AM EST): Patient currently remains normotensive off the metoprolol as this was discontinued secondary to bradycardia -We will continue to monitor vital signs - Metoprolol discontinued for bradycardia - continue to monitor off antihypertensives Assessment & Plan (08/09/2025 5:46 PM EST): Patient currently remains normotensive off the metoprolol as this was discontinued secondary to bradycardia -We will continue to monitor vital signs - Metoprolol discontinued for bradycardia - continue to monitor off antihypertensives Assessment & Plan (08/08/2025 1:52 PM EST): Patient currently remains normotensive off the metoprolol as this was discontinued secondary to bradycardia -We will continue to monitor vital signs - Metoprolol discontinued for bradycardia - continue to monitor off antihypertensives Assessment & Plan (08/07/2025 2:39 PM EST): Patient currently remains normotensive off the metoprolol as this was discontinued secondary to bradycardia -We will continue to monitor vital signs - Metoprolol discontinued for bradycardia - continue to monitor off antihypertensives Assessment & Plan (08/06/2025 9:40 AM EST): Patient currently remains normotensive off the metoprolol as this was discontinued secondary to bradycardia -We will continue to monitor vital signs - Metoprolol discontinued for bradycardia - continue to monitor off antihypertensives Assessment & Plan (2025 12:59 PM EST): Patient currently remains normotensive off the metoprolol as this was discontinued secondary to bradycardia -We will continue to monitor vital signs - Metoprolol discontinued for bradycardia - continue to monitor off antihypertensives Assessment & Plan (08/04/2025 9:52 AM EST): Patient currently remains normotensive off the metoprolol as this was discontinued secondary to bradycardia -We will continue to monitor vital signs - Metoprolol discontinued for bradycardia - continue to monitor off antihypertensives Assessment & Plan (08/03/2025 12:40 PM EDT): Patient currently remains normotensive off the metoprolol as this was discontinued secondary to bradycardia -We will continue to monitor vital signs - Metoprolol discontinued for bradycardia - continue to monitor off antihypertensives Assessment & Plan (08/02/2025 11:23 AM EDT): Patient currently remains normotensive off the metoprolol as this was discontinued secondary to bradycardia -We will continue to monitor vital signs - Metoprolol discontinued for bradycardia - continue to monitor off antihypertensives Assessment & Plan (08/01/2025 4:52 PM EDT): Patient currently remains normotensive off the metoprolol as this was discontinued secondary to bradycardia -We will continue to monitor vital signs - Metoprolol discontinued for bradycardia - continue to monitor off antihypertensives Assessment & Plan (07/31/2025 6:40 PM EDT): Patient currently remains normotensive off the metoprolol as this was discontinued secondary to bradycardia -We will continue to monitor vital signs - Metoprolol discontinued for bradycardia - continue to monitor off antihypertensives Assessment & Plan (07/30/2025 9:23 PM EDT): Patient currently remains normotensive off the metoprolol as this was discontinued secondary to bradycardia -We will continue to monitor vital signs - Metoprolol discontinued for bradycardia - continue to monitor off antihypertensives Assessment & Plan (07/29/2025 5:37 PM EDT): Patient currently remains normotensive off the metoprolol as this was discontinued secondary to bradycardia -We will continue to monitor vital signs - Metoprolol discontinued for bradycardia - continue to monitor off antihypertensives Assessment & Plan (07/28/2025 2:27 PM EDT): Patient currently remains normotensive off the metoprolol as this was discontinued secondary to bradycardia -We will continue to monitor vital signs - Metoprolol discontinued for bradycardia - continue to monitor off antihypertensives Assessment & Plan (07/27/2025 9:49 AM EDT): Patient currently remains normotensive off the metoprolol as this was discontinued secondary to bradycardia -We will continue to monitor vital signs - Metoprolol discontinued for bradycardia - continue to monitor off antihypertensives Assessment & Plan (07/26/2025 10:28 AM EDT): Blood pressure remains normal off of metoprolol and sinus bradycardia. - Metoprolol discontinued for bradycardia - continue to monitor off antihypertensives Assessment & Plan (07/25/2025 11:06 AM EDT): Blood pressure remains normal off of metoprolol and sinus bradycardia. - Metoprolol discontinued for bradycardia - continue to monitor off antihypertensives Assessment & Plan (07/24/2025 12:29 PM EDT): Blood pressure remains low normal off of metoprolol. Metoprolol held for bradycardia and relative hypotension -Will continue to monitor off antihypertensives, discontinued beta-crystal Assessment & Plan (07/22/2025 12:35 PM EDT): Blood pressure remains low normal off of metoprolol. Metoprolol held for bradycardia and relative hypotension SBP still in the 90s to low 100s, heart rate in the 50s to 70s -Will continue to monitor off antihypertensives, holding beta-crystal Assessment & Plan (07/21/2025 3:55 PM EDT): Blood pressure remains low normal off of metoprolol. Metoprolol held for bradycardia and relative hypotension SBP still in the 90s to low 100s, heart rate in the 50s to 70s -Will continue to monitor off antihypertensives, holding beta-crystal Assessment & Plan (07/20/2025 3:50 PM EDT): Blood pressure remains low normal off of metoprolol. Metoprolol held for bradycardia and relative hypotension SBP still in the 90s to low 100s, heart rate in the 50s to 70s -Will continue to monitor off antihypertensives, holding beta-crystla Assessment & Plan (07/19/2025 1:36 PM EDT): Blood pressure remains low normal off of metoprolol. Metoprolol held for bradycardia and relative hypotension SBP still in the 90s to low 100s, heart rate in the 50s to 70s -Will continue to monitor off antihypertensives, holding beta-crystal Assessment & Plan (07/18/2025 12:50 PM EDT): Blood pressure remains low normal off of metoprolol. Metoprolol held for bradycardia and relative hypotension SBP still in the 90s to low 100s, heart rate in the 50s to 70s -Will continue to monitor off antihypertensives, holding beta-crystal Assessment & Plan (07/17/2025 2:39 PM EDT): Blood pressure remains low normal off of metoprolol. Metoprolol held for bradycardia and relative hypotension SBP still in the 90s to low 100s, heart rate in the 50s to 70s -Will continue to monitor off antihypertensives, holding beta-crystal Assessment & Plan (07/16/2025 5:47 PM EDT): Blood pressure remains low normal off of metoprolol. Metoprolol held for bradycardia and relative hypotension SBP still in the 90s to low 100s, heart rate in the 50s to 70s -Will continue to monitor off antihypertensives, holding beta-crystal Assessment & Plan (07/15/2025 4:27 PM EDT): Blood pressure remains low normal off of metoprolol. Metoprolol held for bradycardia and relative hypotension SBP still in the 90s to low 100s, heart rate in the 50s to 70s -Will continue to monitor off antihypertensives, holding beta-crystal Assessment & Plan (07/13/2025 5:36 PM EDT): Blood pressure remains low normal off of metoprolol. Metoprolol held for bradycardia and relative hypotension SBP still in the 90s to low 100s, heart rate in the 50s to 70s -Will continue to monitor off antihypertensives Assessment & Plan (07/12/2025 5:58 PM EDT): Blood pressure remains low normal off of metoprolol. Metoprolol held for bradycardia and relative hypotension SBP still in the 90s to low 100s, heart rate in the 50s to 70s -Will continue to monitor off antihypertensives Assessment & Plan (07/11/2025 2:26 PM EDT): Blood pressure remains low normal off of metoprolol. Metoprolol held for bradycardia and relative hypotension -Continue to monitor vitals per protocol Assessment & Plan (07/10/2025 7:39 PM EDT): Blood pressure remains low normal off of metoprolol. Metoprolol held for bradycardia and relative hypotension -Continue to monitor vitals per protocol Assessment & Plan (07/09/2025 8:02 PM EDT): Blood pressure remains low normal off of metoprolol. Metoprolol held for bradycardia and relative hypotension -Continue to monitor vitals per protocol Assessment & Plan (07/08/2025 1:54 PM EDT): Blood pressure remains low normal off of metoprolol. Metoprolol held for bradycardia and relative hypotension -Continue to monitor vitals per protocol Assessment & Plan (07/07/2025 2:29 PM EDT): Blood pressure remains low normal off of metoprolol. Metoprolol held for bradycardia and relative hypotension -Continue to monitor vitals per protocol Assessment & Plan (07/06/2025 4:14 PM EDT): Blood pressure remains low normal off of metoprolol. Metoprolol held for bradycardia and relative hypotension -Continue to monitor vitals per protocol Assessment & Plan (07/05/2025 9:30 PM EDT): Blood pressure remains low normal off of metoprolol. Metoprolol held for bradycardia and relative hypotension -Continue to monitor vitals per protocol Assessment & Plan (07/04/2025 11:29 PM EDT): Blood pressure remains low normal off of metoprolol. Metoprolol held for bradycardia and relative hypotension -Continue to monitor vitals per protocol Assessment & Plan (07/03/2025 5:51 PM EDT): Blood pressure remains low normal off of metoprolol. Metoprolol held for bradycardia and relative hypotension -Continue to monitor vitals per protocol Assessment & Plan (07/02/2025 4:27 PM EDT): Blood pressure remains low normal off of metoprolol. Metoprolol held for bradycardia and relative hypotension -Continue to monitor vitals per protocol Assessment & Plan (07/01/2025 1:36 PM EDT): Blood pressure remains low normal off of metoprolol. Metoprolol held for bradycardia and relative hypotension -Continue to monitor vitals per protocol Assessment & Plan (06/30/2025 2:55 PM EDT): Blood pressure remains low normal off of metoprolol. Metoprolol held for bradycardia and relative hypotension -Continue to monitor vitals per protocol Assessment & Plan (06/29/2025 3:36 PM EDT): Blood pressure remains low normal off of metoprolol. Metoprolol held for bradycardia and relative hypotension -Continue to monitor vitals per protocol Assessment & Plan (06/28/2025 6:10 PM EDT): Holding metoprolol for now due to bradycardia and relative hypotention Blood pressure remains low normal off medication. -Continue to monitor vitals per protocol Assessment & Plan (06/27/2025 11:59 AM EDT): Holding metoprolol for now due to bradycardia and relative hypotention Blood pressure remains low normal off medication. -Continue to monitor vitals per protocol Assessment & Plan (06/26/2025 6:06 PM EDT): Holding metoprolol for now due to bradycardia and relative hypotention Blood pressure remains low normal off medication. -Continue to monitor vitals per protocol Assessment & Plan (06/25/2025 5:17 PM EDT): Holding metoprolol for now due to bradycardia and relative hypotention Blood pressure remains low normal off medication. -Continue to monitor vitals per protocol Assessment & Plan (06/23/2025 6:08 PM EDT): Holding metoprolol for now due to bradycardia and relative hypotention Blood pressure remains low normal off medication. -Continue to monitor vitals per protocol Assessment & Plan (06/22/2025 5:31 PM EDT): Holding metoprolol for now due to bradycardia and relative hypotention Blood pressure remains low normal off medication. -Continue to monitor vitals per protocol Assessment & Plan (06/21/2025 7:00 PM EDT): Holding metoprolol for now due to bradycardia and relative hypotention Blood pressure remains low normal off medication. -Continue to monitor vitals per protocol Assessment & Plan (06/20/2025 3:13 PM EDT): Holding metoprolol for now due to bradycardia and relative hypotention Blood pressure remains low normal off medication. -Continue to monitor vitals per protocol Assessment & Plan (06/19/2025 5:57 PM EDT): Holding metoprolol for now due to bradycardia and relative hypotention Blood pressure stable and well controlled off medication. -Continue to monitor vitals per protocol Assessment & Plan (06/18/2025 5:38 PM EDT): Blood pressure stable and well controlled off medication. Holding metoprolol for now due to bradycardia and relative hypotention Assessment & Plan (06/17/2025 12:25 PM EDT): Controlled Holding metoprolol for now due to bradycardia and relative hypotention Assessment & Plan (06/16/2025 11:43 AM EDT): Controlled Holding metoprolol for now due to bradycardia and relative hypotention Assessment & Plan (06/15/2025 8:57 AM EDT): Controlled Cont Toprol IR with holding parameters Assessment & Plan (06/14/2025 12:36 PM EDT): Controlled Cont Toprol IR with holding parameters Assessment & Plan (06/13/2025 1:01 PM EDT): Controlled Cont Toprol IR with holding parameters Assessment & Plan (06/12/2025 12:58 PM EDT): Controlled Cont Toprol IR with holding parameters Assessment & Plan (06/11/2025 2:53 PM EDT): Controlled Cont Toprol IR with holding parameters Assessment & Plan (02/29/2024 12:40 AM EDT): Assessment & Plan (02/13/2024 3:42 PM EDT): Blood pressure controlled today 120/64. She will continue her current medication changes without any changes. Assessment & Plan (05/24/2023 10:25 AM EDT): Blood pressure in the office today is normal. No medication changes. Assessment & Plan (05/10/2023 1:45 PM EDT): Blood pressure in the office today low. We will discontinue her spironolactone. I have asked her to hold her furosemide for 2 or 3 days. At that point she will resume half a dose (only 20 mg) once daily. I would like to follow-up with her in 2 weeks. Assessment & Plan (05/18/2021 5:54 PM EDT): Well-controlled, BP in the office today 124/62. No med adjustments today. Assessment & Plan (07/14/2020 12:58 PM EDT): Blood pressure today 128/88. She is on Multaq 400 mg twice daily. Assessment & Plan (06/30/2020 5:06 PM EDT): Blood pressure in the office today 114/62. Well controlled. No medication adjustments. Assessment & Plan (05/26/2020 1:17 AM EDT): -Blood pressure is currently controlled, does not appear to be on any antihypertensive medications at home Assessment & Plan (04/09/2020 8:52 AM EDT): Blood pressure goal of less than 130/90. Blood pressure is elevated during today's visit. Patient does admit to feeling nervous and excited. She is not on any antihypertensives. We discussed at length Dash and hidden salt sources. Patient will try with salt limitation and attempt to weight loss. I advised her to call us if her blood pressure is still consistently elevated above goal despite salt restriction - she will need to initiate pharmacologic therapy. Assessment & Plan (07/17/2019 1:14 PM EDT): Adequate control on her current meds. I am discontinuing her metoprolol so this may increase her blood pressure a bit. I will follow-up with her in a few weeks to reassess. Assessment & Plan (06/25/2019 9:10 AM EDT): Blood pressure is a bit soft in the office today. I have discontinued her amlodipine, will continue current dosage of metoprolol. Assessment & Plan (04/16/2019 12:48 PM EDT): Well controlled in the office, no medication changes Assessment & Plan (02/01/2019 11:09 PM EDT): Monitor blood pressure with restarting metoprolol as above. Lisinopril and metoprolol had been recently discontinued at [facility] due to hypotension. Type 2 diabetes mellitus, [facility] long-term current use of insulin 02/01/2019 Assessment & Plan (09/10/2025 1:28 PM EST): Stable on metformin Assessment & Plan (09/09/2025 1:26 PM EST): Stable on metformin Assessment & Plan (09/08/2025 12:19 PM EST): Hemoglobin A1c 5.1. (07/2025) - Continue metformin 500 twice daily - Continue low-carb diet Assessment & Plan (09/07/2025 10:15 AM EST): Hemoglobin A1c 5.1. (07/2025) - Continue metformin 500 twice daily - Continue low-carb diet Assessment & Plan (09/06/2025 11:02 AM EST): Stable on metformin Assessment & Plan (09/05/2025 11:36 AM EST): Stable on metformin Assessment & Plan (09/04/2025 11:04 AM EST): Well-controlled - Hemoglobin A1c 5.1. (07/2025) - Continue metformin 500 twice daily - Continue low-carb diet - Periodic glucose checks have been stable Assessment & Plan (09/03/2025 11:42 AM EST): Well-controlled - Hemoglobin A1c 5.1. (07/2025) - Continue metformin 500 twice daily - Continue low-carb diet - Periodic glucose checks Assessment & Plan (09/02/2025 12:13 PM EST): Well-controlled - Hemoglobin A1c 5.1. (07/2025) - Continue metformin 500 twice daily - Continue low-carb diet - Periodic glucose checks, slightly elevated this morning at 120 Assessment & Plan (09/01/2025 9:34 AM EST): Well-controlled - Hemoglobin A1c 5.1. (07/2025) - Continue metformin 500 twice daily - Continue low-carb diet Assessment & Plan (08/31/2025 9:27 AM EST): Well-controlled - Hemoglobin A1c 5.1. (07/2025) - Continue metformin 500 twice daily - Continue low-carb diet Assessment & Plan (08/30/2025 9:30 AM EST): Well-controlled - Hemoglobin A1c 5.1. (07/2025) - Continue metformin 500 twice daily - Continue low-carb diet Assessment & Plan (08/29/2025 9:27 AM EST): Well-controlled - Hemoglobin A1c 5.1. (07/2025) - Continue metformin 500 twice daily - Continue low-carb diet Assessment & Plan (08/28/2025 12:14 PM EST): Well-controlled - Hemoglobin A1c 5.1. (07/2025) - Continue metformin 500 twice daily - Continue low-carb diet Assessment & Plan (08/27/2025 2:44 PM EST): Well-controlled - Hemoglobin A1c 5.1. (07/2025) - Continue metformin 500 twice daily - Continue low-carb diet Assessment & Plan (08/26/2025 12:56 PM EST): Well-controlled - Hemoglobin A1c 5.1. (07/2025) - Continue metformin 500 twice daily - Continue low-carb diet Assessment & Plan (08/25/2025 8:30 AM EST): Well-controlled - Hemoglobin A1c 5.1. (07/2025) - Continue metformin 500 twice daily - Continue low-carb diet Assessment & Plan (08/24/2025 11:35 AM EST): Well-controlled - Hemoglobin A1c 5.1. (07/2025) - Continue metformin 500 twice daily - Continue low-carb diet Assessment & Plan (08/23/2025 10:00 AM EST): Well-controlled - Hemoglobin A1c 5.1. (07/2025) - Continue metformin 500 twice daily - Continue low-carb diet Assessment & Plan (08/22/2025 8:42 AM EST): Patient was noted to have some elevation of her blood sugars therefore she was placed on a sliding scale however this was discontinued as her POC's remain well- controlled. - Hemoglobin A1c 5.1. (07/2025) - Continue metformin 500 twice daily - Continue low-carb diet Assessment & Plan (08/21/2025 8:07 AM EST): Patient was noted to have some elevation of her blood sugars therefore she was placed on a sliding scale however this was discontinued as her POC's remain well- controlled. - Hemoglobin A1c 5.1. (07/2025) - Continue metformin 500 twice daily - Continue low-carb diet Assessment & Plan (08/20/2025 12:58 PM EST): Patient was noted to have some elevation of her blood sugars therefore she was placed on a sliding scale however this was discontinued as her POC's remain well- controlled. - Hemoglobin A1c 5.1. (07/2025) - Continue metformin 500 twice daily - Continue low-carb diet Assessment & Plan (08/19/2025 7:59 AM EST): Patient was noted to have some elevation of her blood sugars therefore she was placed on a sliding scale however this was discontinued as her POC's remain well- controlled. - Hemoglobin A1c 5.1. (07/2025) - Continue metformin 500 twice daily - Continue low-carb diet Assessment & Plan (08/18/2025 10:22 AM EST): Patient was noted to have some elevation of her blood sugars therefore she was placed on a sliding scale however this was discontinued as her POC's remain well- controlled. - Hemoglobin A1c 5.1. (07/2025) - Continue metformin 500 twice daily - Continue low-carb diet Assessment & Plan (08/17/2025 10:25 AM EST): Patient was noted to have some elevation of her blood sugars therefore she was placed on a sliding scale however this was discontinued as her POC's remain well- controlled. - Hemoglobin A1c 5.1. (07/2025) - Continue metformin 500 twice daily - Continue low-carb diet Assessment & Plan (08/16/2025 10:25 AM EST): Patient was noted to have some elevation of her blood sugars therefore she was placed on a sliding scale however this was discontinued as her POC's remain well- controlled. - Hemoglobin A1c 5.1. (07/2025) - Continue metformin 500 twice daily - Continue low-carb diet Assessment & Plan (08/15/2025 8:43 AM EST): Patient was noted to have some elevation of her blood sugars therefore she was placed on a sliding scale however this was discontinued as her POC's remain well- controlled her hemoglobin A1c is noted to be 5.1. History of diabetes, is well-controlled. - Continue metformin 500 twice daily - Continue low-carb diet Assessment & Plan (08/14/2025 10:41 AM EST): Patient was noted to have some elevation of her blood sugars therefore she was placed on a sliding scale however this was discontinued as her POC's remain well- controlled her hemoglobin A1c is noted to be 5.1. History of diabetes, is well-controlled. - Continue metformin 500 twice daily - Continue low-carb diet Assessment & Plan (08/13/2025 12:01 PM EST): Patient was noted to have some elevation of her blood sugars therefore she was placed on a sliding scale however this was discontinued as her POC's remain well- controlled her hemoglobin A1c is noted to be 5.1. History of diabetes, is well-controlled. - Continue metformin 500 twice daily - Continue low-carb diet Assessment & Plan (08/12/2025 8:11 AM EST): Patient was noted to have some elevation of her blood sugars therefore she was placed on a sliding scale however this was discontinued as her POC's remain well- controlled her hemoglobin A1c is noted to be 5.1. History of diabetes, is well-controlled. - Continue metformin 500 twice daily - Continue low-carb diet Assessment & Plan (08/11/2025 9:20 AM EST): Patient was noted to have some elevation of her blood sugars therefore she was placed on a sliding scale however this was discontinued as her POC's remain well- controlled her hemoglobin A1c is noted to be 5.1. History of diabetes, is well-controlled. - Continue metformin 500 twice daily - Continue low-carb diet Assessment & Plan (08/10/2025 9:23 AM EST): Patient was noted to have some elevation of her blood sugars therefore she was placed on a sliding scale however this was discontinued as her POC's remain well- controlled her hemoglobin A1c is noted to be 5.1. History of diabetes, is well-controlled. - Continue metformin 500 twice daily - Continue low-carb diet Assessment & Plan (08/09/2025 5:46 PM EST): Patient was noted to have some elevation of her blood sugars therefore she was placed on a sliding scale however this was discontinued as her POC's remain well- controlled her hemoglobin A1c is noted to be 5.1 -She is to continue her metformin 500 mg p.o. twice daily Assessment & Plan (08/08/2025 1:52 PM EST): Patient was noted to have some elevation of her blood sugars therefore she was placed on a sliding scale however this was discontinued as her POC's remain well- controlled her hemoglobin A1c is noted to be 5.1 -She is to continue her metformin 500 mg p.o. twice daily Assessment & Plan (08/07/2025 2:39 PM EST): Patient was noted to have some elevation of her blood sugars therefore she was placed on a sliding scale however this was discontinued as her POC's remain well- controlled her hemoglobin A1c is noted to be 5.1 -She is to continue her metformin 500 mg p.o. twice daily Assessment & Plan (08/06/2025 9:40 AM EST): Patient was noted to have some elevation of her blood sugars therefore she was placed on a sliding scale however this was discontinued as her POC's remain well- controlled her hemoglobin A1c is noted to be 5.1 -She is to continue her metformin 500 mg p.o. twice daily Assessment & Plan (2025 12:59 PM EST): Patient was noted to have some elevation of her blood sugars therefore she was placed on a sliding scale however this was discontinued as her POC's remain well- controlled her hemoglobin A1c is noted to be 5.1 -She is to continue her metformin 500 mg p.o. twice daily Assessment & Plan (08/04/2025 9:52 AM EST): Patient was noted to have some elevation of her blood sugars therefore she was placed on a sliding scale however this was discontinued as her POC's remain well- controlled her hemoglobin A1c is noted to be 5.1 -She is to continue her metformin 500 mg p.o. twice daily Assessment & Plan (08/03/2025 12:40 PM EDT): Patient was noted to have some elevation of her blood sugars therefore she was placed on a sliding scale however this was discontinued as her POC's remain well- controlled her hemoglobin A1c is noted to be 5.1 -She is to continue her metformin 500 mg p.o. twice daily Assessment & Plan (08/02/2025 11:23 AM EDT): Patient was noted to have some elevation of her blood sugars therefore she was placed on a sliding scale however this was discontinued as her POC's remain well- controlled her hemoglobin A1c is noted to be 5.1 -She is to continue her metformin 500 mg p.o. twice daily Assessment & Plan (08/01/2025 4:52 PM EDT): Patient was noted to have some elevation of her blood sugars therefore she was placed on a sliding scale however this was discontinued as her POC's remain well- controlled her hemoglobin A1c is noted to be 5.1 -She is to continue her metformin 500 mg p.o. twice daily Assessment & Plan (07/31/2025 6:40 PM EDT): Patient was noted to have some elevation of her blood sugars therefore she was placed on a sliding scale however this was discontinued as her POC's remain well- controlled her hemoglobin A1c is noted to be 5.1 -She is to continue her metformin 500 mg p.o. twice daily Assessment & Plan (07/30/2025 9:23 PM EDT): Patient was noted to have some elevation of her blood sugars therefore she was placed on a sliding scale however this was discontinued as her POC's remain well- controlled her hemoglobin A1c is noted to be 5.1 -She is to continue her metformin 500 mg p.o. twice daily Assessment & Plan (07/29/2025 5:37 PM EDT): Patient was noted to have some elevation of her blood sugars therefore she was placed on a sliding scale however this was discontinued as her POC's remain well- controlled her hemoglobin A1c is noted to be 5.1 -She is to continue her metformin 500 mg p.o. twice daily Assessment & Plan (07/28/2025 2:27 PM EDT): Patient was noted to have some elevation of her blood sugars therefore she was placed on a sliding scale however this was discontinued as her POC's remain well- controlled her hemoglobin A1c is noted to be 5.1 -She is to continue her metformin 500 mg p.o. twice daily Assessment & Plan (07/27/2025 9:49 AM EDT): Patient was noted to have some elevation of her blood sugars therefore she was placed on a sliding scale however this was discontinued as her POC's remain well- controlled her hemoglobin A1c is noted to be 5.1 -She is to continue her metformin 500 mg p.o. twice daily Assessment & Plan (07/26/2025 10:28 AM EDT): POC well-controlled earlier during admission and SSI discontinued - Cont home metformin - hemoglobin A1c 5.1 Assessment & Plan (07/25/2025 11:06 AM EDT): POC well-controlled earlier during admission and SSI discontinued - Cont home metformin - hemoglobin A1c 5.1 Assessment & Plan (07/24/2025 12:29 PM EDT): POC well-controlled earlier during admission and SSI discontinued - Cont home metformin -Check hemoglobin A1c Assessment & Plan (07/22/2025 12:35 PM EDT): Blood sugars in the 70s to 90s. Therefore POC C and SSI discontinued - Cont home metformin Assessment & Plan (07/21/2025 3:55 PM EDT): Blood sugars in the 70s to 90s. Therefore POC C and SSI discontinued - Cont home metformin Assessment & Plan (07/20/2025 3:50 PM EDT): Blood sugars in the 70s to 90s. Therefore POC C and SSI discontinued - Cont home metformin Assessment & Plan (07/19/2025 1:36 PM EDT): Blood sugars in the 70s to 90s. Therefore POC C and SSI discontinued - Cont home metformin Assessment & Plan (07/18/2025 12:50 PM EDT): Blood sugars in the 70s to 90s. Therefore POC C and SSI discontinued - Cont home metformin Assessment & Plan (07/17/2025 2:39 PM EDT): Blood sugars in the 70s to 90s. Therefore POC C and SSI discontinued - Cont home metformin Assessment & Plan (07/16/2025 5:47 PM EDT): Blood sugars in the 70s to 90s. Therefore POC C and SSI discontinued - Cont home metformin Assessment & Plan (07/15/2025 4:27 PM EDT): Blood sugars in the 70s to 90s. Therefore POC C and SSI discontinued - Cont home metformin Assessment & Plan (07/13/2025 5:36 PM EDT): Blood sugars in the 70s to 90s. Therefore POC C and SSI discontinued - Cont home metformin Assessment & Plan (07/12/2025 5:58 PM EDT): Blood sugars in the 70s to 90s. Therefore POC C and SSI discontinued - Cont home metformin Assessment & Plan (07/11/2025 2:26 PM EDT): Blood sugars in the 70s to 90s. Therefore POC C and SSI discontinued - Cont home metformin Assessment & Plan (07/10/2025 7:39 PM EDT): Blood sugars in the 70s to 90s. Therefore POC C and SSI discontinued - Cont home metformin Assessment & Plan (07/09/2025 8:02 PM EDT): Blood sugars in the 70s to 90s. Therefore POC C and SSI discontinued - Cont home metformin Assessment & Plan (07/08/2025 1:54 PM EDT): Blood sugars in the 70s to 90s. Therefore POC C and SSI discontinued - Cont home metformin Assessment & Plan (07/07/2025 2:29 PM EDT): Blood sugars in the 70s to 90s. Therefore POC C and SSI discontinued - Cont home metformin Assessment & Plan (07/06/2025 4:14 PM EDT): Blood sugars in the 70s to 90s. Therefore POC C and SSI discontinued - Cont home metformin Assessment & Plan (07/05/2025 9:30 PM EDT): Blood sugars in the 70s to 90s. Therefore POC C and SSI discontinued - Cont home metformin Assessment & Plan (07/04/2025 11:29 PM EDT): Blood sugars in the 70s to 90s. Therefore POC C and SSI discontinued - Cont home metformin Assessment & Plan (07/03/2025 5:51 PM EDT): Blood sugars in the 70s to 90s. Therefore POC C and SSI discontinued - Cont home metformin Assessment & Plan (07/02/2025 4:27 PM EDT): Blood sugars in the 70s to 90s. Therefore POC C and SSI discontinued - Cont home metformin Assessment & Plan (07/01/2025 1:36 PM EDT): Blood sugars in the 70s to 90s. Therefore POC C and SSI discontinued - Cont home metformin Assessment & Plan (06/30/2025 2:55 PM EDT): Blood sugars in the 70s to 90s. Therefore POC C and SSI discontinued - Cont home metformin Assessment & Plan (06/29/2025 3:36 PM EDT): Blood sugars in the 70s to 90s. Therefore POC C and SSI discontinued - Cont home metformin Assessment & Plan (06/28/2025 6:10 PM EDT): Blood sugars in the 70s to 90s. Therefore POC C and SSI discontinued - Cont home metformin Assessment & Plan (06/27/2025 11:59 AM EDT): Blood sugars in the 70s to 90s. Therefore POC C and SSI discontinued - Cont home metformin Assessment & Plan (06/26/2025 6:06 PM EDT): Blood sugars in the 70s to 90s. Avojz-tp-zaho's have been low therefore subcu insulin order and POC's discontinued. - Cont home metformin Assessment & Plan (06/25/2025 5:17 PM EDT): Blood sugars in the 70s to 90s. Itvjp-io-xxcf's have been low therefore subcu insulin order and POC's discontinued. - Cont home metformin Assessment & Plan (06/23/2025 6:08 PM EDT): Blood sugars in the 70s to 90s. Ularo-re-qlnf's have been low therefore subcu insulin order and POC's discontinued. - Cont home metformin Assessment & Plan (06/22/2025 5:31 PM EDT): Blood sugars in the 70s to 90s. Pdsel-gt-cfds's have been low therefore subcu insulin order and POC's discontinued. - Cont home metformin Assessment & Plan (06/21/2025 7:00 PM EDT): Blood sugars in the 70s to 90s. Pmful-my-ipja's have been low therefore subcu insulin order and POC's discontinued. - Cont home metformin Assessment & Plan (06/20/2025 3:13 PM EDT): Blood sugars in the 70s to 90s. Smwkr-fi-vjni's have been low therefore subcu insulin order and POC's discontinued. - Cont home metformin Assessment & Plan (06/19/2025 5:57 PM EDT): Blood sugars in the 70s to 90s. Kezjz-uj-qfpa's have been low therefore subcu insulin order and POC's discontinued. - Cont home metformin Assessment & Plan (06/18/2025 5:38 PM EDT): Blood sugars in the 70s to 90s. Dpmkk-vm-wzfu's have been low therefore subcu insulin order and POC's discontinued. - Cont home metformin Assessment & Plan (06/17/2025 12:25 PM EDT): Cont home metformin -POCTs have been 130 or less, will hold on SQ insulin order at this time and d/c poc Assessment & Plan (06/16/2025 11:43 AM EDT): Cont home metformin -POCTs have been 130 or less, will hold on SQ insulin order at this time and d/c poc Assessment & Plan (06/15/2025 8:57 AM EDT): Cont home metformin -POCTs have been 130 or less, will hold on SQ insulin order at this time and d/c poc Assessment & Plan (06/14/2025 12:36 PM EDT): Cont home metformin -POCTs have been 130 or less, will hold on SQ insulin order at this time -cont POCTs ACHS Assessment & Plan (06/13/2025 1:01 PM EDT): Cont home metformin -POCTs have been 130 or less, will hold on SQ insulin order at this time -cont POCTs ACHS Assessment & Plan (06/12/2025 12:58 PM EDT): Cont home metformin -POCTs have been 130 or less, will hold on SQ insulin order at this time -cont POCTs ACHS Assessment & Plan (06/11/2025 2:57 PM EDT): Cont home metformin -POCTs have been 130 or less, will hold on SQ insulin order at this time -cont POCTs ACHS Assessment & Plan (05/02/2025 8:33 PM EDT): Will give basal bolus insulin therapy Assessment & Plan (08/28/2024 10:25 AM EST): Looks like she has history of prediabetes rather than diabetes, A1c today at 5.5%. Previously on Ozempic, though has not been filled for several months. -Lispro sliding scale as needed -Low carbohydrate diet -Continue with gabapentin 600 mg 3 times daily Assessment & Plan (08/28/2024 12:05 AM EST): Will give basal bolus insulin therapy. Hold Ozempic as this is nonformulary. Assessment & Plan (02/29/2024 12:40 AM EDT): Well-controlled. Currently on metformin and Ozempic. Most recent hemoglobin A1c was 5.1 2 months ago. -Continue on low-dose insulin sliding scale with yzywk-lt-mtbq testing. -Holding metformin Assessment & Plan (12/04/2023 2:47 AM EST): We will give basal bolus insulin therapy. Assessment & Plan (09/04/2020 5:54 PM EST): Good glycemic control Assessment & Plan (05/27/2020 4:57 PM EDT): Normal blood sugars Assessment & Plan (11/19/2019 3:11 PM EST): Patient takes metformin at home. Her hemoglobin A1c is 5.1. Followed Accu-Cheks in the hospital and these are usually about 80. Do not think she needs her sugars to be that low and I wonder if the mildly low glucose levels are contributing to her symptoms. Metformin was discontinued Assessment & Plan (02/01/2019 11:10 PM EDT): Follow point of cares with insulin sliding scale coverage. Hold metformin with potential upcoming procedure and need for IV contrast. Coronary artery disease 02/01/2019 Overview (11/16/2019): cardiac cath done and medical mgmt of blockage elected over stenting Assessment & Plan (05/24/2023 10:25 AM EDT): She had a stress test in 2019 which showed nonobstructive coronary artery disease. She will continue to optimize her risk factors. Blood pressure in the office today is normal. LDL goal less than 70. Assessment & Plan (02/21/2023 1:51 PM EDT): We reviewed her echocardiogram, showing no change from prior in 2020. Denies new or concerning symptoms (the constant left-sided chest ache she experiences has been present and unchanged for many months, is not exertional). She had a diagnostic cardiac catheterization done in 2019 showing nonobstructive CAD in LAD, RCA and LCx. Nuclear stress test in 2020 normal. She has been medically managed since then. We will continue to optimize her cardiovascular risk factors. She will remain on 81 mg aspirin and 80 mg atorvastatin. LDL goal < 70 mg/dL. Assessment & Plan (07/14/2020 1:05 PM EDT): She has a history of mild nonobstructive CAD. She has been recommended to optimize her cardiac risk factors. Revised cardiac risk index for preoperative risk of medical, class II risk, (1 point history of ischemic heart disease (AL), 6.0% 30 day risk of , AL, or cardiac arrest. She is able to climb a flight of stairs and walk without chest pain. Assessment & Plan (06/30/2020 5:07 PM EDT): Patient has a history of some mild nonobstructive CAD. She has been recommended to optimize her cardiac risk factors. She has no symptoms at this time concerning for angina. Assessment & Plan (04/09/2020 8:54 AM EDT): 02/02/2019 cardiac catheterization showed nonobstructive CAD (50% mid LAD, nonobstructive stenosis in the RCA and left circumflex). Clinically stable no angina. Continue on daily aspirin continue to optimize risk factors. Assessment & Plan (11/19/2019 3:09 PM EST): No chest pain or ischemic EKG changes at this time. Continue usual aspirin and statin . Depression with anxiety Assessment & Plan (09/10/2025 1:28 PM EST): Continue home medication regimen, pharmacy record checked Assessment & Plan (09/09/2025 1:26 PM EST): Continue home medication regimen, pharmacy record checked Assessment & Plan (09/08/2025 12:19 PM EST): Longstanding history of anxiety and depression. She had also been followed by psychiatry patient mentions that she has had suicide attempts in the past with cutting. Although there was a concern for HI upon admission. Patient denies SI or HI. She was seen by psychiatry not a candidate for inpatient psych. No need for one-to-one per psychiatry - Effexor XR 225 mg p.o. daily, trazodone 100 mg p.o. nightly, Haldol 1 mg p.o. twice daily, and gabapentin 600 mg p.o. 3 times daily she is also on Cogentin 1 mg p.o. nightly. - She is also on Seroquel 50 mg p.o. 3 times daily as needed Assessment & Plan (09/07/2025 10:15 AM EST): Longstanding history of anxiety and depression. She had also been followed by psychiatry patient mentions that she has had suicide attempts in the past with cutting. Although there was a concern for HI upon admission. Patient denies SI or HI. She was seen by psychiatry not a candidate for inpatient psych. No need for one-to-one per psychiatry - Effexor XR 225 mg p.o. daily, trazodone 100 mg p.o. nightly, Haldol 1 mg p.o. twice daily, and gabapentin 600 mg p.o. 3 times daily she is also on Cogentin 1 mg p.o. nightly. - She is also on Seroquel 50 mg p.o. 3 times daily as needed Assessment & Plan (09/06/2025 11:02 AM EST): Continue home medication regimen, pharmacy record checked Assessment & Plan (09/05/2025 11:36 AM EST): Continue home medication regimen Assessment & Plan (09/04/2025 11:04 AM EST): Continue home medication regimen Assessment & Plan (09/03/2025 11:42 AM EST): Patient with a longstanding history of anxiety and depression. - Continue Effexor XR 225 mg p.o. daily, trazodone 100 mg p.o. nightly, Haldol 1 mg p.o. twice daily, and gabapentin 600 mg p.o. 3 times daily Cogentin 1 mg p.o. nightly. These are all chronic meds Seroquel 50 mg p.o. 3 times daily as needed - holding for now due to increased confusion Assessment & Plan (09/02/2025 12:13 PM EST): Patient with a longstanding history of anxiety and depression. - Continue Effexor XR 225 mg p.o. daily, trazodone 100 mg p.o. nightly, Haldol 1 mg p.o. twice daily, and gabapentin 600 mg p.o. 3 times daily Cogentin 1 mg p.o. nightly. These are all chronic meds Seroquel 50 mg p.o. 3 times daily as needed -has been taking every evening over the last few days, she is a bit more confused than baseline this morning per nursing. Will hold for now Assessment & Plan (09/01/2025 9:34 AM EST): Patient with a longstanding history of anxiety and depression.She was seen by psychiatry on 06/12/2025 and stated that she was not a candidate for inpatient psych. No need for one-to-one sitter per psychiatry - Continue Effexor XR 225 mg p.o. daily, trazodone 100 mg p.o. nightly, Haldol 1 mg p.o. twice daily, and gabapentin 600 mg p.o. 3 times daily Cogentin 1 mg p.o. nightly. Seroquel 50 mg p.o. 3 times daily as needed (she has had HS the last three nights) Assessment & Plan (08/31/2025 9:27 AM EST): Patient with a longstanding history of anxiety and depression.She was seen by psychiatry on 06/12/2025 and stated that she was not a candidate for inpatient psych. No need for one-to-one sitter per psychiatry - Continue Effexor XR 225 mg p.o. daily, trazodone 100 mg p.o. nightly, Haldol 1 mg p.o. twice daily, and gabapentin 600 mg p.o. 3 times daily Cogentin 1 mg p.o. nightly. Seroquel 50 mg p.o. 3 times daily as needed(she has had HS the last three nights) Assessment & Plan (08/30/2025 9:30 AM EST): Patient with a longstanding history of anxiety and depression.She was seen by psychiatry on 06/12/2025 and stated that she was not a candidate for inpatient psych. No need for one-to-one sitter per psychiatry - Continue Effexor XR 225 mg p.o. daily, trazodone 100 mg p.o. nightly, Haldol 1 mg p.o. twice daily, and gabapentin 600 mg p.o. 3 times daily Cogentin 1 mg p.o. nightly. Seroquel 50 mg p.o. 3 times daily as needed(she has had HS the last three nights) Assessment & Plan (08/29/2025 9:27 AM EST): Patient with a longstanding history of anxiety and depression.She was seen by psychiatry on 06/12/2025 and stated that she was not a candidate for inpatient psych. No need for one-to-one sitter per psychiatry - Continue Effexor XR 225 mg p.o. daily, trazodone 100 mg p.o. nightly, Haldol 1 mg p.o. twice daily, and gabapentin 600 mg p.o. 3 times daily Cogentin 1 mg p.o. nightly. Seroquel 50 mg p.o. 3 times daily as needed(she has had HS the last three nights) Assessment & Plan (08/28/2025 12:14 PM EST): Patient with a longstanding history of anxiety and depression.She was seen by psychiatry on 06/12/2025 and stated that she was not a candidate for inpatient psych. No need for one-to-one sitter per psychiatry - Continue Effexor XR 225 mg p.o. daily, trazodone 100 mg p.o. nightly, Haldol 1 mg p.o. twice daily, and gabapentin 600 mg p.o. 3 times daily Cogentin 1 mg p.o. nightly. Seroquel 50 mg p.o. 3 times daily as needed Assessment & Plan (08/27/2025 2:44 PM EST): Patient with a longstanding history of anxiety and depression.She was seen by psychiatry on 06/12/2025 and stated that she was not a candidate for inpatient psych. No need for one-to-one sitter per psychiatry - Continue Effexor XR 225 mg p.o. daily, trazodone 100 mg p.o. nightly, Haldol 1 mg p.o. twice daily, and gabapentin 600 mg p.o. 3 times daily Cogentin 1 mg p.o. nightly. Seroquel 50 mg p.o. 3 times daily as needed Assessment & Plan (08/26/2025 12:56 PM EST): Patient with a longstanding history of anxiety and depression.She was seen by psychiatry on 06/12/2025 and stated that she was not a candidate for inpatient psych. No need for one-to-one sitter per psychiatry - Continue Effexor XR 225 mg p.o. daily, trazodone 100 mg p.o. nightly, Haldol 1 mg p.o. twice daily, and gabapentin 600 mg p.o. 3 times daily Cogentin 1 mg p.o. nightly. Seroquel 50 mg p.o. 3 times daily as needed Assessment & Plan (08/25/2025 8:30 AM EST): Patient with a longstanding history of anxiety and depression.She was seen by psychiatry on 06/12/2025 and stated that she was not a candidate for inpatient psych. No need for one-to-one sitter per psychiatry - Continue Effexor XR 225 mg p.o. daily, trazodone 100 mg p.o. nightly, Haldol 1 mg p.o. twice daily, and gabapentin 600 mg p.o. 3 times daily Cogentin 1 mg p.o. nightly. Seroquel 50 mg p.o. 3 times daily as needed Assessment & Plan (08/24/2025 11:35 AM EST): Patient with a longstanding history of anxiety and depression.She was seen by psychiatry on 06/12/2025 and stated that she was not a candidate for inpatient psych. No need for one-to-one sitter per psychiatry - Continue Effexor XR 225 mg p.o. daily, trazodone 100 mg p.o. nightly, Haldol 1 mg p.o. twice daily, and gabapentin 600 mg p.o. 3 times daily Cogentin 1 mg p.o. nightly. Seroquel 50 mg p.o. 3 times daily as needed Assessment & Plan (08/23/2025 10:00 AM EST): Patient with a longstanding history of anxiety and depression.She was seen by psychiatry on 06/12/2025 and stated that she was not a candidate for inpatient psych. No need for one-to-one sitter per psychiatry - Continue Effexor XR 225 mg p.o. daily, trazodone 100 mg p.o. nightly, Haldol 1 mg p.o. twice daily, and gabapentin 600 mg p.o. 3 times daily Cogentin 1 mg p.o. nightly. Seroquel 50 mg p.o. 3 times daily as needed Assessment & Plan (08/22/2025 8:42 AM EST): Patient with a longstanding history of anxiety and depression who has been followed by [facility] in the past with her last visit with her therapist about a year ago. She had also been followed by psychiatry patient mentions that she has had suicide attempts in the past with cutting. Although there was a concern for HI upon admission. Patient denies SI or HI. She was seen by psychiatry on 06/12/2025 and stated that she was not a candidate for inpatient psych. No need for one-to-one sitter per psychiatry - Patient is managed on Effexor XR 225 mg p.o. daily, trazodone 100 mg p.o. nightly, Haldol 1 mg p.o. twice daily, and gabapentin 600 mg p.o. 3 times daily she is also on Cogentin 1 mg p.o. nightly. - She is also on Seroquel 50 mg p.o. 3 times daily as needed Assessment & Plan (08/21/2025 8:07 AM EST): Patient with a longstanding history of anxiety and depression who has been followed by [facility] in [facility] past with her last visit with her therapist about a year ago. She had also been followed by psychiatry patient mentions that she has had suicide attempts in the past with cutting. Although there was a concern for HI upon admission. Patient denies SI or HI. She was seen by psychiatry on 06/12/2025 and stated that she was not a candidate for inpatient psych. No need for one-to-one sitter per psychiatry - Patient is managed on Effexor XR 225 mg p.o. daily, trazodone 100 mg p.o. nightly, Haldol 1 mg p.o. twice daily, and gabapentin 600 mg p.o. 3 times daily she is also on Cogentin 1 mg p.o. nightly. - She is also on Seroquel 50 mg p.o. 3 times daily as needed Assessment & Plan (08/20/2025 12:58 PM EST): Patient with a longstanding history of anxiety and depression who has been followed by [facility] in [facility] past with her last visit with her therapist about a year ago. She had also been followed by psychiatry patient mentions that she has had suicide attempts in the past with cutting. Although there was a concern for HI upon admission. Patient denies SI or HI. She was seen by psychiatry on 06/12/2025 and stated that she was not a candidate for inpatient psych. No need for one-to-one sitter per psychiatry - Patient is managed on Effexor XR 225 mg p.o. daily, trazodone 100 mg p.o. nightly, Haldol 1 mg p.o. twice daily, and gabapentin 600 mg p.o. 3 times daily she is also on Cogentin 1 mg p.o. nightly. - She is also on Seroquel 50 mg p.o. 3 times daily as needed Assessment & Plan (08/19/2025 7:59 AM EST): Patient with a longstanding history of anxiety and depression who has been followed by [facility] in [facility] past with her last visit with her therapist about a year ago. She had also been followed by psychiatry patient mentions that she has had suicide attempts in the past with cutting. Although there was a concern for HI upon admission. Patient denies SI or HI. She was seen by psychiatry on 06/12/2025 and stated that she was not a candidate for inpatient psych. No need for one-to-one sitter per psychiatry - Patient is managed on Effexor XR 225 mg p.o. daily, trazodone 100 mg p.o. nightly, Haldol 1 mg p.o. twice daily, and gabapentin 600 mg p.o. 3 times daily she is also on Cogentin 1 mg p.o. nightly. - She is also on Seroquel 50 mg p.o. 3 times daily as needed Assessment & Plan (08/18/2025 10:22 AM EST): Patient with a longstanding history of anxiety and depression who has been followed by [facility] in [facility] past with her last visit with her therapist about a year ago. She had also been followed by psychiatry patient mentions that she has had suicide attempts in the past with cutting. Although there was a concern for HI upon admission. Patient denies SI or HI. She was seen by psychiatry on 06/12/2025 and stated that she was not a candidate for inpatient psych. No need for one-to-one sitter per psychiatry - Patient is managed on Effexor XR 225 mg p.o. daily, trazodone 100 mg p.o. nightly, Haldol 1 mg p.o. twice daily, and gabapentin 600 mg p.o. 3 times daily she is also on Cogentin 1 mg p.o. nightly. - She is also on Seroquel 50 mg p.o. 3 times daily as needed Assessment & Plan (08/17/2025 10:25 AM EST): Patient with a longstanding history of anxiety and depression who has been followed by [facility] in [facility] past with her last visit with her therapist about a year ago. She had also been followed by psychiatry patient mentions that she has had suicide attempts in the past with cutting. Although there was a concern for HI upon admission. Patient denies SI or HI. She was seen by psychiatry on 06/12/2025 and stated that she was not a candidate for inpatient psych. No need for one-to-one sitter per psychiatry - Patient is managed on Effexor XR 225 mg p.o. daily, trazodone 100 mg p.o. nightly, Haldol 1 mg p.o. twice daily, and gabapentin 600 mg p.o. 3 times daily she is also on Cogentin 1 mg p.o. nightly. - She is also on Seroquel 50 mg p.o. 3 times daily as needed Assessment & Plan (08/16/2025 10:25 AM EST): Patient with a longstanding history of anxiety and depression who [facility] with her last visit with her therapist about a year ago. She had also been followed by psychiatry patient mentions that she has had suicide attempts in the past with cutting. Although there was a concern for HI upon admission. Patient denies SI or HI. She was seen by psychiatry on 06/12/2025 and stated that she was not a candidate for inpatient psych. No need for one-to-one sitter per psychiatry - Patient is managed on Effexor XR 225 mg p.o. daily, trazodone 100 mg p.o. nightly, Haldol 1 mg p.o. twice daily, and gabapentin 600 mg p.o. 3 times daily she is also on Cogentin 1 mg p.o. nightly. - She is also on Seroquel 50 mg p.o. 3 times daily as needed Assessment & Plan (08/15/2025 8:43 AM EST): Patient with a longstanding history of anxiety and depression who [facility] with her last visit with her therapist about a year ago. She had also been followed by psychiatry patient mentions that she has had suicide attempts in the past with cutting. Although there was a concern for HI upon admission. Patient denies SI or HI. She was seen by psychiatry on 06/12/2025 and stated that she was not a candidate for inpatient psych. No need for one-to-one sitter per psychiatry - Patient is managed on Effexor XR 225 mg p.o. daily, trazodone 100 mg p.o. nightly, Haldol 1 mg p.o. twice daily, and gabapentin 600 mg p.o. 3 times daily she is also on Cogentin 1 mg p.o. nightly. - She is also on Seroquel 50 mg p.o. 3 times daily as needed Assessment & Plan (08/14/2025 10:41 AM EST): Patient with a longstanding history of anxiety and depression who [facility] with her last visit with her therapist about a year ago. She had also been followed by psychiatry patient mentions that she has had suicide attempts in the past with cutting. Although there was a concern for HI upon admission. Patient denies SI or HI. She was seen by psychiatry on 06/12/2025 and stated that she was not a candidate for inpatient psych. No need for one-to-one sitter per psychiatry - Patient is managed on Effexor XR 225 mg p.o. daily, trazodone 100 mg p.o. nightly, Haldol 1 mg p.o. twice daily, and gabapentin 600 mg p.o. 3 times daily she is also on Cogentin 1 mg p.o. nightly. - She is also on Seroquel 50 mg p.o. 3 times daily as needed Assessment & Plan (08/13/2025 12:01 PM EST): Patient with a longstanding history of anxiety and depression who has been followed by [facility] in the past with her last visit with her therapist about a year ago. She had also been followed by psychiatry patient mentions that she has had suicide attempts in the past with cutting. Although there was a concern for HI upon admission. Patient denies SI or HI. She was seen by psychiatry on 06/12/2025 and stated that she was not a candidate for inpatient psych. No need for one-to-one sitter per psychiatry - Patient is managed on Effexor XR 225 mg p.o. daily, trazodone 100 mg p.o. nightly, Haldol 1 mg p.o. twice daily, and gabapentin 600 mg p.o. 3 times daily she is also on Cogentin 1 mg p.o. nightly. - She is also on Seroquel 50 mg p.o. 3 times daily as needed Assessment & Plan (08/12/2025 8:11 AM EST): Patient with a longstanding history of anxiety and depression who has been followed by [facility] in the past with her last visit with her therapist about a year ago. She had also been followed by psychiatry patient mentions that she has had suicide attempts in the past with cutting. Although there was a concern for HI upon admission. Patient denies SI or HI. She was seen by psychiatry on 06/12/2025 and stated that she was not a candidate for inpatient psych. No need for one-to-one sitter per psychiatry - Patient is managed on Effexor XR 225 mg p.o. daily, trazodone 100 mg p.o. nightly, Haldol 1 mg p.o. twice daily, and gabapentin 600 mg p.o. 3 times daily she is also on Cogentin 1 mg p.o. nightly. - She is also on Seroquel 50 mg p.o. 3 times daily as needed Assessment & Plan (08/11/2025 9:20 AM EST): Patient with a longstanding history of anxiety and depression who [facility] with her last visit with her therapist about a year ago. She had also been followed by psychiatry patient mentions that she has had suicide attempts in the past with cutting. Although there was a concern for HI upon admission. Patient denies SI or HI. She was seen by psychiatry on 06/12/2025 and stated that she was not a candidate for inpatient psych. No need for one-to-one sitter per psychiatry - Patient is managed on Effexor XR 225 mg p.o. daily, trazodone 100 mg p.o. nightly, Haldol 1 mg p.o. twice daily, and gabapentin 600 mg p.o. 3 times daily she is also on Cogentin 1 mg p.o. nightly. - She is also on Seroquel 50 mg p.o. 3 times daily as needed Assessment & Plan (08/10/2025 9:23 AM EST): Patient with a longstanding history of anxiety and depression who has been followed by [facility] in the past with her last visit with her therapist about a year ago. She had also been followed by psychiatry patient mentions that she has had suicide attempts in the past with cutting. Although there was a concern for HI upon admission. Patient denies SI or HI. She was seen by psychiatry on 06/12/2025 and stated that she was not a candidate for inpatient psych. No need for one-to-one sitter per psychiatry - Patient is managed on Effexor XR 225 mg p.o. daily, trazodone 100 mg p.o. nightly, Haldol 1 mg p.o. twice daily, and gabapentin 600 mg p.o. 3 times daily she is also on Cogentin 1 mg p.o. nightly. - She is also on Seroquel 50 mg p.o. 3 times daily as needed Assessment & Plan (08/09/2025 5:46 PM EST): Patient with a longstanding history of anxiety and depression who has been followed by [facility] in the past with her last visit with her therapist about a year ago. She had also been followed by psychiatry patient mentions that she has had suicide attempts in the past with cutting. Although there was a concern for HI upon admission. Patient denies SI or HI. She was seen by psychiatry on 06/12/2025 and stated that she was not a candidate for inpatient psych. No need for one-to-one sitter per psychiatry - Patient is managed on Effexor XR 225 mg p.o. daily, trazodone 100 mg p.o. nightly, Haldol 1 mg p.o. twice daily, and gabapentin 600 mg p.o. 3 times daily she is also on Cogentin 1 mg p.o. nightly. - She is also on Seroquel 50 mg p.o. 3 times daily as needed Assessment & Plan (08/08/2025 1:52 PM EST): Patient with a longstanding history of anxiety and depression who has been followed by [facility] in the past with her last visit with her therapist about a year ago. She had also been followed by psychiatry patient mentions that she has had suicide attempts in the past with cutting. Although there was a concern for HI upon admission. Patient denies SI or HI. She was seen by psychiatry on 06/12/2025 and stated that she was not a candidate for inpatient psych. No need for one-to-one sitter per psychiatry - Patient is managed on Effexor XR 225 mg p.o. daily, trazodone 100 mg p.o. nightly, Haldol 1 mg p.o. twice daily, and gabapentin 600 mg p.o. 3 times daily she is also on Cogentin 1 mg p.o. nightly. - She is also on Seroquel 50 mg p.o. 3 times daily as needed Assessment & Plan (08/07/2025 2:39 PM EST): Patient with a longstanding history of anxiety and depression who has been followed by [facility] in the past with her last visit with her therapist about a year ago. She had also been followed by psychiatry patient mentions that she has had suicide attempts in the past with cutting. Although there was a concern for HI upon admission. Patient denies SI or HI. She was seen by psychiatry on 06/12/2025 and stated that she was not a candidate for inpatient psych. No need for one-to-one sitter per psychiatry - Patient is managed on Effexor XR 225 mg p.o. daily, trazodone 100 mg p.o. nightly, Haldol 1 mg p.o. twice daily, and gabapentin 600 mg p.o. 3 times daily she is also on Cogentin 1 mg p.o. nightly. - She is also on Seroquel 50 mg p.o. 3 times daily as needed Assessment & Plan (08/06/2025 9:40 AM EST): Patient with a longstanding history of anxiety and depression who has been followed by [facility] in the past with her last visit with her therapist about a year ago. She had also been followed by psychiatry patient mentions that she has had suicide attempts in the past with cutting. Although there was a concern for HI upon admission. Patient denies SI or HI. She was seen by psychiatry on 06/12/2025 and stated that she was not a candidate for inpatient psych. No need for one-to-one sitter per psychiatry - Patient is managed on Effexor XR 225 mg p.o. daily, trazodone 100 mg p.o. nightly, Haldol 1 mg p.o. twice daily, and gabapentin 600 mg p.o. 3 times daily she is also on Cogentin 1 mg p.o. nightly. - She is also on Seroquel 50 mg p.o. 3 times daily as needed Assessment & Plan (2025 12:59 PM EST): Patient with a longstanding history of anxiety and depression who has been followed by [facility] in the past with her last visit with her therapist about a year ago. She had also been followed by psychiatry patient mentions that she has had suicide attempts in the past with cutting. Although there was a concern for HI upon admission. Patient denies SI or HI. She was seen by psychiatry on 06/12/2025 and stated that she was not a candidate for inpatient psych. No need for one-to-one sitter per psychiatry - Patient is managed on Effexor XR 225 mg p.o. daily, trazodone 100 mg p.o. nightly, Haldol 1 mg p.o. twice daily, and gabapentin 600 mg p.o. 3 times daily she is also on Cogentin 1 mg p.o. nightly. - She is also on Seroquel 50 mg p.o. 3 times daily as needed Assessment & Plan (08/04/2025 9:52 AM EST): Patient with a longstanding history of anxiety and depression who has been followed by [facility] in the past with her last visit with her therapist about a year ago. She had also been followed by psychiatry patient mentions that she has had suicide attempts in the past with cutting. Although there was a concern for HI upon admission. Patient denies SI or HI. She was seen by psychiatry on 06/12/2025 and stated that she was not a candidate for inpatient psych. No need for one-to-one sitter per psychiatry - Patient is managed on Effexor XR 225 mg p.o. daily, trazodone 100 mg p.o. nightly, Haldol 1 mg p.o. twice daily, and gabapentin 600 mg p.o. 3 times daily she is also on Cogentin 1 mg p.o. nightly. - She is also on Seroquel 50 mg p.o. 3 times daily as needed Assessment & Plan (08/03/2025 12:40 PM EDT): Patient with a longstanding history of anxiety and depression who has been followed by [facility] in the past with her last visit with her therapist about a year ago. She had also been followed by psychiatry patient mentions that she has had suicide attempts in the past with cutting. Although there was a concern for HI upon admission. Patient denies SI or HI. She was seen by psychiatry on 06/12/2025 and stated that she was not a candidate for inpatient psych. No need for one-to-one sitter per psychiatry - Patient is managed on Effexor XR 225 mg p.o. daily, trazodone 100 mg p.o. nightly, Haldol 1 mg p.o. twice daily, and gabapentin 600 mg p.o. 3 times daily she is also on Cogentin 1 mg p.o. nightly. - She is also on Seroquel 50 mg p.o. 3 times daily as needed Assessment & Plan (08/02/2025 11:23 AM EDT): Patient with a longstanding history of anxiety and depression who has been followed by [facility] in the past with her last visit with her therapist about a year ago. She had also been followed by psychiatry patient mentions that she has had suicide attempts in the past with cutting. Although there was a concern for HI upon admission. Patient denies SI or HI. She was seen by psychiatry on 06/12/2025 and stated that she was not a candidate for inpatient psych. No need for one-to-one sitter per psychiatry - Patient is managed on Effexor XR 225 mg p.o. daily, trazodone 100 mg p.o. nightly, Haldol 1 mg p.o. twice daily, and gabapentin 600 mg p.o. 3 times daily she is also on Cogentin 1 mg p.o. nightly. - She is also on Seroquel 50 mg p.o. 3 times daily as needed Assessment & Plan (08/01/2025 4:52 PM EDT): Patient with a longstanding history of anxiety and depression who has been followed by [facility] in the past with her last visit with her therapist about a year ago. She had also been followed by psychiatry patient mentions that she has had suicide attempts in the past with cutting. Although there was a concern for HI upon admission. Patient denies SI or HI. She was seen by psychiatry on 06/12/2025 and stated that she was not a candidate for inpatient psych. No need for one-to-one sitter per psychiatry - Patient is managed on Effexor XR 225 mg p.o. daily, trazodone 100 mg p.o. nightly, Haldol 1 mg p.o. twice daily, and gabapentin 600 mg p.o. 3 times daily she is also on Cogentin 1 mg p.o. nightly. - She is also on Seroquel 50 mg p.o. 3 times daily as needed Assessment & Plan (07/31/2025 6:40 PM EDT): Patient with a longstanding history of anxiety and depression who has been followed by [facility] in the past with her last visit with her therapist about a year ago. She had also been followed by psychiatry patient mentions that she has had suicide attempts in the past with cutting. Although there was a concern for HI upon admission. Patient denies SI or HI. She was seen by psychiatry on 06/12/2025 and stated that she was not a candidate for inpatient psych. No need for one-to-one sitter per psychiatry - Patient is managed on Effexor XR 225 mg p.o. daily, trazodone 100 mg p.o. nightly, Haldol 1 mg p.o. twice daily, and gabapentin 600 mg p.o. 3 times daily she is also on Cogentin 1 mg p.o. nightly. - She is also on Seroquel 50 mg p.o. 3 times daily as needed -Patient currently has a FaceTime/telemedicine visit with [facility] on Tuesday at 1:30 PM as they feel that she would be a great candidate for their facility Assessment & Plan (07/30/2025 9:23 PM EDT): Patient with a longstanding history of anxiety and depression who has been followed by [facility] in the past with her last visit with her therapist about a year ago. She had also been followed by psychiatry patient mentions that she has had suicide attempts in the past with cutting. Although there was a concern for HI upon admission. Patient denies SI or HI. She was seen by psychiatry on 06/12/2025 and stated that she was not a candidate for inpatient psych. No need for one-to-one sitter per psychiatry - Patient is managed on Effexor XR 225 mg p.o. daily, trazodone 100 mg p.o. nightly, Haldol 1 mg p.o. twice daily, and gabapentin 600 mg p.o. 3 times daily she is also on Cogentin 1 mg p.o. nightly. - She is also on Seroquel 50 mg p.o. 3 times daily as needed -Patient currently has a FaceTime/telemedicine visit with [facility] on Tuesday at 1:30 PM as they feel that she would be a great candidate for their facility Assessment & Plan (07/29/2025 5:37 PM EDT): Patient with a longstanding history of anxiety and depression who has been followed by [facility] in the past with her last visit with her therapist about a year ago. She had also been followed by psychiatry patient mentions that she has had suicide attempts in the past with cutting. Although there was a concern for HI upon admission. Patient denies SI or HI. She was seen by psychiatry on 06/12/2025 and stated that she was not a candidate for inpatient psych. No need for one-to-one sitter per psychiatry - Patient is managed on Effexor XR 225 mg p.o. daily, trazodone 100 mg p.o. nightly, Haldol 1 mg p.o. twice daily, and gabapentin 600 mg p.o. 3 times daily she is also on Cogentin 1 mg p.o. nightly. - She is also on Seroquel 50 mg p.o. 3 times daily as needed -Patient currently has a FaceTime/telemedicine visit with [facility] on Tuesday at 1:30 PM as they feel that she would be a great candidate for their facility Assessment & Plan (07/28/2025 2:27 PM EDT): Patient with a longstanding history of anxiety and depression who has been followed by [facility] in the past with her last visit with her therapist about a year ago. She had also been followed by psychiatry patient mentions that she has had suicide attempts in the past with cutting. Although there was a concern for HI upon admission. Patient denies SI or HI. She was seen by psychiatry on 06/12/2025 and stated that she was not a candidate for inpatient psych. No need for one-to-one sitter per psychiatry - Patient is managed on Effexor XR 225 mg p.o. daily, trazodone 100 mg p.o. nightly, Haldol 1 mg p.o. twice daily, and gabapentin 600 mg p.o. 3 times daily she is also on Cogentin 1 mg p.o. nightly. - She is also on Seroquel 50 mg p.o. 3 times daily as needed -Patient currently has a FaceTime/telemedicine visit with [facility] on Tuesday at 1:30 PM as they feel that she would be a great candidate for their facility Assessment & Plan (07/27/2025 9:49 AM EDT): Patient with a longstanding history of anxiety and depression who has been followed by [facility] in [facility] past with her last visit with her therapist about a year ago. She had also been followed by psychiatry patient mentions that she has had suicide attempts in the past with cutting. Although there was a concern for HI upon admission. Patient denies SI or HI. She was seen by psychiatry on 06/12/2025 and stated that she was not a candidate for inpatient psych. No need for one-to-one sitter per psychiatry - Patient is managed on Effexor XR 225 mg p.o. daily, trazodone 100 mg p.o. nightly, Haldol 1 mg p.o. twice daily, and gabapentin 600 mg p.o. 3 times daily she is also on Cogentin 1 mg p.o. nightly. - She is also on Seroquel 50 mg p.o. 3 times daily as needed -Patient currently has a FaceTime/telemedicine visit with [facility] on Tuesday at 1:30 PM as they feel that she would be a great candidate for their facility Assessment & Plan (07/26/2025 10:28 AM EDT): --Continue scheduled home Effexor, benztropine, haloperidol and trazodone. As needed quetiapine - Psychiatry consulted during admission Assessment & Plan (07/25/2025 9:54 AM EDT): --Continue scheduled home Effexor, benztropine, haloperidol and trazodone. As needed quetiapine - Psychiatry consulted during admission Assessment & Plan (07/24/2025 12:29 PM EDT): --Continue scheduled home Effexor, benztropine, haloperidol and trazodone. As needed quetiapine - Psychiatry consulted during admission Assessment & Plan (07/22/2025 12:35 PM EDT): --Continue scheduled home Effexor, benztropine, haloperidol and trazodone. As needed quetiapine - Psychiatry team has been following Assessment & Plan (07/21/2025 3:55 PM EDT): --Continue scheduled home Effexor, benztropine, haloperidol and trazodone. As needed quetiapine - Psychiatry team has been following Assessment & Plan (07/20/2025 3:50 PM EDT): --Continue scheduled home Effexor, benztropine, haloperidol and trazodone. As needed quetiapine - Psychiatry team has been following Assessment & Plan (07/19/2025 1:36 PM EDT): --Continue scheduled home Effexor, benztropine, haloperidol and trazodone. As needed quetiapine - Psychiatry team has been following Assessment & Plan (07/18/2025 12:50 PM EDT): --Continue scheduled home Effexor, benztropine, haloperidol and trazodone. As needed quetiapine - Psychiatry team has been following Assessment & Plan (07/17/2025 2:39 PM EDT): --Continue scheduled home Effexor, benztropine, haloperidol and trazodone. As needed quetiapine - Psychiatry team has been following Assessment & Plan (07/16/2025 5:47 PM EDT): --Continue scheduled home Effexor, benztropine, haloperidol and trazodone. As needed quetiapine - Psychiatry team has been following Assessment & Plan (07/15/2025 4:27 PM EDT): No new concerns --Continue scheduled home Effexor, benztropine, haloperidol and trazodone. As needed quetiapine - Psychiatry team has been following Assessment & Plan (07/13/2025 5:36 PM EDT): No new concerns --Continue scheduled home Effexor, benztropine, haloperidol and trazodone. As needed quetiapine - Psychiatry team has been following Assessment & Plan (07/12/2025 5:58 PM EDT): No new concerns --Continue scheduled home Effexor, benztropine, haloperidol and trazodone. As needed quetiapine - Psychiatry team has been following Assessment & Plan (07/11/2025 2:26 PM EDT): No new concerns --Continue scheduled home Effexor, benztropine, haloperidol and trazodone. As needed quetiapine - Psychiatry team has been following Assessment & Plan (07/10/2025 7:39 PM EDT): No new concerns --Continue scheduled home Effexor, benztropine, haloperidol and trazodone. As needed quetiapine - Psychiatry team has been following Assessment & Plan (07/09/2025 8:02 PM EDT): No new concerns --Continue scheduled home Effexor, benztropine, haloperidol and trazodone. As needed quetiapine - Psychiatry team has been following Assessment & Plan (07/08/2025 1:54 PM EDT): No new concerns --Continue scheduled home Effexor, benztropine, haloperidol and trazodone. As needed quetiapine - Psychiatry team has been following Assessment & Plan (07/07/2025 2:29 PM EDT): No new concerns --Continue scheduled home Effexor, benztropine, haloperidol and trazodone. As needed quetiapine - Psychiatry team has been following Assessment & Plan (07/06/2025 4:14 PM EDT): No new concerns --Continue scheduled home Effexor, benztropine, haloperidol and trazodone. As needed quetiapine - Psychiatry team has been following Assessment & Plan (07/05/2025 9:30 PM EDT): No new concerns --Continue scheduled home Effexor, benztropine, haloperidol and trazodone. As needed quetiapine - Psychiatry team has been following Assessment & Plan (07/04/2025 11:29 PM EDT): No new concerns --Continue scheduled home Effexor, benztropine, haloperidol and trazodone. As needed quetiapine - Psychiatry team has been following Assessment & Plan (07/03/2025 5:51 PM EDT): No new concerns --Continue scheduled home Effexor, benztropine, haloperidol and trazodone. As needed quetiapine - Psychiatry team has been following Assessment & Plan (07/02/2025 4:27 PM EDT): No new concerns --Continue scheduled home Effexor, benztropine, haloperidol and trazodone. As needed quetiapine - Psychiatry team has been following Assessment & Plan (07/01/2025 1:36 PM EDT): No new concerns --Continue scheduled home Effexor, benztropine, haloperidol and trazodone. As needed quetiapine - Psychiatry team has been following Assessment & Plan (06/30/2025 2:55 PM EDT): No new concerns --Continue scheduled home Effexor, benztropine, haloperidol and trazodone. As needed quetiapine - Psychiatry team has been following Assessment & Plan (06/29/2025 3:36 PM EDT): No new concerns --Continue scheduled home Effexor, benztropine, haloperidol and trazodone. As needed quetiapine - Psychiatry team has been following Assessment & Plan (06/28/2025 6:10 PM EDT): No new concerns --Continue scheduled home Effexor, benztropine, haloperidol and trazodone. As needed quetiapine - Psychiatry team has been following Assessment & Plan (06/27/2025 11:59 AM EDT): No new concerns --Continue scheduled home Effexor, benztropine, haloperidol and trazodone. As needed quetiapine - Psychiatry team has been following Assessment & Plan (06/26/2025 6:06 PM EDT): No new concerns --Continue scheduled home Effexor, benztropine, haloperidol and trazodone. As needed quetiapine - Psychiatry team has been following Assessment & Plan (06/25/2025 5:17 PM EDT): -Continue scheduled home Effexor, benztropine, haloperidol and trazodone -continue as needed seroquel -psych following as above. Patient pending placement in assisted facility Assessment & Plan (06/23/2025 6:08 PM EDT): -Continue scheduled home Effexor, benztropine, haloperidol and trazodone -continue as needed seroquel -psych following as above. Patient pending placement in assisted facility Assessment & Plan (06/22/2025 5:31 PM EDT): -Continue scheduled home Effexor, benztropine, haloperidol and trazodone -continue as needed seroquel -psych following as above. Patient pending placement in assisted facility Assessment & Plan (06/21/2025 7:00 PM EDT): -Continue scheduled home Effexor, benztropine, haloperidol and trazodone -continue as needed seroquel -psych following as above. Patient pending placement in assisted facility Assessment & Plan (06/20/2025 3:13 PM EDT): -Continue scheduled home Effexor, benztropine, haloperidol and trazodone -continue as needed seroquel -psych following as above. Patient pending placement in assisted facility Assessment & Plan (06/19/2025 5:57 PM EDT): -Continue scheduled home Effexor, benztropine, haloperidol and trazodone -continue as needed seroquel -psych following as above. Patient pending placement in assisted facility Assessment & Plan (06/18/2025 5:38 PM EDT): -Continue scheduled home Effexor, benztropine, haloperidol and trazodone -continue as needed seroquel -psych following as above. Patient pending placement in assisted facility Assessment & Plan (06/17/2025 12:25 PM EDT): -Continue scheduled home Effexor, benztropine, haloperidol and trazodone -continue as needed seroquel -psych following as above. Patient pending placement in assisted facility Assessment & Plan (06/16/2025 11:43 AM EDT): -Continue scheduled home Effexor, benztropine, haloperidol and trazodone -continue as needed seroquel -psych following as above. Patient pending placement in assisted facility Assessment & Plan (06/15/2025 8:57 AM EDT): -Continue scheduled home Effexor, benztropine, haloperidol and trazodone -continue as needed seroquel -psych following as above. Patient pending placement in assisted facility Assessment & Plan (06/14/2025 12:36 PM EDT): -Continue scheduled home Effexor, benztropine, haloperidol and trazodone -continue as needed seroquel -psych following as above. Patient pending placement in assisted facility Assessment & Plan (06/13/2025 1:01 PM EDT): -Continue scheduled home Effexor, benztropine, haloperidol and trazodone -continue as needed seroquel -psych following as above. Patient pending placement in assisted facility Assessment & Plan (06/12/2025 12:58 PM EDT): -Continue scheduled home Effexor, benztropine, haloperidol and trazodone -continue as needed seroquel -psych following as above. Patient pending placement in assisted facility Assessment & Plan (06/11/2025 2:57 PM EDT): -Continue scheduled home Effexor, benztropine, haloperidol and trazodone -continue as needed seroquel -psych following as above. Patient pending placement in assisted facility Assessment & Plan (08/28/2024 10:25 AM EST): Patient was recently admitted to psych unit at [facility] between June and August. After that she was at [facility] in [place]. Returned home on 08/24 with [facility] services. She has history of suicidal attempts. Currently not suicidal, cleared by psych. -Continue on Arimidex 1 mg daily -Continue on Abilify 15 mg daily -Continue on Cogentin 1 mg nightly -Continue on haloperidol 1 mg twice daily -Continue Zoloft 150 mg daily -Continue venlafaxine 225 mg daily -Continue trazodone 100 mg nightly -Continue thiamine -Continue with Seroquel as needed Assessment & Plan (09/04/2020 5:53 PM EST): See [facility] notes. Patient has access to resources on discharge Assessment & Plan (05/27/2020 4:59 PM EDT): Severe. It is also very uncommon for a 59-year-old to fall to the ground and not be able to get up. She is severely deconditioned and suspect her depression contributes. This is a long-term problem but she is recently discontinued her antidepressants for fear of weight gain whereas bupropion actually usually causes weight loss. Need psychiatry input for at least medication recommendations for the short-term. Because of her frequent falling and inability to get up she needs a lifeline and have asked social service to meet with her to facilitate this. Chronic diastolic heart failure Assessment & Plan (09/10/2025 1:28 PM EST): No signs or symptoms of volume overload Takes furosemide prn at home Assessment & Plan (09/09/2025 1:26 PM EST): No signs or symptoms of volume overload Takes furosemide prn at home Assessment & Plan (09/08/2025 12:19 PM EST): Euvolemic on exam, with no noted crackles or lower extremity edema - Has been on furosemide in the past as needed Assessment & Plan (09/07/2025 10:15 AM EST): Euvolemic on exam, with no noted crackles or lower extremity edema - Has been on furosemide in the past as needed Assessment & Plan (09/06/2025 11:02 AM EST): No signs or symptoms of volume overload Takes furosemide prn at home Assessment & Plan (09/05/2025 11:36 AM EST): Remains euvolemic Assessment & Plan (09/04/2025 11:04 AM EST): Patient remains euvolemic and on her outpatient medication regimen Assessment & Plan (09/03/2025 11:42 AM EST): Patient remains euvolemic Assessment & Plan (09/02/2025 12:13 PM EST): Patient remains euvolemic Assessment & Plan (09/01/2025 9:34 AM EST): Patient is euvolemic on exam Assessment & Plan (08/31/2025 9:27 AM EST): Patient is euvolemic on exam Assessment & Plan (08/30/2025 9:30 AM EST): Patient is euvolemic on exam Assessment & Plan (08/29/2025 9:27 AM EST): Patient is euvolemic on exam Assessment & Plan (08/28/2025 12:14 PM EST): Patient is euvolemic on exam Assessment & Plan (08/27/2025 2:44 PM EST): Patient is euvolemic on exam Assessment & Plan (08/26/2025 12:56 PM EST): Patient is euvolemic on exam Assessment & Plan (08/25/2025 8:30 AM EST): Patient is euvolemic on exam Assessment & Plan (08/24/2025 11:35 AM EST): Patient is euvolemic on exam Assessment & Plan (08/23/2025 10:00 AM EST): Patient is euvolemic on exam Assessment & Plan (08/22/2025 8:42 AM EST): Patient is euvolemic on exam, with no noted crackles or lower extremity edema patient had been on furosemide in the past may use if needed Assessment & Plan (08/21/2025 8:07 AM EST): Patient is euvolemic on exam, with no noted crackles or lower extremity edema patient had been on furosemide in the past may use if needed Assessment & Plan (08/20/2025 12:58 PM EST): Patient is euvolemic on exam, with no noted crackles or lower extremity edema patient had been on furosemide in the past may use if needed Assessment & Plan (08/19/2025 7:59 AM EST): Patient is euvolemic on exam, with no noted crackles or lower extremity edema patient had been on furosemide in the past may use if needed Assessment & Plan (08/18/2025 10:22 AM EST): Patient is euvolemic on exam, with no noted crackles or lower extremity edema patient had been on furosemide in the past may use if needed Assessment & Plan (08/17/2025 10:25 AM EST): Patient is euvolemic on exam, with no noted crackles or lower extremity edema patient had been on furosemide in the past may use if needed Assessment & Plan (08/16/2025 10:25 AM EST): Patient is euvolemic on exam, with no noted crackles or lower extremity edema patient had been on furosemide in the past may use if needed Assessment & Plan (08/15/2025 8:43 AM EST): Patient is euvolemic on exam, with no noted crackles or lower extremity edema patient had been on furosemide in the past may use if needed Assessment & Plan (08/14/2025 10:41 AM EST): Patient is euvolemic on exam, with no noted crackles or lower extremity edema patient had been on furosemide in the past may use if needed Assessment & Plan (08/13/2025 12:01 PM EST): Patient is euvolemic on exam, with no noted crackles or lower extremity edema patient had been on furosemide in the past may use if needed Assessment & Plan (08/12/2025 8:11 AM EST): Patient is euvolemic on exam, with no noted crackles or lower extremity edema patient had been on furosemide in the past may use if needed Assessment & Plan (08/11/2025 9:20 AM EST): Patient is euvolemic on exam, with no noted crackles or lower extremity edema patient had been on furosemide in the past may use if needed Assessment & Plan (08/10/2025 9:23 AM EST): Patient is euvolemic on exam, with no noted crackles or lower extremity edema patient had been on furosemide in the past may use if needed Assessment & Plan (08/09/2025 5:46 PM EST): Patient is euvolemic on exam, with no noted crackles or lower extremity edema patient had been on furosemide in the past may use if needed Assessment & Plan (08/08/2025 1:52 PM EST): Patient is euvolemic on exam, with no noted crackles or lower extremity edema patient had been on furosemide in the past may use if needed Assessment & Plan (08/07/2025 2:39 PM EST): Patient is euvolemic on exam, with no noted crackles or lower extremity edema patient had been on furosemide in the past may use if needed Assessment & Plan (08/06/2025 9:40 AM EST): Patient is euvolemic on exam, with no noted crackles or lower extremity edema patient had been on furosemide in the past may use if needed Assessment & Plan (2025 12:59 PM EST): Patient is euvolemic on exam, with no noted crackles or lower extremity edema patient had been on furosemide in the past may use if needed Assessment & Plan (08/04/2025 9:52 AM EST): Patient is euvolemic on exam, with no noted crackles or lower extremity edema patient had been on furosemide in the past may use if needed Assessment & Plan (08/03/2025 12:40 PM EDT): Patient is euvolemic on exam, with no noted crackles or lower extremity edema patient had been on furosemide in the past may use if needed Assessment & Plan (08/02/2025 11:23 AM EDT): Patient is euvolemic on exam, with no noted crackles or lower extremity edema patient had been on furosemide in the past may use if needed Assessment & Plan (08/01/2025 4:52 PM EDT): Patient is euvolemic on exam, with no noted crackles or lower extremity edema patient had been on furosemide in the past may use if needed Assessment & Plan (07/31/2025 6:40 PM EDT): Patient is euvolemic on exam, with no noted crackles or lower extremity edema patient had been on furosemide in the past may use if needed Assessment & Plan (07/30/2025 9:23 PM EDT): Patient is euvolemic on exam, with no noted crackles or lower extremity edema patient had been on furosemide in the past may use if needed Assessment & Plan (07/29/2025 5:37 PM EDT): Patient is euvolemic on exam, with no noted crackles or lower extremity edema patient had been on furosemide in the past may use if needed Assessment & Plan (07/28/2025 2:27 PM EDT): Patient is euvolemic on exam, with no noted crackles or lower extremity edema patient had been on furosemide in the past may use if needed Assessment & Plan (07/27/2025 9:49 AM EDT): Patient is euvolemic on exam, with no noted crackles or lower extremity edema patient had been on furosemide in the past may use if needed Assessment & Plan (07/26/2025 10:28 AM EDT): euvolemic on exam. No JVD crackles or leg edema. -- Patient has taken furosemide previously. Can be given if needed Assessment & Plan (07/25/2025 11:06 AM EDT): euvolemic on exam. No JVD crackles or leg edema. -- Patient has taken furosemide previously. Can be given if needed Assessment & Plan (07/24/2025 12:29 PM EDT): euvolemic on exam. No JVD crackles or leg edema. -- Patient has taken furosemide previously. Can be given if needed Assessment & Plan (07/22/2025 12:35 PM EDT): euvolemic on exam. No JVD crackles or leg edema. -- Patient has taken furosemide previously. Can be given if needed Assessment & Plan (07/21/2025 3:55 PM EDT): euvolemic on exam. No JVD crackles or leg edema. -- Patient has taken furosemide previously. Can be given if needed Assessment & Plan (07/20/2025 3:50 PM EDT): euvolemic on exam. No JVD crackles or leg edema. -- Patient has taken furosemide previously. Can be given if needed Assessment & Plan (07/19/2025 1:36 PM EDT): euvolemic on exam. No JVD crackles or leg edema. -- Patient has taken furosemide previously. Can be given if needed Assessment & Plan (07/18/2025 12:50 PM EDT): euvolemic on exam. No JVD crackles or leg edema. -- Patient has taken furosemide previously. Can be given if needed Assessment & Plan (07/17/2025 2:39 PM EDT): euvolemic on exam. No JVD crackles or leg edema. -- Patient has taken furosemide previously. Can be given if needed Assessment & Plan (07/16/2025 5:47 PM EDT): euvolemic on exam. No JVD crackles or leg edema. -- Patient has taken furosemide previously. Can be given if needed Assessment & Plan (07/15/2025 4:27 PM EDT): euvolemic on exam. No JVD crackles or leg edema. -- Patient has taken furosemide previously. Can be given if needed Assessment & Plan (07/13/2025 5:36 PM EDT): euvolemic on exam. No JVD crackles or leg edema. Patient on lasix as needed for BLE edema, not ordered but could be given as needed Assessment & Plan (07/12/2025 5:58 PM EDT): euvolemic on exam. No JVD crackles or leg edema. Patient on lasix as needed for BLE edema, not ordered but could be given as needed Assessment & Plan (07/11/2025 2:26 PM EDT): euvolemic on exam. No JVD crackles or leg edema. Patient on lasix as needed for BLE edema, not ordered but could be given as needed Assessment & Plan (07/10/2025 7:39 PM EDT): euvolemic on exam. No JVD crackles or leg edema. Patient on lasix as needed for BLE edema, not ordered but could be given as needed Assessment & Plan (07/09/2025 8:02 PM EDT): euvolemic on exam. No JVD crackles or leg edema. Patient on lasix as needed for BLE edema, not ordered but could be given as needed Assessment & Plan (07/08/2025 1:54 PM EDT): euvolemic on exam. No JVD crackles or leg edema. Patient on lasix as needed for BLE edema, not ordered but could be given as needed Assessment & Plan (07/07/2025 2:29 PM EDT): euvolemic on exam. No JVD crackles or leg edema. Patient on lasix as needed for BLE edema, not ordered but could be given as needed Assessment & Plan (07/06/2025 4:14 PM EDT): euvolemic on exam. No JVD crackles or leg edema. Patient on lasix as needed for BLE edema, not ordered but could be given as needed Assessment & Plan (07/05/2025 9:30 PM EDT): euvolemic on exam. No JVD crackles or leg edema. Patient on lasix as needed for BLE edema, not ordered but could be given as needed Assessment & Plan (07/04/2025 11:29 PM EDT): euvolemic on exam. No JVD crackles or leg edema. Patient on lasix as needed for BLE edema, not ordered but could be given as needed Assessment & Plan (07/03/2025 5:51 PM EDT): euvolemic on exam. No JVD crackles or leg edema. Patient on lasix as needed for BLE edema, not ordered but could be given as needed Assessment & Plan (07/02/2025 4:27 PM EDT): euvolemic on exam. No JVD crackles or leg edema. Patient on lasix as needed for BLE edema, not ordered but could be given as needed Assessment & Plan (07/01/2025 1:36 PM EDT): euvolemic on exam. No JVD crackles or leg edema. Patient on lasix as needed for BLE edema, not ordered but could be given as needed Assessment & Plan (06/30/2025 2:55 PM EDT): euvolemic on exam. No JVD crackles or leg edema. Patient on lasix as needed for BLE edema, not ordered but could be given as needed Assessment & Plan (06/29/2025 3:36 PM EDT): euvolemic on exam. No JVD crackles or leg edema. Patient on lasix as needed for BLE edema, not ordered but could be given as needed Assessment & Plan (06/28/2025 6:10 PM EDT): euvolemic on exam. No JVD crackles or leg edema. Patient on lasix as needed for BLE edema, not ordered but could be given as needed Assessment & Plan (06/27/2025 11:59 AM EDT): euvolemic on exam. No JVD crackles or leg edema. Patient on lasix as needed for BLE edema, not ordered but could be given as needed Assessment & Plan (06/26/2025 6:06 PM EDT): euvolemic on exam. No JVD crackles or leg edema. Patient on lasix as needed for BLE edema, no indication to continue at this time Assessment & Plan (06/25/2025 5:17 PM EDT): euvolemic on exam. No JVD crackles or leg edema. Patient on lasix as needed for BLE edema, no indication to continue at this time Assessment & Plan (06/23/2025 6:08 PM EDT): euvolemic on exam. No JVD crackles or leg edema. Patient on lasix as needed for BLE edema, no indication to continue at this time Assessment & Plan (06/22/2025 5:31 PM EDT): euvolemic on exam. No JVD crackles or leg edema. Patient on lasix as needed for BLE edema, no indication to continue at this time Assessment & Plan (06/21/2025 7:00 PM EDT): euvolemic on exam. No JVD crackles or leg edema. Patient on lasix as needed for BLE edema, no indication to continue at this time Assessment & Plan (06/20/2025 3:13 PM EDT): euvolemic on exam. No JVD crackles or leg edema. Patient on lasix as needed for BLE edema, no indication to continue at this time Assessment & Plan (06/19/2025 5:57 PM EDT): euvolemic on exam. No JVD crackles or leg edema. Patient on lasix as needed for BLE edema, no indication to continue at this time Assessment & Plan (06/18/2025 5:38 PM EDT): Appears euvolemic. No JVD crackles or leg edema. Patient on lasix as needed for BLE edema, no indication to continue at this time Assessment & Plan (06/17/2025 12:25 PM EDT): Patient on lasix as needed for BLE edema, no indication to continue at this time Assessment & Plan (06/16/2025 11:43 AM EDT): Patient on lasix as needed for BLE edema, no indication to continue at this time Assessment & Plan (06/15/2025 8:57 AM EDT): Patient on lasix as needed for BLE edema, no indication to continue at this time Assessment & Plan (06/14/2025 12:36 PM EDT): Patient on lasix as needed for BLE edema, no indication to continue at this time Assessment & Plan (06/13/2025 1:01 PM EDT): Patient on lasix as needed for BLE edema, no indication to continue at this time Assessment & Plan (06/12/2025 12:58 PM EDT): Patient on lasix as needed for BLE edema, no indication to continue at this time Assessment & Plan (06/11/2025 2:57 PM EDT): Patient on lasix as needed for BLE edema, no indication to continue at this time Vascular dementia Assessment & Plan (09/10/2025 1:28 PM EST): Remains calm and cooperative CT brain showed unchanged possibly partially calcified meningioma overlying right frontal convexity without mass effect, no acute abnormalities. Pending placement social work and case management assisting She has had 1 dose of 50 mg Seroquel daily each of the last 3 days. Assessment & Plan (09/09/2025 1:26 PM EST): Remains calm and cooperative CT brain showed unchanged possibly partially calcified meningioma overlying right frontal convexity without mass effect, no acute abnormalities. Pending placement social work and case management assisting She has had 1 dose of 50 mg Seroquel daily each of the last 3 days. Assessment & Plan (09/08/2025 12:19 PM EST): History of vascular dementia without behavioral disturbances. Longstanding history of anxiety and depression, prior suicide attempts. Patient currently on her medications for her anxiety and depression. - Patient is unsafe to return home secondary to her underlying dementia. - Healthcare proxy invoked - Case management/social work working on placement - Routine labs stable - Remains calm and cooperative. Seroquel PRN. On 09/03 patient was noted to be off her baseline oriented x 1 and slow to respond. She was found to have THC Gummies that were given to her by her sister. - CT brain was obtained 09/06 due to dementia diagnosis showed unchanged possibly partially calcified meningioma overlying right frontal convexity without mass effect, no acute abnormalities. - Patient currently back to baseline as I have seen her previously during hospitalization. Alert and oriented to person, place, date unsure of why she is in the hospital. Assessment & Plan (09/07/2025 10:15 AM EST): History of vascular dementia without behavioral disturbances. Longstanding history of anxiety and depression, prior suicide attempts. Patient currently on her medications for her anxiety and depression. - Patient is unsafe to return home secondary to her underlying dementia. - Healthcare proxy invoked - Case management/social work working on placement - Routine labs stable - Remains calm and cooperative. Seroquel PRN. On 09/03 patient was noted to be off her baseline oriented x 1 and slow to respond. She was found to have THC Gummies that were given to her by her sister. - CT brain was obtained 09/06 possibly because patient was altered from baseline showed unchanged possibly partially calcified meningioma overlying right frontal convexity without mass effect, no acute abnormalities. - Patient currently back to baseline as I have seen her previously during hospitalization. Alert and oriented to person, place, date unsure of why she is in the hospital. Assessment & Plan (09/06/2025 11:02 AM EST): Remains calm and cooperative Has not required any Seroquel for agitation or sleep over the last few days, she may not need to continue this CT brain showed unchanged possibly partially calcified meningioma overlying right frontal convexity without mass effect, no acute abnormalities. Pending placement social work and case management assisting Assessment & Plan (09/05/2025 11:36 AM EST): Remains calm and cooperative Has not required any Seroquel for agitation or sleep over the last few days Pending placement social work and case management assisting Assessment & Plan (09/04/2025 11:04 AM EST): History of vascular dementia without behavioral disturbances with psychiatry evaluation 06/2024 Seroquel placed on hold 2 days ago as patient had been more fatigued than baseline. Infectious workup was unrevealing. She remains on her usual psychiatric regimen. Will restart as needed Seroquel in case of anxiety Assessment & Plan (09/03/2025 11:42 AM EST): History of vascular dementia without behavioral disturbances with psychiatry evaluation 06/2024 Patient was initially felt by psychiatrist to require geriatric inpatient psychiatry level of care on 06/10, follow-up evaluation noted the patient had been calm and cooperative but confused, no threats of harm to self or others. No paranoid or delusional statements. Eating and sleeping okay, at that point she was recommended by psychiatrist not to have inpatient geriatric or adult psychiatry level of care, did not require one-to-one observation. Risk of harm to self or others was felt to be minimal. We will continue supportive care while placement in SNF for alf care is completed, this is felt to only be temporary as less restrictive housing options are explored. Patient was a bit more confused than baseline on 09/22, CXR and urine negative. Ultimately found to have contraband at bedside which may have contributed to confusion - these were thought to have been brought in by visitors/family and have now been confiscated. Continue to hold seroquel. Assessment & Plan (09/02/2025 12:13 PM EST): History of vascular dementia without behavioral disturbances with psychiatry evaluation 06/2024 Patient was initially felt by psychiatrist to require geriatric inpatient psychiatry level of care on 06/10, follow-up evaluation noted the patient had been calm and cooperative but confused, no threats of harm to self or others. No paranoid or delusional statements. Eating and sleeping okay, at that point she was recommended by psychiatrist not to have inpatient geriatric or adult psychiatry level of care, did not require one-to-one observation. Risk of harm to self or others was felt to be minimal. We will continue supportive care while placement in SNF for alf care is completed, this is felt to only be temporary as less restrictive housing options are explored. Patient is a bit more confused than baseline overnight per nursing, will check infectious workup. She denies infectious symptoms, consider holding Seroquel. Assessment & Plan (09/01/2025 9:34 AM EST): History of vascular dementia without behavioral disturbances with psychiatry evaluation 06/2024 - Patient is unsafe to return home secondary to her underlying dementia. - Healthcare proxy invoked - She has bed at [facility], case management working on placement, financials pending - Labs and vital signs have been stable - Patient seen by PT 08/21 for c/o increased weakness, skilled PT not recommended Assessment & Plan (08/31/2025 9:27 AM EST): History of vascular dementia without behavioral disturbances with psychiatry evaluation 06/2024 - Patient is unsafe to return home secondary to her underlying dementia. - Healthcare proxy invoked - She has bed at [facility], case management working on placement, financials pending - Labs and vital signs have been stable - Patient seen by PT 08/21 for c/o increased weakness, skilled PT not recommended Assessment & Plan (08/30/2025 9:30 AM EST): History of vascular dementia without behavioral disturbances with psychiatry evaluation 06/2024 - Patient is unsafe to return home secondary to her underlying dementia. - Healthcare proxy invoked - She has bed at [facility], case management working on placement, financials pending - Labs and vital signs have been stable - Patient seen by PT 08/21 for c/o increased weakness, skilled PT not recommended Assessment & Plan (08/29/2025 9:27 AM EST): History of vascular dementia without behavioral disturbances with psychiatry evaluation 06/2024 - Patient is unsafe to return home secondary to her underlying dementia. - Healthcare proxy invoked - She has bed at [facility], case management working on placement, financials pending - Labs and vital signs have been stable - Patient seen by PT 08/21 for c/o increased weakness, skilled PT not recommended Assessment & Plan (08/28/2025 12:14 PM EST): History of vascular dementia without behavioral disturbances with psychiatry evaluation 06/2024 - Patient is unsafe to return home secondary to her underlying dementia. - Healthcare proxy invoked - She has bed at [facility], case management working on placement, financials pending - Labs and vital signs have been stable - Patient seen by PT 08/21 for c/o increased weakness, skilled PT not recommended Assessment & Plan (08/27/2025 2:44 PM EST): History of vascular dementia without behavioral disturbances with psychiatry evaluation 06/2024 - Patient is unsafe to return home secondary to her underlying dementia. - Healthcare proxy invoked - She has bed at [facility] case management working on placement, financials pending - Labs and vital signs have been stable - Patient seen by PT 08/21 for c/o increased weakness, skilled PT not recommended Assessment & Plan (08/26/2025 12:56 PM EST): History of vascular dementia without behavioral disturbances with psychiatry evaluation 06/2024 - Patient is unsafe to return home secondary to her underlying dementia. - Healthcare proxy invoked - She has bed at [facility] case management working on placement, financials pending - Labs and vital signs have been stable - Patient seen by PT 08/21 for c/o increased weakness, skilled PT not recommended Assessment & Plan (08/25/2025 8:30 AM EST): History of vascular dementia without behavioral disturbances with psychiatry evaluation 06/2024 - Patient is unsafe to return home secondary to her underlying dementia. - Healthcare proxy invoked - She has bed at [facility] working on placement, financials pending - Labs and vital signs have been stable - Patient seen by PT 08/21 for c/o increased weakness, skilled PT not recommended Assessment & Plan (08/24/2025 11:35 AM EST): History of vascular dementia without behavioral disturbances with psychiatry evaluation 06/2024 - Patient is unsafe to return home secondary to her underlying dementia. - Healthcare proxy invoked - She has bed at [facility] working on placement, financials pending - Labs and vital signs have been stable - Patient seen by PT 08/21 for c/o increased weakness, skilled PT not recommended Assessment & Plan (08/23/2025 10:00 AM EST): History of vascular dementia without behavioral disturbances with psychiatry evaluation 06/2024 - Patient is unsafe to return home secondary to her underlying dementia. - Healthcare proxy invoked - She has bed at [facility] working on placement, financials pending - Labs and vital signs have been stable - Patient seen by PT 08/21 for c/o increased weakness, skilled PT not recommended Assessment & Plan (08/22/2025 8:42 AM EST): Patient with a history of vascular dementia without behavioral disturbances. Patient had been seen and evaluated by psychiatry on 06/12/2024 for concern of his behavior. Patient does have a longstanding history of anxiety and depression who had been in multiple services that with prior suicide attempts through cutting. Patient currently on her medications for her anxiety and depression. She denies any SI or HI. - Patient is unsafe to return home secondary to her underlying dementia. - Healthcare proxy invoked - Case management/social work working on placement. She has bed at [facility] 08/20 stable - Patient seen by PT 08/21 for c/o increased weakness, skilled PT not reccomended - Patient is constantly visualized laying in bed. Encourage ambulation and increased activity Assessment & Plan (08/21/2025 11:11 AM EST): Patient with a history of vascular dementia without behavioral disturbances. Patient had been seen and evaluated by psychiatry on 06/12/2024 for concern of his behavior. Patient does have a longstanding history of anxiety and depression who had been in multiple services that with prior suicide attempts through cutting. Patient currently on her medications for her anxiety and depression. She denies any SI or HI. - Patient is unsafe to return home secondary to her underlying dementia. - Healthcare proxy invoked - Case management/social work working on placement. She has bed at [facility] 08/20 stable - Follow-up PT consult - Patient is constantly visualized laying in bed. Encourage ambulation and increased activity Assessment & Plan (08/20/2025 12:58 PM EST): Patient with a history of vascular dementia without behavioral disturbances. Patient had been seen and evaluated by psychiatry on 06/12/2024 for concern of his behavior. Patient does have a longstanding history of anxiety and depression who had been in multiple services that with prior suicide attempts through cutting. Patient currently on her medications for her anxiety and depression. She denies any SI or HI. - Patient is unsafe to return home secondary to her underlying dementia. - Healthcare proxy invoked - Case management/social work working on placement. She has bed at [facility] 08/20 stable Assessment & Plan (08/19/2025 10:27 AM EST): Patient with a history of vascular dementia without behavioral disturbances. Patient had been seen and evaluated by psychiatry on 06/12/2024 for concern of his behavior. Patient does have a longstanding history of anxiety and depression who had been in multiple services that with prior suicide attempts through cutting. Patient currently on her medications for her anxiety and depression. She denies any SI or HI. - Patient is unsafe to return home secondary to her underlying dementia. - Healthcare proxy invoked - Case management/social work working on placement. She has bed at [facility] - Routine labs 08/12 stable, will draw BMP in am Assessment & Plan (08/18/2025 10:22 AM EST): Patient with a history of vascular dementia without behavioral disturbances. Patient had been seen and evaluated by psychiatry on 06/12/2024 for concern of his behavior. Patient does have a longstanding history of anxiety and depression who had been in multiple services that with prior suicide attempts through cutting. Patient currently on her medications for her anxiety and depression. She denies any SI or HI. - Patient is unsafe to return home secondary to her underlying dementia. - Healthcare proxy invoked - Case management/social work working on placement - Routine labs 08/12 stable Assessment & Plan (08/17/2025 10:25 AM EST): Patient with a history of vascular dementia without behavioral disturbances. Patient had been seen and evaluated by psychiatry on 06/12/2024 for concern of his behavior. Patient does have a longstanding history of anxiety and depression who had been in multiple services that with prior suicide attempts through cutting. Patient currently on her medications for her anxiety and depression. She denies any SI or HI. - Patient is unsafe to return home secondary to her underlying dementia. - Healthcare proxy invoked - Case management/social work working on placement - Routine labs 08/12 stable Assessment & Plan (08/16/2025 10:25 AM EST): Patient with a history of vascular dementia without behavioral disturbances. Patient had been seen and evaluated by psychiatry on 06/12/2024 for concern of his behavior. Patient does have a longstanding history of anxiety and depression who had been in multiple services that with prior suicide attempts through cutting. Patient currently on her medications for her anxiety and depression. She denies any SI or HI. - Patient is unsafe to return home secondary to her underlying dementia. - Healthcare proxy invoked - Case management/social work working on placement - Routine labs 08/12 stable Assessment & Plan (08/15/2025 8:43 AM EST): Patient with a history of vascular dementia without behavioral disturbances. Patient had been seen and evaluated by psychiatry on 06/12/2024 for concern of his behavior. Patient does have a longstanding history of anxiety and depression who had been in multiple services that with prior suicide attempts through cutting. Patient currently on her medications for her anxiety and depression. She denies any SI or HI. - Patient is unsafe to return home secondary to her underlying dementia. - Healthcare proxy invoked - Case management/social work working on placement - Routine labs 08/12 stable Assessment & Plan (08/14/2025 10:41 AM EST): Patient with a history of vascular dementia without behavioral disturbances. Patient had been seen and evaluated by psychiatry on 06/12/2024 for concern of his behavior. Patient does have a longstanding history of anxiety and depression who had been in multiple services that with prior suicide attempts through cutting. Patient currently on her medications for her anxiety and depression. She denies any SI or HI. - Patient is unsafe to return home secondary to her underlying dementia. - Healthcare proxy invoked - Case management/social work working on placement - Routine labs 08/12 stable Assessment & Plan (08/13/2025 12:01 PM EST): Patient with a history of vascular dementia without behavioral disturbances. Patient had been seen and evaluated by psychiatry on 06/12/2024 for concern of his behavior. Patient does have a longstanding history of anxiety and depression who had been in multiple services that with prior suicide attempts through cutting. Patient currently on her medications for her anxiety and depression. She denies any SI or HI. - Patient is unsafe to return home secondary to her underlying dementia. - Healthcare proxy invoked - Case management/social work working on placement - Routine labs 08/12 stable Assessment & Plan (08/12/2025 8:11 AM EST): Patient with a history of vascular dementia without behavioral disturbances. Patient had been seen and evaluated by psychiatry on 06/12/2024 for concern of his behavior. Patient does have a longstanding history of anxiety and depression who had been in multiple services that with prior suicide attempts through cutting. Patient currently on her medications for her anxiety and depression. She denies any SI or HI. - Patient is unsafe to return home secondary to her underlying dementia. - Healthcare proxy invoked - Case management/social work working on placement - Routine labs 08/12 stable Assessment & Plan (08/11/2025 9:19 AM EST): Patient with a history of vascular dementia without behavioral disturbances. Patient had been seen and evaluated by psychiatry on 06/12/2024 for concern of his behavior. Patient does have a longstanding history of anxiety and depression who had been in multiple services that with prior suicide attempts through cutting. Patient currently on her medications for her anxiety and depression. She denies any SI or HI. - Patient is unsafe to return home secondary to her underlying dementia. - Healthcare proxy invoked - Case management/social work working on placement - Routine labs 08/12 Assessment & Plan (08/10/2025 9:23 AM EST): Patient with a history of vascular dementia without behavioral disturbances. Patient had been seen and evaluated by psychiatry on 06/12/2024 for concern of his behavior. Patient does have a longstanding history of anxiety and depression who had been in multiple services that with prior suicide attempts through cutting. Patient currently on her medications for her anxiety and depression. She denies any SI or HI. - Patient is unsafe to return home secondary to her underlying dementia. - Healthcare proxy invoked - Case management/social work working on placement Assessment & Plan (08/09/2025 5:46 PM EST): Patient with a history of vascular dementia without behavioral disturbances. Patient had been seen and evaluated by psychiatry on 06/12/2024 for concern of his behavior. Patient does have a longstanding history of anxiety and depression who had been in multiple services that with prior suicide attempts through cutting. Patient currently on her medications for her anxiety and depression. She denies any SI or HI. - Patient is unsafe to return home secondary to her underlying dementia. Assessment & Plan (08/08/2025 1:52 PM EST): Patient with a history of vascular dementia without behavioral disturbances. Patient had been seen and evaluated by psychiatry on 06/12/2024 for concern of his behavior. Patient does have a longstanding history of anxiety and depression who had been in multiple services that with prior suicide attempts through cutting. Patient currently on her medications for her anxiety and depression. She denies any SI or HI. - Patient is unsafe to return home secondary to her underlying dementia. Assessment & Plan (08/07/2025 2:39 PM EST): Patient with a history of vascular dementia without behavioral disturbances. Patient had been seen and evaluated by psychiatry on 06/12/2024 for concern of his behavior. Patient does have a longstanding history of anxiety and depression who had been in multiple services that with prior suicide attempts through cutting. Patient currently on her medications for her anxiety and depression. She denies any SI or HI. - Patient is unsafe to return home secondary to her underlying dementia. Assessment & Plan (08/06/2025 9:40 AM EST): Patient with a history of vascular dementia without behavioral disturbances. Patient had been seen and evaluated by psychiatry on 06/12/2024 for concern of his behavior. Patient does have a longstanding history of anxiety and depression who had been in multiple services that with prior suicide attempts through cutting. Patient currently on her medications for her anxiety and depression. She denies any SI or HI. - Patient is unsafe to return home secondary to her underlying dementia. Assessment & Plan (2025 12:59 PM EST): Patient with a history of vascular dementia without behavioral disturbances. Patient had been seen and evaluated by psychiatry on 06/12/2024 for concern of his behavior. Patient does have a longstanding history of anxiety and depression who had been in multiple services that with prior suicide attempts through cutting. Patient currently on her medications for her anxiety and depression. She denies any SI or HI. - Patient is unsafe to return home secondary to her underlying dementia. Assessment & Plan (08/04/2025 9:52 AM EST): Patient with a history of vascular dementia without behavioral disturbances. Patient had been seen and evaluated by psychiatry on 06/12/2024 for concern of his behavior. Patient does have a longstanding history of anxiety and depression who had been in multiple services that with prior suicide attempts through cutting. Patient currently on her medications for her anxiety and depression. She denies any SI or HI. - Patient is unsafe to return home secondary to her underlying dementia. Assessment & Plan (08/03/2025 12:40 PM EDT): Patient with a history of vascular dementia without behavioral disturbances. Patient had been seen and evaluated by psychiatry on 06/12/2024 for concern of his behavior. Patient does have a longstanding history of anxiety and depression who had been in multiple services that with prior suicide attempts through cutting. Patient currently on her medications for her anxiety and depression. She denies any SI or HI. - Patient is unsafe to return home secondary to her underlying dementia. Assessment & Plan (08/02/2025 11:23 AM EDT): Patient with a history of vascular dementia without behavioral disturbances. Patient had been seen and evaluated by psychiatry on 06/12/2024 for concern of his behavior. Patient does have a longstanding history of anxiety and depression who had been in multiple services that with prior suicide attempts through cutting. Patient currently on her medications for her anxiety and depression. She denies any SI or HI. - Patient is unsafe to return home secondary to her underlying dementia. Assessment & Plan (08/01/2025 4:52 PM EDT): Patient with a history of vascular dementia without behavioral disturbances. Patient had been seen and evaluated by psychiatry on 06/12/2024 for concern of his behavior. Patient does have a longstanding history of anxiety and depression who had been in multiple services that with prior suicide attempts through cutting. Patient currently on her medications for her anxiety and depression. She denies any SI or HI. - Patient is unsafe to return home secondary to her underlying dementia. Assessment & Plan (07/31/2025 6:40 PM EDT): Patient with a history of vascular dementia without behavioral disturbances. Patient had been seen and evaluated by psychiatry on 06/12/2024 for concern of his behavior. Patient does have a longstanding history of anxiety and depression who had been in multiple services that with prior suicide attempts through cutting. Patient currently on her medications for her anxiety and depression. She denies any SI or HI. - Telemedicine/FaceTime visit with Lady Couch on Tuesday at 130. - Patient is unsafe to return home secondary to her underlying dementia. Assessment & Plan (07/30/2025 9:23 PM EDT): Patient with a history of vascular dementia without behavioral disturbances. Patient had been seen and evaluated by psychiatry on 06/12/2024 for concern of his behavior. Patient does have a longstanding history of anxiety and depression who had been in multiple services that with prior suicide attempts through cutting. Patient currently on her medications for her anxiety and depression. She denies any SI or HI. - Telemedicine/FaceTime visit with Lady Couch on Tuesday at 130. - Patient is unsafe to return home secondary to her underlying dementia. Assessment & Plan (07/29/2025 5:37 PM EDT): Patient with a history of vascular dementia without behavioral disturbances. Patient had been seen and evaluated by psychiatry on 06/12/2024 for concern of his behavior. Patient does have a longstanding history of anxiety and depression who had been in multiple services that with prior suicide attempts through cutting. Patient currently on her medications for her anxiety and depression. She denies any SI or HI. - Telemedicine/FaceTime visit with Lady Couch on Tuesday at 130. - Patient is unsafe to return home secondary to her underlying dementia. Assessment & Plan (07/28/2025 2:27 PM EDT): Patient with a history of vascular dementia without behavioral disturbances. Patient had been seen and evaluated by psychiatry on 06/12/2024 for concern of his behavior. Patient does have a longstanding history of anxiety and depression who had been in multiple services that with prior suicide attempts through cutting. Patient currently on her medications for her anxiety and depression. She denies any SI or HI. - Telemedicine/FaceTime visit with Lady Couch on Tuesday at 130. - Patient is unsafe to return home secondary to her underlying dementia. Assessment & Plan (07/27/2025 9:49 AM EDT): Patient with a history of vascular dementia without behavioral disturbances. Patient had been seen and evaluated by psychiatry on 06/12/2024 for concern of his behavior. Patient does have a longstanding history of anxiety and depression who had been in multiple services that with prior suicide attempts through cutting. Patient currently on her medications for her anxiety and depression. She denies any SI or HI. On exam today she is noted to be alert and oriented x 3. Patient states overall she is doing well. She is asking if she could go home. She does have a telemedicine/FaceTime visit with Lady Couch on Tuesday at 130. They feel as though is that patient is unsafe to return home secondary to her underlying dementia. Assessment & Plan (05/02/2025 8:33 PM EDT): Presented to the emergency department for concern of altered mental status. I am familiar with Quiana from a prior admission and she appeared to be similar to her baseline to me. I discussed her case with Quiana's sister, Mary Beth, who felt that maybe she was a little bit more sleepy this morning. I also discussed the case with Quiana's VNA, Carrie Nascimento. Carrie states that there was a [employer]ER seeing Quiana that had not seen her for a year. This [employer] recognized that Quiana was much different than the last time she had seen the patient, but Carrie thinks that it is probably that the [employer]ER was unaware of the change in cognition over the past year and believes that Quiana is at baseline. I do not believe that her mental status is an acute change. I will not pursue any additional neurologic imaging especially since she is already on Eliquis and aspirin. Resolved Problems Problem Noted Date Diagnosed Date Resolved Date Electrolyte abnormality 12/04/202304/04 Assessment & Plan (03/02/2024 3:49 PM EDT): Patient presented with recurrent episode of hypokalemia in the setting of poor oral intake over the past few weeks. Significant nausea but no evidence of GI loss. Certainly her nonspecific abdominal discomfort likely contributing to her nausea and poor oral intake. CT abdomen without evidence of intra-abdominal processes. Unclear if recent introduction of Zoloft may be contributing versus Ozempic which chronically suppress her appetite. It has also been desscribed that quetiapine can cause hypokalemia through unclear mechanisms. Stabilized now and appetite is improving Assessment & Plan (12/04/2023 2:42 AM EST): Due to nausea vomiting diarrhea and use of furosemide. We will replete. We will monitor on telemetry. Hypotension 12/04/2023 05/02/2025 Assessment & Plan (12/04/2023 2:42 AM EST): Secondary to dehydration. Asymptomatic. Will have hold parameters for her sotalol. We will hold off on furosemide. Pre-operative cardiovascular examination 05/10/2023 12/04/2023 Assessment & Plan (05/24/2023 10:26 AM EDT): She had nonobstructive coronary artery disease in her catheterization in 2019. She does have a history of diabetes. I ordered a stress test as part of her preoperative risk assessment. Her stress test was completely normal showing no evidence of ischemia or previous AL. She does not need any further testing prior to her upcoming surgery. She may hold her Eliquis for 2 days leading up to the surgery. Recommend that she start it as soon as safe to do so. Assessment & Plan (05/10/2023 1:47 PM EDT): She had nonobstructive coronary artery disease on her catheterization in 2019. She does have a history of diabetes. The patient tells me that she gets very short of breath, worse recently. She is not able to walk up a flight of stairs. She does have some stairs at home. She tells me that after about 4-5 stairs she has to stop and catch her breath. I have suggested that she have a nuclear stress test prior to her upcoming lumpectomy. I will follow-up with her after her stress test has been completed. Postmenopausal bleeding 03/31/2021 03/0 12/2023 Overview (05/05/2021): Risk factors for EIN are high, however the MIrena IUD is effective at preventing EIN and endometrial cancer 05/05- IUD was in cervix, removed; lining thin but anteriorly was sl thicker Assessment & Plan (05/05/2021 5:04 PM EDT): Discussed this assymetry; as she had some pain and vagal-type sxs, bx deferred, I recommended a repeat in 4 months - if lining thicker, would have office bx or sampling in hte OR Assessment & Plan (03/31/2021 2:23 PM EDT): Check SHG and will decide re endometrial bx that day, I would encourage having the bx done Rhabdomyolysis 05/26/2020 05/28/2020 Assessment & Plan (05/27/2020 4:57 PM EDT): Improving with IV hydration and no renal injury. Plan continue hydration overnight, discontinuing when CKs below 500 SIRS (systemic inflammatory response syndrome) 05/26/2020 05/28/2020 Assessment & Plan (05/27/2020 4:58 PM EDT): Resolved Dizziness 11/20/2019 12/04/2023 Assessment & Plan (04/09/2020 8:46 AM EDT): Intermittent random episodes of dizziness lightheadedness nausea shortness of breath and tingling sensation all over her body -ongoing for the past several weeks. Orthostatic vital signs: Supine: BP 156/78, heart rate 49 Sitting: BP 164/82 heart rate 49 Standing: BP 156/70 heart rate 50. We will proceed with 2-week loop monitor to evaluate for possible heart related causes of this. She was recommended to get evaluation of her psychiatric pharmacologic regimen to rule out possible culprits as well. I recommended good hydration, slow position changes, wearing compression stockings. Assessment & Plan (11/20/2019 4:43 PM EST): .This may be related to side effects of medications but she also has some signs consistent with BPV. Did do an MRI today to make sure she did have a stroke. This was okay. PT is saying SNF. Patient finally agreed today. She was referred to acute rehab as well as SNFs Waiting for bed offer. It is very important social work notes go with her and I wrote a nursing order. She has a lot of community health and needs to be started before she leaves SNF Social work reports [facility] long-term plan is to have her in a residential Urinary tract infectious disease 11/19/2019 05/02/2025 Generalized weakness 11/16/2019 024 Assessment & Plan (11/20/2019 4:40 PM EST): Patient had generalized weakness, intermittent confusion, and frequent falls at home since she left psych unit in [place] 11/07. . Her medications were adjusted on her last psychiatric hospitalization in [place], [place]- Ativan Depakote Wellbutrin added. and gabapentin dose increased Lamictal discontinued. Cymbalta and trazodone stayed the same. Considered etiology for symptoms,at this point most likely due to recent changes in psychiatric medications. Patient had her medications with her when she came to the hospital. Reviewed all her bottles and medication counts. It appears she may have taken extra doses of some of her medications. shoe worker has been involved. Apparently patient's med nurse had not seen her since she was discharged from [place] At the time of admission Depakote discontinued as well as Ativan. Wellbutrin dose was decreased. Gabapentin dose also reduced. Psychiatry consulted during hospitalization. Suggested discontinuing trazodone. With psychiatry today reviewed medications, concerns regarding overtaking of medication at home. They did not recommend changing medicines any further or starting new ones. Recommended outpatient follow-up with her usual psychiatrist. I did restart her trazodone at a lower dose since her sleep is very poor she reports Acute cystitis without hematuria 11/16/2019 05/02/2025 Assessment & Plan (11/19/2019 3:09 PM EST): Urine culture from prior to admission showed pansensitive E. coli. Urine culture done this admission mixed growth At admission started on ceftriaxone due to concerns a UTI could be contributing to her symptoms. She received 3 doses Junctional rhythm 11/16/2019 11/17/2019 Assessment & Plan (11/16/2019 6:55 PM EST): This is a new finding on EKG compared to 2 days ago. This could be in the setting of hypokalemia. Primary arrhythmia cannot be ruled out, and could also be contributing to generalized weakness and falls as outlined above. Continue continuous EKG monitoring. Supplement potassium with IV fluid hydration, and she has also been given 40 mEq orally. We will follow-up electrolytes. Magnesium and calcium levels are within normal limits. Check TSH. Repeat EKG after potassium supplementation. Echocardiogram will be scheduled to rule out anatomic abnormality. 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 Normal sinus rhythm without ischemic changes on EKG at this time. Troponin mildly elevated. Question ACS versus symptomatic supraventricular tachycardia or other arrhythmia. Given risk factors, will be treated aggressively for potential ACS. Magnesium has been supplemented for level of 1.3, and this will be followed up. 1. Admit to telemetry 2. Heparin drip anticoagulation protocol 3. Continue atorvastatin 80 mg daily, first dose given in the emergency room 4. Continue metoprolol 25 mg twice daily 5. Continue aspirin 81 mg daily 6. N.p.o. after midnight for potential stress testing or procedure in the morning 7. Cardiology consultation in the morning 8. Nitroglycerin sublingual as needed for recurrent chest pain or jaw pain 9. Follow-up all laboratories and follow serial cardiac enzymes Encounters Date Type Department Care Team Description 09/06/2025 Procedure Pass [facility], Ct Scan - [facility] [address] [place] [address] 06/09/2025 10:41 AM EDT - 09/11/2025 9:51 AM [facility] Hospital Encounter [facility] [address] [place] [address] Liz Hwang MD Albury, Lois C, MD Green, Tracy L, MD Altman, Evan K, DO, MPH Isaiah Bailey MD McCracken, Helena C, DO Barbosa-Angles, Brianna R, DO, MPH Juan Mercedes MD Kielbasa, Shasta A, MD Russo, Margaret A, MD Arepally, Sandeep, MD Grachev, Maksim, DO Nouaime, Georgina K, MD,MPH,NARCISO Chemo Gorman, MD Destini Gonzalez, Stephy Bryan MD Discharge Disposition: Home or Self Care from Last 3 Months Immunizations Immunization Administration Dates Next Due COVID-19 (Pre-07/25) Moderna Vaccine, mRNA, PF 12/05/2020,11/07/2020 INFLUENZA, SPLIT VIRUS, TRIVALENT PF 07/2025(Deferred: Patient Refused - Patient stated that she recieved vaccination in July),07/23/2016 INFLUENZA, SPLIT VIRUS, TRIV ALENT W/ PRESERVATIVE IM 07/09/2015,06/14/2011 Influenza Quadrivalent MDCK Preservative Free IM 08/11/2022 Influenza Quadrivalent Prese rvative Free IM 07/21/2021,06/28/2019,06/01/2017 Influenza Quadrivalent w/ Pr eservative IM 07/27/2018 Influenza Recombinant Dominga valent Preservative Free IM 07/30/2020 Influenza, Unspecified Formulation 07/11/2010, Pneumococcal polysaccharide PPSV23 07/29/2017 Td (adult),2 Lf Tetanus Toxo id, PF, Adsorbed 07/29/2017 Tdap 08/26/2024,05/30/2008 Zoster recombinant 04/18/2018,12/11/2017 Family History Medical History Relation Comments Coronary artery disease Father Relation Status Comments Father Other early 60's Social History Tobacco Use Types Packs/Day Years Used Date Smoking Tobacco: Former Cigarettes 1 40 1 975 - 2014 Smokeless Tobacco: Never Tobacco Cessation:Counseling Given: Not Answered Alcohol Use Standard Drinks/Week Comments No 0 [...] Orientation Straight 10/10/2017 9: 38 AM EST Last Filed Vital Signs Vital Sign Reading Time Taken Comments Blood Pressure 119/70 09/11/2025 7:30 AM EST Pulse 44 09/11/2025 7:30 AM EST Temperature 34.4 C (93.9 F) 09/11/2025 7:30 AM EST Respiratory Rate 18 09/11/2025 7:30 AM EST Oxygen Saturation 98% 09/11/2025 7:30 AM EST Inhaled Oxygen Concentration - - Weight 101.4 kg (223 lb 8 oz) 09/02/2025 8:10 PM EST Height 167.6 cm (5' 5.98 ) 06/11/2025 6:18 AM ED T Body Mass Index 36.09 06/11/2025 6:18 AM EDT Plan of Treatment Health Maintenance Due Date Last Done Comments DEPRESSION SCREENING 1973 HEPATITIS C SCREENING 1979 COLOGUARD 2006 FIT TEST 2006 FOBT 2006 SIGMOIDOSCOPY 2006 VIRTUAL COLONOSCOPY 2006 RSV VACCINE (1 - Risk 50-74 years 1-dose series) 2011 DIABETIC EYE EXAM 03/15/2018 PNEUMOCOCCAL VACCINES (50+ years) (2 of 2 - PCV) 07/29/2018 07/29/2017 LUNG CANCER SCREENING (LDCT Only) 09/04/2020 09/04/2019 URINE MICROALBUMIN/CREATININE RATIO 10/10/2021 10/10/2020 PAP SMEAR 03/31/2024 03/31/2021, 01/12/2017 BLOOD PRESSURE 08/15/2024 02/13/2024 MAMMOGRAM 04/12/2025 04/12/2023, 06/11/2022, 12/30/2020, Additional history exists INFLUENZA VACCINE (#1) 2025 , 06/30/2023, 08/11/2022, Additional history exists COVID-19 VACCINE ( season) 2025 06/30/2023, 08/11/2022, 09/30/2021, Additional history exists HEMOGLOBIN A1C 01/23/2026 07/25/2025, 08/04, 12/06/2023, Additional history exists CREATININE LEVEL 09/03/2026 09/03/2025, 10/2024, 09/01/2025, Additional history exists COLONOSCOPY 07/28/2031 07/28/2021, 11/07/2017 COLORECTAL CANCER SCREENING 07/28/2031 Adult Td,Tdap Booster 08/26/2034 08/26/2024 , 07/29/2017, 05/30/2008 ZOSTER VACCINES Completed 04/18/2018, 12/11/2017 HIV ONE-TIME SCREENING (18-65 YEARS) Completed 09/04/2024 HEPATITIS A VACCINES Aged Out No long er eligible based on patient's age to complete this topic HIB VACCINES Aged Out No longer eligi ble based on patient's age to complete this topic MENINGOCOCCAL VACCINES (ACWY) Aged Out No longer eligible based on patient's age to complete this topic MENINGOCOCCAL VACCINES (B) Aged Out N o longer eligible based on patient's age to complete this topic Medical Devices Implanted Type Area Residential Driver Device Identifier Shelf Expiration Date Model / Serial / Lot Marker Ultraclip 17ga 10cm Tissue Dual Trigger Breast Ti Heart Shape Bx/5ea - [id number] Implanted:Qty: 1 on 04/25/2023 by Spencer Hancock MD at [facility] Right: Breast [employer] [id number] / / Graft Skin (2:1) Covers Up To 540cm 2 [employer] Graftguide Meshed - [id number] Implanted:Qty: 1 on 09/07/2024 by Maciej Booker MD at [facility] Left: Leg [employer] 05/02/2026 [id number] / / [id number] Procedures Procedure Name Priority Date/Time Associated Diagnosis Comments VITAMIN B12 Routine 09/07/2025 5:07 AM EST THYROID STIMULATING HORMONE (TSH) Routine 09/07/2025 5:[address] HEAD WITHOUT CONTRAST Routine 09/06/2025 9:22 AM EST C-REACTIVE PROTEIN (CRP) Timed 09/03/2025 5:27 AM EST COMPREHENSIVE METABOLIC PANEL (CMP) Timed 09/03/2025 5:27 AM EST CBC Routine 09/03/2025 5:27 AM EST URINE SEDIMENT STAT 09/02/2025 11:15 AM EST URINALYSIS WITH REFLEX TO URINE CULTURE STAT 09/02/2025 11:15 AM EST XR CHEST PORTABLE STAT 09/02/2025 9:1 9 AM EST CBC AND DIFFERENTIAL Routine 09/02/2025 5:20 AM EST BASIC METABOLIC PANEL (BMP) Routine 09/02/2025 5:20 AM EST CBC AND DIFFERENTIAL Routine 09/02/2025 5:20 AM EST CBC AND DIFFERENTIAL Routine 09/01/2025 7:31 AM EST BASIC METABOLIC PANEL (BMP) Routine 09/01/2025 7:31 AM EST CBC AND DIFFERENTIAL Routine 09/01/2025 7:31 AM EST CBC Routine 08/31/2025 5:11 AM EST BASIC METABOLIC PANEL (BMP) Routine 08/31/2025 5:11 AM EST BASIC METABOLIC PANEL (BMP) Routine 08/20/2025 5:17 AM EST XR SHOULDER 2 VIEWS (RIGHT) Routine 08/13/2025 8:26 AM EST XR SHOULDER 2 VIEWS (LEFT) Routine 08/13/2025 8:26 AM EST XR KNEE 4 OR MORE VIEWS (BILATERAL) Routine 08/13/2025 8:26 AM EST BASIC METABOLIC PANEL (BMP) Routine 08/12/2025 6:35 AM EST CBC Routine 08/12/2025 6:35 AM EST ECG 12-LEAD Routine 07/26/2025 8:25 AM EDT HEMOGLOBIN A1C Routine 07/25/2025 5:09 AM EDT MAGNESIUM Routine 07/25/2025 5:09 AM EDT BASIC METABOLIC PANEL (BMP) Routine 07/25/2025 5:09 AM EDT CBC Routine 07/25/2025 5:09 AM EDT CBC AND DIFFERENTIAL Routine 07/17/2025 6:21 AM EDT CLOSTRIDIOIDES (CLOSTRIDIUM) DIFFICILE, PCR Routine 07/16/2025 4:43 PM EDT BASIC METABOLIC PANEL (BMP) Routine 07/15/2025 4:46 PM EDT CBC AND DIFFERENTIAL Routine 07/15/2025 4:46 PM EDT XR SHOULDER 2 VIEWS (LEFT) Routine 07/12/2025 6:19 PM EDT BASIC METABOLIC PANEL (BMP) Routine 06/28/2025 6:55 AM EDT CBC Routine 06/28/2025 6:55 AM EDT BI MAMMOGRAM OUTSIDE (NO INTERPRETATION) Routine 04/12/2023 12:00 AM EDT ENDOSCOPY, COLON 07/28/2021 1:38 PM EDT PAP TEST Routine 03/31/2021 12:[address] CHEST LUNG CANCER SCREENING FOLLOW UP Routine 09/04/2019 3:53 PM EST Ex-smoker from Last 3 Months or Most Recently Relevant to Health Maintenance Results * Thyroid Stimulating Hormone (TSH) (09/07/2025 5:07 AM EST) TSH 0.82 0.40 - 5.00 uIU/mL 09/07/2025 7:01 AM EST [facility] Blood (Blood) Venipuncture / Unknown 09/07/2025 5:07 AM EST 09/07/2025 6:18 AM EST us Rosa Regalado HEAD HOST/HOSTESS LAB BLOOD BKR ORDERABLE S Final Result [facility] [address] [place] [address] * Vitamin B12 (09/07/2025 5:07 AM EST) Vitamin B12 348 232 - 1,245 pg/mL 09/07/2025 7:09 AM EST [facility] Blood (Blood) Venipuncture / Unknown 09/07/2025 5:07 AM EST 09/07/2025 6:18 AM EST us Rosa Regalado HEAD HOST/HOSTESS LAB BLOOD BKR ORDERABLE S Final Result [facility] [address] [place] [address] * CT HEAD WITHOUT CONTRAST (09/06/2025 9:22 AM EST) Anatomical Region Laterality Modality Head Computed Tomogra phy 09/06/2025 9:24 AM EST Impressions 09/06/2025 9:33 AM EST 1. No evidence of acute territorial infarction, hemorrhage, or hydrocephalus. 2. Unchanged possible partially calcified meningioma overlying the right frontal convexity without significant associated mass effect. Narrative 09/06/2025 9:[address] HEAD WITHOUT CONTRAST Referring clinician's provided indication for this examination in [facility]: * Mental status change, unknown cause; Vascular dementia, waxing and waning mental status TECHNIQUE: Multidetector-row CT of the head was performed without intravenous contrast using tailored dose modulation techniques. Images were reconstructed in the axial, coronal, and sagittal planes. COMPARISON: MRI BRAIN WITH AND WITHOUT CONTRAST ; CT ANGIO HEAD WITH AND WITHOUT CONTRAST, CT ANGIO NECK WITH CO.. FINDINGS: Darrell Parenchyma: No midline shift, mass effect, parenchymal hemorrhage, or evidence of acute territorial infarct. . Mild nonspecific periventricular and subcortical white matter hypodensities are seen, which can be seen in the setting of chronic small vessel disease. Ventricular System and Extra-Axial Spaces: No extra-axial fluid collections. Unchanged small focus of extra-axial calcification overlying the right frontal convexity that may represent a small meningioma. No evidence of significant associated mass effect. Basilar cisterns are patent. No hydrocephalus. Vascular calcifications are seen in the carotid siphons bilaterally. Extracranial Structures: Mild mucosal thickening is seen throughout the paranasal sinuses. The middle ear cavities and the mastoid air cells are clear. No orbital abnormality. No calvarial lesion is identified. Procedure Note Filomena Diaz MD - 09/06/2025 CT HEAD WITHOUT CONTRAST Referring clinician's provided indication for this examination in [facility]: *Mental status change, unknown cause; Vascular dementia, waxing and waningmental status TECHNIQUE: Multidetector-row CT of the head was performed withoutintravenous contrast using tailored dose modulation techniques. Imageswere reconstructed in the axial, coronal, and sagittal planes. COMPARISON: MRI BRAIN WITH AND WITHOUT CONTRAST ; CT ANGIO HEADWITH AND WITHOUT CONTRAST, CT ANGIO NECK WITH CO.. FINDINGS: Darrell Parenchyma: No midline shift, mass effect, parenchymal hemorrhage,or evidence of acute territorial infarct. . Mild nonspecific periventricular and subcortical white matterhypodensities are seen, which can be seen in the setting of chronic smallvessel disease. Ventricular System and Extra-Axial Spaces: No extra-axial fluidcollections. Unchanged small focus of extra-axial calcification overlyingthe right frontal convexity that may represent a small meningioma. Noevidence of significant associated mass effect. Basilar cisterns arepatent. No hydrocephalus. Vascular calcifications are seen in the carotidsiphons bilaterally. Extracranial Structures: Mild mucosal thickening is seen throughout theparanasal sinuses. The middle ear cavities and the mastoid air cells areclear. No orbital abnormality. No calvarial lesion is identified. IMPRESSION: 1. No evidence of acute territorial infarction, hemorrhage, orhydrocephalus. 2. Unchanged possible partially calcified meningioma overlying the rightfrontal convexity without significant associated mass effect. Rosa eRgalado NP [facility] CT HEAD/NECK Final Result * (ABNORMAL) Comprehensive Metabolic Panel (CMP) (09/03/2025 5:27 AM EST) Sodium 142 136 - 145 mmol/L 09/03/2025 7:25 AM [facility] Potassium 4.1 3.4 - 5.1 mmol/L 09/03/2025 7:25 AM [facility] Chloride 107 98 - 107 mmol/L 09/03/2025 7:25 AM [facility] CO2 24 20 - 31 mmol/L 09/03/2025 7:25 AM [facility] Anion Gap 11 3 - 17 mmol/L 09/03/2025 7:25 AM [facility] BUN 31(H) 6 - 23 mg/dL 09/03/2025 7:25 AM [facility] Creatinine 0.80 0.50 - 1.00 mg/dL 09/03/2025 7:25 AM [facility] eGFR 82 >59 mL/min/1.7 3m2 09/03/2025 7:25 AM [facility] Comment:Estimated glomerular filtration rate calculated using the CKD-EPI refit equation. Glucose 96 70 - 99 mg/dL 09/03/2025 7:25 AM [facility] Calcium 9.2 8.5 - 10.5 mg/dL 09/03/2025 7:25 AM [facility] AST 14 <33 U/L 09/03/2025 7:25 AM [facility] ALT 20 <34 U/L 09/03/2025 7:25 AM [facility] Alkaline Phosphatase 86 40 - 130 U/L 09/03/2025 7:25 AM [facility] Bilirubin, Total 0.3 0.0 - 1.2 mg/dL 09/03/2025 7:25 AM [facility] Total Protein 5.9(L) 6.4 - 8.3 g/dL 09/03/2025 7:25 AM [facility] Albumin 3.7 3.5 - 5.2 g/dL 09/03/2025 7:25 AM [facility] Globulin 2.2 1.9 - 4.1 g/dL 09/03/2025 7:25 AM [facility] Blood (Blood) Venipuncture / Unknown 09/03/2025 5:27 AM EST 09/03/2025 6:31 AM EST us Rosa Regalado HEAD HOST/HOSTESS LAB BLOOD BKR ORDERABLE S Final Result [facility] [address] [place] [address] * (ABNORMAL) CBC (09/03/2025 5:27 AM EST) Only the most recent of5 resultswithin the time period is included. WBC 7.11 4.00 - 11.00 K/uL 09/03/2025 6:44 AM [facility] RBC 3.77(L) 4.00 - 5.20 M/uL 09/03/2025 6:44 AM [facility] Hemoglobin 11.1(L) 12.0 - 16.0 g/dL 09/03/2025 6:44 AM [facility] Hematocrit 35.4(L) 36.0 - 46.0 % 09/03/2025 6:44 AM [facility] MCV 93.9 80.0 - 100.0 fL 09/03/2025 6:44 AM [facility] MCH 29.4 27.0 - 31.0 pg 09/03/2025 6:44 AM [facility] MCHC 31.4(L) 32.0 - 36.0 g/dL 09/03/2025 6:44 AM [facility] PLT 161 150 - 450 K/uL 09/03/2025 6:44 AM [facility] MPV 12.4(H) 8.4 - 12.0 fL 09/03/2025 6:44 AM [facility] RDW-CV 13.0 11.5 - 14.5 % 09/03/2025 6:44 AM [facility] Absolute NRBC 0.00 <=0.00 K cells/uL 09/03/2025 6:44 AM [facility] NRBC 0.0 <=0.0 /100 WBCs 09/03/2025 6:44 AM [facility] Blood (Blood) Venipuncture / Unknown 09/03/2025 5:27 AM EST 09/03/2025 6:31 AM EST us Rosa Regalado HEAD HOST/HOSTESS LAB BLOOD BKR ORDERABLE S Final Result Performing Organization Address [facility]/ZIP Co de Phone Number [address] [address] * C-Reactive Protein (CRP) (09/03/2025 5:27 AM EST) C Reactive Protein <3.0 <10.0 mg/L 09/03/2025 7:25 AM [facility] [facility] Comment:NOTE: This reference range is for the evaluation of inflammation. Order CRP, High Sensitivity for cardiac risk status evaluation. Blood (Blood) Venipuncture / Unknown 09/03/2025 5:27 AM EST 09/03/2025 6:31 AM EST us Rosa Regalado HEAD HOST/HOSTESS LAB BLOOD BKR ORDERABLE S Final Result Performing Organization Address [facility] Co de Phone Number [address] [address] * (ABNORMAL) Urinalysis with Reflex to Urine Culture (09/02/2025 11:15 AM EST) Color Yellow Yellow 09/02/2025 11:55 AM [facility] Clarity Clear Clear 09/02/2025 11:55 AM [facility] Glucose Negative Negative 09/02/2025 11:55 AM [facility] Bilirubin Urine Negative Negative 11:55 AM [facility] Ketone Urine Negative Negative 09/02/2025 11:55 AM [facility] Specific Ione 1.015 1.001 - 1.035 09/02/2025 11:55 AM [facility] Blood Negative Negative 09/02/2025 11:55 AM [facility] pH 5.5 5.0 - 8.0 09/02/2025 11:55 AM [facility] Protein Negative Negative 09/02/2025 11:55 AM [facility] Nitrites Negative Negative 09/02/2025 11:55 AM [facility] Leukocyte Esterase 1+(A) Negative 09/02/2025 11:55 AM EST [facility] Urobilinogen Negative Negative 09/02/2025 11:55 AM [facility] Urine (Urine, Voided) Non-Blood Collection / Unknown 09/02/2025 11:15 AM EST 09/02/2025 11:27 AM EST Rosa Regalado HEAD H[facility]/HOSTESS LAB URINE ORDERABLES Fi nal Result Performing Organization Address [facility] Co de Phone Number [address] [address] * (ABNORMAL) URINE SEDIMENT (09/02/2025 11:15 AM EST) WBC 3-5 0 - 9 /hpf 09/02/2025 11:56 AM [facility] RBC 0-2 0 - 2 /hpf 09/02/2025 11:56 AM [facility] Squamous Epithelial Cells 1-2(A) Not Present /hpf 09/02/2025 11:56 AM [facility] Bacteria 1+(A) Negative /hpf 09/02/2025 11:56 AM [facility] Urine (Urine, Voided) Non-Blood Collection / Unknown 09/02/2025 11:15 AM EST 09/02/2025 11:27 AM EST Rosa Regalado HEAD [facility]OST/HOSTESS LAB URINE ORDERABLES Fi nal Result Performing Organization Address [facility] Co de Phone Number [address] [address] * XR Chest Portable (09/02/2025 9:19 AM EST) Anatomical Region Laterality Modality Chest Computed Radiogr aphy 09/02/2025 9:21 AM EST Impressions 09/02/2025 9:22 AM EST No acute cardiopulmonary abnormality. Narrative 09/02/2025 9:22 AM EST XR CHEST PORTABLE Referring clinician's provided indication for this examination in Epic: Cough COMPARISON: XR CHEST 1 VIEW and multiple other priors FINDINGS: Devices/Tubes/Lines: None. Lungs: Normal. The lungs are clear. No focal consolidation or pulmonary edema. Pleura: Normal. No pleural effusion or pneumothorax. Heart/Mediastinum: The cardiomediastinal silhouette is similarly prominent. Bones/Soft Tissues: Normal. No significant skeletal abnormality. Procedure Note Kanchan Dunn MD - 09/02/2025 XR CHEST PORTABLE Referring clinician's provided indication for this examination in [facility]:Cough COMPARISON: XR CHEST 1 VIEW and multiple other priors FINDINGS: Devices/Tubes/Lines: None. Lungs: Normal. The lungs are clear. No focal consolidation or pulmonaryedema. Pleura: Normal. No pleural effusion or pneumothorax. Heart/Mediastinum: The cardiomediastinal silhouette is similarlyprominent. Bones/Soft Tissues: Normal. No significant skeletal abnormality. IMPRESSION: No acute cardiopulmonary abnormality. Rosa Regalado HEAD HOST/HOSTESS IMG XR CHEST Final R esult * (ABNORMAL) CBC and Differential (09/02/2025 5:20 AM EST) Only the most recent of2 resultswithin the time period is included. WBC 6.52 4.00 - 11.00 K/uL 09/02/2025 5:45 AM [facility] RBC 3.71(L) 4.00 - 5.20 M/uL 09/02/2025 5:45 AM [facility] Hemoglobin 11.1(L) 12.0 - 16.0 g/dL 09/02/2025 5:45 AM [facility] Hematocrit 34.5(L) 36.0 - 46.0 % 09/02/2025 5:45 AM [facility] MCV 93.0 80.0 - 100.0 fL 09/02/2025 5:45 AM [facility] MCH 29.9 27.0 - 31.0 pg 09/02/2025 5:45 AM [facility] MCHC 32.2 32.0 - 36.0 g/dL 09/02/2025 5:45 AM [facility] MPV 12.2(H) 8.4 - 12.0 fL 09/02/2025 5:45 AM [facility] RDW-CV 13.1 11.5 - 14.5 % 09/02/2025 5:45 AM [facility] PLT 161 150 - 450 K/uL 09/02/2025 5:45 AM [facility] Neutrophils 58.1 % 09/02/2025 5:45 AM [facility] Lymphocytes 27.9 % 09/02/2025 5:45 AM [facility] Monocytes 9.2 % 09/02/2025 5:45 AM [facility] Eosinophils 3.7 % 09/02/2025 5:45 AM [facility] Basophils 0.6 % 09/02/2025 5:45 AM [facility] Imm Grans 0.5 % 09/02/2025 5:45 AM [facility] NRBC 0.0 <=0.0 /100 WBCs 09/02/2025 5:45 AM [facility] Absolute Neutrophils 3.79 1.92 - 7.60 K/uL 09/02/2025 5:45 AM [facility] Absolute Lymphocytes 1.82 0.72 - 4.10 K/uL 09/02/2025 5:45 AM [facility] Absolute Monocytes 0.60 0.16 - 1.10 K/uL 09/02/2025 5:45 AM [facility] Absolute Eosinophils 0.24 0.00 - 0.50 K/uL 09/02/2025 5:45 AM [facility] Absolute Basophils 0.04 0.00 - 0.15 K/uL 09/02/2025 5:45 AM [facility] Absolute Imm Grans 0.03 0.00 - 0.09 K/uL 09/02/2025 5:45 AM [facility] Absolute NRBC 0.00 <=0.00 K cells/uL 09/02/2025 5:45 AM [facility] Absolute Neutrophils 3.79 1.92 - 7.60 K/uL 09/02/2025 5:45 AM [facility] Comment:Automated cell count . Manual ANC may differ if performed. Diff Type Auto 09/02/2025 5:45 AM [facility] Blood (Blood) Venipuncture / Unknown 09/02/2025 5:20 AM EST 09/02/2025 5:41 AM EST Darin Gorman MD LAB BLOOD BKR ORD ERABLES Final Result [address] [address] * (ABNORMAL) Basic Metabolic Panel (BMP) (09/02/2025 5:20 AM EST) Only the most recent of8 resultswithin the time period is included. Sodium 141 136 - 145 mmol/L 09/02/2025 6:13 AM [facility] Potassium 4.0 3.4 - 5.1 mmol/L 09/02/2025 6:13 AM [facility] Comment:NOTE: Specimen hemol yzed. Results may be falsely increased. Chloride 106 98 - 107 mmol/L 09/02/2025 6:13 AM [facility] CO2 24 20 - 31 mmol/L 09/02/2025 6:13 AM [facility] Anion Gap 11 3 - 17 mmol/L 09/02/2025 6:13 AM [facility] BUN 30(H) 6 - 23 mg/dL 09/02/2025 6:13 AM [facility] Creatinine 0.90 0.50 - 1.00 mg/dL 09/02/2025 6:13 AM [facility] eGFR 71 >59 mL/min/1.7 3m2 09/02/2025 6:13 AM [facility] Comment:Estimated glomerular filtration rate calculated using the CKD-EPI refit equation. Glucose 120(H) 70 - 99 mg/dL 09/02/2025 6:13 AM [facility] Calcium 8.8 8.5 - 10.5 mg/dL 09/02/2025 6:13 AM [facility] Blood (Blood) Venipuncture / Unknown 09/02/2025 5:20 AM EST 09/02/2025 5:41 AM EST us Darin Gorman MD LAB BLOOD BKR ORD ERABLES Final Result [address] [address] * XR SHOULDER 2 VIEWS (RIGHT) (08/13/2025 8:26 AM EST) Anatomical Region Laterality Modality Shoulder Right Computed Radiogr aphy 08/13/2025 8:38 AM EST Impressions 08/13/2025 8:39 AM EST No acute fracture or dislocation. Narrative 08/13/2025 8:39 AM EST XR SHOULDER 2 OR MORE VIEWS (RIGHT) Referring clinician's provided indication for this examination in Epic: Trauma COMPARISON: None FINDINGS: No acute fracture or dislocation. Normal glenohumeral joint space. Mild acromioclavicular degenerative changes. Osteopenia. Procedure Note Sweta Horowitz MD - 08/13/2025 XR SHOULDER 2 OR MORE VIEWS (RIGHT) Referring clinician's provided indication for this examination in Epic:Trauma COMPARISON: None FINDINGS: No acute fracture or dislocation. Normal glenohumeral joint space. Mildacromioclavicular degenerative changes. Osteopenia. IMPRESSION: No acute fracture or dislocation. us Darrell Marshall DO IMG XR UPPER EXTREMITY Final Result * XR SHOULDER 2 VIEWS (LEFT) (08/13/2025 8:26 AM EST) Anatomical Region Laterality Modality Shoulder Left Computed Radiogr aphy 08/13/2025 8:39 AM EST Impressions 08/13/2025 8:40 AM EST No acute fracture or dislocation. Narrative 08/13/2025 8:40 AM EST XR SHOULDER 2 OR MORE VIEWS (LEFT) Referring clinician's provided indication for this examination in [facility]: Trauma COMPARISON: XR SHOULDER 2 OR MORE VIEWS (LEFT) FINDINGS: No acute fracture or dislocation. Normal glenohumeral joint space. Moderate acromioclavicular degenerative changes. Procedure Note Sweta Horowitz MD - 08/13/2025 XR SHOULDER 2 OR MORE VIEWS (LEFT) Referring clinician's provided indication for this examination in Epic:Trauma COMPARISON: XR SHOULDER 2 OR MORE VIEWS (LEFT) FINDINGS: No acute fracture or dislocation. Normal glenohumeral joint space.Moderate acromioclavicular degenerative changes. IMPRESSION: No acute fracture or dislocation. Darrell Marshall DO IMG XR UPPER EXTREMITY Final Result * XR KNEE 4 OR MORE VIEWS (BILATERAL) (08/13/2025 8:26 AM EST) Anatomical Region Laterality Modality Knee Bilateral, Knee Right, Knee Left Computed Radiography 08/13/2025 8:37 AM EST Impressions 08/13/2025 8:38 AM EST No acute fracture or dislocation. Severe degenerative changes. Narrative 08/13/2025 8:38 AM EST XR KNEE 4 OR MORE VIEWS (BILATERAL) Referring clinician's provided indication for this examination in Epic: S/P Fall COMPARISON: XR KNEE 4 OR MORE VIEWS (RIGHT) FINDINGS: Right Knee: No acute fracture or dislocation. Tricompartment degenerative changes, severe in the medial compartment. No joint effusion. Vascular calcifications. Left Knee: No acute fracture or dislocation. Tricompartment degenerative changes, severe in the medial compartment. No joint effusion. Vascular calcifications. Procedure Note Sweta Horowitz MD - 08/13/2025 XR KNEE 4 OR MORE VIEWS (BILATERAL) Referring clinician's provided indication for this examination in Epic:S/P Fall COMPARISON: XR KNEE 4 OR MORE VIEWS (RIGHT) FINDINGS: Right Knee: No acute fracture or dislocation. Tricompartment degenerativechanges, severe in the medial compartment. No joint effusion. Vascularcalcifications. Left Knee: No acute fracture or dislocation. Tricompartment degenerativechanges, severe in the medial compartment. No joint effusion. Vascularcalcifications. IMPRESSION: No acute fracture or dislocation. Severe degenerative changes. Darrell S Joanna DO IMG XR LOWER EXTREMITY Final Result * ECG 12-LEAD (07/26/2025 8:25 AM EDT) Ventricular Rate EKG/MIN 51 BPM [facility] Atrial Rate 51 BPM [facility] ME Interval 160 ms [facility] QRS Duration 86 ms [facility] QT Interval 470 ms [facility] QTC Interval 433 ms [facility] P [place] 35 degrees [facility] R Wave [place] -6 degrees [facility] T Wave [place] 56 degrees [facility] 07/26/2025 8:25 AM EDT 07/26/2025 10:58 AM EDT Narrative [facility] - 07/26/2025 10:58 AM EDT Sinus bradycardia with Premature supraventricular complexes Nonspecific ST abnormality Abnormal ECG When compared with ECG of 12-Jun-2025 14:09, Premature supraventricular complexes are now Present Confirmed by Cruz Conroy ([id number]) on 07/26/2025 10:58:06 AM Neva Bone HEAD HOST/HOSTESS ECG ORDERABLES Final Re sult [facility] * Magnesium (07/25/2025 5:09 AM EDT) MAGNESIUM 1.9 1.6 - 2.6 mg/dL [facility] Blood 07/25/2025 5:09 AM EDT 07/25/2025 5:44 AM EDT Neva Bone HEAD HOST/HOSTESS LAB BLOOD BKR ORDERABLES Final Result [address] [address] * Hemoglobin A1c (07/25/2025 5:09 AM EDT) HEMOGLOBIN A1C 5.1 4.3 - 5.8 % [facility] Blood 07/25/2025 5:09 AM EDT 07/25/2025 5:45 AM EDT us Neva Main Lizandro HEAD HOST/HOSTESS LAB BLOOD BKR ORDERABLES Final Result Performing Organization Address City/[facility]/ZIP Co de Phone Number [address] [address] * (ABNORMAL) CBC and differential (07/17/2025 6:21 AM EDT) Only the most recent of2 resultswithin the time period is included. WBC 4.87 4.00 - 11.00 K/uL [facility] RBC 4.24 4.00 - 5.20 M/uL [facility] HGB 12.6 12.0 - 16.0 g/dL [facility] HCT 39.2 36.0 - 46.0 % [facility] PLT 140(L) 150 - 450 K/uL [facility] MCV 92.5 80.0 - 100.0 fL [facility] MCH 29.7 27.0 - 31.0 pg [facility] MCHC 32.1 32.0 - 36.0 g/dL [facility] RDW 13.2 11.5 - 14.5 % [facility] MPV 12.6(H) 8.4 - 12.0 fL [facility] NRBC 0.00 0.00 /100 WBCs [facility] ABSOLUTE NRBC 0.00 0.00 K/uL [facility] DIFF METHOD Auto [facility] NEUTS 54.3 48.0 - 76.0 % [facility] LYMPHS 29.4 18.0 - 41.0 % [facility] MONOS 9.4 4.0 - 11.0 % [facility] EOS 5.7(H) 0.0 - 5.0 % [facility] BASOS 1.0 0.0 - 1.5 % [facility] Granulocytes, immature (%) 0.2 0.0 - 0.9 % [facility] ABSOLUTE NEUTS 2.64 1.92 - 7.60 K/uL [facility] ABSOLUTE LYMPHS 1.43 0.72 - 4.10 K/uL [facility] ABSOLUTE MONOS 0.46 0.16 - 1.10 K/uL [facility] ABSOLUTE EOS 0.28 0.00 - 0.50 K/uL [facility] ABSOLUTE BASOS 0.05 0.00 - 0.15 K/uL [facility] Granulocytes, immature 0.01 0.00 - 0.09 K/uL [facility] Blood 07/17/2025 6:21 AM EDT 07/17/2025 6:55 AM EDT Martha Del Rosario MD LAB BLOOD BKR ORDERABLES Final Result [address] [address] * C. DIFFICILE PCR (07/16/2025 4:43 PM EDT) C.DIFFICILE PCR Negative Negative [facility] C.DIFFICILE STRAIN PRESUMPTIVE NEGATIVE PRESUMPTIVE NEGATIVE [facility] Comment:Detection of 027/NAP 1/BI strains of C.difficile is presumptive and is solely for epidemiological purposes and is not intended to guide or monitor treatment of infections. Stool (Stool) 07/16/2025 4:4 3 PM EDT 07/16/2025 4:53 PM EDT Martha Del Rosario MD LAB BODY FLUIDS AND STOOL ORDER SEDA Final Result Performing Organization Address [facility]/ZIP Co de Phone Number [address] [address] * XR SHOULDER 2 VIEWS (LEFT) (07/12/2025 6:19 PM EDT) Anatomical Region Laterality Modality Shoulder Left Computed Radiogr aphy 07/12/2025 9:24 PM EDT Impressions 07/12/2025 9:37 PM EDT Moderate acromioclavicular degenerative changes. Narrative 07/12/2025 9:37 PM EDT XR SHOULDER 2 OR MORE VIEWS (LEFT) Referring clinician's provided indication for this examination in Epic: Pain COMPARISON: MRI SHOULDER WITHOUT CONTRAST (LEFT) FINDINGS: Moderate acromioclavicular degenerative changes. No acute fracture or dislocation. Glenohumeral joint space is maintained. Procedure Note Tien Tai MD - 07/12/2025 XR SHOULDER 2 OR MORE VIEWS (LEFT) Referring clinician's provided indication for this examination in [facility]:Pain COMPARISON: MRI SHOULDER WITHOUT CONTRAST (LEFT) FINDINGS: Moderate acromioclavicular degenerative changes. No acute fracture ordislocation. Glenohumeral joint space is maintained. IMPRESSION: Moderate acromioclavicular degenerative changes. us Martha Del Rosario MD IMG XR UPPER EXTREMITY Final Re sult * Mammogram Outside (No Interpretation) (04/12/2023 12:00 AM EDT) Narrative Lucille Keita - 04/13/2023 9:35 AM EDT This study is for PACS storage only and not for interpretation. Procedure Note Lucille Keita - 04/13/2023 This study is for PACS storage only and not for interpretation. us Unknown Unknown [facility] OUTSIDE IMAGING W/OUT INT ERPRETATION Final Result * ENDOSCOPY, COLON (07/28/2021 1:38 PM EDT) Narrative Transcriptions Javier Garduno MD - 07/28/2021 1:38 PM EDT Patient Name: Quiana Cristhian Parker Attending MD:: JAVIER GARDUNO MD, Procedure Date: 07/28/2021 1:38 PM Date of : 1960 Age: 60 Admit Type: Outpatient Gender: Female Room: [place] [address] Referring MD: KEILA BROWN MD Exam Type: Colonoscopy Indications: High risk colon cancer surveillance: Personalhistory of colonic polyps, Chronic diarrhea, Heme positivestool Medications: Monitored Anesthesia Care Procedure: Informed consent was obtained from the patient after discussion of the indications, limitations, alternatives, benefits, and risks of the procedure. Risks specifically discussed include but are not limited to medication reactions, missed lesions, bleeding, perforation, or the need for emergentsurgery. Throughout the procedure, the patient's bloodpressure, pulse, end-tidal CO2, and oxygen saturations were monitored continuously. The Olympus adult variable colonoscope CF-IG800I #2was introduced through the anus and advanced to thececum, identified by appendiceal orifice and ileocecalvalve. The colonoscopy was performed without difficulty.The patient tolerated the procedure well. The quality of the bowel preparation was excellent. The quality ofthe bowel preparation was evaluated using the BBPS([place] Bowel Preparation Scale) with scores of: Right Colon= 3, Transverse Colon = 3 and Left Colon = 3 (entire mucosa seen well with no residual staining, small fragments of stool or opaque liquid). The total BBPS score equals 9. Complications: No immediate complications. Estimated blood loss: Minimal. Findings: The perianal and digital rectal examinations were normal. A 2 mm polyp was found in the descending colon. The polyp was sessile. The polyp was removed with a cold biopsy forceps. Resection and retrieval werecomplete. Internal hemorrhoids were found during retroflexion. The hemorrhoids were mild. Biopsies for histology were taken with a coldforceps from the right colon and left colon for evaluationof microscopic colitis. The exam was otherwise normal throughout theexamined colon. Impression: - One 2 mm polyp in the descending colon, removedwith a cold biopsy forceps. Resected and retrieved. - Internal hemorrhoids. - Biopsies were taken with a cold forceps from the right colon and left colon for evaluation of microscopic colitis. Recommendation: - Discharge patient to home. - Await pathology results. - Repeat colonoscopy in 5 years for surveillance. - Return to GI office as previously scheduled. JAVIER GARDUNO MD, 07/28/2021 2:12:22 PM This report has been signed electronically. Number of Addenda: 0 Note Initiated On: 07/28/2021 1:38 PM Procedure Code(s): --- Professional --- 28981, Colonoscopy, flexible; with biopsy, single or multiple --- Technical --- 62827, Colonoscopy, flexible; with biopsy, single or multiple Diagnosis Code(s): --- Professional --- Z86.010, Personal history of colonic polyps D12.4, Benign neoplasm of descending colon K64.8, Other hemorrhoids K52.9, Noninfective gastroenteritis and colitis, unspecified R19.5, Other fecal abnormalities --- Technical --- Z86.010, Personal history of colonic polyps D12.4, Benign neoplasm of descending colon K64.8, Other hemorrhoids K52.9, Noninfective gastroenteritis and colitis, unspecified R19.5, Other fecal abnormalities CPT copyright 2018 [employer]. All rights reserved. The codes documented in this report are preliminary and upon certified medical records coder reviewmay be revised to meet current compliance requirements. Procedure Date: 07/28/2021 1:38:38 PM [address] [place] [address] Keila DODSON GI PROCEDURE ORDERABLES Fi nal Result * Pap Smear (03/31/2021 12:00 AM EDT) 03/31/2021 04/01/2021 9:4 3 AM EDT Narrative SEE NARRATIVE - 04/08/2021 3:08 [place] [address] Button Spindler: Erika Blood MD ROBOT DESIGNER Cytology Report FINAL DIAGNOSIS A. PAP SMEAR (SUREPATH) CE: SPECIMEN ADEQUACY: Satisfactory for evaluation; transformation zone present. INTERPRETATION: NEGATIVE FOR INTRAEPITHELIAL LESION OR MALIGNANCY. Electronically Signed Out By: LORIE Coker(ASCP) The Pap test is a screening test primarily for squamous cancers and precursors and has associated false-negative and false-positive results. New technologies such as liquid-based preparations may decrease but will not eliminate all false-negative results. Regular sampling and follow-up of unexplained clinical signs and symptoms are recommended to minimize false negative results. PROCEDURES/ADDENDA HPV Testing (Requested) Ordered Date: 04/01/2021 A. PAP SMEAR (SUREPATH) CE: Human Papilloma Virus Test Negative for high-risk human papillomavirus types 16, 18, 45 and the Other high risk probe set (Includes 31, 33, 35, 39, 51, 52, 56, 58, 59, 66, 68) by [employer] Onclarity HR-HPV analysis. Clinical correlation is advised. This HPV test was performed at [facility], [address] [place] [address]. This test has been FDA approved for SurePath cervical cytology specimens. The accuracy and precision of this test for all other specimen sources has been verified in the Cytopathology Laboratory of the [facility] and has not been cleared or approved by the U.S. Food and Drug Administration. Clinical correlation is advised. CLINICAL HISTORY Date of Last Menstrual Period: Not Provided Menstrual History: Post Menopausal Contraceptive History: Mirena Other Clinical Conditions: Screening Pap SPECIMEN SOURCE A: PAP SMEAR (SUREPATH) CE Patient Name: QUIANA AGUILA : 1960 (Age: 60) Sex: F Institution: [facility] Location: [facility] Date of Collection: 03/31/2021 Date of Reported: 04/08/2021 15:08 Results to: Sis Astudillo MD Sis Astudillo MD CYTOLOGY ORDERABLES Final Result SEE NARRATIVE * CT CHEST LUNG CANCER SCREENING FOLLOW [...] NEGATIVE TOTAL CTDIvol: 2.00 mGy POS [id number] Keila DODSON IMG CT CHEST Final Resu lt from Last 3 Months or Most Recently Relevant to Health Maintenance Insurance MEDICARE PART A & B [facility] ONE CARE MEDICARE REPLACEMENT MEDICARE PART A & B Member Subscriber Plan / Payer (Ef fective 2021-Present) Name:Quiana Aguila Member ID:[id number] Relation to Subscriber:Self Name:Cristhian Parker Quiana Subscriber ID:[id number] Payer ID:[id number] Group ID:Not on file Type:Medicare Address: [employer] [address] [place] [id number] [facility] CARE MEDICARE REPLACEMENT IVORY FABIAN [id number] [place] [id number] MEDICARE PART A & B [facility] CARE MEDICARE REPLACEMENT [employer] [place] [id number] MEDICARE PART A & B CARE MEDICARE REPLACEMENT [employer] [place] [id number] MEDICARE PART A & B Member Subscriber Plan / Payer ( fective 2021-) Name:Quiana Aguila Member ID:[id number] Relation to Subscriber:Self Name:Quiana Aguila Subscriber ID:[id number] Payer ID:[id number] Group ID:Not on file Type:Medicare Address: [employer] [address] ONE CARE MEDICARE REPLACEMENT MEDICARE PART A & B [facility] [facility] [employer] ONE CARE MEDICARE REPLACEMENT MEDICARE PART A & [facility] ONE CARE MEDICARE REPLACEMENT MEDICARE PART A & B [facility] ONE CARE MEDICARE REPLACEMENT [place] [address] [place] [address] MEDICARE PART A & B [facility] ONE CARE MEDICARE REPLACEMENT Advance Directives For more information, please contact: [phone] (9AM - 5PM [facility], Tuesday-Tuesday) Documents on File Type Date Recorded Patient Diagnostic Imaging Manager Expl anation Healthcare Proxy 10/17/2024 12:13 PM * Full Code (Latest Code Status on File) Date Activated Date Inactivated Comments 06/11/2025 2:54 PM Question Answer Comments Code Status Confirmed With: Patient * DNR/DNI (No CPR/No Intubation) Date Activated Date Inactivated Comments 05/02/2025 9:22 PM 06/11/2025 2:54 PM Question Answer Comments Code Status Confirmed With: PatientFamilySurroga teOther (specify below) Code Discussion Comments: Discussed with sister/HCP and VNA who is familiar with patient. They agreed with DNR/DNI. * Full Code Date Activated Date Inactivated Comments 08/28/2024 12:03 AM 05/02/2025 9:22 PM Question Answer Comments Code Status Confirmed With: Patient * Full Code Date Activated Date Inactivated Comments 02/28/2024 11:10 PM 08/28/2024 12:03 AM Question Answer Comments Code Status Confirmed With: Patient Code Status Communicated To: Inpatient Attending * Full Code Date Activated Date Inactivated Comments 12/04/2023 3:00 AM 02/28/2024 11:10 PM Question Answer Comments Code Status Confirmed With: Patient Healthcare Agents on File Name Relationship Healthcare Agent Relationshi p Communication Mary Beth Rubio Sister .Primary Health Care Agent (Proxy form on file) Care Teams News Correspondent Relationship Specialty Start Date End Date Keila Brown PA [address] [place] [phone] PCP - General Floating Operator 04/23/22 Tre Lara MD [address] [place] [address] Psychiatrist Adolescent Medicine 10/10/20 Anastasia Nation MBBS [address] [place] [phone] [email or web address] Primary Oncologist Medical Oncology 01/23/24 Additional Source Comments The information contained in this document represents components of the legal health record. It is not the complete legal health record.[facility]
--- OUTSIDE RECORDS SUMMARY | 2025-09-22 21:16 | XMS_ITS | Encounter Summary ---
Author Organization [facility] Address [address] [place] [address] [place] [id number] Phone Care Team Providers Care Shipping Specialist Name Role Phone Tre Lara MD Unavailable Alicia Brown Primary Care Provider [phone] Maykel Campos MD Unavailable Anastasia Nation Unavailable Encounter Details Date Type Department Care Team (Late st Contact Info) Description 05/19/2023 Procedure [facility], Ct Scan - [facility] [address], [place] [id number] Social History Tobacco Use Types Packs/Day Years [...] documented as of this encounter Care Teams Shipping Specialist Relationship Specialty Start Date End Date Alicia Brown PA [address] [place] [address] PCP - General Ceramic Design Engineer 04/23/22 Tre Lara MD [address] [place] [address] [email or web address] Psychiatrist Adolescent Medicine 10/10/20 Maykel Campos MD [address] [address] Primary Oncologist Hematology and Oncology 06/01/2301/02 Anastasia Nation MBBS [address] [place] [address] [email or web address] Primary Oncologist Medical Oncology 01/23/24 documented as of this encounter Additional Source Comments The information contained in this document represents components of the legal health record. It is not the complete legal health record.[facility]
[2025-09-22 21:20] LABS: Anion Gap 13 (12-20); Blood Urea Nitrogen 31 mg/dL (9-16); Calcium 9.1 mg/dL (8.4-10.2); Carbon Dioxide 23 mmol/L (22-29); Chloride 110 mmol/L (96-108); Creatinine Clr Calc Pharmacy 65.7; Estimated Glomerular Filt Rate 53; Magnesium 1.8 mg/dL (1.6-2.6); Potassium 4.4 mmol/L (3.3-5.1); Sodium 142 mmol/L (135-145)
[2025-09-22 22:23] VITALS: BP 108/53; PULSE 63; RESP 15; O2SAT 96
[2025-09-23 00:34] VITALS: BP 111/58; PULSE 63; RESP 14; TEMP 36.4; O2SAT 96
--- NOTE | 2025-09-23 01:08 | MHC.EDTECH ---
patient ambulated steady with walker to the bathroom, give a urine sample and was placed back in bed with tv on . patient resting comfortably
--- NOTE | 2025-09-23 01:11 | PC.NURSE ---
report given to [facility], awaiting EMS arrival for transport home
[2025-09-23 01:28] LABS: Appearance Urine Clear; Glucose Urine UA Negative (Negative); PH 5.0 (5.0-9.0); Specific Gravity - Urine 1.020 (1.005-1.025); UMIC TRIGGER UA YES
[2025-09-23 01:58] VITALS: BP 111/58; PULSE 63; RESP 14; TEMP 36.4; O2SAT 96
== END 2025-09-23 02:01 | disposition home or self-care (01) ==
PROVIDERS: Emergency Provider Student in an Organized Health Care Education/Training Program; PCP Physician Assistant
DX: S09.90XA Unspecified injury of head, initial encounter (principal); W18.30XA Fall on same level, unspecified, initial encounter; R41.82 Altered mental status, unspecified; E11.9 Type 2 diabetes mellitus without complications; I10 Essential (primary) hypertension; E78.5 Hyperlipidemia, unspecified; I48.91 Unspecified atrial fibrillation; Z79.01 Long term (current) use of anticoagulants; Z79.02 Long term (current) use of antithrombotics/antiplatelets; Z79.899 Other long term (current) drug therapy; Z87.891 Personal history of nicotine dependence; Y93.89 Activity, other specified; Y92.129 Unspecified place in nursing home as the place of occurrence of the external cause; Y99.9 Unspecified external cause status
CPT/HCPCS: 36415; 70450; 72125; 80048; 81001; 83735; 85025; 93005; 96360; 99284

== ENCOUNTER → 2025-09-22 20:44 | Outpatient (BNV) | payer OTHER, SELFPAY | PROVIDERS: Emergency Provider Student in an Organized Health Care Education/Training Program; PCP Physician Assistant; Visit Provider Internal Medicine Cardiovascular Disease | DX: R94.31 Abnormal electrocardiogram [ECG] [EKG] (principal); Z04.3 Encounter for examination and observation following other accident | CPT/HCPCS: 93010 ==

== ENCOUNTER → 2025-09-22 20:52 | Outpatient (BNV) | payer MEDICARE, MEDICAID, SELFPAY | PROVIDERS: Emergency Provider Student in an Organized Health Care Education/Training Program; PCP Physician Assistant; Visit Provider Radiology Diagnostic Radiology | DX: M85.88 Other specified disorders of bone density and structure, other site (principal); I65.23 Occlusion and stenosis of bilateral carotid arteries; S09.90XA Unspecified injury of head, initial encounter; I67.82 Cerebral ischemia | CPT/HCPCS: 70450; 72125 ==